=== PATIENT | female | born 1950 | race Caucasian/White ===

== ENCOUNTER 2023-05-05 11:00 | Outpatient (OUT) | payer MEDICARE, SELFPAY ==
--- NOTE | 2023-05-05 15:10 | CONS_ITS ---
CONSULTATION DATE: ??05/05/2023 TO:? Gideon Wright D.O. HISTORY:? Patient presents today complaining of 5-7/10 pain in her lower back, occurring mainly on the right side, described as sharp pain, increased with activities such as standing, walking and performing transitioning maneuvers.? She reports this pain started approximately two years ago, shortly after starting cardiac rehab.? She feels most comfortable in the semi-recumbent position.? She denied any change in bowel and bladder habits or new sensorimotor change in the lower extremities. EXAM:? Notable for patient having no clinical radiculopathy or myelopathy involving the lower extremities.? Patient did have severe pain with lumbar facet loading maneuvers on the right side from L4 through S1 with associated myofascial spasm of the lumbar paravertebral muscles. IMPRESSION:? Our impression is patient appears to have chronic pain secondary to lumbosacral spondylosis with facet joint loading pain clinically.? RECOMMENDATIONS:? I have recommended diagnostic right sided L4-5, L5-S1 facet joint injection under fluoroscopic guidance.? I have placed her on baclofen 10 mg pills, half to one pill b.i.d. as tolerated.? I have also initiated aquatic therapy.? I have gone over the details of the procedure with the patient.? All her questions answered.? She agrees to proceed with the outline plan. As part of providing excellent, safe, comprehensive care, the following was completed at our patient's visit: 1. A medication reconciliation and review to ensure accurate knowledge of current/active medications, including asking our patients to inform us about any yhra-[id number] medications or herbal remedies/nutritional supplements/alternative remedies. 2. A review to specifically ensure our patients have had annual screening for: elevated body mass index (BMI, see intake chart for exact total), tobacco use, screening for depression, and screening for unhealthy alcohol use.? When screening is concerning, patients are provided with education and the specific recommendation to discuss the concerning health issue and treatment options with their primary care provider. LIDIA
== END 2023-05-05 11:01 | disposition home or self-care (01) ==
LOC: PM 11:01
PROVIDERS: PCP Internal Medicine; Visit Provider Anesthesiology Pain Medicine
DX: M47.817 Spondylosis without myelopathy or radiculopathy, lumbosacral region (principal); G89.29 Other chronic pain
CPT/HCPCS: G0463

== ENCOUNTER 2023-05-31 09:07 | Day surgery (SDC) | payer MEDICARE, SELFPAY ==
[2023-05-31 09:17] VITALS: BP 140/82; PULSE 78; RESP 16; TEMP 36.3; O2SAT 97
[2023-05-31 10:24] VITALS: BP 142/91; RESP 20
[2023-05-31] MEDS: BUPIVACAINE HCL 0.25% PF 25 MG/10 ML VIAL 4 ML INJ (10:24)
[2023-05-31 10:25] VITALS: PULSE 70; PULSE 74; O2SAT 95
[2023-05-31 10:26] VITALS: BP 173/96
--- NOTE | 2023-05-31 10:37 | P.ON_ITS ---
Date of procedure: 05/31/23 Pre-op diagnosis: Lumbar Spondylosis Post-op diagnosis: same Procedure: Right Lumbar L5, S1 facet injection Under fluoroscopic guidance Solution injected: 2millilitersMarcaine 0.25% Anesthesia :none Immediate complications none Time out process compliant After informed consent obtained from the patient placed in the Prone proposition . area was prepped and draped in a sterile fashion using betadine. 25 gauge spinal needle inserted over each of the above mentioned target areas . [place] were directed towards the target under fluoroscopic guidance . after encountering each of the targets , no indication of intravascular intraneuronal or intrathecal needle tip placement. Then 0 .5 to 1 Milliliter was injected at each level. [place] removed postoperatively. patient transferred to recovery in stable condition to be discharged home after meeting criteria Surgeon: Mookie Olmos
== END 2023-05-31 10:31 | disposition home or self-care (01) ==
PROVIDERS: PCP Internal Medicine; Visit Provider Anesthesiology Pain Medicine
DX: M47.816 Spondylosis without myelopathy or radiculopathy, lumbar region (principal)
CPT/HCPCS: 64493; 64494

== ENCOUNTER 2023-06-10 10:49 | Outpatient (OUT) | payer MEDICARE, SELFPAY ==
--- NOTE | 2023-06-10 11:32 | PM.CN ---
Consult Note: HPI Data of Consult Patient: known to practice within the last 3 years Consult date: 06/10/23 Requesting Physician: Usha Ware NP Primary Care Provider: Gideon Wright DO Consult Narrative Narrative: Yasmin is here for f/u of initial dx MBB lumbar right L4/5, L5/S1 done 05/31/23. She recieved 90% relief of pain and increased fx after procedure. She would like to proceed with second dx MBB of same region and ultimately thermal RFA. No adverse medication SE. Medication regimen assists patient to better perform ADLs. No new sensorimotor sx or bowel or bladder issues. cc:: CC: Usha Ware NP Review of Systems ROS Status of ROS 10 or more systems reviewed and unremarkable except as noted in history and below Musculoskeletal Reports: back pain PFSH PFSH Medical History (Updated 06/10/23 @ 11:37 by SERENITY HDZ NP) Surgical History Meds Home Medications and Allergies Home Medications Medication Instructions Recorded Confirmed Type ascorbate calcium (vitamin C) 500 500 mg PO DAILY 05/13/23 05/31/23 History mg tablet aspirin 81 mg tablet,delayed 81 mg PO DAILY 05/13/23 05/31/23 History release atorvastatin 40 mg tablet 40 mg PO DAILY 05/13/23 05/31/23 History calcium carbonate 600 mg-vitamin tab PO 05/13/23 History D3 10 mcg (400 unit) chewable tablet (Calcium 600 with Vitamin D3) cholecalciferol (vitamin D3) 50 50 mcg PO DAILY 05/13/23 05/31/23 History mcg (2,000 unit) capsule loratadine 10 mg tablet (Claritin) 10 mg PO DAILY 05/13/23 05/31/23 History metoprolol succinate 50 mg 50 mg PO DAILY 05/13/23 05/31/23 History tablet,extended release 24 hr prevegen PO DAILY 05/13/23 History vitamin B complex 1 tab PO DAILY 05/13/23 05/31/23 History vitamin E (dl, acetate) 180 mg 180 mg PO DAILY 05/13/23 05/31/23 History (400 unit) capsule baclofen 10 mg tablet mg 05/31/23 History Allergies Allergy/AdvReac Type Severity Reaction Status Date / Time codeine Allergy Unknown Verified 05/31/23 09:23 meperidine [From Demerol] Allergy Unknown Verified 05/31/23 09:23 scallops Allergy Unknown Verified 05/31/23 09:23 Exam Constitutional Documenting provider has reviewed patient's vital signs: yes Common normals: no apparent distress, average body habitus, oriented x3, no limitations, healthy appearing, alert and well nourished General appearance: cooperative, comfortable and well developed Orientation/consciousness: Yes awake, Yes oriented to person, Yes oriented to place and Yes oriented to time HENMT Common normals: normocephalic and moist oral mucous membranes Respiratory Common normals: normal respiratory effort, no retractions and no use of accessory muscles Effort & inspection: able to speak in complete sentences and symmetric chest movement Back & Pelvis Lumbar spine/lower back: normal to inspection, ROM limited, pain with ROM, paraspinal muscle tenderness and paraspinal muscle spasm Other: positive facet load pain right lumbar no radiculopathy muscle strength 4/5 bilat with intact sensation LE Assessment and Plan Assessment and Plan (1) Lumbar spondylosis: (2) Muscle spasm: Plan schedule second dx lumbar right MBB L4/5, L5/S1
== END 2023-06-10 10:50 | disposition home or self-care (01) ==
LOC: PM 10:59
PROVIDERS: PCP Internal Medicine; Visit Provider Nurse Practitioner
DX: M47.816 Spondylosis without myelopathy or radiculopathy, lumbar region (principal); M62.838 Other muscle spasm
CPT/HCPCS: G0463

== ENCOUNTER 2023-06-23 07:54 | Day surgery (SDC) | payer MEDICARE, SELFPAY ==
[2023-06-23 08:40] VITALS: BP 189/87; PULSE 56; RESP 16; TEMP 36.3; O2SAT 97
[2023-06-23 09:21] VITALS: RESP 20
[2023-06-23] MEDS: BUPIVACAINE HCL 0.25% PF 25 MG/10 ML VIAL 4 ML INJ (09:22)
[2023-06-23 09:23] VITALS: BP 218/95; PULSE 66; O2SAT 97
[2023-06-23 09:24] VITALS: BP 224/97; PULSE 71; O2SAT 95
--- NOTE | 2023-06-23 11:24 | W.PM.PROCNOT ---
Date of procedure: 06/23/23 Pre-op diagnosis: lumbar spondylosis Post-op diagnosis: same as pre-op Procedure: Right lumbar 4/5, 5/sacral 1 medial branch block Under fluoroscopic guidance Solution injected: 2millilitersMarcaine 0.25% Anesthesia :none Immediate complications none Time out process compliant After informed consent obtained from the patient placed in the Prone proposition . area was prepped and draped in a sterile fashion using Cloraprep .25 gauge spinal needle inserted over each of the above mentioned target areas . [place] were directed towards the target under fluoroscopic guidance . after encountering each of the targets , no indication of intravascular intraneuronal or intrathecal needle tip placement. Then 0 .5 to 1 Milliliter was injected at each level. [place] removed postoperatively. patient transferred to recovery in stable condition to be discharged home after meeting criteria Anesthesia: Local Surgeon: Mookie Olmos Condition: stable
== END 2023-06-23 09:28 | disposition home or self-care (01) ==
PROVIDERS: PCP Internal Medicine; Visit Provider Anesthesiology Pain Medicine
DX: M47.816 Spondylosis without myelopathy or radiculopathy, lumbar region (principal)
CPT/HCPCS: 64493; 64494

== ENCOUNTER 2023-07-06 10:10 | Outpatient (OUT) | payer MEDICARE, SELFPAY ==
--- NOTE | 2023-07-06 10:27 | PM.CN ---
Consult Note: HPI Data of Consult Patient: known to practice within the last 3 years Requesting Physician: Usha Ware NP Primary Care Provider: Gideon Wright DO Consult Narrative Reason for consult: MBB #2 right L4/5 L5/S1 f/u Narrative: Yasmin Ortiz a pleasant 72 year old female presents for follow up of chronic low back pain and to discuss recent procedure. Patient reports 90% pain relief and improvement in functional ability immediately following and hours after right L4/5 L5/S1 MBB. Patient would like to discuss and proceed with thermal RFA. cc:: CC: Usha Ware NP Review of Systems ROS Status of ROS 10 or more systems reviewed and unremarkable except as noted in history and below Musculoskeletal Reports: back pain PFSH PFSH Medical History Surgical History Meds Home Medications and Allergies Home Medications Medication Instructions Recorded Confirmed Type ascorbate calcium (vitamin C) 500 500 mg PO DAILY 05/13/23 06/23/23 History mg tablet aspirin 81 mg tablet,delayed 81 mg PO DAILY 05/13/23 06/23/23 History release atorvastatin 40 mg tablet 40 mg PO DAILY 05/13/23 06/23/23 History calcium carbonate 600 mg-vitamin tab PO 05/13/23 History D3 10 mcg (400 unit) chewable tablet (Calcium 600 with Vitamin D3) cholecalciferol (vitamin D3) 50 50 mcg PO DAILY 05/13/23 06/23/23 History mcg (2,000 unit) capsule loratadine 10 mg tablet (Claritin) 10 mg PO DAILY 05/13/23 06/23/23 History metoprolol succinate 50 mg 50 mg PO DAILY 05/13/23 06/23/23 History tablet,extended release 24 hr prevegen PO DAILY 05/13/23 History vitamin B complex 1 tab PO DAILY 05/13/23 06/23/23 History vitamin E (dl, acetate) 180 mg 180 mg PO DAILY 05/13/23 06/23/23 History (400 unit) capsule baclofen 10 mg tablet mg 05/31/23 History Allergies Allergy/AdvReac Type Severity Reaction Status Date / Time codeine Allergy Unknown Verified 06/23/23 08:39 meperidine [From Demerol] Allergy Unknown Verified 06/23/23 08:39 scallops Allergy Unknown Verified 06/23/23 08:39 Exam Narrative Exam Narrative: continues to have predominately axial low back pain, today 12/24 no radiculopathy Constitutional Documenting provider has reviewed patient's vital signs: yes Common normals: no apparent distress, oriented x3, healthy appearing, alert and well nourished General appearance: cooperative HENMT Common normals: normocephalic, hearing grossly normal bilaterally and moist oral mucous membranes Head and scalp: normocephalic Eye Common normals: PERRL Pupil: PERRL Neck & C-Spine Common normals: full ROM General: normal visual inspection Chest Common normals: inspection of chest normal Respiratory Common normals: normal respiratory effort, no retractions and no use of accessory muscles Back & Pelvis Thoracic spine/upper back: normal to inspection and thoracic ROM normal Lumbar spine/lower back: normal to inspection, ROM limited and pain with ROM Extremity Common normals: normal to inspection and full ROM Neuro Common normals: oriented x3, CN's II-XII intact bilaterally, moves all extremities, no focal motor deficits, no sensory deficits noted and deep tendon reflexes 2+ bilaterally Sensorium/orientation: alert Motor exam: strength 5/5 throughout and no movement abnormalities noted Psych Common normals: mental status grossly normal, thought process normal, cooperative, affect normal, speech normal and activity/motor behavior normal Speech: normal speech Thought process: normal thought process Results Additional Findings Additional findings: I have checked an OARRS report on this patient today and there are no aberrancies noted in the prescribing history.?? A drug screen was completed and reviewed within the last year, and if there has not been a drug screen completed we ordered one today to monitor higher risk, state monitored pain medication use. As part of providing excellent, safe, comprehensive care, the following was completed at our patient's visit: 1. A medication reconciliation and review to ensure accurate knowledge of current/active medications, including asking our patients to inform us about any [id number] medications or herbal remedies/nutritional supplements/alternative remedies. 2. A review to specifically ensure our patients have had annual screening for: elevated body mass index (BMI), tobacco use, screening for depression, and screening for unhealthy alcohol use. When screening is concerning, patients are provided with education and the specific recommendation to discuss the concerning health issue and treatment options with their primary care provider. Assessment and Plan Assessment and Plan (1) Lumbar spondylosis: (2) Muscle spasm: Plan proceed with right L4/5 L5/S1 thermal RFA without sedation continue tylenol 650mg PRN pain continue baclofen 10mg BID muscle spasms f/u 1 month after
== END 2023-07-06 10:11 | disposition home or self-care (01) ==
LOC: PM 10:11
PROVIDERS: PCP Internal Medicine; Visit Provider Nurse Practitioner
DX: M47.816 Spondylosis without myelopathy or radiculopathy, lumbar region (principal); M62.838 Other muscle spasm
CPT/HCPCS: G0463

== ENCOUNTER 2023-08-02 09:26 | Day surgery (SDC) | payer MEDICARE, SELFPAY ==
[2023-08-02 10:16] VITALS: BP 164/78; PULSE 52; RESP 16; TEMP 36.2; O2SAT 95
[2023-08-02 11:02] VITALS: RESP 20
[2023-08-02 11:08] VITALS: BP 217/104; PULSE 71; O2SAT 94
[2023-08-02] MEDS: BUPIVACAINE HCL 0.25% PF 25 MG/10 ML VIAL 4 ML INJ (11:08)
[2023-08-02] MEDS: METHYLPREDNISOLONE ACETATE 40 MG/ML VIAL INJ (11:09)
[2023-08-02] MEDS: LIDOCAINE HCL 2% 400 MG/20 ML MDV 8 ML INJ (11:09)
[2023-08-02 11:16] VITALS: BP 197/83; PULSE 68; O2SAT 97
--- NOTE | 2023-08-02 11:21 | PC.NURSE ---
[employer] rep present for pacer/defib. Pacer interrogated by rep and results placed on chart.
--- NOTE | 2023-08-02 11:31 | W.PM.PROCNOT ---
Date of procedure: 08/02/23 Pre-op diagnosis: Lumbar Spondylosis Post-op diagnosis: same as pre-op Procedure: Right Lumbar 4/5, 5/S1 Radiofrequency ablation Under fluoroscopic guidance Rhizotomy was created using radio frequency ablation at 80?C for 90 seconds 1 to 2 lesions created at each site. Post lesioning injection of 2 mL each of 0.25% Marcaine and 2% lidocaine with Depo-Medrol 40mg. 0.5 to 1 mL injected at each site Anesthesia local 2% lidocaine for Timeout process compliant After informed consent obtained.Patient brought to the procedure room placed in the prone position skin overlying the area was prepped and draped in a sterile fashion using betadine. 25 gauge needle was used to create a skin wheal over each of the targeted areas utilizing 2% lidocaine. A rhizotomy needle with a 10 mm active tip was inserted over each of the anesthetized areas and directed towards each of the medial branches accomplished under fluoroscopic guidance. after encountering the same we had positive sensory stimulation, negative motor stimulation was noted. lesions were then created. Post lesioning, steroid solution was injected needles removed. Patient was transferred to recovery room in stable condition to be discharged home after meeting criteria. Anesthesia: Local Surgeon: Mookie Olmos Condition: stable
== END 2023-08-02 11:22 | disposition home or self-care (01) ==
LOC: SURGOUT 09:27
PROVIDERS: PCP Internal Medicine; Visit Provider Anesthesiology Pain Medicine
DX: M47.816 Spondylosis without myelopathy or radiculopathy, lumbar region (principal)
CPT/HCPCS: 64635; 64636; J1030

== ENCOUNTER 2023-09-01 10:26 | Outpatient (OUT) | payer MEDICARE, SELFPAY ==
--- NOTE | 2023-09-01 11:06 | PM.CN ---
Consult Note: HPI Data of Consult Patient: known to practice within the last 3 years Requesting Physician: Usha Ware NP Primary Care Provider: Gideon Wright DO Consult Narrative Reason for consult: f/u Narrative: Yasmin michael pleasant 72 year old female presents for evaluation and management of chronic low back pain. Today rating pain 1/10. Patient reports 100% ongoing pain relief from L4-5 L5-S1. Patient has not needed baclofen PRN. cc:: CC: Usha Ware NP Review of Systems ROS Status of ROS 10 or more systems reviewed and unremarkable except as noted in history and below Musculoskeletal Reports: back pain PFSH PFSH Medical History Congenital heart disease ?Q24.9 - Congenital malformation of heart, unspecified (ICD-10) Former smoker ?Z87.891 - Personal history of nicotine dependence (ICD-10) Hearing deficit ?H91.90 - Unspecified hearing loss, unspecified ear (ICD-10) High cholesterol ?E78.00 - Pure hypercholesterolemia, unspecified (ICD-10) Loud snoring ?R06.83 - Snoring (ICD-10) Low back pain ?M54.50 - Low back pain, unspecified (ICD-10) Presence of combination internal cardiac defibrillator (ICD) and pacemaker ?Z95.810 - Presence of automatic (implantable) cardiac defibrillator (ICD-10) Surgical History H/O arthroscopic knee surgery ?Z98.890 - Other specified postprocedural states (ICD-10) H/O ventricular septal myectomy ?Z98.890 - Other specified postprocedural states (ICD-10) H/O: hysterectomy ?Z90.710 - Acquired absence of both cervix and uterus (ICD-10) Meds Home Medications and Allergies Home Medications Medication Instructions Recorded Confirmed Type ascorbate calcium (vitamin C) 500 500 mg PO DAILY 05/13/23 08/02/23 History mg tablet aspirin 81 mg tablet,delayed 81 mg PO DAILY 05/13/23 08/02/23 History release atorvastatin 40 mg tablet 40 mg PO DAILY 05/13/23 08/02/23 History calcium carbonate 600 mg-vitamin tab PO 05/13/23 History D3 10 mcg (400 unit) chewable tablet (Calcium 600 with Vitamin D3) cholecalciferol (vitamin D3) 50 50 mcg PO DAILY 05/13/23 08/02/23 History mcg (2,000 unit) capsule loratadine 10 mg tablet (Claritin) 10 mg PO DAILY 05/13/23 08/02/23 History metoprolol succinate 50 mg 50 mg PO DAILY 05/13/23 08/02/23 History tablet,extended release 24 hr prevegen PO DAILY 05/13/23 History vitamin B complex 1 tab PO DAILY 05/13/23 08/02/23 History vitamin E (dl, acetate) 180 mg 180 mg PO DAILY 05/13/23 08/02/23 History (400 unit) capsule baclofen 10 mg tablet mg 05/31/23 History acetaminophen 325 mg tablet 650 mg PO .q8hrs PRN pain 08/02/23 08/02/23 History (Tactinal) Allergies Allergy/AdvReac Type Severity Reaction Status Date / Time codeine Allergy Unknown Verified 08/02/23 10:19 meperidine [From Demerol] Allergy Unknown Verified 08/02/23 10:19 scallops Allergy Unknown Verified 08/02/23 10:19 Exam Constitutional Documenting provider has reviewed patient's vital signs: yes Common normals: no apparent distress, oriented x3, healthy appearing, alert and well nourished General appearance: cooperative HENMT Common normals: normocephalic, hearing grossly normal bilaterally and moist oral mucous membranes Head and scalp: normocephalic Eye Common normals: PERRL Pupil: PERRL Neck & C-Spine Common normals: full ROM General: normal visual inspection Chest Common normals: inspection of chest normal Respiratory Common normals: normal respiratory effort, no retractions and no use of accessory muscles Back & Pelvis Thoracic spine/upper back: normal to inspection and thoracic ROM normal Lumbar spine/lower back: normal to inspection, ROM limited and pain with ROM Extremity Common normals: normal to inspection and full ROM Neuro Common normals: oriented x3, CN's II-XII intact bilaterally, moves all extremities, no focal motor deficits, no sensory deficits noted and deep tendon reflexes 2+ bilaterally Sensorium/orientation: alert Motor exam: strength 5/5 throughout and no movement abnormalities noted Psych Common normals: mental status grossly normal, thought process normal, cooperative, affect normal, speech normal and activity/motor behavior normal Speech: normal speech Thought process: normal thought process Results Additional Findings Additional findings: I have checked an OARRS report on this patient today and there are no aberrancies noted in the prescribing history.?? A drug screen was completed and reviewed within the last year, and if there has not been a drug screen completed we ordered one today to monitor higher risk, state monitored pain medication use. As part of providing excellent, safe, comprehensive care, the following was completed at our patient's visit: 1. A medication reconciliation and review to ensure accurate knowledge of current/active medications, including asking our patients to inform us about any nuoq-cew-dasoeuc medications or herbal remedies/nutritional supplements/alternative remedies. 2. A review to specifically ensure our patients have had annual screening for: elevated body mass index (BMI), tobacco use, screening for depression, and screening for unhealthy alcohol use. When screening is concerning, patients are provided with education and the specific recommendation to discuss the concerning health issue and treatment options with their primary care provider. Assessment and Plan Assessment and Plan (1) Lumbar spondylosis: (2) Muscle spasm: Plan f/u 6 months, sooner if needed
== END 2023-09-01 10:27 | disposition home or self-care (01) ==
LOC: PM 10:27
PROVIDERS: PCP Internal Medicine; Visit Provider Nurse Practitioner
DX: M47.896 Other spondylosis, lumbar region (principal); R25.2 Cramp and spasm
CPT/HCPCS: G0463

== ENCOUNTER 2023-09-13 17:09 | Emergency (ER) | payer MEDICARE, SELFPAY ==
[2023-09-13 17:30] VITALS: BP 156/84; PULSE 73; RESP 16; TEMP 36.9; O2SAT 98; BMI 28.3
--- NOTE | 2023-09-13 17:40 | ED.FEMALEGU1 ---
HPI - Female Genitourinary General Chief complaint: Urogenital-Female Stated complaint: UTI Time Seen by Provider: 09/13/23 17:29 Source: patient Mode of arrival: walk-in Limitations: no limitations History of Present Illness HPI Narrative: 72-year-old female presents for dysuria and urgency. She states that she has had symptoms for 2 weeks. She had symptoms for 2 days, 2 weeks ago and her family doctor started her on Keflex. She followed up with Dr. Dee, urology and gave a another urine sample today and then she was called and told to come to the ER. She asked for more information, but they would not provide her any more information other than to come to the ER. She states that she had a fever yesterday of 101 ?F with chills last night. She did not take any Tylenol Motrin today. Denies abd or back pain, n/v/d Related Data Home Medications Medication Instructions Recorded Confirmed ascorbate calcium (vitamin C) 500 500 mg PO DAILY 05/13/23 08/02/23 mg tablet aspirin 81 mg tablet,delayed 81 mg PO DAILY 05/13/23 08/02/23 release atorvastatin 40 mg tablet 40 mg PO DAILY 05/13/23 08/02/23 calcium carbonate 600 mg-vitamin tab PO 05/13/23 D3 10 mcg (400 unit) chewable tablet (Calcium 600 with Vitamin D3) cholecalciferol (vitamin D3) 50 50 mcg PO DAILY 05/13/23 08/02/23 mcg (2,000 unit) capsule loratadine 10 mg tablet (Claritin) 10 mg PO DAILY 05/13/23 08/02/23 metoprolol succinate 50 mg 50 mg PO DAILY 05/13/23 08/02/23 tablet,extended release 24 hr prevegen PO DAILY 05/13/23 vitamin B complex 1 tab PO DAILY 05/13/23 08/02/23 vitamin E (dl, acetate) 180 mg 180 mg PO DAILY 05/13/23 08/02/23 (400 unit) capsule baclofen 10 mg tablet mg 05/31/23 acetaminophen 325 mg tablet 650 mg PO .q8hrs PRN pain 08/02/23 08/02/23 (Tactinal) Allergies Allergy/AdvReac Type Severity Reaction Status Date / Time codeine Allergy Unknown Verified 09/13/23 17:30 meperidine [From Demerol] Allergy Unknown Verified 09/13/23 17:30 scallops Allergy Unknown Verified 09/13/23 17:30 Review of Systems ROS Status of ROS 10 or more systems reviewed and unremarkable except as noted in history and below [facility] Medical History Congenital heart disease ?Q24.9 - Congenital malformation of heart, unspecified (ICD-10) Former smoker ?Z87.891 - Personal history of nicotine dependence (ICD-10) Hearing deficit ?H91.90 - Unspecified hearing loss, unspecified ear (ICD-10) High cholesterol ?E78.00 - Pure hypercholesterolemia, unspecified (ICD-10) Loud snoring ?R06.83 - Snoring (ICD-10) Low back pain ?M54.50 - Low back pain, unspecified (ICD-10) Presence of combination internal cardiac defibrillator (ICD) and pacemaker ?Z95.810 - Presence of automatic (implantable) cardiac defibrillator (ICD-10) Surgical History H/O arthroscopic knee surgery ?Z98.890 - Other specified postprocedural states (ICD-10) H/O ventricular septal myectomy ?Z98.890 - Other specified postprocedural states (ICD-10) H/O: hysterectomy ?Z90.710 - Acquired absence of both cervix and uterus (ICD-10) Exam Narrative Exam Narrative: General: alert, no distress, talking in full an complete sentences skin: warm, dry, intact head: normocephalic, atraumatic eyes: EOMI nose: nares patent neck: supple, trachea midline respiratory: non-labored extremities: FROM x 4, strength +5/5 abd: soft, NT, no guarding or rigidity, no peritoneal signs, normal BS spine: NT, normal ROM, no step offs neuro: A&Ox3 psych: appropriate mood and affect, cooperative Constitutional Vital Signs, click to edit/add: Last Vital Signs Temp 98.5 F 09/13/23 17:30 Pulse 73 09/13/23 17:30 Resp 16 09/13/23 17:30 BP 156/84 H 09/13/23 17:30 Pulse Ox 98 09/13/23 17:30 O2 Del Method Room Air 09/13/23 17:30 Course Vital Signs Vital signs: Vital Signs Temperature 98.5 F 09/13/23 17:30 Pulse Rate 73 09/13/23 17:30 Respiratory Rate 16 09/13/23 17:30 Blood Pressure 156/84 H 09/13/23 17:30 Pulse Oximetry 98 09/13/23 17:30 Oxygen Delivery Method Room Air 09/13/23 17:30 Temperature 98.5 F 09/13/23 17:30 Pulse Rate 73 09/13/23 17:30 Respiratory Rate 16 09/13/23 17:30 Blood Pressure 156/84 H 09/13/23 17:30 Pulse Oximetry 98 09/13/23 17:30 Oxygen Delivery Method Room Air 09/13/23 17:30 MDM - Female Genitourinary MDM Narrative Medical decision making narrative: UA has a small amount of blood, trace leukocytes, WBCs and few epithelial cells. No convincing UTI. Prelim x-ray shows moderate amount of gas with stool will be given a dose of lactulose. Possibly this is causing her symptoms. COVID-negative. Possibly viral illness causing the chills last night. F/u with PCP. afebrile, not tachypneic, not tachycardic, tolerating p.o., not hypoxic, non toxic appearing and ambulating at baseline and hemodynamically stable to be d/c. answered all questions. pt in agreement with tx. educated when to return to ER. Lab Data Attestation: I reviewed the patient's lab results. Labs: Lab Results 09/13/23 09/13/23 Range/Units 17:43 19:15 Urine Color Yellow (YELLOW) Urine Clarity Slightly cloudy A (CLEAR) Urine pH 6.5 (5.0-9.0) Ur Specific [place] <=1.005 A (1.005-1.025) Urine Protein Negative (NEG/TRACE) mg/dL Urine Glucose (UA) Negative (NEGATIVE) mg/dL Urine Ketones Negative (NEGATIVE) mg/dL Urine Occult Blood Small A (NEGATIVE) Urine Nitrite Negative (NEGATIVE) Urine Bilirubin Negative (NEGATIVE) Urine Urobilinogen 0.2 (0.2-1.0) EU/dL Ur Leukocyte Esterase Trace A (NEGATIVE) Urine RBC 0-2 (0-2) #/HPF Urine WBC 0-2 A (NONE SEEN) #/HPF Ur Squamous Epith Cells Few A (NONE/RARE) #/LPF Urine Crystals None seen (None Seen) #/HPF Urine Bacteria None seen (NONE SEEN) #/HPF Urine Casts None seen (NONE SEEN) #/LPF Urine Mucus None seen (NONE SEEN) Ur Culture Indicated? No SARS-CoV-2 (PCR) Negative (NEGATIVE) Discharge Plan Discharge Chief Complaint: Urogenital-Female Clinical Impression: Dysuria, Viral illness Patient Disposition: Home, Self-Care Time of Disposition Decision: 19:39 Condition: Good Mode of Transportation: Private Vehicle Prescriptions / Home Meds: No Action metoprolol succinate 50 mg tablet extended release 24 hr 50 mg PO DAILY atorvastatin 40 mg tablet 40 mg PO DAILY prevegen tablet PO DAILY loratadine [Claritin] 10 mg tablet 10 mg PO DAILY ascorbate calcium (vitamin C) 500 mg tablet 500 mg PO DAILY Calcium 600 with Vitamin D3 600 mg-10 mcg (400 unit) tablet,chewable PO vitamin E (dl, acetate) 180 mg (400 unit) capsule 180 mg PO DAILY cholecalciferol (vitamin D3) 50 mcg (2,000 unit) capsule 50 mcg PO DAILY vitamin B complex Tablet 1 tab PO DAILY aspirin 81 mg tablet,delayed release (DR/EC) 81 mg PO DAILY acetaminophen [Tactinal] 325 mg tablet 650 mg PO .q8hrs PRN (Reason: pain) baclofen 10 mg tablet Instructions: Viral Syndrome (ED), Dysuria (ED) Stand Alone Forms: Portal Instructions Referrals: Gideon Wright DO [Primary Care Provider] - 1 week
[2023-09-13 17:53] LABS: Bilirubin Urine NEGATIVE (NEGATIVE); Blood Urine SMALL (NEGATIVE); Color Urine YELLOW (YELLOW); Glucose Urine UA NEGATIVE (NEGATIVE); Ketones Urine NEGATIVE (NEGATIVE); Leukocyte Esterase Urine TRACE (NEGATIVE); Nitrite Urine NEGATIVE (NEGATIVE); Protein Urine NEGATIVE (NEG/TRACE); Specific Gravity Urine <=1.005 (1.005-1.025); Urobilinogen Urine 0.2 EU/dL (0.2-1.0); pH Urine 6.5 (5.0-9.0)
[2023-09-13 17:54] LABS: Clarity Urine SLIGHTLY CLOUDY (CLEAR)
[2023-09-13 17:59] LABS: Bacteria Urine NONE SEEN #/HPF (NONE SEEN); Mucus Urine NONE SEEN (NONE SEEN); RBC Urine 0-2 #/HPF (0-2); WBC Urine 0-2 #/HPF (NONE SEEN)
[2023-09-13 18:00] LABS: Cast Seen? NONE SEEN #/LPF (NONE SEEN); Crystals Seen? None Seen #/HPF (None Seen); Squamous Epithelial Cell Urine FEW #/LPF (NONE/RARE); Urine Culture Indicated NO
--- NOTE | 2023-09-13 18:10 | XR_ITS ---
The [address] [address] Patient Name: MECCA FUENTES MRN: [id number] date: 1950 Sex: F Assigned Patient Location: ER Current Patient Location: ER Accession/Order Number: [id number] Exam Date: 09/13/2023 18:45 Report Date: 09/13/2023 19:17 At the request of: KAVIN DUMONT Procedure: XR abdomen 1V EXAM: XR abdomen 1V HISTORY: r/o constipation COMPARISON: None. TECHNIQUE: Single view FINDINGS: Bowel gas pattern is nonobstructed. Stool burden is normal. No free intraperitoneal air or intra-abdominal calcification. The osseous structures are unremarkable for patient's age XR/XR abdomen 1V IMPRESSION: No visualized abnormality Electronically authenticated by: GENEVIEVE KENT Date: 09/13/2023 19:17
[2023-09-13 19:31] LABS: SARS-CoV-2 Ag NEGATIVE (NEGATIVE)
[2023-09-13] MEDS: LACTULOSE 10 GM/15 ML UD CUP 20 GM PO (19:43)
[2023-09-15 15:23] LABS: SARS-CoV-2 NAA NOT DETECTED (NOT DETECTE)
== END 2023-09-13 19:49 | disposition home or self-care (01) ==
PROVIDERS: Physician Assistant; Emergency Provider Emergency Medicine; PCP Internal Medicine
DX: R30.0 Dysuria (principal); B34.9 Viral infection, unspecified; Z79.82 Long term (current) use of aspirin; Z79.899 Other long term (current) drug therapy; Q24.9 Congenital malformation of heart, unspecified; Z87.891 Personal history of nicotine dependence; H91.90 Unspecified hearing loss, unspecified ear; E78.00 Pure hypercholesterolemia, unspecified; Z95.810 Presence of automatic (implantable) cardiac defibrillator; Z90.710 Acquired absence of both cervix and uterus; Z98.890 Other specified postprocedural states; Z20.822 Contact with and (suspected) exposure to COVID-19
CPT/HCPCS: 74018; 81001; 87635; 87811; 99285

== ENCOUNTER 2023-10-03 17:58 | Outpatient (REF) | payer MEDICARE, SELFPAY ==
[2023-10-03 23:15] LABS: Basophils Absolute Auto 0.1 10^3/uL (0.0-0.1); Basophils Percent Auto 0.8 % (0.2-2.0); Eosinophils Absolute Auto 0.2 10^3/uL (0.0-0.7); Eosinophils Percent Auto 2.1 % (0.9-7.0); Hematocrit 37.7 % (36.0-48.0); Hemoglobin 12.5 g/dL (12.0-16.0); Immature Granulocytes Abs Auto 0.02 10^3/uL (0.00-0.03); Immature Granulocytes Pct Auto 0.3 % (0.0-0.5); Lymphocytes Absolute Auto 2.8 10^3/uL (1.2-3.8); Lymphocytes Percent Auto 37.8 % (20.5-60.0); Mean Corpuscular HGB Conc 33.2 g/dL (29.9-35.2); Mean Corpuscular Hemoglobin 32.3 pg (26.7-34.0); Mean Corpuscular Volume 97.4 fL (81.0-99.0); Mean Platelet Volume 11.8 fL (9.5-13.5); Monocytes Absolute Auto 0.5 10^3/uL (0.3-0.8); Monocytes Percent Auto 6.7 % (1.7-12.0); Neutrophils Absolute Auto 3.9 10^3/uL (1.4-6.5); Neutrophils Percent Auto 52.3 % (43.0-75.0); Platelet Count 340 10^3/uL (150-450); Red Blood Count 3.87 10^6/uL (4.20-5.40); Red Cell Distribution Width 12.7 % (11.0-15.0); White Blood Count 7.5 10^3/uL (4.0-11.0)
[2023-10-03 23:16] LABS: Estimated GFR (African America >60 (>=60); Estimated GFR (Non-African Ame >60 (>=60)
== END 2023-10-03 17:59 | disposition home or self-care (01) ==
LOC: LAB 17:58
PROVIDERS: PCP Internal Medicine
DX: N15.1 Renal and perinephric abscess (principal)
CPT/HCPCS: 36415; 82565; 85025

== ENCOUNTER 2023-10-10 15:34 | Outpatient (REF) | payer MEDICARE, SELFPAY ==
[2023-10-10 15:52] LABS: Basophils Absolute Auto 0.1 10^3/uL (0.0-0.1); Basophils Percent Auto 0.6 % (0.2-2.0); Eosinophils Absolute Auto 0.2 10^3/uL (0.0-0.7); Hematocrit 38.8 % (36.0-48.0); Hemoglobin 12.9 g/dL (12.0-16.0); Immature Granulocytes Abs Auto 0.02 10^3/uL (0.00-0.03); Immature Granulocytes Pct Auto 0.3 % (0.0-0.5); Lymphocytes Absolute Auto 2.7 10^3/uL (1.2-3.8); Lymphocytes Percent Auto 35.1 % (20.5-60.0); Mean Corpuscular HGB Conc 33.2 g/dL (29.9-35.2); Mean Corpuscular Hemoglobin 32.3 pg (26.7-34.0); Mean Platelet Volume 12.1 fL (9.5-13.5); Monocytes Absolute Auto 0.6 10^3/uL (0.3-0.8); Monocytes Percent Auto 7.6 % (1.7-12.0); Neutrophils Absolute Auto 4.1 10^3/uL (1.4-6.5); Neutrophils Percent Auto 53.4 % (43.0-75.0); Platelet Count 219 10^3/uL (150-450); Red Cell Distribution Width 12.8 % (11.0-15.0); White Blood Count 7.8 10^3/uL (4.0-11.0)
[2023-10-10 15:54] LABS: Estimated GFR (African America >60 (>=60); Estimated GFR (Non-African Ame >60 (>=60)
== END 2023-10-10 15:35 | disposition home or self-care (01) ==
LOC: LAB 15:34
DX: N15.1 Renal and perinephric abscess (principal)
CPT/HCPCS: 36415; 82565; 85025

== ENCOUNTER 2023-12-31 10:35 | Outpatient (OUT) | payer MEDICARE, SELFPAY ==
--- OUTSIDE RECORDS SUMMARY | 2023-12-31 10:39 | XMS_ITS | CCD ---
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 [employer] Novelty Maker Name Role Phone Gideon Adams Primary Care Provider ZAID BARROS Attending Unavailabl e CALIN OBRIEN Consulting Unavailable GIDEON ADAMS Primary Care Unavailable Gideon Adams DO Primary Care Provider [phone] Gideon Adams DO Primary Care Provider GIDEON ADAMS Primary Care Physician Gideon Adams DO Primary Care Provider ANGIE, DR LARSON Primary Care Unavailable BALL, DR LARSON Admitting Unavailable BALL, DR LARSON Attending Unavailable BALL, DR LARSON Primary Care Unavailable REQUEST, DR ROSA LISTED Attending Unavaila ble REQUEST, DR ROSA LISTED Admitting Unavaila ble REQUEST, DR ROSA LISTED Consulting Unavaila ble BALL, DR LARSON Primary Care Unavailable BALL, DR LARSON Admitting Unavailable BALL, DR LARSON Attending Unavailable BALL, DR LARSON Consulting Unavailable WEST, DR GENEVIEVE Saba Consulting Unavailable BROWN, GENEVIEVE Consulting Unavailable BALL, DR LARSON Primary Care Unavailable BALL, DR LARSON Admitting Unavailable BALL, DR LARSON Attending Unavailable BALL, DR LARSON Consulting Unavailable BALL, DR LARSON Primary Care Unavailable BALL, DR LARSON Admitting Unavailable BALL, DR LARSON Attending Unavailable BALL, DR LARSON Consulting Unavailable Ball Gideon CARLOS Primary Care Provider Gideon Adams Unavailable Gideon Adams DO Primary Care Provider [phone] GIDEON ADAMS Primary Care Unavailable BALL, GIDEON Referring Unavailable BALL, GIDEON Referring Unavailable BALL, GIDEON Primary Care Unavailable BALL, GIDEON Primary Care Unavailable BALL, GIDEON Referring Unavailable BALL, GIDEON Primary Care Unavailable BALL, GIDEON Referring Unavailable BALL, GIDEON Primary Care Unavailable BALL, GIDEON Referring Unavailable BALL, GIDEON Primary Care Unavailable BALL, GIDEON Referring Unavailable BALL, GIDEON Primary Care Unavailable BALL, GIDEON Referring Unavailable BALL, GIDEON Primary Care Unavailable BALL, GIDEON Referring Unavailable MENDY, CHELITA Auguste Attending Unavailable MENDY, CHELITA Auguste Admitting Unavailable Gary Oro Admitting Unavailable Gary Oro Attending Unavailable Montana HAWKINS Attending Unavailable MENDY, CHELITA Auguste Attending Unavailable MENDY, CHELITA E Attending Unavailable MENDY, CHELITA E Attending Unavailable MENDY, CHELITA E Attending Unavailable MENDY, CHELITA E Admitting Unavailable MENDY, CHELITA E Attending Unavailable BALL, GIDEON E Primary Care Unavailable ANDREA, ALIN S Referring Unavailable TURK, SHAINA Admitting Unavailable BALL, GIDEON E Primary Care Unavailable ALEKSANDR TAFOYA Attending Unavailable BALL, GIDEON E Primary Care Unavailable HEATHER ROJAS Attending Unavailable DRESINBRIDGER Alvarenga Referring Unavailable BALL, GIDEON E Primary Care Unavailable DRESINBRIDGER Alvarenga Referring Unavailable BALL, GIDEON E Primary Care Unavailable DRESINBRIDGER Alvarenga Attending Unavailable HSIA, SHABNAM T Attending Unavailable HSIA, SHABNAM T Referring Unavailable BALL, GIDEON E Primary Care Unavailable DANNIELLE, MATILDE Referring Unavailable BALL, GIDEON E Primary Care Unavailable DANNIELLE, MATILDE Attending Unavailable BALL, GIDEON E Primary Care Unavailable BALL, IGDEON E Primary Care Unavailable Allergies Allergy Classification Reported Allergen(s) Allergy Type Date of Onset Reaction(s) Facility (20 sources) Codeine; Translations: [codeine] Drug Allergy 3 Nausea And Vomiting, Nausea (finding), Vomiting [place], [place] (20 sources) Meperidine; Translations: [meperidine] Drug Allergy 3 Nausea And Vomiting, Nausea (finding), Vomiting [place], [place] (10 sources) Ciprofloxacin; Translations: [ciprofloxacin] Drug Allergy Alteration in heart rate (finding) [facility] (9 sources) Seafood 1 Food allergy Diarrhea (finding), Vomiting (disorder) [facility] Comment on above: SCALLOPS (20 sources) scallop allergenic extract; Translations: [SCALLOPS] Drug Allergy 0 Other: See Comments [facility] (7 sources) Meperidine; Translations: [Demerol] Drug Allergy Unknown [facility] (1 source) Seafood; Translations: [Seafood] Food allergy (disorder) [facility] Medications Current Medications Medication Drug Class(es) Dates Sig (Normalized) Sig (Original) acetaminophen 325 mg oral tablet (12 sources) take 2 tablets by mouth every six hours as needed for pain acetaminophen (TYLENOL) 325 MG tablet Take 650 mg by mouth every 6 hours as needed for Pain 0 Active acetaminophen 500 mg / diphenhydrAMINE hydrochloride 25 mg oral tablet (1 source) Histamine-1 Receptor Antagonist take 1 tablet by mouth every twenty-four hours apixaban 5 mg oral tablet (12 sources) Factor Xa Inhibitor apixaban (ELIQUIS) 5 MG TABS tablet Take by mouth 2 times daily 0 Active ascorbic acid 500 mg chewable tablet (13 sources) Vitamin C Vitamin C 500 MG as directed Orally Active take 4 tablets by mouth once shari ly Ascorbic Acid (VITAMIN C) 250 MG tablet Take 1,000 mg by mouth daily 0 Active Aspir-81 81 MG (6 sources) take 2 tablets by mouth once daily Aspir-81 81 MG 2 tablets Orally Daily for 30 day(s) Active aspirin 81 mg delayed release oral tablet (20 sources) Platelet Aggregation Inhibitor, Nonsteroidal Anti-inflammatory Drug Start: 12-28-2023 take 162 mg by mouth once daily Aspirin Active 162 MG PO Daily December 28, 2023 12:00am Start: 07-19-2023 take 1 mg by mouth e very twenty-four hours aspirin 81 mg oral capsule mg cap(s), Oral, q24hr, Refills(s) 0 Start Date: 07/19/23 Status: Ordered Start: 06-28-2021 take 1 tablet by mouth once da linda aspirin 81 mg chewable tablet Chew and swallow 1 tablet by mouth once daily. 30 tablet 1 06/28/2021 Active Comment on above: Chew and swallow 1 t ablet by mouth once daily. atorvastatin 40 mg oral tablet (20 sources) HMG-CoA Reductase Inhibitor Start: take 40 mg by mouth once daily Atorvastatin Active 40 MG PO Daily December 28, 2023 12:00am Start: 03-16-2021 End: 08-12-2023 take 1 mg by mouth once daily atorvastatin 40 mg Tab m g tab(s), Oral, Daily, Refills(s) 0 Start Date: 03/16/21 Status: Ordered Comment on above: Take 40 mg by mouth once daily. Take 40 mg by mouth daily at bedtime. 24 hr buPROPion hydrochloride 300 mg extended release oral tablet (2 sources) Aminoketone Start: 06-13-20 take 1 tablet by mouth once daily buPROPion (WELLBUTRIN XL) 300 MG extended release tablet Take 300 mg by mouth daily 0 06/13/2019 Active calcium carbonate 1000 mg chewable tablet (2 sources) Start: 09-24-20 take 1 tablet by mouth once daily calcium carbonate 1000 mg oral tablet, chewable 1,000 mg = 1 tab(s), Chewed, Daily, Refills(s) 0 Start Date: 09/24/23 Status: Ordered calcium carbonate 1250 mg / cholecalciferol 200 unt oral tablet (14 sources) Vitamin D take 1 tablet by mouth twice daily at mealtime Calcium Carbonate-Vitamin D (CALCIUM-VITAMIN D) 500-200 MG-UNIT per tablet Take 1 tablet by mouth 2 times daily (with meals) 0 Active cephalexin 500 mg oral capsule (2 sources) Cephalosporin Antibacterial Start: 09-01-20 End: 09-08-20 take 1 capsule by mouth every twelve hours Keflex 500 mg Cap 500 mg = 1 cap(s), Oral, q12hr, X 7 day(s), # 14 cap(s), Refills(s) 0, Pharmacy: [facility] [id number], 165, cm, 07/19/23 11:12:00 EDT, Height/Length Dosing, 81.5, kg, 07/19/23 11:12:00 EDT, Weight Dosing Start Date: 09/01/23 Stop Date: 09/08/23 Status: Ordered cholecalciferol 0.05 mg oral capsule (20 sources) Vitamin D take 1 capsule by mouth every twenty-four hours Vitamin D3 50 MCG (2000 UT) 1 capsule Orally Once a day Active Prevagen 10 MG a s directed Orally Active Cholecalciferol (VITAMIN D) 2000 UNITS CAPS capsule Take by mouth 0 Active escitalopram 10 mg oral tablet (2 sources) Serotonin Reuptake Inhibitor Start: 09-04-2016 escitalopram (LEXAPR O) 10 MG tablet estradiol 0.1 mg/ml vaginal cream (20 sources) Estrogen Start: 09-01-2023 estradiol 0.1 mg/g Vag Crm See Instructions, 42.5 gm, Refill(s) 3, 1gm vaginally and apply a pea-sized amount around the urethra, nightly twice per week x 1 month, then once per week thereafter, [facility] [id number], 165, cm, 07/19/23 11:12:00 EDT, Height/Length Dosing, 81.5, kg, 07/19/23 11:12:00 EDT, Weight Dosing Start Date: 09/01/23 Status: Ordered Start: 06-18-2022 estradiol 0.1 mg/g Vag Crm 1 gram, Vaginal, MonSat, 42.5 gram, Refill(s) 9, Apply one gram 2x a week and rub some around the urethra., [facility] [id number], 165, cm, 05/12/22 14:03:00 EDT, Height/Length Dosing, 77, kg, 05/12/22 14:03:00 EDT, Weight Dosing Start Date: 06/18/22 Status: Ordered Start: 05-19-2021 estradiol 0.1 mg/g Vag Crm 1 gram, Vaginal, MonSat, 42.5 gram, Refill(s) 9, Apply one gram 2x a week and rub some around the urethra., [facility] 594, 165, cm, 03/16/21 9:31:00 EDT, Height/Length Dosing, 77, kg, 03/16/21 9:31:00 EDT, Weight Dosing Start Date: 05/19/21 Status: Ordered take 1 tablet by [facility] every twenty-four hours Estradiol 1 MG 1 tablet Orally Once a day Active End: 08-12-2023 estradiol (ESTRACE) 0.01 % ( 0.1 mg/gram) vaginal cream Use vaginally two times a week. Patient uses .5 mg 0 08/12/2023 Discontinued (Discontinued by Patient) estradiol (ESTRA CE) 0.1 MG/GM vaginal cream Place 2 g vaginally Twice a Week 0 Active Comment on above: Use vaginally two ti mes a week. Patient uses .5 mg estrogens, conjugated (intermediate) 0.625 mg/ml vaginal cream (2 sources) Estrogen conjugated estrogens (PREMARIN) 0.625 MG/GM vaginal cream Place 0.5 g vaginally. Nam/tuesday/ iday. 0 Active Fish Oils (6 sources) irbesartan 75 mg oral tablet (2 sources) Angiotensin 2 Receptor Kylah Start: 04-05-2019 take 1 tablet by mouth once daily irbesartan (AVAPRO) 75 MG tablet Take 75 mg by mouth daily 0 04/05/2019 Active loratadine 10 mg oral tablet (20 sources) take 1 tablet by mouth every twenty-four hours Claritin 10 MG 1 tablet Orally Once a day Active loratadine (CLAR ITIN ORAL) Take by mouth once daily. 0 Suspended loratadine (CLAR ITIN ORAL) Take by mouth once daily. 0 Active Comment on above: Take by mouth once d aily. losartan potassium 25 mg oral tablet (4 sources) Angiotensin 2 Receptor Kylah Start: 11-04-2023 End: 12-29-2023 take 25 mg by mouth once daily Losartan Active 25 MG PO Daily December 30, 2023 12:00am Comment on above: Take 1 tablet by marissa th once daily. 24 hr metoprolol succinate 50 mg extended release oral tablet (20 sources) beta-Adrenergic Kylah Start: 11-21-2023 take 50 mg by mouth once daily Metoprolol Succinate Active 50 MG PO Daily December 28, 2023 12:00am Start: 03-16-2021 End: 08-24-2023 take 1 mg by mouth once daily metoprolol 50 mg ER Tab mg tab(s), Oral, Daily, Refills(s) 0 Start Date: 03/16/21 Status: Ordered Comment on above: Take 1 tablet by marissa th once daily. TAKE ONE TABLET BY M OUT DAILY take 1 tablet by marissa th daily Multivitamins (6 sources) 125 ml sodium chloride 9 mg/ml prefilled syringe (10 sources) Start: 10-15-2021 End: 01-14-2023 sodium chloride 0.9 % (flush) 10 mL (BD POSIFLUSH) Super B Complex (9 sources) Start: 03-16-2021 Super B Complex Oral, Daily, Refill(s) 0 Start Date: 03/16/21 Status: Ordered Tylenol PM Extra Strength 500-25 MG (5 sources) take 1 tablet by mouth once daily at bedtime as needed UNABLE TO FIND (14 sources) UNABLE TO FIND biotears caps daily OTC 0 Active Vitamin B-12 1000 MCG (1 source) take 1 tablet by mouth once daily vitamin b12 1 mg oral tablet (5 sources) Vitamin B12 take 1 tablet by mouth every twenty-four hours Vitamin B-12 1000 MCG 1 tablet Orally Once a day for 30 day(s) Active take 1 tablet by marissa th every twenty-four hours Vitamin B-12 1000 MCG 1 tablet Orally Once a day for 30 day(s) Active Vitamin C 500 MG (5 sources) Vitamin C 500 MG as directed Orally Active Vitamin C 500 mg Tab (2 sources) Start: 09-24-2023 take 1 tablet by mouth once daily Vitamin C 500 mg Tab 500 mg = 1 tab(s), Oral, Daily, # 90 tab(s), Refills(s) 0 Start Date: 09/24/23 Status: Ordered Vitamin D3 (9 sources) Start: 03-16-2021 Vitamin D3 Ref ills(s) 0 Start Date: 03/16/21 Status: Ordered Vitamin E (20 sources) Start: 03-16-2021 vitamin E Oral , Daily, Refills(s) 0 Start Date: 03/16/21 Status: Ordered Vitamin E 400 UN IT as directed Orally Active vitamin E 400 UN IT capsule Take 180 Units by mouth daily 0 Active Vitamin E 400 UNIT (5 sources) Vitamin E 400 UN IT as directed Orally Active zinc sulfate 220 mg oral cap geovanna (12 sources) zinc sulfate (ZI NCATE) 220 (50 Zn) MG capsule Take 50 mg by mouth daily 0 Active Completed/Discontinued Medications Medication Drug Class(es) Dates Sig (Normalized) Sig (Original) baclofen 10 mg oral tablet (19 sources) gamma-Aminobutyri c Acid-ergic Agonist Start: 08-11-2023 End: 11-04-2023 baclofen 10 mg tablet 10 mg two times a day. 0 08/11/2023 11/04/2023 Discontinued Start: 07-19-2023 BACLOFEN 10 MG TABS BACLOFEN 10 MG TABS Start Date: 07/19/23 Status: Ordered Comment on above: 10 mg two times a da y. gabapentin 300 mg oral capsule (9 sources) Anti-epileptic Agent Start: 07-22-2022 End: 08-12-2023 gabapentin (NEURONTIN) 300 mg capsule 1 CAP QHS x 5-7 days then 1 cap bid x 5-7 days if tolerated 2 caps qhs, 1 in am 90 capsule 1 07/22/2022 08/12/2023 Discontinued (Discontinued by Patient) Comment on above: 1 CAP QHS x 5-7 days then 1 cap bid x 5-7 days if tolerated 2 caps qhs, 1 in am melatonin 10 mg oral capsule (20 sources) End: 08-12-2023 melatonin 10 mg cap Take by mouth daily at bedtime. 0 08/12/2023 Discontinued (Discontinued by Patient) Comment on above: Take by mouth daily at bedtime. oxymetazoline hydrochloride 0.5 mg/ml nasal spray (1 source) Start: 10-04-2021 End: 10-04-2021 oxymetazoline (AFRIN) 0.05 % nasal spray 2 spray perflutren lipid microspheres 1.3 mL in NaCl (PF) 0.9% 10 mL injection (DEFINITY) (11 sources) Start: 11-04-2023 End: 11-07-2023 perflutren lipid microspheres 1.3 mL in NaCl (PF) 0.9% 10 mL injection (DEFINITY) Start: 10-15-2021 End: 01-14-2023 perflutren lipid microsphere s 1.3 mL in NaCl (PF) 0.9% 10 mL injection (DEFINITY) Problems Active Problems Problem Classification Problem Date Documented Da te Episodic/Chronic Acute bronchitis (6 sources) Acute bronchitis; Translations: [Acute bronchitis due to other specified organisms] Episodic Anxiety disorders (9 sources) Anxiety 03-10-2020 Chronic Cardiac dysrhythmias (20 sources) Nonsustained ventricular tachycardia ; Translations: [Ventricular tachycardia] Onset: 01-19-2021 01-19-2021 Chronic Conduction disorders (20 sources) Congenital long QT syndrome; Translations: [Automatic implantable cardiac defibrillator in situ] Onset: 06-23-2021 03-16-2021 Chronic Coronary atherosclerosis and other heart disease (20 sources) Coronary atherosclerosis; Translations: [Atherosclerotic heart disease of [place] coronary artery without angina pectoris] Onset: 06-23-2021 06-29-2021 Chronic Diseases of white blood cells (1 source) Leukocytosis; Translations: [Elevated white blood cell count, unspecified] Onset: 09-23-2023 Chronic Disorders of lipid metabolism (20 sources) Hyperlipidemia; Translations: [Other hyperlipidemia] Onset: 06-23-2021 03-10-2020 Chronic Esophageal disorders (3 sources) Gastro-esophageal reflux disease with esophagitis; Translations: [Gastroesophageal reflux disease with esophagitis without hemorrhage] Chronic Essential hypertension (20 sources) Essential hypertension; Translations: [Essential (primary) hypertension] Onset: 08-27-2020 06-29-2021 Chronic Genitourinary symptoms and ill-defined conditions (7 sources) Urge incontinence of urine 07-19-2023 Chronic Heart valve disorders (20 sources) Non-rheumatic mitral regurgitation ; Translations: [Nonrheumatic mitral (valve) insufficiency] Onset: 06-23-2021 06-29-2021 Chronic Menopausal disorders (6 sources) Decreased estrogen level; Translations: [Other primary ovarian failure] Chronic Menopausal disorders (1 source) Decreased estrogen level; Translations: [Estrogen deficiency] Episodic Mood disorders (6 sources) Single episode of major depression in full remission; Translations: [Major depressive disorder, single episode, in full remission] Chronic Osteoarthritis (17 sources) Unilateral primary osteoarthritis, right hip; Translations: [Localized, primary osteoarthritis of the shoulder region] Onset: 03-19-2022 Chronic Other bone disease and musculoskeletal deformities (9 sources) Osteopenia 03-10-2020 Episodic Other connective tissue disease (1 source) Synovial cyst of lumbar spine; Translations: [Other bursal cyst, other site] Episodic Other connective tissue disease (6 sources) Tendinitis of left rotator cuff; Translations: [Other shoulder lesions, left shoulder] Episodic Other connective tissue disease (1 source) Trochanteric bursitis, right hip Episodic Other diseases of kidney and ureters (3 sources) Acquired renal cyst without neoplastic change; Translations: [Cyst of kidney, acquired] Onset: 05-12-2022 Episodic Other diseases of kidney and ureters (9 sources) Cyst of kidney 03-17-2020 Episodic Other ear and sense organ disorders (6 sources) Acute contact otitis externa, right ear; Translations: [Acute contact otitis externa of right ear] Episodic Other eye disorders (9 sources) Dry eyes 03-10-2020 Episodic Other infections; including parasitic (9 sources) Urethral stricture due to infection 03-17-2020 Episodic Other liver diseases (1 source) Enzyme level - finding; Translations: [Abnormal levels of other serum enzymes] Onset: 09-23-2023 Episodic Other screening for suspected conditions (not mental disorders or infectious disease) (3 sources) Patient encounter status; Translations: [Encounter for screening mammogram for malignant neoplasm of breast] Episodic Other upper respiratory disease (9 sources) Seasonal allergy 03-10-2020 Chronic Other upper respiratory disease (1 source) Bleeding from nose; Translations: [Epistaxis] Episodic Riri-; endo-; and myocarditis; cardiomyopathy (except that caused by tuberculosis or sexually transmitted disease) (20 sources) Hypertrophic obstructive cardiomyopathy; Translations: [Hypertrophic cardiomyopathy] Onset: 08-11-2020 03-16-2021 Chronic Septicemia (except in labor) (1 source) Sepsis; Translations: [Sepsis, unspecified organism] Onset: 09-23-2023 Episodic Spondylosis; intervertebral disc disorders; other back problems (20 sources) Spondylosis without myelopathy or radiculopathy, lumbar region; Translations: [Lumbosacral spondylosis with radiculopathy] Onset: 03-24-2022 Chronic Spondylosis; intervertebral disc disorders; other back problems (4 sources) Lumbar radiculopathy; Translations: [Radiculopathy, lumbar region] Episodic Substance-related disorders (10 sources) Tobacco user; Translations: [Nicotine dependence, cigarettes, in remission] Chronic Unclassified (1 source) Patient encounter status; Translations: [Encounter for screening mammogram for breast cancer] Unclassified (3 sources) CONTACT W/AND (SUSP) EXPOS COVID-19; Translations: [CONTACT W/AND (SUSP) EXPOS COVID-19] Onset: 08-01-2022 Urinary tract infections (14 sources) Chronic cystitis; Translations: [Other chronic cystitis without hematuria] Onset: 05-12-2022 Chronic Urinary tract infections (15 sources) Postinfective 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; Translations: [Postinfective urethral stricture, not elsewhere classified, female] Onset: 05-12-2022 Episodic Past or Other Problems Problem Classification Problem Date Documented Date Episodic/Chronic Administrative/social admission (20 sources) Discharge status; Translations: [Encounter for administrative examinations, unspecified] Onset: 06-22-2021 06-29-2021 Episodic Esophageal disorders (3 sources) Esophageal disorders; Translations: [Gastroesophageal reflux disease with esophagitis without hemorrhage] Genitourinary symptoms and ill-defined conditions (20 sources) Nocturia; Translations: [Nocturia] Onset: 05-12-2022 Episodic Other lower respiratory disease (20 sources) Dyspnea; Translations: [Shortness of breath] Onset: 08-11-2020 08-11-2020 Episodic Residual codes; unclassified (14 sources) Postmenopausal state; Translations: [Hormone replacement therapy] Onset: 01-16-2015 01-16-2015 Episodic Residual codes; unclassified (20 sources) Finding related to care delivery; Translations: [Other specified personal risk factors, not elsewhere classified] Onset: 06-26-2021 06-29-2021 Episodic Unclassified (1 source) CONTACT W/AND (SUSP) EXPOS COVID-19; Translations: [CONTACT W/AND (SUSP) EXPOS COVID-19] Onset: 07-28-2022 Unclassified (2 sources) Cardiac pacemaker, device (physical object) 09-23-2023 Results Test Name Value Interpretation Reference Range Facility [facility] 11-04-2023 CNOV Office Visit (CARIMN) YASMIN FUENTES ([id number]) 1950 F Date Time Provider Department 11/04/23 12:00 PM MATILDE SPICER During your visit today, we recorded the following information about you: Pulse Blood pressure Weight Height 71/minute 156/80 76.9 kg 1.651 m Matilde Spicer APRN.AD OPERATIONS COORDINATOR 11/07/2023 8:27 PM [facility] [place] [facility] Department of Cardiovascular Medicine SECTION OF CARDIOVASCULAR IMAGING OUTPATIENT VISIT DATE November 04, 2023 OUTPATIENT VISIT TYPE ESTABLISHED PRIMARY CARE PHYSICIAN: Gideon Adams ([place]) [address] [place] [address] CHIEF COMPLAINT: Follow up HISTORY OF PRESENT ILLNESS: Yasmin Fuentes is a 73 year old female who presents today for follow-up visit. Patient's past medical history is significant for HOCM s/p mitral valve repair AND septal myectomy on 06/23/[address] Giraldo, ICD placement for primary prevention of SCD, HTN, DLD. Her last visit with this provider was 10/15/21. On 11/17/21, her eliquis was discontinued after ZioPatch revealed no episodes of afib. Since her last visit, she reports that she was hospitalized in September due to UTI that did not respond to antibiotics. She was discharged home with a PICC line for IV ABx which she has now completed. She reports her activity level is unchanged from previous. She denies chest pain, [place], palpitations, dizziness, syncope, LE edema, PND and orthopnea. Medication list was reviewed and patient tolerates them well PAST MEDICAL HISTORY Diagnosis Date Closed displaced fracture of seventh cervical vertebra with routine healing HOCM (hypertrophic obstructive cardiomyopathy) (HCC) Hyperlipidemia Hypertension Long Q-T syndrome PAST SURGICAL HISTORY Procedure Laterality Date HEART SURGERY HX N/A 06/23/2021 s/p MVr and Myectomy - 06/[address] Giraldo HYSTERECTOMY 1989 IMPLANTABLE ICD PLACEMENT 01/19/2021 KNEE SURGERY HX PICC LINE INSERT/CONSULT 09/27/2023 SOCIAL HISTORY Social History Tobacco Use Smoking status: Former Types: Cigarettes Quit date: 1994 Years since quittin.9 Smokeless tobacco: Never Vaping Use Vaping Use: Never used Substance Use Topics Alcohol use: Yes Comment: rarely Drug use: Never FAMILY HISTORY Problem Relation Age of Onset Heart disease Mother Aneurysm Father ALLERGIES: ALLERGIES Allergen Reactions Codeine Vomiting Demeral [Meperidine] Vomiting Scallops Other: See Comments Nausea, diarrhea MEDICATIONS: atorvastatin calcium (ATORVASTATIN ORAL)Take 40 mg by mouth daily at bedtime.Disp: Rfl: metoprolol succinate ER (TOPROL XL) 50 mg 24 hr tabletTake 1 tablet by mouth once daily.Disp: 90 tabletRfl: 0 aspirin 81 mg chewable tabletChew and swallow 1 tablet by mouth once daily.Disp: 30 tabletRfl: 1 loratadine (CLARITIN ORAL)Take by mouth once daily.Disp: Rfl: losartan (COZAAR) 25 mg tabletTake 1 tablet by mouth once daily.Disp: 30 tabletRfl: 1 REVIEW OF SYSTEMS: GENERAL: no fevers. no chills. no fatigue. no changes in weight. RESPIRATORY: no cough, no wheeze, no shortness of breath at rest, CARDIOVASCULAR: see HPI GI/: no abdominal pain, no nausea/vomiting, PSYCH: no significant changes in mood HEMATOLOGY/LYMPHOLOG Y: no excessive bleeding, no bruising NEURO: no new onset or chronic headaches, no tremor, no numbness/tingling of extremities. no loss of function/unilateral weakness PHYSICAL EXAMINATION: BP 156/80 (BP Site: Right Arm, BP Position: Sitting, BP Cuff Size: Regular Adult) Pulse 71 Ht 165.1 cm (5' 5 ) Wt 76.9 kg (169 lb 8 oz) SpO2 97% BMI 28.21 kg/m? General appearance:Appropria tely groomed, well nourished adult female in no acute distress. Skin: Intact without rashes or lesions to exposed skin Head/Neck: Normocephalic, face symmetric, neck supple Eyes: Normal conjunctiva, non icteric sclera Lungs: Clear to auscultation bilaterally. No wheezes, no rhonchi and no crackles auscultated on exam. Heart: Regular rate and rhythm. S1 AND S2 normal. 3/6 murmur auscultated best at the right sternal border. Extremities: Well perfused, no clubbing, no cyanosis, no LE edema Peripheral pulses: 2/4 pulses in the distal extremities. Neuro: AANDO x 3. Pleasant, cooperative, appropriate affect. Able to ambulate independently. CARDIOVASCULAR MEDICINE TESTING: EK11/04/23 ECHOCARDIOGRAM: 11/04/23 - Technically difficult exam due to body habitus. - Exam indication: Hx; Myectomy, MVr - The left ventricle is normal in size. There is moderate septal asymmetric left ventricular hypertrophy. Left ventricular systolic function is normal. EF = 64 ? 5% (2D 4-ch.) Definity contrast used for endocardial border detection. - The right ventricle is normal in size. Right ventricular systolic function is nor (more content not included)... [facility] CNOV Office Visit (PERVMN) YASMIN FUENTES ([id number]) 1950 F Date Time Provider Department 11/04/23 11:00 AM [facility] [employer] ECHO J3-5 PERVMN During your visit today, we recorded the following information about you: Abhishek Sweet RN 11/04/2023 12:54 PM Signed .11/04/2023 12:53 PM IV Access: IV IV Site: left Hand IV GAUGE 24 gauge IV Removal Date 11/04/2023 Time 1248 Reactions: WNL Order reviewed by nurse:yes Medications: Definity - dosage 2 cc of diluted definity given via PIV Reaction: No Referring Provider: CALIN OBRIEN [[id number]] Allergies As of Date: 11/04/2023 Noted Allergy Reaction CODEINE 08/11/2020 11 - Vomiting DEMERAL (MEPERIDINE) 08/11/2020 11 - Vomiting SCALLOPS 08/11/2020 14 - Other: See Comments Comments: Nausea, diarrhea Date Reviewed: 11/04/2023 Reviewed by: Matilde Spicer APRN.AD OPERATIONS COORDINATOR - Fully Assessed Visit Diagnosis:HOCM (hypertrophic obstructive cardiomyopathy) (HCC) [I42.1] Order(s):ECHO [[id number]] Order #: [id number]. #:[id number]- CCFQty: 1 LVEF TRANSTHORACIC ECHO [[id number]] Order #: [id number]. #:[id number] HO-CCFQty: 1 Prescriptions as of 11/10/2023 - losartan (COZAAR) 25 mg tablet Take 1 tablet by mouth once daily. - atorvastatin calcium (ATORVASTATIN ORAL) Take 40 mg by mouth daily at bedtime. - metoprolol succinate ER (TOPROL XL) 50 mg 24 hr tablet Take 1 tablet by mouth once daily. - aspirin 81 mg chewable tablet Chew and swallow 1 tablet by mouth once daily. - loratadine (CLARITIN ORAL) Take by mouth once daily. Problem List As Of Date 11/04/2023 Noted Resolved SOB (shortness of breath) [R06.02] 08/11/2020 Other hypertrophic cardiomyopathy (HCC) [I42.2] 08/11/2020 Essential hypertension [I10] 08/27/2020 NSVT (nonsustained ventricular tachycardia) (HC*01/19/2021 Pre-op testing [Z01.818] 06/22/2021 Discharge planning issues [Z02.9] 06/22/2021 Coronary artery disease involving [place]*06/23/2021 ICD (implantable cardioverter-defibri llator) in*06/23/2021 HOCM (hypertrophic obstructive cardiomyopathy) *06/23/2021 Nonrheumatic mitral valve regurgitation [I34.0] 06/23/2021 Other hyperlipidemia [E78.49] 06/23/2021 On mechanically assisted ventilation (HCC) [Z99*06/23/2021 06/24/2021 Hypovolemia [E86.1] 06/23/2021 06/24/2021 Stress hyperglycemia [R73.9] 06/23/2021 06/26/2021 Post-op pain [G89.18] 06/23/2021 06/26/2021 Hypervolemia [E87.70] 06/24/2021 06/26/2021 Atelectasis [J98.11] 06/25/2021 06/26/2021 Summary [Z91.89] 06/26/2021 A-fib (HCC) [I48.91] 06/28/2021 Renal abscess, right [N15.1] 09/25/2023 History of recurrent UTI (urinary tract infecti*09/26/2023 Prescriptions ordered this encounter Disp Refills Start End PERFLUTREN LIPID MICROSPHERES 1.1 MG* 11/04/2023 11/07/2023 Route: INTRAVENOUS Cosign required by CALIN OBRIEN[[id number]] Encounter Status:Closed by ABHISHEK SWEET on 11/04/23 [facility] ECG COMPLETEon 11-04-2023 ECG COMPLETE Ventricular Rate : 77 BPM Atrial Rate : 77 BPM P-R Interval : 178 ms QRS Duration : 138 ms Q-T Interval : 476 ms QTC Calculation(Bazett) : 538 ms Calculated P [place] : 69 degrees Calculated R [place] : -40 degrees Calculated T [place] : 138 degrees NORMAL SINUS RHYTHM LEFT AXIS DEVIATION COMPLETE LEFT BUNDLE BRANCH BLOCK ABNORMAL ECG Confirmed by VALORIE DÍAZ MD ([id number]) on 11/21/2023 9:42:43 AM NAME : YASMIN FUENTES PID : [id number] : 1950 Gender : Female Race : ORD : [id number] Procedure Date : Nov 04 2023 09:59:05 Edit Date : Nov 21 2023 09:42:46 Diagnosis: NORMAL SINUS RHYTHM LEFT AXIS DEVIATION COMPLETE LEFT BUNDLE BRANCH BLOCK ABNORMAL ECG Confirmed by VALORIE DÍAZ MD ([id number]) on 11/21/2023 9:42:43 AM Test Reason : Location : 314 : J14 J1-4 Overread By : VALORIE DÍAZ MD Edited By : VALORIE DÍAZ MD Referred By : , Acquired by : TODD BOND [facility] ECHOon 11-04-2023 Echocardiography Echocardiography Report: Transthoracic Echo [facility] J35 Date of service: 11/04/2023 11:26:36 AM INSTALLER Ordering physician: CALIN OBRIEN Indication: Hx; Myectomy, MVr Technologist: Honey Osman Interpreting physician: Brigido Trammell MD PATIENT: Name: YASMIN FUENTES : 1950 Age: 73 years Gender: F History of hypertension and cardiomyopathy. Previous cardiovascular interventions: Myectomy (06/23/21) MVr papillary reiorientation (06/23/21) Primary rhythm: sinus. Secondary rhythm: LBBB. Height: 165.10 cm BSA: 1.93 m Weight: 81.19 kg BMI: 29.8 kg/m Heart rate 70 bpm Blood pressure 148/68 mmHg Technically difficult exam due to body habitus. Color Doppler was utilized to interrogate the cardiac valves assessed and spectral Doppler was utilized to determine the flow velocities and pressure gradients reported in this exam. MEASUREMENTS: Value Indexed Normal Max aortic dimension 3.1 cm Ao < 3.8 Left atrial volume 49 ml (biplane A-L) 25 ml/m [place] <= 34 LV ID (diastole) 3.4 cm (2D) 1.74 cm/m LV ID (systole) 2.4 cm (2D) 1.25 cm/m IVS, leaflet tips 1.6 cm (2D) Posterior wall thickness 1.2 cm (2D) Left ventricular mass 165 g (2D) 86 g/m LV stroke volume 50 ml (2D 4-ch.) LV end diastolic volume 78 ml (2D 4-ch.) 40.4 ml/m 29<=EDVi<62 LV end systolic volume 28 ml (2D 4-ch.) 14.5 ml/m Ejection Fraction 64 % (2D 4-ch.) EF > 54 FINDINGS: LEFT VENTRICLE The left ventricle is normal in size. There is moderate septal asymmetric left ventricular hypertrophy. Left ventricular systolic function is normal. Left ventricular diastolic function was not evaluated due to mitral valve surgery. Definity contrast used for endocardial border detection. Wall Motion: All scored segments are normal. RIGHT VENTRICLE The right ventricle is normal in size. Pacer wires are noted in the right ventricle. Right ventricular systolic function is normal. RV systolic tissue Doppler velocity is 11.0 cm/s. Tricuspid annular displacement is 1.8 cm. Estimated right ventricular systolic pressure is 29 mmHg consistent with normal pulmonary artery pressures. Estimated right atrial pressure is 3 mmHg based on IVC assessment. LEFT ATRIUM The left atrial cavity is normal in size. RIGHT ATRIUM The right atrial cavity is normal in size. Inferior Vena Cava: The inferior vena cava appears normal measuring 1.6 cm. The vessel decreases greater than 50 percent with inspiration. MITRAL VALVE Post mitral valve repair. There is mild mitral annular calcification observed posterior. There is trace (trace - 1+) mitral valve regurgitation. There is mild thickening of the anterior mitral leaflet. There is mild calcification. The peak mitral valve gradient is 6 mmHg. The mean mitral valve gradient is 2 mmHg. TRICUSPID VALVE The tricuspid valve leaflets are structurally normal. There is trace tricuspid valve regurgitation. AORTIC VALVE There is mild (1+) aortic valve regurgitation. Tricuspid aortic valve. There is mild thickening. There is mild calcification of the right, non coronary and left aortic cusps at the base. The peak gradient is 12 mmHg (peak velocity = 175.1 cm/s). PULMONIC VALVE The pulmonic valve was not seen or not interrogated. There is trace pulmonic valve regurgitation. AORTA The visualized aorta is normal in size. Measurements - Sinus: 3.1 cm. Mid ascending aorta 2.9 cm. PULMONARY ARTERIES The pulmonary arteries are normal. INTERATRIAL SEPTUM There is no evidence of intracardiac shunting as detected by Doppler. INTERVENTRICULAR SEPTUM There is abnormal motion of the interventricular septum secondary to prior cardiac surgery. There is no flow through the interventricular septum as detected by Doppler. PERICARDIUM There is no pericardial effusion. CONCLUSIONS: - Technically difficult exam due to body habitus. - Exam indication: Hx; Myectomy, MVr - The left ventricle is normal in size. There is moderate septal asymmetric left ventricular hypertrophy. Left ventricular systolic function is normal. EF = 64 5% (2D 4-ch.) Definity contrast used for endocardial border detection. - The right ventricle is normal in size. Right ventricular systolic function is normal. - Post mitral valve repair. There is trace (trace - 1+) mitral valve regurgitation. The peak gradient is 6 mmHg and the mean gradient is 2 mmHg. Prior MVr gradient 7/3 mmHg. - Mild AR. - At rest (63 bpm) there is trivial chordal KENNEDI, tr - 1+ MR, peak LVOT gradient ~13 mmHg. -With Valsalva (68 bpm) there are no changes of KENNEDI and MR, peak LVOT gradient ~15 mmHg. - Exam was compared with the prior echocardiographic exam performed on 08/03/2021. There is no significant change. * * * Final * * * [employer] Image : [id number]. (more content not included)... [facility] ICD REMOTE CHECKon 3 AV Delay Adaptive Paced Minimum (ms) 350 ms [facility] AV Delay Adaptive Sensed Minimum (ms) 350 ms [facility] AV Delay Paced (ms) 160 ms [facility] AV Delay Sensed (ms) 160 ms [facility] Mao RA Pacing Amplitude (volts) 2.0 V [facility] Mao RA Pacing Polarity BI [facility] Mao RA Pacing Pulse Width (ms) 0.4 ms [facility] Mao RA Sensing Amplitude (mvolts) 0.25 mV [facility] Mao RA Sensing Polarity BI [facility] Mao RV Pacing Amplitude (volts) 2.0 V [facility] Mao RV Pacing Polarity BI [facility] Mao RV Pacing Pulse Width (ms) 0.4 ms [facility] Mao RV Sensing Amplitude (mvolts) 0.3 mV [facility] Mao RV Sensing Polarity BI [facility] Detection Configuration (Vent) 1 - Zone [facility] FastVT_Detection Interval 353 ms [facility] ICD FastVT DetectionStatus Monitor [facility] ICD-AMS EPISODES 170 {beats}/min [facility] ICD-ATP Episodes (Vent) 0 [facility] ICD-ATRIALFIBRILLATIO N 0 [facility] ICD-Device Mfg BSX [facility] ICD-LEADIMPEDANCEATRI AL 601 ohm [facility] ICD-Percent Pacing (Atrial) 0 % [facility] ICD-Percent Pacing (Vent) 0 % [facility] ICD-Shocks Aborted (Vent) 0 [facility] DWE-ELHDSL-ZEWRTBRPZ 0 [facility] ICD-SHOCKSABORTED 0 [facility] ICD-SHOCKSDELIVEREDVE NTRICULAR 0 [facility] ICD-Ventricular Fibrillation 0 [facility] Lead Impedance (RV) 436 ohm [facility] Lead Impedance High Voltage 70 ohm [facility] Lead1 Mfg BSX [facility] Lead2 Mfg BSX [facility] Location RV [facility] Location RA [facility] Lower Rate (bpm) 40 {beats}/min [facility] MDT_PROG_TACHY_ZONE_D ETECTIONS_STATUS ENABLED [facility] Model D142 INOGEN [facility] Model [address] [place] 4-Front S [facility] Model 7841 Ingevity + MRI [facility] Pacing Mode DDD [facility] Serial Number [id number] [facility] Serial Number [id number] [facility] Serial Number [id number] [facility] Test Charge Time 10.1 s [facility] Therapy Status (Vent) Enabled [facility] Thresh RA Capture Amplitude (volts) 0.9 V [facility] Thresh RA Capture Duration (ms) 0.4 ms [facility] Thresh RV Capture Amplitude (VOLTS) 0.7 V [facility] Thresh RV Capture Duration (MS) 0.4 ms [facility] Tracking Rate (bpm) 130 {beats}/min [facility] VF Zone Detection Interval 300 ms [facility] VF Zone Therapy Configuration 1 ATP(s) + 8 Shock(s) [facility] No Panel Informationon 10-21 BLANK _ [facility] ICD-ATRIALTACHYCARDIA 0 [facility] ICD-Fast Ventricular Tachycardia 0 [facility] Implant Date 01/19/2021 [facility] Basic metabolic 2000 panelon 09-28-2023 Anion gap [Moles/Vol] 11 mmol/L Normal 9-18 [place] Comment on above: Order Comment: Speci men Type: BLOOD SPECIMENOrdering Facility: [facility] Address: [address] [place] [address] Performed By: #### 2 4321-2 ####[facility] LABCLIA [id number] [address] [address] [place] Calcium [Mass/Vol] 9.3 mg/dL Normal 8.5-10.2 [facility] Comment on above: Order Comment: Speci men Type: BLOOD SPECIMENOrdering Facility: [facility] Address: [address] [place] [address] Performed By: #### 2 4321-2 ####[facility] LABCLIA [id number] [place] [address] [place] Chloride [Moles/Vol] 108 mmol/L High 97-105 [facility] Comment on above: Order Comment: Speci men Type: BLOOD SPECIMENOrdering Facility: [facility] Address: [address] [place] [address] Performed By: #### 2 4321-2 ####[facility] LABCLIA [id number] [place] [address] [place] CO2 [Moles/Vol] 22 mmol/L Normal 22-30 [facility] Comment on above: Order Comment: Speci men Type: BLOOD SPECIMENOrdering Facility: [facility] Address: [address] [place] [address] Performed By: #### 2 4321-2 ####[facility] LABCLIA [id number] [place] [address] [place] Creatinine [Mass/Vol] 0.71 mg/dL Normal 0.58-0.96 [place] Comment on above: Order Comment: Speci men Type: BLOOD SPECIMENOrdering Facility: [facility] Address: [address] [place] [address] Performed By: #### 2 4321-2 ####[facility] LABCLIA [id number] [place] [address] [place] Creatinine and Glomerular filtration rate.predicted panel (S/P/Bld) 90 mL/min/1.73m??? Normal >=60 [facility] Comment on above: Order Comment: Lidia dong Type: BLOOD SPECIMENOrdering Facility: [facility] Address: [address] [place] [address] Result Comment: Kimberly mated Glomerular Filtration Rate (eGFR) is calculated using the 2020 CKD-EPI creatinine equation. This equation utilizes serum creatinine, sex, and age as parameters. The creatinine assay has traceable calibration to isotope dilution-mass spectrometry. Refer to KDIGO guidelines for clinical interpretation. In patients with unstable renal function, e.g. those with acute kidney injury, the eGFR may not accurately reflect actual GFR. Performed By: #### 2 4321-2 ####[facility] LABCLIA [id number] [place] [address] [place] Glucose [Mass/Vol] 107 mg/dL High 74-99 [facility] Comment on above: Order Comment: Lidia dong Type: BLOOD SPECIMENOrdering Facility: [facility] Address: [address] [place] [address] Result Comment: The [place] Diabetes Association (ADA) provides guidance for cutoff values for fasting glucose and random glucose. The ADA defines fasting as no caloric intake for at least 8 hours. Fasting plasma glucose results between 100 to 125 mg/dL indicate increased risk for diabetes (prediabetes). Fasting plasma glucose results greater than or equal to 126 mg/dL meet the criteria for diagnosis of diabetes. In the absence of unequivocal hyperglycemia, results should be confirmed by repeat testing. In a patient with classic symptoms of hyperglycemia or hyperglycemic crisis, random plasma glucose results greater than or equal to 200 mg/dL meet the criteria for diagnosis of diabetes. Reference: Standards of Medical Care in Diabetes 2016, [place] [employer] Association. Diabetes Care. 2016.39(Suppl 1). Performed By: #### 2 4321-2 ####[facility] LABCLIA [id number] [place] [address] [place] Potassium [Moles/Vol] 4.3 mmol/L Normal 3.7-5.1 [place] Comment on above: Order Comment: Speci men Type: BLOOD SPECIMENOrdering Facility: [facility] Address: [address] [place] [address] Performed By: #### 2 4321-2 ####[facility] LABCLIA [id number] [place] [address] [place] Sodium [Moles/Vol] 141 mmol/L Normal 136-144 [facility] Comment on above: Order Comment: Speci men Type: BLOOD SPECIMENOrdering Facility: [facility] Address: [address] [place] [address] Performed By: #### 2 4321-2 ####[facility] LABCLIA [id number] [place] [address] [place] Urea nitrogen [Mass/Vol] 12 mg/dL Normal 7-21 [facility] Comment on above: Order Comment: Speci men Type: BLOOD SPECIMENOrdering Facility: [facility] Address: [address] [place] [address] Performed By: #### 2 4321-2 ####[facility] LABCLIA [id number] [address] [place] CASE MANAGEMon 09-28-2023 CASE MANAGEM HNO ID: [id number] Author: Keena Figueroa RN Service: Nursing Author Type: Registered Nurse Type: Care Mgt Progress Note Filed: 09/28/2023 11:45 AM Note Text: CARE MANAGEMENT DISCHARGE NOTE SERVICE DATE: September 28, 2023 SERVICE TIME: 11:44 AM Admission Date: 09/25/2023 LOS: 3 days Discharge Arrangement Discharge Arrangement: Home with Home Health Services Arranged Medical Services: Skilled Home Health Care Type: Home Health Agency, Custodial Caregiver Assessment Caregiver is ready, willing and able to meet the patient's needs as recommended by the inter-professional team: Yes Name of Caregiver: Children and grandchildren, [facility] staff Transportation Arrangements Transportation Arrangements: Car Destination: Home Handoff Communication: Handoff to: Primary Care Physician Primary Care Physician Name/Phone: Gideon AdamsDO [phone] Additional Information: Discharge Information Row Name Admission (Current) from 09/25/2023 in HOSP MAIN H080 Home Health Care Agency [facility] Start of Care 09/29/23 [facility] [place], [place] Phone/ Start of Care 09/28/23 SIGNATURE: Keena Figueroa RN PATIENT NAME: Yasmin Fuentes DATE: September 28, 2023 TIME: 11:44 AM CONTACT #: [id number] [facility] CBC panel Auto (Bld)on 09-28 Erythrocyte distribution width (RBC) [Ratio] 12.0 % Normal 11.5-15.0 [facility] Comment on above: Order Comment: Speci men Type: BLOOD SPECIMENOrdering Facility: [facility] Address: [address] [place] [address] Performed By: #### 5 8410-2 ####[facility] LABIA [id number] [place] [address] [place] Hematocrit (Bld) [Volume fraction] 40.0 % Normal 36.0-46.0 [facility] Comment on above: Order Comment: Speci men Type: BLOOD SPECIMENOrdering Facility: [facility] Address: [address] [place] [address] Performed By: #### 5 8410-2 ####[facility] LABCLIA [id number] [place] [address] [place] Hemoglobin (Bld) [Mass/Vol] 13.5 g/dL Normal 11.5-15.5 [facility] Comment on above: Order Comment: Speci men Type: BLOOD SPECIMENOrdering Facility: [facility] Address: [address] [place] [address] Performed By: #### 5 8410-2 ####[facility] LABCLIA [id number] [place] [address] [place] MCH (RBC) [Entitic mass] 32.1 pg Normal 26.0-34.0 [facility] Comment on above: Order Comment: Speci men Type: BLOOD SPECIMENOrdering Facility: [facility] Address: [address] [place] [address] Performed By: #### 5 8410-2 ####[facility] LABIA [id number] [place] [address] [place] MCHC (RBC) [Mass/Vol] 33.8 g/dL Normal 30.5-36.0 [place] Comment on above: Order Comment: Speci men Type: BLOOD SPECIMENOrdering Facility: [facility] Address: [address] [place] [address] Performed By: #### 5 8410-2 ####[facility] LABIA [id number] [place] [address] [place] MCV (RBC) [Entitic vol] 95.0 fL Normal 80.0-100.0 [facility] Comment on above: Order Comment: Speci men Type: BLOOD SPECIMENOrdering Facility: [facility] Address: [address] [place] [address] Performed By: #### 5 8410-2 ####[facility] [id number] [place] [address] [place] Nucleated RBC (Bld) [#/Vol] 10*3/uL Normal <0.01 [facility] Comment on above: Order Comment: Speci men Type: BLOOD SPECIMENOrdering Facility: [facility] Address: [address] [place] [address] Performed By: #### 5 8410-2 ####[facility] LABIA [id number] [place] [address] [place] Platelet mean volume (Bld) [Entitic vol] 11.3 fL Normal 9.0-12.7 [facility] Comment on above: Order Comment: Speci men Type: BLOOD SPECIMENOrdering Facility: [facility] Address: [address] [place] [address] Performed By: #### 5 8410-2 ####[facility] LABCLIA [id number] [place] [address] [place] Platelets (Bld) [#/Vol] 309 10*3/uL Normal 150-400 [facility] Comment on above: Order Comment: Speci men Type: BLOOD SPECIMENOrdering Facility: [facility] Address: [address] [place] [address] Performed By: #### 5 8410-2 ####[facility] LABIA [id number] [place] [address] [place] RBC (Bld) [#/Vol] 4.21 10*6/uL Normal 3.90-5.20 [facility] Comment on above: Order Comment: Speci men Type: BLOOD SPECIMENOrdering Facility: [facility] Address: [address] [place] [address] Performed By: #### 5 8410-2 ####[facility] LABIA [id number] [place] [address] [place] WBC (Bld) [#/Vol] 7.30 10*3/uL Normal 3.70-11.00 [facility] Comment on above: Order Comment: Speci men Type: BLOOD SPECIMENOrdering Facility: [facility] Address: [address] [place] [address] Performed By: #### 5 8410-2 ####[facility] [id number] [place] [address] [place] CNDSon 09-28-2023 CNDS HNO ID: [id number] Author: Shaina Turk MD Service: General Internal Medicine Author Type: Physician Type: Discharge Summary Filed: 09/28/2023 1:48 PM Note Text: DISCHARGE SUMMARY PATIENT NAME: Yasmin Fuentes ADMISSION DATE: 09/25/2023 DISCHARGE DATE: 09/28/2023 ATTENDING PHYSICIAN: Shaina Turk MD Code Status: Full Code Highest Readmission Risk Score: 8 The 30 day readmissions risk score is derived from an internally validated risk model which evaluates patient level characteristics, utilization history, medication orders and lab results up until the day of discharge. Patients with a score of 40 or above are considered highest risk for readmission. Specific patient level drivers will be listed at the bottom of the summary. CONSULTING TEAMS DURING HOSPITALIZATION: Infectious Disease Urology Treatment Team: Attending Provider: Shaina Turk MD Primary Service: Shorty Downs REASON FOR HOSPITALIZATION: Renal Abscess DIAGNOSIS: Principal Problem: Renal abscess, right (POA: Yes) Active Problems: History of recurrent UTI (urinary tract infection) (POA: Unknown) Resolved Problems: * No resolved hospital problems. * Transitions of Care Critical Issues: Butt Medication Changes START taking the following: Ceftriaxone 1g every day x 2 weeks (end date - 10/10/23.) CONTINUE your other previously prescribed medications Butt Outpatient Follow-up Future Appointments Date Time Provider Department Center 11/04/2023 10:30 AM [id number] MAIN [id number] Tx J Bl 11/04/2023 11:00 AM LV MECHANICS ECHO J3-5 PERVMN Tx J Bldg 11/04/2023 12:00 PM Matilde Spicer APRN.AD OPERATIONS COORDINATOR CARIMN Tx J [facility] - Please call and schedule follow-up with local urologist (Dr. Montana Hawkins) in 3-4 weeks, and potential re-imaging to rule out neoplasm although low concerns as of now LABS AND PROCEDURES PENDING AT DISCHARGE: None. OPERATIONS DURING HOSPITALIZATION: None PROCEDURES DURING HOSPITALIZATION: None HOSPITAL COURSE: 72 year old female with a PMH significant for HOCM s/p myectomy and mitral valve repair, long QT syndrome, paroxysmal ventricular tachycardia s/p ICD, HTN, and HLD here as a transfer for IR drainage for a right renal abscess. She was already started on Zosyn at the OSH, and blood culture and urine culture was obtained there. Here, she was continued on Zosyn from 09/25 - 09/26. Urology was consulted: Outside CT A/P with contrast images were reviewed. These revealed 3 to 4 cm septate right renal subcapsular lesion communicating with renal medullary lucent lesion and perinephric stranding. June lumbar spine MRI did not reveal right renal lesion.Patient appears to have right renal multiloculated abscess. Suggest conservative management with antibiotic therapy for now. Infectious disease was consulted. I called [facility] . Labs 09/23- UA negative. Blood cx ngtd And it was decided to narrow her to Ceftriaxone and discharge home on COPAT. She received her first dose of Ceftriaxone on 09/26/23. Duration of therapy 2 weeks. End date 10/10/2023. In summary, it is likely that one of her previously existing right renal cyst got infected and she is to be emperically treated with Ceftriaxone for 2 weeks. Sent home on COPAT and PICC line. Pt to call and schedule follow-up with local urologist (Dr. Montana Hawkins) in 3-4 weeks, and potential re-imaging to rule out neoplasm although low concerns as of now. Her aspirin was held during the hospitalization in view of potential biopsy. It was restarted on 09/27/23. Other home meds were continued as is. PATIENT CONDITION AT DISCHARGE: Stable DISCHARGE DISPOSITION: Home with Home Health Discharge Physical Exam: VITAL SIGNS: BP 132/66 Pulse (!) 58 Temp 36.8 ?C (98.2 ?F) (Oral) Resp 16 Ht 165.1 cm (5' 5 ) Wt 72.9 kg (160 lb 11.5 oz) SpO2 96% BMI 26.74 kg/m? GENERAL: Alert, no distress, cooperative SKIN: Skin color, texture, turgor normal. No rashes or lesions. LUNGS: Lungs clear to auscultation, Good diaphragmatic excursion CARDIAC: Normal S1 and S2; no rubs, murmurs, or gallops ABDOMEN: Abdomen soft, non-tender, BS normal, No masses or organomegaly EXTREMITIES: Extremities normal, no deformities, edema, clubbing or skin discoloration. Good capillary refill., No ulcers NEURO: Gait normal. Reflexes normal and symmetric. Sensation grossly intact, Cranial nerves II-XII intact INFORMATION PROVIDED TO PATIENT: As per DC instructions WOUND/SURGICAL SITE CARE: None DIET: Resume pre-hospital diet ACTIVITY: Resume pre-hospital activity ALLERGIES Allergen Reactions Codeine Vomiting Demeral [Meperidine] Vomiting Scallops Other: See Comments Nausea, diarrhea DISCHARGE MEDICATION: Medication List CONTINUE taking these medications aspirin 81 mg chewable tablet Chew and swallow 1 tablet by mouth once daily. ATORVASTATIN ORAL baclofen 10 mg tablet CLARITIN ORAL metopro (more content not included)... [facility] CONSULT PROGon 09-28-2023 CONSULT PROG HNO ID: [id number] Author: Heather Rojas MD Service: Infectious Disease Author Type: Physician Type: Consult Progress Note Filed: 09/28/2023 12:26 PM Note Text: PROGRESS NOTE INFECTIOUS DISEASE SERVICE DATE: 09/28/2023 SERVICE TIME: 12:25 PM Subjective no new issues. Looking forward to going home Medications: Current Facility-Administere d Medications Medication Dose Route Frequency NaCl 0.9% iv flush bag 20 mL INTRAVENOUS PRN acetaminophen 650 mg tab(s) (TYLENOL) 650 mg ORAL q 6 H PRN polyethylene glycol 3350 17 g packet 17 g ORAL DAILY PRN atorvastatin 40 mg tab(s) (LIPITOR) 40 mg ORAL AT BEDTIME metoprolol succinate ER 50 mg tab(s) (TOPROL XL) 50 mg ORAL q 24 H cefTRIAXone 1 g in D5W 100 mL Vial-Bag (ROCEPHIN) 1 g INTRAVENOUS q 24 H aspirin 81 mg chewable tab(s) 81 mg ORAL DAILY Objective Physical Exam: Temp (24hrs), Av.7 ?C (98.1 ?F), Min:36.5 ?C (97.7 ?F), Max:36.9 ?C (98.4 ?F) Temp (120hrs), Av.9 ?C (98.4 ?F), Min:36.4 ?C (97.5 ?F), Max:37.2 ?C (99 ?F) General: Awake, alert, interactive Head: Atraumatic, normocephalic Nose: no devices present Mouth: Moist mucous membranes Neck: Supple, Chest: symmetric chest rise, breathing comfortably Heart: RRR Abdomen: soft without distension Extremities: RUE picc Neuro: Alert, oriented, and interactive Lab data: No results found for: CRP , DREW , LDH , DDMER , PROCLT CBC with diff: WBC 7.30 09/28/2023 RBC 4.21 09/28/2023 Hemoglobin 13.5 09/28/2023 Hematocrit 40.0 09/28/2023 MCV 95.0 09/28/2023 MCH 32.1 09/28/2023 MCHC 33.8 09/28/2023 RDW-CV 12.0 09/28/2023 Platelet Count 309 09/28/2023 MPV 11.3 09/28/2023 Neut% 51.6 05/28/2021 Lymph% 35.6 05/28/2021 Woodward% 10.0 05/28/2021 Eosin% 2.0 05/28/2021 Baso% 0.8 05/28/2021 Abs Neut (ANC) 3.39 05/28/2021 Abs Woodward 0.66 05/28/2021 Abs Eosin 0.13 05/28/2021 Abs Baso 0.05 05/28/2021 Microbiology data: reviewed DATA: Diagnostic Tests Reviewed for Today's Visit: Most recent labs and imaging results. Impression/Recommend ations Assessment is copied forward from my last consult note with updates to reflect today's information September 28, 2023. 72 year old w/ PMH including VT s/p ICD, HOCM s/p myomectomy , afib . Patient follows urology at [facility] for recurrent UTIs. She states this improved with estrogen cream.Estrogen cream recaently d/c 09/04/23- Urine culture care everywhere. Chong susceptible E coli. Tx Keflex x ~ 7 days. ~09/23- presented to OSH ED w/ fever. CT complex subcapsular fluid collection of the right kidney nonspecific and most concerning for subcapsular hematoma secondary to underlying renal neoplasm given abnormality within the 7 adjacent renal parenchyma. 09/25- TX to [facility] . AF, w/o significant leukocytosis. Read urology consult note: Outside CT A/P with contrast images were reviewed. These revealed 3 to 4 cm septate right renal subcapsular lesion communicating with renal medullary lucent lesion and perinephric stranding. June lumbar spine MRI did not reveal right renal lesion. (note on review of [facility] MRI June 2022) Blood cx here ng. UA here neg . I called [facility] . Labs 09/23/23- UA negative, thus did not reflex to culture. Blood cx ngtd ? underlying renal neoplasm vs abscess/ ? partially tx recent UTI. I spoke w/ Dr. Shaina Turk -Anticipate copat ceftiaxone for possible abscess . Note prolonged qtc syndrome . SIGNATURE: Heather Rojas MD PATIENT NAME: Yasmin Fuentes DATE: September 28, 2023 TIME: 12:25 PM PAGER/CONTACT #: CoPAT form signed. Arrangements for post-discharge care to be done by the correctional case manager. The CoPAT form serves as the parenteral antibiotic treatment plan for when the patient leaves the hospital. This form should be sent by the correctional case manager to the agency that will be responsible for administering the parenteral antibiotic after the patient leaves the hospital ( home health agency / intermediate facility / dialysis center / infusion center). Please note that home-bound patients will need prescriptions for any oral antibiotics. These will not be provided by the home health agency. [facility] 09-27-2023 [facility] HNO ID: [id number] Author: Alonso Thorne Chaplain Service: Spiritual Care Author Type: Type: Allied Health Filed: 09/27/2023 2:55 PM Note Text: SPIRITUAL CARE ASSESSMENT SERVICE DATE: 09/27/2023 SERVICE TIME: 11:15 Visit with: Patient Length of visit (minutes): 10 Church / Spirituality: [employer] Reason: Initial visit ASSESSMENT Emotional Disposition: Grateful, Hopeful, Joyful, and Peaceful Relational Concerns: Struggling with Autonomy and Struggling with Self-care Spiritual Concerns: Struggling with gratitude, Struggling with life purpose, and Struggling with meaning of illness or diagnosis INTERVENTIONS Empowerment: Encouraged adherence to treatment plan, Encouraged focus on present, and Informed patient of spiritual care resources available Exploration: Explored emotional needs and resources, Explored relational needs and resources, and Explored spiritual needs and resources Relationship Building: Provided hospitality and Provided silent and supportive presence Ritual: Provided prayer OUTCOMES Patient experienced catharsis, Patient expressed gratitude, Patient expressed peace , and Patient progressed toward focus on present PLAN Will follow as circumstances allow COMMENTS: SIGNATURE: Chaplain Pamela PATIENT NAME: Yasmin Fuentes DATE: September 27, 2023 TIME: 2:53 PM PAGER/CONTACT #: [phone] [facility] HNO ID: [id number] Author: EaLeatha Junior RN Service: Radiology Author Type: Registered Nurse Type: Allied Health Filed: 09/27/2023 8:58 AM Note Text: PICC consult received, EMR reviewed. Patient is currently being followed by Infectious Disease team. Once final recommendations from ID are made, Vascular Access team will proceed with PICC placement to ensure appropriate line is placed (Single lumen vs. Double lumen). Our teamwill follow up, please page [phone] with any questions. Also waiting for blood cultures to clear for 48 hours before line placement. Vanessa Roberson RN/PICC Team [id number] September 27, 2023 8:58 AM Normal [facility] Basic metabolic 2000 panelon 09-27-2023 Anion gap [Moles/Vol] 11 mmol/L Normal 9-18 [place] Comment on above: Order Comment: Speci men Type: BLOOD SPECIMENOrdering Facility: [facility] Address: [address] [place] [address] Performed By: #### 2 4321-2 ####[facility] [id number] [place] [address] [place] Calcium [Mass/Vol] 9.1 mg/dL Normal 8.5-10.2 [facility] Comment on above: Order Comment: Speci men Type: BLOOD SPECIMENOrdering Facility: [facility] Address: [address] [place] [address] Performed By: #### 2 4321-2 ####[facility] [id number] [place] [address] [place] Chloride [Moles/Vol] 106 mmol/L High 97-105 [facility] Comment on above: Order Comment: Speci men Type: BLOOD SPECIMENOrdering Facility: [facility] Address: [address] [place] [address] Performed By: #### 2 4321-2 ####[facility] [id number] [place] [address] [place] CO2 [Moles/Vol] 23 mmol/L Normal 22-30 [facility] Comment on above: Order Comment: Speci men Type: BLOOD SPECIMENOrdering Facility: [facility] Address: [address] [place] [address] Performed By: #### 2 4321-2 ####[facility] [id number] [place] [address] [place] Creatinine [Mass/Vol] 0.72 mg/dL Normal 0.58-0.96 [place] Comment on above: Order Comment: Speci men Type: BLOOD SPECIMENOrdering Facility: [facility] Address: [address] [place] [address] Performed By: #### 2 4321-2 ####[facility] [id number] [place] [address] [place] Creatinine and Glomerular filtration rate.predicted panel (S/P/Bld) 88 mL/min/1.73m??? Normal >=60 [facility] Comment on above: Order Comment: Speci men Type: BLOOD SPECIMENOrdering Facility: [facility] Address: [address] [place] [address] Result Comment: Kimberly mated Glomerular Filtration Rate (eGFR) is calculated using the 2020 CKD-EPI creatinine equation. This equation utilizes serum creatinine, sex, and age as parameters. The creatinine assay has traceable calibration to isotope dilution-mass spectrometry. Refer to KDIGO guidelines for clinical interpretation. In patients with unstable renal function, e.g. those with acute kidney injury, the eGFR may not accurately reflect actual GFR. Performed By: #### 2 4321-2 ####[facility] [id number] [place] [address] [place] Glucose [Mass/Vol] 111 mg/dL High 74-99 [facility] Comment on above: Order Comment: Speci men Type: BLOOD SPECIMENOrdering Facility: [facility] Address: [address] [place] [address] Result Comment: The [place] Diabetes Association (ADA) provides guidance for cutoff values for fasting glucose and random glucose. The ADA defines fasting as no caloric intake for at least 8 hours. Fasting plasma glucose results between 100 to 125 mg/dL indicate increased risk for diabetes (prediabetes). Fasting plasma glucose results greater than or equal to 126 mg/dL meet the criteria for diagnosis of diabetes. In the absence of unequivocal hyperglycemia, results should be confirmed by repeat testing. In a patient with classic symptoms of hyperglycemia or hyperglycemic crisis, random plasma glucose results greater than or equal to 200 mg/dL meet the criteria for diagnosis of diabetes. Reference: Standards of Medical Care in Diabetes 2016, [place] [employer] Association. Diabetes Care. 2016.39(Suppl 1). Performed By: #### 2 4321-2 ####[facility] [id number] [place] [address] [place] Potassium [Moles/Vol] 4.4 mmol/L Normal 3.7-5.1 [place] Comment on above: Order Comment: Speci men Type: BLOOD SPECIMENOrdering Facility: [facility] Address: [address] [place] [address] Performed By: #### 2 4321-2 ####[facility] [id number] [place] [address] [place] Sodium [Moles/Vol] 140 mmol/L Normal 136-144 [facility] Comment on above: Order Comment: Speci men Type: BLOOD SPECIMENOrdering Facility: [facility] Address: [address] [place] [address] Performed By: #### 2 4321-2 ####[facility] [id number] [place] [address] [place] Urea nitrogen [Mass/Vol] 11 mg/dL Normal 7-21 [facility] Comment on above: Order Comment: Speci men Type: BLOOD SPECIMENOrdering Facility: [facility] Address: [address] [place] [address] Performed By: #### 2 4321-2 ####[facility] [id number] [place] [address] [place] CASE MANAGEMon 11-14-2023 CASE MANAGEM HNO ID: [id number] Author: Keena Figueroa RN Service: Nursing Author Type: Registered Nurse Type: Care Mgt Progress Note Filed: 09/27/2023 12:13 PM Note Text: CARE MANAGEMENT PROGRESS NOTE SERVICE DATE: 09/27/2023 SERVICE TIME: 12:04 PM LOS: 2 days Needs Prior to Discharge: Other: See Comment;IV Antibiotics (medical clearance) [place] of Choice Given: Yes Level of Care Discussed: Home Care Per team, plan for discharge home tomorrow with COPAT. Agency of choice [facility] can accept. [facility]IP is [facility] [place]. COPAT sent. NEEDS PICC placement, PICC notes sent to [facility]. Pt's family member will transport her home at discharge. Pt is to receive her IV abx dose prior to discharge day of discharge. HHC starts care the day after discharge. SIGNATURE: Keena Figueroa RN PATIENT NAME: Yasmin Fuentes DATE: September 27, 2023 TIME: 12:04 PM PAGER/CONTACT #: [phone] [facility] CBC panel Auto (Bld)on 09-27 Erythrocyte distribution width (RBC) [Ratio] 12.1 % Normal 11.5-15.0 [facility] Comment on above: Order Comment: Speci men Type: BLOOD SPECIMEN Ordering Facility: [facility] Address: [address] [place] [address] Performed By: #### 5 8410-2 #### [facility] CLIA [id number] [address] [place] [address] [place] Hematocrit (Bld) [Volume fraction] 39.6 % Normal 36.0-46.0 [facility] Comment on above: Order Comment: Speci men Type: BLOOD SPECIMEN Ordering Facility: [facility] Address: [address] [place] [address] Performed By: #### 5 8410-2 #### [facility] CLIA [id number] [address] [place] [address] [place] Hemoglobin (Bld) [Mass/Vol] 13.3 g/dL Normal 11.5-15.5 [facility] Comment on above: Order Comment: Speci men Type: BLOOD SPECIMEN Ordering Facility: [facility] Address: [address] [place] [address] Performed By: #### 5 8410-2 #### [facility] CLIA [id number] [address] [place] [address] [place] MCH (RBC) [Entitic mass] 32.4 pg Normal 26.0-34.0 [facility] Comment on above: Order Comment: Speci men Type: BLOOD SPECIMEN Ordering Facility: [facility] Address: [address] [place] [address] Performed By: #### 5 8410-2 #### [facility] CLIA [id number] [address] [place] [address] [place] MCHC (RBC) [Mass/Vol] 33.6 g/dL Normal 30.5-36.0 [place] Comment on above: Order Comment: Speci men Type: BLOOD SPECIMEN Ordering Facility: [facility] Address: [address] [place] [address] Performed By: #### 5 8410-2 #### [facility] CLIA [id number] [address] [place] [address] [place] MCV (RBC) [Entitic vol] 96.4 fL Normal 80.0-100.0 [facility] Comment on above: Order Comment: Speci men Type: BLOOD SPECIMEN Ordering Facility: [facility] Address: [address] [place] [address] Performed By: #### 5 8410-2 #### [facility] CLIA [id number] [address] [place] [address] [place] Nucleated RBC (Bld) [#/Vol] 10*3/uL Normal <0.01 [facility] Comment on above: Order Comment: Speci men Type: BLOOD SPECIMEN Ordering Facility: [facility] Address: [address] [place] [address] Performed By: #### 5 8410-2 #### [facility] CLIA [id number] [address] [place] [address] [place] Platelet mean volume (Bld) [Entitic vol] 11.1 fL Normal 9.0-12.7 [facility] Comment on above: Order Comment: Speci men Type: BLOOD SPECIMEN Ordering Facility: [facility] Address: [address] [place] [address] Performed By: #### 5 8410-2 #### [facility] CLIA [id number] [address] [place] [address] [place] Platelets (Bld) [#/Vol] 317 10*3/uL Normal 150-400 [facility] Comment on above: Order Comment: Speci men Type: BLOOD SPECIMEN Ordering Facility: [facility] Address: [address] [place] [address] Performed By: #### 5 8410-2 #### [facility] CLIA [id number] [address] [place] [address] [place] RBC (Bld) [#/Vol] 4.11 10*6/uL Normal 3.90-5.20 [facility] Comment on above: Order Comment: Speci men Type: BLOOD SPECIMEN Ordering Facility: [facility] Address: [address] [place] [address] Performed By: #### 5 8410-2 #### [facility] CLIA [id number] [address] [place] [address] [place] WBC (Bld) [#/Vol] 10.62 10*3/uL Normal 3.70-11.00 [facility] Comment on above: Order Comment: Speci men Type: BLOOD SPECIMEN Ordering Facility: [facility] Address: [address] [place] [address] Performed By: #### 5 8410-2 #### [facility] CLIA [id number] [address] [place] [id number] [place] CONSULT PROGon 09-27-2023 CONSULT PROG HNO ID: [id number] Author: Heather Rojas MD Service: Infectious Disease Author Type: Physician Type: Consult Progress Note Filed: 09/27/2023 11:19 AM Note Text: PROGRESS NOTE INFECTIOUS DISEASE SERVICE DATE: 09/27/2023 SERVICE TIME: 11:14 AM Subjective Medications: Current Facility-Administere d Medications Medication Dose Route Frequency NaCl 0.9% iv flush bag 20 mL INTRAVENOUS PRN acetaminophen 650 mg tab(s) (TYLENOL) 650 mg ORAL q 6 H PRN polyethylene glycol 3350 17 g packet 17 g ORAL DAILY PRN atorvastatin 40 mg tab(s) (LIPITOR) 40 mg ORAL AT BEDTIME metoprolol succinate ER 50 mg tab(s) (TOPROL XL) 50 mg ORAL q 24 H cefTRIAXone 1 g in D5W 100 mL Vial-Bag (ROCEPHIN) 1 g INTRAVENOUS q 24 H lidocaine (PF) 10 mg/mL (1 %) 10-100 mg injection (XYLOCAINE) 1-10 mL INTRADERMAL DIRECTED PRN Objective Physical Exam: Temp (24hrs), Av.9 ?C (98.5 ?F), Min:36.6 ?C (97.9 ?F), Max:37.1 ?C (98.8 ?F) Temp (120hrs), Av.9 ?C (98.5 ?F), Min:36.6 ?C (97.9 ?F), Max:37.2 ?C (99 ?F) General: Awake, alert, interactive. Sitting up comfortably., crocheting Head: Atraumatic, normocephalic Nose: Nasal cannula present no devices present Mouth: Moist mucous membranes Neck: Supple, Chest: symmetric chest rise, breathing comfortably Heart: RRR Abdomen: soft without distension Extremities: No edema visualized, moving extremities spontaneously Neuro: Alert, oriented, and interactive Lab data: No results found for: CRP , DREW , LDH , DDMER , PROCLT CBC with diff: WBC 10.62 09/27/2023 RBC 4.11 09/27/2023 Hemoglobin 13.3 09/27/2023 Hematocrit 39.6 09/27/2023 MCV 96.4 09/27/2023 MCH 32.4 09/27/2023 MCHC 33.6 09/27/2023 RDW-CV 12.1 09/27/2023 Platelet Count 317 09/27/2023 MPV 11.1 09/27/2023 Neut% 51.6 05/28/2021 Lymph% 35.6 05/28/2021 Woodward% 10.0 05/28/2021 Eosin% 2.0 05/28/2021 Baso% 0.8 05/28/2021 Abs Neut (ANC) 3.39 05/28/2021 Abs Woodward 0.66 05/28/2021 Abs Eosin 0.13 05/28/2021 Abs Baso 0.05 05/28/2021 Microbiology data: reviewed DATA: Diagnostic Tests Reviewed for Today's Visit: Most recent labs and imaging results. Impression/Recommend ations Assessment is copied forward from my last consult note with updates to reflect today's information September 27, 2023. 72 year old w/ PMH including VT s/p ICD, HOCM s/p myomectomy , afib . Patient follows urology at [facility] for recurrent UTIs. She states this improved with estrogen cream.Estrogen cream recaently d/c 09/04/23- Urine culture care everywhere. Chong susceptible E coli. Tx Keflex x ~ 7 days. ~09/23- presented to OSH ED w/ fever. CT complex subcapsular fluid collection of the right kidney nonspecific and most concerning for subcapsular hematoma secondary to underlying renal neoplasm given abnormality within the 7 adjacent renal parenchyma. 09/25- TX to [facility] . AF, w/o significant leukocytosis. Read urology consult note: Outside CT A/P with contrast images were reviewed. These revealed 3 to 4 cm septate right renal subcapsular lesion communicating with renal medullary lucent lesion and perinephric stranding. June lumbar spine MRI did not reveal right renal lesion. (note on review of [facility] MRI June 2022) Blood cx here ng. UA here neg . I called [facility] . Labs 09/23/23- UA negative, thus did not reflex to culture. Blood cx ngtd ? underlying renal neoplasm vs abscess/ ? partially tx recent UTI. I spoke w/ Dr. Shaina Turk -Anticipate copat ceftiaxone for possible abscess . Note prolonged qtc syndrome . OK to place single lumen picc SIGNATURE: Heather Rojas MD PATIENT NAME: Yasmin Fuentes DATE: September 27, 2023 TIME: 11:14 AM PAGER/CONTACT #: [facility] PT EDon 09-27-2023 PT ED HNO ID: [id number] Author: Leatha Gilliam RN Service: Radiology Author Type: Registered Nurse Type: Patient Education Filed: 09/27/2023 3:09 PM Note Text: PATIENT EDUCATION TOPIC: PROCEDURE / SURGERY: Procedure/Surgery: PICC line PATIENT NAME: Yasmin Fuentes PATIENT LOCATION: [place] [address] READINESS TO LEARN COGNITIVE ABILITY: Alert and oriented MOTIVATION TO LEARN: Eager Interested FAMILY SUPPORT: Unable to assess - Family not present INSTRUCTION PROVIDED TO: Patient PATIENT LEARNS BEST BY: Written Instruction - Hand-outs FACTORS AFFECTING LEARNING: None PHYSICAL LIMITATIONS AFFECTING LEARNING: None LEARNING RESPONSE DIAGNOSIS: ADULT: ARIS for COPAT PATIENT/FAMILY RESPONSE: Information received as demonstrated by interest and questions METHOD OF INSTRUCTION: Written instruction - handouts FOLLOW-UP PLAN: Reinforce - Repeat previous content Contact information given. INSTRUCTIONAL AIDS USED: Picc Line Book SUPPLEMENTAL MATERIAL PROVIDED TO PATIENT: None REFERRAL (RECOMMENDATION): Home Health Agency Infection Control Nurse Electronically Signed By: Vanessa Roberson [facility] Basic metabolic 2000 panelon 09-26-2023 Anion gap [Moles/Vol] 12 mmol/L Normal 9-18 [place] Comment on above: Order Comment: Speci men Type: BLOOD SPECIMENOrdering Facility: [facility] Address: [address] [place] [address] Performed By: #### 2 4321-2 ####[facility] [id number] [facility] [id number] [address] [place] Calcium [Mass/Vol] 9.2 mg/dL Normal 8.5-10.2 [facility] Comment on above: Order Comment: Speci men Type: BLOOD SPECIMENOrdering Facility: [facility] Address: [address] [place] [address] Performed By: #### 2 4321-2 ####[facility] [id number] [place] [address] [place] Chloride [Moles/Vol] 104 mmol/L Normal 97-105 [facility] Comment on above: Order Comment: Speci men Type: BLOOD SPECIMENOrdering Facility: [facility] Address: [address] [place] [address] Performed By: #### 2 4321-2 ####[facility] [id number] [place] [address] [place] CO2 [Moles/Vol] 21 mmol/L Low 22-30 [facility] Comment on above: Order Comment: Speci men Type: BLOOD SPECIMENOrdering Facility: [facility] Address: [address] [place] [address] Performed By: #### 2 4321-2 ####[facility] LABIA [id number] [place] [address] [place] Creatinine [Mass/Vol] 0.74 mg/dL Normal 0.58-0.96 [place] Comment on above: Order Comment: Speci men Type: BLOOD SPECIMENOrdering Facility: [facility] Address: [address] [place] [address] Performed By: #### 2 4321-2 ####[facility] [id number] [place] [address] [place] Creatinine and Glomerular filtration rate.predicted panel (S/P/Bld) 86 mL/min/1.73m??? Normal >=60 [facility] Comment on above: Order Comment: Speci men Type: BLOOD SPECIMENOrdering Facility: [facility] Address: [address] [place] [address] Result Comment: Kimberly mated Glomerular Filtration Rate (eGFR) is calculated using the 2020 CKD-EPI creatinine equation. This equation utilizes serum creatinine, sex, and age as parameters. The creatinine assay has traceable calibration to isotope dilution-mass spectrometry. Refer to KDIGO guidelines for clinical interpretation. In patients with unstable renal function, e.g. those with acute kidney injury, the eGFR may not accurately reflect actual GFR. Performed By: #### 2 4321-2 ####[facility] [id number] [place] [address] [place] Glucose [Mass/Vol] 121 mg/dL High 74-99 [facility] Comment on above: Order Comment: Speci men Type: BLOOD SPECIMENOrdering Facility: [facility] Address: [address] [place] [address] Result Comment: The [place] Diabetes Association (ADA) provides guidance for cutoff values for fasting glucose and random glucose. The ADA defines fasting as no caloric intake for at least 8 hours. Fasting plasma glucose results between 100 to 125 mg/dL indicate increased risk for diabetes (prediabetes). Fasting plasma glucose results greater than or equal to 126 mg/dL meet the criteria for diagnosis of diabetes. In the absence of unequivocal hyperglycemia, results should be confirmed by repeat testing. In a patient with classic symptoms of hyperglycemia or hyperglycemic crisis, random plasma glucose results greater than or equal to 200 mg/dL meet the criteria for diagnosis of diabetes. Reference: Standards of Medical Care in Diabetes 2016, [place] [employer]. Diabetes Care. 2016.39(Suppl 1). Performed By: #### 2 4321-2 ####[facility] LABIA [id number] [place] [id number] [place] Potassium [Moles/Vol] Normal [place] Comment on above: Order Comment: Speci men Type: BLOOD SPECIMENOrdering Facility: [facility] Address: [address] [place] [address] Result Comment: Unab le to assay due to interference from hemolysis. Suggest reorder as clinically indicated. Performed By: #### 2 4321-2 ####[facility]CLIA [id number] [place] [address] [place] Sodium [Moles/Vol] 137 mmol/L Normal 136-144 [facility] Comment on above: Order Comment: Speci men Type: BLOOD SPECIMENOrdering Facility: [facility] Address: [address] [place] [address] Performed By: #### 2 4321-2 ####[facility]CLIA [id number] [address] STATES OF [facility] Urea nitrogen [Mass/Vol] 11 mg/dL Normal 7-21 [facility] Comment on above: Order Comment: Speci men Type: BLOOD SPECIMENOrdering Facility: [facility] Address: [address] [place] [address] Performed By: #### 2 4321-2 ####[facility] LABCLIA [id number] [address] OF [facility] CASE MGT INIT KYLEon 2022 CASE MGT INIT ASSES HNO ID: [id number] Author: Keena Figueroa RN Service: Nursing Author Type: Registered Nurse Type: Care Mgt Initial Assessment Filed: 09/26/2023 3:55 PM Note Text: CARE MANAGEMENT: ASSESSMENT AND DISCHARGE PLAN SERVICE DATE: September 26, 2023 SERVICE TIME: 1:16 PM PCP: Gideon Adams DO Primary Contact: Extended Emergency Contact Information Primary Emergency Contact: Sharri Edwards Mobile Relation: Daughter Secondary Emergency Contact: Ace Fuentes Mobile Relation: Spouse Admission Status: Inpatient Insurance Provider: MEDICARE A AND B Post-Acute Discharge Plan: This patient has been screened for Care Management Transitional Planning Services. At this time, it does not appear this patient will require transition planning services. Should this change, and the patient require transition planning services during this admission, please contact Case Management. UPDATE 3:54 PM Pt to discharge on COPAT. Referral created and sent. Medical team planning discharge tomorrow. CM will follow. SIGNATURE: Keena Figueroa RN PATIENT NAME: Yasmin Fuentes DATE: September 26, 2023 TIME: 1:16 PM CONTACT #: [phone] [facility] CBC panel Auto (Bld)on 09-26 Erythrocyte distribution width (RBC) [Ratio] 12.2 % Normal 11.5-15.0 [facility] Comment on above: Order Comment: Speci men Type: BLOOD SPECIMENOrdering Facility: [facility] Address: [address] [place] [address] Performed By: #### 5 8410-2 ####[facility] LABIA [id number] [place] [address] [place] Hematocrit (Bld) [Volume fraction] 37.8 % Normal 36.0-46.0 [facility] Comment on above: Order Comment: Speci men Type: BLOOD SPECIMENOrdering Facility: [facility] Address: [address] [place] [address] Performed By: #### 5 8410-2 ####[facility]CL[facility] [id number] [place] [address] [place] Hemoglobin (Bld) [Mass/Vol] 13.2 g/dL Normal 11.5-15.5 [facility] Comment on above: Order Comment: Speci men Type: BLOOD SPECIMENOrdering Facility: [facility] Address: [address] [place] [address] Performed By: #### 5 8410-2 ####[facility] LABIA [id number] [place] [address] [place] MCH (RBC) [Entitic mass] 32.5 pg Normal 26.0-34.0 [facility] Comment on above: Order Comment: Speci men Type: BLOOD SPECIMENOrdering Facility: [facility] Address: [address] [place] [address] Performed By: #### 5 8410-2 ####[facility]CL[facility] [id number] [place] [address] [place] MCHC (RBC) [Mass/Vol] 34.9 g/dL Normal 30.5-36.0 [place] Comment on above: Order Comment: Speci men Type: BLOOD SPECIMENOrdering Facility: [facility] Address: [address] [place] [address] Performed By: #### 5 8410-2 ####[facility] LABIA [id number] [place] [address] [place] MCV (RBC) [Entitic vol] 93.1 fL Normal 80.0-100.0 [facility] Comment on above: Order Comment: Speci men Type: BLOOD SPECIMENOrdering Facility: [facility] Address: [address] [place] [address] Performed By: #### 5 8410-2 ####[facility] [id number] [place] [address] [place] Nucleated RBC (Bld) [#/Vol] 10*3/uL Normal <0.01 [facility] Comment on above: Order Comment: Speci men Type: BLOOD SPECIMENOrdering Facility: [facility] Address: [address] [place] [address] Performed By: #### 5 8410-2 ####[facility] [id number] [place] [address] [place] Platelet mean volume (Bld) [Entitic vol] 11.0 fL Normal 9.0-12.7 [facility] Comment on above: Order Comment: Speci men Type: BLOOD SPECIMENOrdering Facility: [facility] Address: [address] [place] [address] Performed By: #### 5 8410-2 ####[facility] [id number] [place] [address] [place] Platelets (Bld) [#/Vol] 324 10*3/uL Normal 150-400 [facility] Comment on above: Order Comment: Speci men Type: BLOOD SPECIMENOrdering Facility: [facility] Address: [address] [place] [address] Performed By: #### 5 8410-2 ####[facility] LABCLIA [id number] [place] [address] [place] RBC (Bld) [#/Vol] 4.06 10*6/uL Normal 3.90-5.20 [facility] Comment on above: Order Comment: Speci men Type: BLOOD SPECIMENOrdering Facility: [facility] Address: [address] [place] [address] Performed By: #### 5 8410-2 ####[facility] LABIA [id number] [place] [address] [place] WBC (Bld) [#/Vol] 12.01 10*3/uL High 3.70-11.00 [facility] Comment on above: Order Comment: Speci men Type: BLOOD SPECIMENOrdering Facility: [facility] Address: [address] [place] [address] Performed By: #### 5 8410-2 ####[facility] LABIA [id number] [place] [address] [place] CONSULTon 09-26-2023 CONSULT HNO ID: [id number] Author: Heather Rojas MD Service: Infectious Disease Author Type: Physician Type: Consults Filed: 09/26/2023 3:38 PM Note Text: INITIAL CONSULT INFECTIOUS DISEASE SERVICE DATE: 09/26/2023 We were asked to evaluate Ms. Yasmin Fuentes, a 72 year old yo female by Dr. Turk for UTI . Our findings and recommendations will be communicated through the shared medical record. Subjective HPI: 72 year old w/ PMH including VT s/p ICD, HOCM s/p myomectomy , afib . Patient follows urology at [facility] for recurrent UTIs. She states this improved with estrogen cream.Estrogen cream recaently d/c 09/04/23- Urine culture care everywhere. Chong susceptible E coli. Tx Keflex x ~ 7 days. ~09/23- presented to OSH ED w/ fever. CT complex subcapsular fluid collection of the right kidney nonspecific and most concerning for subcapsular hematoma secondary to underlying renal neoplasm given abnormality within the 7 adjacent renal parenchyma. 09/25- [place] to [facility] . AF, w/o significant leukocytosis. Read urology consult note: Outside CT A/P with contrast images were reviewed. These revealed 3 to 4 cm septate right renal subcapsular lesion communicating with renal medullary lucent lesion and perinephric stranding. June lumbar spine MRI did not reveal right renal lesion. (note on review of epic MRI June 2022) Blood cx here ng. UA here neg . I called [facility] . Labs 09/23- UA negative. Blood cx ngtd Exposure History Travel: no recent Current other medications reviewed. Current Facility-Administere d Medications Medication Dose Route Frequency NaCl 0.9% iv flush bag 20 mL INTRAVENOUS PRN acetaminophen 650 mg tab(s) (TYLENOL) 650 mg ORAL q 6 H PRN polyethylene glycol 3350 17 g packet 17 g ORAL DAILY PRN atorvastatin 40 mg tab(s) (LIPITOR) 40 mg ORAL AT BEDTIME metoprolol succinate ER 50 mg tab(s) (TOPROL XL) 50 mg ORAL q 24 H piperacillin-tazobac arias iv piggyback 3.375 g in dextrose (iso-osmotic) 50 mL (ZOSYN) 3.375 g INTRAVENOUS q 6 H Immunization History Administered Date(s) Administered COVID-19 original vaccine, age 12+ yr, monovalent ([employer] - VEE TOP) 06/22/2022 COVID-19 original vaccine, age 12+ yr, monovalent ([employer] [place] - PURPLE TOP) 12/19/2020 01/10/2021 10/21/2021 influenza (HD-IIV3) vaccine, age 65+ yr, high dose, PF (FLUZONE HIGH-DOSE) 08/04/2016 influenza (IIV3) vaccine, trivalent (AFLURIA, FLULAVAL, FLUVIRIN, FLUZONE) 07/22/2019 influenza (aIIV3) vaccine, age 65+ yr, trivalent, PF (FLUAD) 07/25/2018 07/27/2019 pneumococcal (PCV13) vaccine, 13 valent (PREVNAR 13) 09/23/2015 pneumococcal (PPV23) vaccine, 23 valent (PNEUMOVAX 23) 01/04/2019 zoster (ZVL) vaccine, live (ZOSTAVAX) 09/09/2014 06/17/2015 PAST MEDICAL HISTORY Diagnosis Date Closed displaced fracture of seventh cervical vertebra with routine healing HOCM (hypertrophic obstructive cardiomyopathy) (HCC) Hyperlipidemia Hypertension Long Q-T syndrome PAST SURGICAL HISTORY Procedure Laterality Date HEART SURGERY HX N/A 06/23/2021 s/p MVr and Myectomy - 06/[address] Giraldo HYSTERECTOMY 1990 IMPLANTABLE ICD PLACEMENT 01/19/2021 KNEE SURGERY HX Social History Tobacco Use Smoking status: Former Types: Cigarettes Quit date: 1994 Years since quittin.8 Smokeless tobacco: Never Vaping Use Vaping Use: Never used Substance Use Topics Alcohol use: Yes Comment: rarely Drug use: Never FAMILY HISTORY Problem Relation Age of Onset Heart disease Mother Aneurysm Father ALLERGIES Allergen Reactions Codeine Vomiting Demeral [Meperidine] Vomiting Scallops Other: See Comments Nausea, diarrhea REVIEW OF SYSTEMS: A complete review of systems was preformed and all others were negative. Objective PHYSICAL EXAM: BP 145/73 Pulse 74 Temp 36.6 ?C (97.9 ?F) (Oral) Resp 18 Ht 165.1 cm (5' 5 ) Wt 78 kg (171 lb 15.3 oz) SpO2 97% BMI 28.62 kg/m? Temp (24hrs), Av.9 ?C (98.5 ?F), Min:36.6 ?C (97.9 ?F), Max:37.2 ?C (99 ?F) GENERAL APPEARANCE: Patient in no acute distress. SKIN: Skin color, texture, turgor normal. No rashes or lesions. No peripheral signs of infectious endocarditis HEAD/SINUSES: No significant findings. EYES: PERRLA, EOMI, conjunctivae clear. EARS: External ears normal. NOSE: Nares normal. Septum midline. OROPHARYNX: Lips, mucosa, and tongue normal. Teeth and gums normal. Oropharynx normal. NECK: Supple, full range of motion, no lymphadenopathy, normal thyroid, no carotid bruits, no JVD. BACK: no CVA tenderness, no spinal point tenderness, no paraspinal tenderness LUNGS: Normal breath sounds, clear to auscultation, percussion normal, no wheezes, or crackles. HEART: Normal PMI, Regular rate/rhythm, normal heart sounds, and no murmurs. ABDOMEN: Soft, non tender, no palpable masses, normal bowel sounds, no abdominal bruits, No hepatosplenomegaly. E (more content not included)... [facility] Bacteria Bld Culton 09-25-20 Bacteria identified Cx Nom (Bld) CULTURE, BLOOD: No growth 5 days [facility] Comment on above: Performed By: #### 6 00-7 ####[facility] LABCL[facility] [id number] [place] [address] [place] Bacteria identified Cx Nom (Bld) CULTURE, BLOOD: No growth 5 days [facility] Comment on above: Performed By: #### 6 00-7 ####[facility] LABCL[facility] [id number] [place] [address] [place] Basic metabolic 2000 panelon 09-25-2023 Anion gap [Moles/Vol] 14 mmol/L Normal 9-18 [place] Comment on above: Order Comment: Speci men Type: BLOOD SPECIMENOrdering Facility: [facility] Address: [address] [place] [address] Performed By: #### 2 4320-2, 2323-12 ####[facility] LABCLIA [id number] [place] [address] [place] Calcium [Mass/Vol] 9.5 mg/dL Normal 8.5-10.2 [facility] Comment on above: Order Comment: Speci men Type: BLOOD SPECIMENOrdering Facility: [facility] Address: [address] [place] [address] Performed By: #### 2 4320-2, 2 ####[facility] LABCL[facility] [id number] [place] [address] [place] Chloride [Moles/Vol] 103 mmol/L Normal 97-105 [facility] Comment on above: Order Comment: Speci men Type: BLOOD SPECIMENOrdering Facility: [facility] Address: [address] [place] [address] Performed By: #### 2 4320-2, 2323-12 ####[facility] LABCL[facility] [id number] [place] [address] [place] CO2 [Moles/Vol] 20 mmol/L Low 22-30 [facility] Comment on above: Order Comment: Speci men Type: BLOOD SPECIMENOrdering Facility: [facility] Address: [address] [place] [address] Performed By: #### 2 4320-2, 2323-12 ####[facility] LABIA [id number] [place] [address] [place] Creatinine [Mass/Vol] 0.78 mg/dL Normal 0.58-0.96 [place] Comment on above: Order Comment: Speci men Type: BLOOD SPECIMENOrdering Facility: [facility] Address: [address] [place] [address] Performed By: #### 2 4320-2, 2323-12 ####[facility] LABIA [id number] [place] [address] [place] Creatinine and Glomerular filtration rate.predicted panel (S/P/Bld) 80 mL/min/1.73m??? Normal >=60 [facility] Comment on above: Order Comment: Speci men Type: BLOOD SPECIMENOrdering Facility: [facility] Address: [address] [place] [address] Result Comment: Kimberly mated Glomerular Filtration Rate (eGFR) is calculated using the 2020 CKD-EPI creatinine equation. This equation utilizes serum creatinine, sex, and age as parameters. The creatinine assay has traceable calibration to isotope dilution-mass spectrometry. Refer to KDIGO guidelines for clinical interpretation. In patients with unstable renal function, e.g. those with acute kidney injury, the eGFR may not accurately reflect actual GFR. Performed By: #### 2 432-2, 2 ####[facility] LABIA [id number] [place] [address] [place] Glucose [Mass/Vol] 130 mg/dL High 74-99 [facility] Comment on above: Order Comment: Speci men Type: BLOOD SPECIMENOrdering Facility: [facility] Address: [address] [place] [address] Result Comment: The [place] Diabetes Association (ADA) provides guidance for cutoff values for fasting glucose and random glucose. The ADA defines fasting as no caloric intake for at least 8 hours. Fasting plasma glucose results between 100 to 125 mg/dL indicate increased risk for diabetes (prediabetes). Fasting plasma glucose results greater than or equal to 126 mg/dL meet the criteria for diagnosis of diabetes. In the absence of unequivocal hyperglycemia, results should be confirmed by repeat testing. In a patient with classic symptoms of hyperglycemia or hyperglycemic crisis, random plasma glucose results greater than or equal to 200 mg/dL meet the criteria for diagnosis of diabetes. Reference: Standards of Medical Care in Diabetes 2016, [place] [employer] Association. Diabetes Care. 2016.39(Suppl 1). Performed By: #### 2 4321-2, 2323-2 ####[facility] LABCL[facility] [id number] [place] [address] [place] Potassium [Moles/Vol] 4.2 mmol/L Normal 3.7-5.1 [place] Comment on above: Order Comment: Lidia dong Type: BLOOD SPECIMENOrdering Facility: [facility] Address: [address] [place] [address] Performed By: #### 2 4321-2, 2 ####[facility] LABCL[facility] [id number] [place] [address] [place] Sodium [Moles/Vol] 137 mmol/L Normal 136-144 [facility] Comment on above: Order Comment: Speci men Type: BLOOD SPECIMENOrdering Facility: [facility] Address: [address] [place] [address] Performed By: #### 2 432-2, 2 ####[facility] LABCLIA [id number] [place] [address] [place] Urea nitrogen [Mass/Vol] 13 mg/dL Normal 7-21 [facility] Comment on above: Order Comment: Speci men Type: BLOOD SPECIMENOrdering Facility: [facility] Address: [address] [place] [address] Performed By: #### 2 4321-2, 2324-2 ####[facility] LABCL[facility] [id number] [place] [address] [place] CBC panel Auto (Bld)on 09-25 Erythrocyte distribution width (RBC) [Ratio] 12.2 % Normal 11.5-15.0 [facility] Comment on above: Order Comment: Speci men Type: BLOOD SPECIMEN [facility] Address: [address] [place] [address] Performed By: #### 5 8410-2 #### [facility] CLIA [id number] [address] [place] [address] [place] Hematocrit (Bld) [Volume fraction] 39.1 % Normal 36.0-46.0 [facility] Comment on above: Order Comment: Speci men Type: BLOOD SPECIMEN [facility]ing [facility]: [facility] Address: [address] [place] [address] Performed By: #### 5 8410-2 #### [facility] CLIA [id number] [address] [place] [address] [place] Hemoglobin (Bld) [Mass/Vol] 13.0 g/dL Normal 11.5-15.5 [facility] Comment on above: Order Comment: Speci men Type: BLOOD SPECIMEN [facility]ing [facility]: [facility] Address: [address] [place] [address] Performed By: #### 5 8410-2 #### [facility] CLIA [id number] [address] [place] [address] [place] MCH (RBC) [Entitic mass] 31.8 pg Normal 26.0-34.0 [facility] Comment on above: Order Comment: Speci men Type: BLOOD SPECIMEN Ordering Facility: [facility] Address: [address] [place], [place] [address] Performed By: #### 5 8410-2 #### [facility] CLIA [id number] [address] [place] [address] [place] MCHC (RBC) [Mass/Vol] 33.2 g/dL Normal 30.5-36.0 [place] Comment on above: Order Comment: Speci men Type: BLOOD SPECIMEN Ordering Facility: [facility] Address: [address] [place] [address] Performed By: #### 5 8410-2 #### [facility] CLIA [id number] [address] [place] [address] [place] MCV (RBC) [Entitic vol] 95.6 fL Normal 80.0-100.0 [facility] Comment on above: Order Comment: Speci men Type: BLOOD SPECIMEN [facility]ing Facility: [facility] Address: [address] [place] [address] Performed By: #### 5 8410-2 #### [facility] CLIA [id number] [address] [place] [address] [place] Nucleated RBC (Bld) [#/Vol] 10*3/uL Normal <0.01 [facility] Comment on above: Order Comment: Speci men Type: BLOOD SPECIMEN Ordering Facility: [facility] Address: [address] [place] [address] Performed By: #### 5 8410-2 #### [facility] CLIA [id number] [address] [place] [address] [place] Platelet mean volume (Bld) [Entitic vol] 11.3 fL Normal 9.0-12.7 [facility] Comment on above: Order Comment: Speci men Type: BLOOD SPECIMEN Ordering Facility: [facility] Address: [address] [place] [address] Performed By: #### 5 8410-2 #### [facility] CLIA [id number] [address] [place] [address] [place] Platelets (Bld) [#/Vol] 262 10*3/uL Normal 150-400 [facility] Comment on above: Order Comment: Speci men Type: BLOOD SPECIMEN Ordering Facility: [facility] Address: [address] [place] [address] Performed By: #### 5 8410-2 #### [facility] CLIA [id number] [address] [place] [address] [place] RBC (Bld) [#/Vol] 4.09 10*6/uL Normal 3.90-5.20 [facility] Comment on above: Order Comment: Speci men Type: BLOOD SPECIMEN Ordering Facility: [facility] Address: [address] [place] [address] Performed By: #### 5 8410-2 #### [facility] CLIA [id number] [address] [place] [address] [place] WBC (Bld) [#/Vol] 12.14 10*3/uL High 3.70-11.00 [facility] Comment on above: Order Comment: Speci men Type: BLOOD SPECIMEN Ordering Facility: [facility] Address: [address] [place] [address] Performed By: #### 5 8410-2 #### [facility] CLIA [id number] [address] [place] [address] [place] CONSULTon 09-25-2023 CONSULT HNO ID: [id number] Author: John Turk MD Service: Urology Author Type: Physician Type: Consults Filed: 09/26/2023 2:30 PM Note Text: [facility] UROLOGY CONSULT NOTE NAME: Yasmin Fuentes BED: H080 [id number]/[id number] SERVICE DATE: 09/25/2023 SERVICE TIME: 11:30 AM REASON FOR CONSULT: Possible right renal abscess vs hematoma ASSESSMENT AND PLAN Ms. Fuentes is a 72 year old female with PMHx of pVtach s/p defibrillator, long QT, HOCM s/p myectomy and MVR, afib on amiodarone, bilateral renal cysts, recurrent UTIs, urethral stricture who presents with fevers and chills. AFVSS. Hgb stable. Mild leukocytosis to 12. Blood cultures pending. UA clean. On Zosyn. Complex fluid collection around 3 cm on right kidney with perinephric stranding. No prior imaging available. Recommendations: - Given history of recurrent UTIs, fluid collection may be small abscess however given small size we would not recommend drain placement. Abscess this size will likely respond to IV abx treatmetnt. - Could repeat imaging in a few days to assess response to antibiotic therapy Plan to be discussed with staff Dr. Turk in [place] George MD PGY-2 Resident Physician Urology Pager: [phone] For weekend or after hours issues [place] [phone] HISTORY OF PRESENT ILLNESS Ms. Fuentes is a 72 year old female with PMHx of pVtach s/p defibrillator, long QT, HOCM s/p myectomy and MVR, afib on amiodarone, bilateral renal cysts, urethral stricture who presents with fevers and chills with CT A/P from OSH demosntrating possible right renal abscess. Patient reports fevers and chills on Tuesday and presented to OSH ED. Labs notable for leukocytosis to 15. A CT A/P was done that demonstrated complex subcapsular fluid collection of the right kidney nonspecific and most concerning for subcapsular hematoma secondary to underlying renal neoplasm given abnormality within the 7 adjacent renal parenchyma. She transferred to [facility] for further management. Patient states her fever and chills have improved. She denies dysuria, hematuria, sensation of incomplete emptying. Patient follows urology at [facility] for recurrent UTIs. She states this has improved with estrogen cream. Lately she has been decreasing dose to once a day, however she had a UTI 08/29 and was prescribed Keflex. On exam patient is AFVSS. WBC 12, Hgb 13 stable, Cr 0.78. UA negative for nitrites or LE. Blood cultures pending. CT A/P from OSH demonstrating complex subcapsular fluid collection of the right kidney nonspecific and most concerning for subcapsular hematoma secondary to underlying renal neoplasm given abnormality within the 7 adjacent renal parenchyma. Started on Zosyn. PAST MEDICAL HISTORY Diagnosis Date Closed displaced fracture of seventh cervical vertebra with routine healing HOCM (hypertrophic obstructive cardiomyopathy) (HCC) Hyperlipidemia Hypertension Long Q-T syndrome PAST SURGICAL HISTORY Procedure Laterality Date HEART SURGERY HX N/A 06/23/2021 s/p MVr and Myectomy - 06/[address] Giraldo HYSTERECTOMY 1989 IMPLANTABLE ICD PLACEMENT 01/19/2021 KNEE SURGERY HX FAMILY HISTORY Problem Relation Age of Onset Heart disease Mother Aneurysm Father Social History Tobacco Use Smoking status: Former Types: Cigarettes Quit date: 1994 Years since quittin.8 Smokeless tobacco: Never Vaping Use Vaping Use: Never used Substance Use Topics Alcohol use: Yes Comment: rarely Drug use: Never MEDICATIONS: Prior to Admission Medications: atorvastatin calcium (ATORVASTATIN ORAL)Take 40 mg by mouth daily at bedtime.Disp: Rfl: metoprolol succinate ER (TOPROL XL) 50 mg 24 hr tabletTake 1 tablet by mouth once daily.Disp: 90 tabletRfl: 0 aspirin 81 mg chewable tabletChew and swallow 1 tablet by mouth once daily.Disp: 30 tabletRfl: 1 loratadine (CLARITIN ORAL)Take by mouth once daily.Disp: Rfl: baclofen 10 mg tabletDisp: Rfl: Current Facility-Administere d Medications Medication Dose Route Frequency NaCl 0.9% iv flush bag 20 mL INTRAVENOUS PRN acetaminophen 650 mg tab(s) (TYLENOL) 650 mg ORAL q 6 H PRN polyethylene glycol 3350 17 g packet 17 g ORAL DAILY PRN atorvastatin 40 mg tab(s) (LIPITOR) 40 mg ORAL AT BEDTIME metoprolol succinate ER 50 mg tab(s) (TOPROL XL) 50 mg ORAL q 24 H piperacillin-tazobac arias iv piggyback 3.375 g in dextrose (iso-osmotic) 50 mL (ZOSYN) 3.375 g INTRAVENOUS q 6 H ALLERGIES: Codeine, Demeral [Meperidine], and Scallops COMPLETE REVIEW OF SYSTEMS: GEN: no fevers or weight loss HEENT: no cough CV: no chest pain PULM: No difficulty breathing GI: no diarrhea or constipation : See HPI MSK: ambulating without issue SKIN: no new rashes ID: no recent illness PHYSICAL EXAM: BP 147/56 Pulse 66 Temp 37.1 ?C (98.8 ?F) (Oral) Resp 16 Ht 165.1 cm (5' 5 ) (more content not included)... Normal [facility] GGT SerPl-cCncon 09-25-2023 Gamma glutamyl transferase [Catalytic activity/Vol] 107 U/L High 6-46 [facility] Comment on above: Order Comment: Speci men Type: BLOOD SPECIMENOrdering Facility: [facility] Address: [address] [place] [address] Performed By: #### 2 4321-2, 2324-2 ####[facility] [id number] [address] [place] [address] [place] HISTORY PHYSICALon 3 HISTORY PHYSICAL HNO ID: [id number] Author: Jayy Bee MD Service: Hospital Medicine Author Type: Resident Type: HANDP Filed: 09/25/2023 4:56 AM Note Text: Attestation signed by Shaina Tukr MD at 09/25/2023 2:11 PM [facility] Staff Note: Pt seen and examined and agree with documentation as noted below. Ms. Fuentes is a very pleasant 72 y/o woman with h/o long QT syndrome s/p ICD placement due to genetic issues, HOCM s/p myectomy in 2020 with post op afib, recurrent UTIs after ANG/BSO at the age of 40 but lately have been well controlled. She was diagnosed with a UTI by her Urologist in Aug 2023 and treated with Keflex. UA that that time showed trace leukestarase, urine culture showed E.coli pansensitive. Fevers and chills transiently improved but returned after that. She was septic when she was seen in [facility] ER and was treated with IV fluids and IV Zosyn. Her fever ad white count improved. CT scan there showed a right perinephric fluid collection ?hematoma vs abscess and hence sent here for IR drainage. A/P 1) Perinephric abscess: 3 cm size subcapsular hematoma noted in the right kidney at OSH. Pt is on Abx and improved a lot. D/w URology whether drainage needed or not. Follow cultures blood and urine from OSH. Last cultures from the urine as noted above. 2) Long QT/HOCM; Stable and continue home meds. Will follow blood cultures if +ve may need echo. Shaina Turk MD [phone] September 25, 2023 GENERAL INTERNAL MEDICINE SERVICE HISTORY AND PHYSICAL EXAM If any questions arise please contact me at [phone] PATIENT NAME: Yasmin Fuentes ; AGE: 11 1950; 72 year old HOSPITAL ROOM: [place] [address] DATE OF ADMISSION: 09/25/2023 2:33 AM ATTENDING PHYSICIAN: Shaina Turk MD DATE OF SERVICE: September 25, 2023 TIME OF SERVICE: AM Rounds Admit Date: 09/25/2023 Length of Stay: 0 Reason for Admission: Right renal abscess History of Present Illness Yasmin Fuentes is a 72 year old female with a PMH significant for: -Paroxysmal ventricular tachycardia, status post defibrillator -Genetic testing consistent with long QT syndrome -Hypertrophic cardiomyopathy with chronic/diastolic congestive heart failure, status post myectomy and mitral valve repair -Postoperative atrial fibrillation - treated with amiodarone -HTN -HLD Of note, on August 29 patient had UTI like symptoms and she went to her PCP and was started on Keflex. On Tuesday, patient states she started to have fevers and chills so she went to urgent care but urgent care sent her to the emergency room. Patient reports that her fevers were as high as 101 at home but with no flank pain and no urinary complaints. In the ED, patient's white blood count was elevated at 19, sed rate 71, CMP remarkable for elevated alk phos at 127, ALT 128, AST 140. Patient's lactic acid level was 2.6 with a repeat of 1.1 and a C-reactive protein 10.8. Patient's urinalysis showed trace protein, trace ketones, +1 blood and trace bacteria. Respiratory viral panel negative. CT of the abdomen and pelvis with contrast showed complex subcapsular fluid collection of the right kidney nonspecific and most concerning for subcapsular hematoma secondary to underlying renal neoplasm given abnormality within the 7 adjacent renal parenchyma. Renal abscess with subcapsular extension is also a consideration. Patient had 2 blood cultures drawn and was started on IV Zosyn and IV fluids. They reached out to urology who felt that with the CT findings that she may need interventional radiology for possible abscess. She was then transferred here to [facility]. Upon evaluation patient is resting comfortably in bed. Patient states she feels better after given antibiotics at the ED. Patient denies any fevers, chills or urinary symptoms. Other review of systems remains negative. Past Medical History PAST MEDICAL HISTORY Diagnosis Date Closed displaced fracture of seventh cervical vertebra with routine healing HOCM (hypertrophic obstructive cardiomyopathy) (HCC) Hyperlipidemia Hypertension Long Q-T syndrome Past Surgical History PAST SURGICAL HISTORY Procedure Laterality Date HEART SURGERY HX N/A 06/23/2021 s/p MVr and Myectomy - 06/[address] Giraldo HYSTERECTOMY 1989 IMPLANTABLE ICD PLACEMENT 01/19/2021 KNEE SURGERY HX Home Medications aspirin 81 mg chewable tabletChew and swallow 1 tablet by mouth once daily.Disp: 30 tabletRfl: 1 atorvastatin calcium (ATORVASTATIN ORAL)Take 40 mg by mouth daily at bedtime.Disp: Rfl: metoprolol succinate ER (TOPROL XL) 50 mg 24 hr tabletTake 1 tablet by mouth once daily.Disp: 90 tabletRfl: 0 baclofen 10 mg tabletDisp: Rfl: loratadine (CLARITIN ORAL)Take by mouth once daily.Disp: Rfl: (more content not included)... Normal [facility] Hepatic function 2000 panelo n 09-25-2023 Albumin [Mass/Vol] 3.6 g/dL Low 3.9-4.9 [facility] Comment on above: Order Comment: Speci men Type: BLOOD SPECIMEN Ordering Facility: [facility] Address: [address] [place] [address] Performed By: #### 2 4325-3 #### [facility] CLIA [id number] [address] [place] [address] [place] ALP [Catalytic activity/Vol] 122 U/L Normal 34-123 [facility] Comment on above: Order Comment: Speci men Type: BLOOD SPECIMEN Ordering Facility: [facility] Address: [address] [place] [address] Performed By: #### 2 4325-3 #### [facility] CLIA [id number] [address] [place] [address] [place] ALT [Catalytic activity/Vol] 100 U/L High 7-38 [facility] Comment on above: Order Comment: Speci men Type: BLOOD SPECIMEN Ordering Facility: [facility] Address: [address] [place] [address] Performed By: #### 2 4325-3 #### [facility] CLIA [id number] [address] [place] [address] [place] AST [Catalytic activity/Vol] 64 U/L High 13-35 [facility] Comment on above: Order Comment: Speci men Type: BLOOD SPECIMEN Ordering Facility: [facility] Address: [address] [place] [address] Performed By: #### 2 4325-3 #### [facility] CLIA [id number] [address] [place] [address] [place] Bilirubin [Mass/Vol] 0.7 mg/dL Normal 0.2-1.3 [facility] Comment on above: Order Comment: Speci men Type: BLOOD SPECIMEN Ordering Facility: [facility] Address: [address] [place] [address] Performed By: #### 2 4325-3 #### [facility] CLIA [id number] [address] [place] [address] [place] Bilirubin.conjugated [Mass/Vol] 0.2 mg/dL High <0.2 [facility] Comment on above: Order Comment: Lidia dong Type: BLOOD SPECIMEN Ordering Facility: [facility] Address: [place] [address] Performed By: #### 2 4325-3 #### [facility] CLIA [id number] [address] [place] [address] [place] Protein [Mass/Vol] 7.0 g/dL Normal 6.3-8.0 [facility] Comment on above: Order Comment: Lidia dong Type: BLOOD SPECIMEN Ordering Facility: [facility] Address: [address] [place] [address] Performed By: #### 2 4325-3 #### [facility] CLIA [id number] [address] [place] [address] [place] Interdisciplinary Note - Jocelynn vega 09-25-2023 Interdisciplinary Note - Nursing Patient picked up by [facility] via stretcher to [facility] for possible radiology/surgical intervention. Vitally stable. IV cannula on her right arm, saline lock. Belongings sent to the patient. Normal [facility] PT panel Coag (PPP)on 2022 INR Coag (PPP) [Relative time] 1.0 {INR} Normal 0.9-1.3 [facility] Comment on above: Order Comment: Lidia dong Type: BLOOD SPECIMENOrdering Facility: [facility] Address: [place] [address] Result Comment: Liv min K Antagonist (VKA) Therapeutic Range: INR 2 to 3 (Target INR of 2.5) Note: For patients treated with VKA drugs, such as warfarin, the [place] [employer] 2012 Guideline recommends a therapeutic INR range of 2 to 3 (target INR of 2.5). This recommendation includes high-risk patients with antiphospholipid syndrome with previous arterial or venous thromboembolism, current-generation mechanical or bioprosthetic aortic heart valve replacement. Note: Patients with mechanical aortic valve replacement and additional risk factors for thromboembolic events (atrial fibrillation, previous thromboembolism, LV dysfunction, hypercoagulable conditions) or an older generation mechanical AVR (i.e., ball in-Cage) or any mechanical MVR should have a INR therapeutic range of 2.5 to 3.5 (target INR of 3). Aysha GH, et al. Chest 2012, 141:7S-47S Coy RA, et al. [facility] 2017, 70: 252-289 Performed By: #### 3 4528-0, 26828-3 ####[facility] [id number] [address] [place] PT Coag (PPP) [Time] 11.0 s Normal 9.7-13.0 [facility] Comment on above: Order Comment: Speci men Type: BLOOD SPECIMENOrdering Facility: [facility] Address: [address] [place] [address] Performed By: #### 3 4528-0, 13543-2 ####[facility] [id number] [address] [facility] THERAPY NTon 09-25-2023 THERAPY NT HNO ID: [id number] Author: Francois Gamez OT/Jaleel Service: Occupational Therapy Author Type: Occupational Therapist Type: Therapy (PT/OT/Speech/Resp) Filed: 09/25/2023 8:40 AM Note Text: OCCUPATIONAL THERAPY COMMUNICATION SERVICE DATE: 09/25/2023 ROOM: [place] [address] Occupational therapy consult received. Chart reviewed. No acute skilled occupational therapy needs identified. Pt with a documented Nursing 6 Clicks score of 23 or 24 indicating that the patient is supervised or independent with all mobility. No acute cognitive, vision, or UE deficits identified in chart. Will discontinue Occupational Therapy Consult at this time. Please re-consult if the patient has a change of condition and develops mobility, ADL or cognitive deficits that require skilled therapy, and add a comment in the new order as to why the patient needs seen. Thank you. SIGNATURE: Francois Gamez OT/Jaleel PATIENT NAME: Yasmin Fuentes DATE: September 25, 2023 TIME: 8:39 AM Normal [facility] THERAPY NT HNO ID: [id number] Author: Francois Gamez OT/L Service: Physical Therapy Author Type: Occupational Therapist Type: Therapy (PT/OT/Speech/Resp) Filed: 09/25/2023 8:39 AM Note Text: PHYSICAL THERAPY COMMUNICATION SERVICE DATE: 09/25/2023 ROOM: [place] [address] Physical therapy consult received. Chart reviewed. No acute skilled physical therapy needs identified. Pt with a documented Nursing 6 Clicks score of 23-24 indicating that the patient is supervised or independent with all mobility. Will discontinue Physical Therapy Consult at this time. Please re-consult if the patient has a change of condition and develops mobility deficits that require skilled therapy, and add a comment in the new order as to why the patient needs seen. Thank you. SIGNATURE: Francois Gamez OT/Jaleel PATIENT NAME: Yasmin Fuentes DATE: September 25, 2023 TIME: 8:39 AM Normal [facility] Transfer Documentson 023 Transfer Documents [id number] #[id number] Normal [facility] Urinalysis complete panel (U )on 09-25-2023 Bacteria LM.HPF (Urine sed) [#/Area] Negative Normal Negative [facility] Comment on above: Order Comment: Speci men Type: URINE SPECIMENOrdering Facility: [facility] Address: [address] [place] [address] Performed By: #### 2 4356-8 ####[facility] [id number] [place] [address] [place] Bilirubin Ql (U) Negative Normal Negative [facility] Comment on above: Order Comment: Speci men Type: URINE SPECIMENOrdering Facility: [facility] Address: [address] [place] [address] Performed By: #### 2 4356-8 ####[facility] [id number] [place] [address] [place] Clarity (Unsp spec) Clear Normal Clear [facility] Comment on above: Order Comment: Speci men Type: URINE SPECIMENOrdering Facility: [facility] Address: [address] [place] [address] Performed By: #### 2 4356-8 ####[facility] [id number] [place] [address] [place] Color (U) Yellow Normal Yellow [facility] Comment on above: Order Comment: Speci men Type: URINE SPECIMENOrdering Facility: [facility] Address: [address] [place] [address] Performed By: #### 2 4356-8 ####[facility] [id number] [place] [address] [place] Epithelial cells LM.HPF (Urine sed) [#/Area] Few Normal [facility] Comment on above: Order Comment: Speci men Type: URINE SPECIMENOrdering Facility: [facility] Address: [address] [place] [address] Performed By: #### 2 4356-8 ####[facility] [id number] [place] [address] [place] Glucose Test strip (U) [Mass/Vol] Negative Normal Negative [facility] Comment on above: Order Comment: Speci men Type: URINE SPECIMENOrdering Facility: [facility] Address: [address] [place] [address] Performed By: #### 2 4356-8 ####[facility] [id number] [place] [address] [place] Hemoglobin Ql (U) 1+ Abnormal Negative [facility] Comment on above: Order Comment: Speci men Type: URINE SPECIMENOrdering Facility: [facility] Address: [address] [place] [address] Performed By: #### 2 4356-8 ####[facility] [id number] [place] [address] [place] Hyaline casts (Urine sed) [#/Area] 0 /[LPF] Normal 0 /LPF [facility] Comment on above: Order Comment: Speci men Type: URINE SPECIMENOrdering Facility: [facility] Address: [address] [place] [address] Performed By: #### 2 4356-8 ####[facility] [id number] [place] [address] [place] Ketones Ql (U) Negative Normal Negative [facility] Comment on above: Order Comment: Speci men Type: URINE SPECIMENOrdering Facility: [facility] Address: [address] [place] [address] Performed By: #### 2 4356-8 ####[facility] [id number] [place] [address] [place] Leukocyte esterase Test strip Ql (U) Negative Normal Negative [facility] Comment on above: Order Comment: Speci men Type: URINE SPECIMENOrdering Facility: [facility] Address: [address] [place] [address] Performed By: #### 2 4356-8 ####[facility] [id number] [place] [address] [place] Nitrite Ql (U) Negative Normal Negative [facility] Comment on above: Order Comment: Speci men Type: URINE SPECIMENOrdering Facility: [facility] Address: [address] [place] [address] Performed By: #### 2 4356-8 ####[facility] [id number] [place] [address] [place] pH (U) 6.5 [pH] Normal <8.5 [facility] Comment on above: Order Comment: Speci men Type: URINE SPECIMENOrdering Facility: [facility] Address: [address] [place] [address] Performed By: #### 2 4356-8 ####[facility] [id number] [place] [address] [place] Protein (U) [Mass/Vol] Negative Normal Negative [facility] Comment on above: Order Comment: Speci men Type: URINE SPECIMENOrdering Facility: [facility] Address: [address] [place] [address] Performed By: #### 2 4356-8 ####[facility] [id number] [place] [address] [place] RBC LM.HPF (Urine sed) [#/Area] 3-5 /HPF Abnormal 0-2 /HPF [facility] Comment on above: Order Comment: Speci men Type: URINE SPECIMENOrdering Facility: [facility] Address: [address] [place] [address] Performed By: #### 2 4356-8 ####[facility] [id number] [place] [address] [place] Specific gravity (U) [Rel density] 1.013 Normal 1.005-1.030 [facility] Comment on above: Order Comment: Speci men Type: URINE SPECIMENOrdering Facility: [facility] Address: [address] [place] [address] Performed By: #### 2 4356-8 ####[facility] [id number] [place] [address] [place] Urobilinogen Ql (U) 0.2 EU/dL Normal 0.2-1.0 EU/dL [facility] Comment on above: Order Comment: Speci men Type: URINE SPECIMENOrdering Facility: [facility] Address: [address] [place] [address] Performed By: #### 2 4356-8 ####[facility] [id number] [place] [address] [place] WBC LM.HPF (Urine sed) [#/Area] 0-5 /HPF Normal 0-5 /HPF [facility] Comment on above: Order Comment: Speci men Type: URINE SPECIMENOrdering Facility: [facility] Address: [address] [place] [address] Performed By: #### 2 4356-8 ####[facility] LABCLIA [id number] [place] [id number] [facility] aPTT PPPon 09-25-2023 aPTT Coag (PPP) [Time] 25.4 s Normal 23.0-32.4 [facility] Comment on above: Order Comment: Speci men Type: BLOOD SPECIMENOrdering Facility: [facility] Address: [address] [place] [address] Performed By: #### 3 4528-0, 58616-4 ####[facility] LABCLIA [id number] [address] [facility] ED Clinical Summaryon 2022 ED Clinical Summary [address] [address] ED Clinical Summary Person Information Name: YASMIN FUENTES [facility] Age: 72 Years : 1950 Sex: Female Language: Danish PCP: GIDEON ADAMS DO Marital Status: Visit Id: Visit Reason: Cough; Fever; Constipation; CHILLS, CONSTIPATED Speciality: Acuity: 3 Enc Type: Observation Med Service: Emergency Arrival: 09/23/2023 16:18:24 Discharge: LOS: 000 18:27 Checkin: 09/23/2023 16:18:24 Checkout: 09/24/2023 10:45:12 Dispo Type: Admitted as IP to this [facility] EVENTS: Event Name Event Status Request Date/Time Start Date/Time Complete Date/Time Arrive Complete 09/23/2023 16:18:24 09/23/2023 16:18:24 09/23/2023 16:18:24 Document Home Meds Request 09/23/2023 16:18:24 Triage Complete 09/23/2023 16:18:24 09/23/2023 16:31:50 09/23/2023 16:31:50 X-Ray Complete 09/23/2023 16:37:03 09/23/2023 17:18:50 09/23/2023 17:41:53 Pending Labs Complete 09/23/2023 16:37:03 09/23/2023 18:39:37 Lab Complete 09/23/2023 16:37:03 09/23/2023 18:39:37 Urine Collect Complete 09/23/2023 16:37:03 09/23/2023 18:39:37 Pending Labs Complete 09/23/2023 16:49:35 09/23/2023 16:49:35 09/23/2023 17:20:57 Lab Complete 09/23/2023 16:49:35 09/23/2023 16:49:35 09/23/2023 17:20:57 Pending Labs Complete 09/23/2023 17:04:19 09/23/2023 17:04:19 09/23/2023 17:04:25 Lab Complete 09/23/2023 17:04:19 09/23/2023 17:04:19 09/23/2023 17:04:25 Bed Assign Complete 09/23/2023 17:19:16 09/23/2023 17:19:16 09/23/2023 17:19:16 Dr Exam Complete 09/23/2023 17:19:16 09/23/2023 17:21:55 09/23/2023 17:21:55 RN Exam Complete 09/23/2023 17:19:16 09/23/2023 18:30:11 09/23/2023 18:30:11 Registration Complete 09/23/2023 17:21:55 09/23/2023 17:56:28 09/23/2023 17:56:28 Pending Labs Complete 09/23/2023 17:28:28 09/23/2023 17:28:28 09/23/2023 17:28:29 Pending Labs Complete 09/23/2023 17:29:09 09/23/2023 17:29:09 09/23/2023 17:29:10 Wet Read Request 09/23/2023 17:41:53 Pending Labs Complete 09/23/2023 17:51:07 09/23/2023 18:43:50 Lab Complete 09/23/2023 17:51:07 09/23/2023 18:43:50 CT Complete 09/23/2023 17:51:07 09/23/2023 17:52:57 09/23/2023 18:32:12 Pending Labs Inlab 09/23/2023 17:51:22 Lab Inlab 09/23/2023 17:51:22 Pending Labs Complete 09/23/2023 17:52:27 09/23/2023 22:03:45 Swab Complete 09/23/2023 17:52:27 09/23/2023 19:29:28 Meds Admin Request 09/23/2023 17:52:27 Reg Complete Request 09/23/2023 17:56:28 Reg Bed Request Complete 09/23/2023 17:56:28 09/23/2023 17:56:28 09/23/2023 17:56:28 Pending Labs Complete 09/23/2023 18:01:46 09/23/2023 19:23:15 Pending Labs Complete 09/23/2023 18:02:02 09/23/2023 19:20:43 Lab Complete 09/23/2023 18:02:02 09/23/2023 19:20:43 Pending Labs Complete 09/23/2023 18:43:50 09/23/2023 22:13:27 Lab Complete 09/23/2023 18:43:50 09/23/2023 22:13:27 Meds Admin Complete 09/23/2023 19:04:25 09/23/2023 19:26:00 Dr Exam Complete 09/23/2023 19:04:30 09/23/2023 19:04:30 09/23/2023 19:04:30 Registration Complete 09/23/2023 19:04:30 09/24/2023 08:57:33 09/24/2023 08:57:33 Patient Care Request 09/23/2023 20:33:46 Transfer Request 09/23/2023 20:33:46 Meds Admin Complete 09/24/2023 03:02:33 09/24/2023 03:26:04 Bed Request Request 09/24/2023 08:51:17 Reg Bed Request Complete 09/24/2023 08:51:17 09/24/2023 08:57:33 09/24/2023 08:57:33 Admit Request 09/24/2023 08:51:17 Patient Care Request 09/24/2023 08:57:33 Patient Care Request 09/24/2023 08:57:33 Patient Care Request 09/24/2023 08:57:33 Patient Care Request 09/24/2023 08:57:34 Patient Care Request 09/24/2023 09:34:51 Meds Admin Request 09/24/2023 09:34:51 Pending Labs Request 09/24/2023 09:34:51 Lab Request 09/24/2023 09:34:51 Meds Admin Request 09/24/2023 09:35:32 ADDR[address]: [address] [facility] [address] [place] [phone] PHYS DOC NOTES: Addendum by Zaid Leavtit DO on September 24, 2023 10:06:52 EST MEDICAL INFORMATION: Prescriptions Given: Medications to Continue with No Changes Other Medications aspirin (aspirin 81 mg oral capsule) By Mouth every 24 hours. atorvastatin (atorvastatin 40 mg Tab) By Mouth every day. cholecalciferol (Vitamin D3) estradiol topical (estradiol 0.1 mg/g Vag Crm) 1gm vaginally and apply a pea-sized amount around the urethra, nightly twice per week x 1 month, then once per week thereafter. Refills: 3. metoprolol (metoprolol 50 mg ER Tab) By Mouth every day. Misc Prescription (BACLOFEN 10 MG TABS) 0. multivitamin (Super B Complex) By Mouth every day. vitamin E By Mouth every day. PATIENT EDUCATION INFORMATION: Instructions: Follow up: DIAGNOSIS: 1:Sepsis; 2:Renal abscess; 3:Leukocytosis; 4:Elevated liver enzymes Normal [facility] ED Note-Physicianon 09-24-20 ED Note-Physician Patient was signed out to me by the outgoing physician. Her CT of the abdomen pelvis reveals a fluid collection around the right kidney suspicious for hematoma versus abscess. Her inflammatory markers and white count are elevated and she is febrile so my concern is that it is infectious in nature. She is on IV Zosyn. I called and spoke to Dr. Gonsalves who is on-call for urology. We reviewed the radiology interpretation of the imaging and lab work and he advised that due to the size of the potential abscess that the patient would benefit to transfer to a facility that has interventional radiology should they choose to try to drain the fluid collection. I discussed this with the patient and family at bedside. They state that she has received care at the [facility] before and that would be their first preference but they are also okay with [facility] if the clinic is unavailable. I spoke with Dr. Tafoya at the [facility] who accepted the patient in transfer. At the end of my shift the patient is awaiting a bed at the [facility] for transfer. Patient signed out to the oncoming physician pending bed availability. Accepted here at [facility] while awaiting bed at . Normal [facility] Comment on above: Result Comment: Elec tronically Signed By: Zaid Leavitt DO\.br\Date and Time Signed: 09/24/23 10:07 EST ED Patient Education Noteon 09-24-2023 ED Patient Education Note Normal [facility] ED Patient Summaryon 023 ED Patient Summary [place] [address] Patient Discharge Instructions Person Information Name: YASMIN FUENTES Age: 72 Years Arrival Date: 09/23/2023 16:18:24 Discharge Diagnosis: 1:Sepsis; 2:Renal abscess; 3:Leukocytosis; 4:Elevated liver enzymes Primary Care Physician: GIDEON ADAMS DO Provider Information Primary Provider: Zbigniew Balderas M.D. Advanced Burn Table Operator:None The exam and treatment you received in the Emergency Department were for an urgent problem and are not intended as complete care. It is important that you follow up with a doctor, nurse practitioner, or physician?s ortho assistant for ongoing care. If your symptoms become worse or you do not improve as expected and you are unable to reach your usual health care provider, you should return to the Emergency Department. We are available 24 hours a day. YASMIN FUENTES has been given the following list of patient education materials, prescriptions and follow-up instructions: Follow-up Instructions: In the event that this physician does not participate in your insurance network, please consult with your insurance company to find a nearby participating provider. Patient Education Materials: A MESSAGE TO ALL PATIENTS REGARDING OPIOIDS PRESCRIPTION OPIOIDS: WHAT YOU NEED TO KNOW Prescription opioids can be used to help relieve qpnvctww-xx-clceay pain and are often prescribed following a surgery or injury, or for certain health conditions. These medications can be an important part of the treatment but also come with serious risks. It is important to work with your healthcare provider to make sure you are getting the safest, most effective care. WHAT ARE THE RISKS AND SIDE EFFECTS OF OPIOID USE? Prescription opioids carry serious risks of addiction and overdose, especially with prolonged use. An opioid overdose, often marked by slowed breathing, can cause sudden . The use of prescription opioids can have a number of side effects as well, even when taken as directed: ? Tolerance?meaning you might need to take more of the medication for the same pain relief ? Physical dependence?meaning you have symptoms of withdrawal when a medication is stopped ? Increased sensitivity to pain ? Constipation ? Nausea, vomiting, and dry mouth ? Sleepiness and dizziness ? Confusion ? Depression ? Low levels of testosterone that can result in lower sex drive, energy, and strength ? Itching and sweating RISKS ARE GREATER WITH: ? History of drug misuse, substance use disorder, or overdose ? Mental health conditions (such as depression or anxiety) ? Sleep apnea ? Older age (65 years and older) ? Avoid alcohol while taking prescription opioids. Also, unless specifically advised by your health care provider, medications to avoid include: ? Benzodiazepines (such as Xanax or Valium) ? Muscle relaxants (such as Soma or Flexeril) ? Hypnotics (such as Ambien or Lunesta) ? Other prescription opioids KNOW YOUR OPTIONS Talk to your health care provider about ways to manage your pain that don?t involve prescription opioids. Some of these options may actually work better and have fewer risks and side effects. Options may include: ? Pain relievers such as acetaminophen, ibuprofen, and naproxen ? Some medication that are also used for depression or seizures ? Physical therapy and exercise ? Cognitive behavioral therapy, a psychological, goal-directed approach, in which patients learn how to modify physical, behavioral, and emotional triggers of pain and stress. IF YOU ARE PRESCRIBED OPIOIDS FOR PAIN: ? Never take opioids in greater amounts or more often than prescribed. ? Follow up with your primary health care provider. o Work together to create a plan on how to manage your pain. o Talk about ways to help manage your pain that don?t involve prescription opioids. o Talk about any and all concerns and side effects. ? Help prevent misuse and abuse o Never sell or share prescription opioids. o Never use another person?s prescription opioids. ? Store prescription opioids in a secure place and out of reach of others (this may include visitors, children, friends, and family). ? Safely dispose of unused prescription opioids: Find your community drug take-back program or your pharmacy mail-back program, or flush them down the toilet, following guidance from the Food and Drug Administration (www.fda.gov/Drugs/R esourcesForYou). ? Visit www.cdc.gov/drugover dose to learn about the risks of opioids abuse and overdose. ? If you believe you may be struggling with addiction, tell your health healthcare administrative assistant and ask for guidance or call [facility]?S National Helpline at 5-331-210-LEOF. x Source: US Department of Health and Human Services/Center for Disease Control & Prevention [facility] [employer] (more content not included)... Normal [facility] Lactic Acidon 09-24-2023 Lactate [Mass/Vol] 1.1 mmol/L Normal 0.5-2.2 [facility] Comment on above: Order Comment: Order added by EKS Rule. (FT_LACTIC_ACID_REFLEX) Adds reflex Lactic Acid 4 hours after initial if result is greater than or equal to 2.0. Performed By: #### 2 [id number] ####[facility] [address] [place] [address] Respiratory Panel by PCRon 11-24-2022 Adenovirus DNA LO+non-probe Ql (Nph) Not detected Normal [facility] Comment on above: Result Comment: Test ing was performed using nucleic acid amplification including Influenza A, Influenza A H1, Influenza A H3, Influenza B, RSV A, RSV B, Adenovirus, Human Metapneumovirus, Parainfluenza 1,2,3, and 4, Rhinovirus, Bordetella parapertussis/bronchiseptica, Bordetella holmesii, and Bordetella pertussis. Performed By: #### 1 [id number], [id number] ####[facility] [address] [place] [address] B. parapertussis DNA OL+probe Ql (Upper resp) Not detected Normal Not Detected [facility] Comment on above: Performed By: #### 1 [id number], [id number] ####[facility] [address] [place] [address] B. pertussis DNA LO+probe Ql (Upper resp) Not detected Normal Not Detected [facility] Comment on above: Performed By: #### 1 [id number], [id number] ####[place] [address] [place] [address] FLUAV H1 RNA LO+non-probe Ql (Nph) Not detected Normal [facility] Comment on above: Performed By: #### 1 [id number], [id number] ####[address] [place] [address] FLUAV H3 RNA LO+non-probe Ql (Nph) Not detected Normal [facility] Comment on above: Performed By: #### 1 [id number], [id number] ####[address] [place] [address] FLUAV RNA LO+non-probe Ql (Nph) Not detected Normal [facility] Comment on above: Performed By: #### 1 [id number], [id number] ####[address] [address] FLUBV RNA LO+non-probe Ql (Nph) Not detected Normal [facility] Comment on above: Performed By: #### 1 [id number], [id number] ####[facility] [address] [place] [address] Human Metapneumovirus Not detected Normal [facility] Comment on above: Result Comment: This test result should be correlated with clinical presentations and medical history by a healthcare provider to determine its clinical significance. Performed By: #### 1 [id number], [id number] ####[address] [address] Parainfluenza virus 1 RNA LO+non-probe Ql (Nph) Not detected Normal [facility] Comment on above: Performed By: #### 1 [id number], [id number] ####[place] [address] [place] [address] Parainfluenza virus 2 RNA LO+non-probe Ql (Nph) Not detected Normal [facility] Comment on above: Performed By: #### 1 [id number], [id number] ####[place] [address] [place] [address] Parainfluenza virus 3 RNA LO+non-probe Ql (Nph) Not detected Normal [facility] Comment on above: Performed By: #### 1 [id number], [id number] ####[place] [address] [place] [address] Parainfluenza virus 4 RNA LO+non-probe Ql (Nph) Not detected Normal [facility] Comment on above: Performed By: #### 1 [id number], [id number] ####[place] [address] [place] [address] Resp Panel Intrl QC Pass Normal [facility] Comment on above: Performed By: #### 1 [id number], [id number] ####[place] [address] [place] [address] Rhinovirus+Enteroviru s RNA LO+non-probe Ql (Nph) Not detected Normal [facility] Comment on above: Performed By: #### 1 [id number], [id number] ####[place] [address] [place] [address] RSV RNA LO+non-probe Ql (Nph) Not detected Normal [facility] Comment on above: Performed By: #### 1 [id number], [id number] ####[place] [address] [place] [address] Auto Diffon 09-23-2023 Basophils/100 WBC (Bld) 0.4 % Normal 0.0-2.0 [facility] Comment on above: Order Comment: Order Added by Discern Expert. Performed By: #### 2 893950, 2874864, 5706246, 7122323, 44700410, 5876564 ####[place] [address] [place] [address] Basophils/Leukocytes Auto (Bld) [Pure # fraction] 0.1 E9/L Normal 0.0-0.2 [facility] Comment on above: Order Comment: Order Added by Discern Expert. Performed By: #### 2 528220, 7543597, 5443734, 0750448, 53579473, 0837058 ####[address] [address] Eosinophils/100 WBC (Bld) 0.2 % Normal 0.0-8.0 [facility] Comment on above: Order Comment: Order Added by Katy Expert. Performed By: #### 2 504850, 7122250, 4081860, 7836733, 81099945, 5408128 ####[address] [address] Eosinophils/Leukocyte s Auto (Bld) [Pure # fraction] 0.0 E9/L Normal 0.0-0.5 [facility] Comment on above: Order Comment: Order Added by Katy Expert. Performed By: #### 2 620084, 7537004, 5051499, 4670785, 20994587, 7209074 ####[address] [address] Lymphocytes/100 WBC (Bld) 6.2 % Low 14.0-50.0 [facility] Comment on above: Order Comment: Order Added by Katy Expert. Performed By: #### 2 137472, 5553909, 8941401, 0550119, 34636618, 1094468 ####[address] [address] Lymphocytes/Leukocyte s Auto (Bld) [Pure # fraction] 1.2 E9/L Normal 1.0-4.0 [facility] Comment on above: Order Comment: Order Added by Katy Expert. Performed By: #### 2 551918, 9811820, 4564051, 5788231, 62843290, 0238254 ####[facility] [address] [place] [address] Monocytes/100 WBC (Bld) 4.3 % Normal 4.0-14.0 [facility] Comment on above: Order Comment: Order Added by Discern Expert. Performed By: #### 2 122957, 6587947, 7916217, 9827442, 50192512, 6932293 ####[facility] [address] [place] [address] Monocytes/Leukocytes Auto (Bld) [Pure # fraction] 0.8 E9/L Normal 0.2-1.0 [facility] Comment on above: Order Comment: Order Added by Discern Expert. Performed By: #### 2 988523, 7833982, 4989739, 4168072, 54299265, 5167850 ####[address] [address] Neutrophils/100 WBC (Bld) 88.9 % High 36.0-75.0 [facility] Comment on above: Order Comment: Order Added by Discern Expert. Performed By: #### 2 783998, 8160793, 2495757, 1562411, 63959843, 5668301 ####[place] [address] [place] [address] Neutrophils/Leukocyte s Auto (Bld) [Pure # fraction] 17.4 E9/L High 2.0-7.5 [facility] Comment on above: Order Comment: Order Added by Discern Expert. Performed By: #### 2 200787, 6519516, 9091929, 8449628, 40825376, 0698021 ####[place] [address] [place] [address] BMPon 09-23-2023 Creatinine [Mass/Vol] 0.9 mg/dL Normal 0.5-1.3 [facility] Comment on above: Performed By: #### 2 494892, 9857751, 6250358, 4277394, 29525665, 1726818 ####[facility] [address] [place] [address] Urea nitrogen [Mass/Vol] 15 mg/dL Normal 5-21 [facility] Comment on above: Performed By: #### 2 137484, 5045181, 2243400, 5497491, 46281649, 1549965 ####[facility] [address] [place] [address] Urea nitrogen/Creatinine [Mass ratio] 17 No Units Normal 10-20 [facility] Comment on above: Performed By: #### 2 456789, 0731142, 3025082, 8561349, 34270120, 5079233 ####[facility] [address] [place] [address] Anion gap [Moles/Vol] 13 mmol/L Normal 6-16 [facility] Comment on above: Performed By: #### 2 124143, 9277858, 8816064, 0772949, 60050935, 8186110 ####[facility] [address] [place] [address] Calcium [Mass/Vol] 9.2 mg/dL Normal 8.9-11.1 [facility] Comment on above: Performed By: #### 2 082926, 7066375, 8584570, 0790413, 67821530, 6827325 ####[facility] [address] [place] [address] Chloride [Moles/Vol] 102 mmol/L Normal 101-111 [facility] Comment on above: Performed By: #### 2 759456, 4932485, 8383165, 5696822, 61889198, 1908810 ####[facility] [address] [place] [address] CO2 [Moles/Vol] 23 mmol/L Normal 21-31 [facility] Comment on above: Performed By: #### 2 581910, 8878640, 8858579, 4246538, 66493475, 1444241 ####[facility] [address] [place] [address] Glucose [Mass/Vol] 135 mg/dL Normal 55-199 [facility] Comment on above: Result Comment: If t his glucose result represents a fasting glucose, interpretation should refer to the following reference range: 55-99 mg/dL Performed By: #### 2 169801, 8334151, 1924261, 6156841, 55685457, 7627406 ####[facility] [address] [place] [address] Potassium [Moles/Vol] 4.0 mmol/L Normal 3.5-5.3 [facility] Comment on above: Performed By: #### 2 5767[address], 3550525, 2971307, 9452375, 70623429, 9182908 ####[facility] [address] [place] [address] Sodium [Moles/Vol] 134 mmol/L Low 135-145 [facility] Comment on above: Performed By: #### 2 648731, 2159973, 2437603, 3836393, 47413974, 6870522 ####[facility] [address] [place] [address] CBC w/ Auto Diffon Erythrocyte distribution width (RBC) [Ratio] 12.5 % Normal 10.9-14.2 [facility] Comment on above: Performed By: #### 2 629958, 9275752, 4846688, 0383583, 06931024, 9497314 ####[facility] [address] [place] [address] Hematocrit (Bld) [Volume fraction] 38.6 % Normal 34.0-46.0 [facility] Comment on above: Performed By: #### 2 899331, 5841457, 7615462, 9429886, 18177891, 4688611 ####[facility] [address] [place] [address] Hemoglobin (Bld) [Mass/Vol] 13.4 g/dL Normal 12.0-16.0 [facility] Comment on above: Performed By: #### 2 748700, 5555254, 9074261, 2017867, 33706240, 7199510 ####[address] [address] MCH (RBC) [Entitic mass] 32.3 pg Normal 27.0-34.0 [facility] Comment on above: Performed By: #### 2 433561, 8579719, 5392463, 0677858, 20256706, 3661457 ####[address] [address] MCHC (RBC) [Mass/Vol] 34.6 g/dL Normal 31.4-36.0 [facility] Comment on above: Performed By: #### 2 828539, 8873243, 4681702, 0463483, 77346906, 8705388 ####[address] [address] MCV (RBC) [Entitic vol] 93.4 fL Normal 80.0-100.0 [facility] Comment on above: Performed By: #### 2 755207, 5137604, 3742004, 8801611, 98580669, 3947587 ####[address] [address] Platelet mean volume (Bld) [Entitic vol] 9.0 fL Normal 6.4-10.8 [facility] Comment on above: Performed By: #### 2 557148, 8776124, 3444159, 2767105, 74637369, 0904804 ####[address] [address] Platelets (Bld) [#/Vol] 295.0 E9/L Normal 150.0-500.0 [facility] Comment on above: Performed By: #### 2 325162, 0557249, 7410245, 2413698, 75528116, 9070741 ####[address] [address] RBC (Bld) [#/Vol] 4.1 E12/L Low 4.3-5.9 [facility] Comment on above: Performed By: #### 2 512480, 7278322, 9883455, 2731858, 06089619, 4994368 ####[facility] [address] [place] [address] WBC corrected for nucl RBC Auto (Bld) [#/Vol] 19.5 E9/L High 4.0-11.0 [facility] Comment on above: Performed By: #### 2 [id number], [id number], [id number], [id number], [id number], [id number] ####[facility] [address] [place] [address] CHEMISTRYOrdered By: SYSTEM SYSTEM on 09-23-2023 Lactate [Mass/Vol] 1.1 mmol/L Normal 0.5 - 2.2 mmol/L [facility] Remisol CRP [Mass/Vol] 10.8 mg/dL High <=1.9mg/dL [facility] Remis ol Troponin I.cardiac [Mass/Vol] 33.20 pg/mL High 10.10 - 27.10 pg/mL [facility] Comment on above: Interpretive Data: T he 95% CI (Confidence Interval) PPV (Positive Predictive Value) for myocardial infarction in females is 38 pg/mL, in males 51 pg/mL. The results should be used in conjunction with clinical conditions of myocardial infarction. (Access High Sensitivity Troponin I Instructions For Use, Dylon Lucas, June 2018) Lactate [Mass/Vol] 2.6 mmol/L High 0.5 - 2.2 mmol/L [facility] Albumin [Mass/Vol] 3.3 g/dL Normal 3.3 - 5.0 gm/dL [facility] Albumin/Globulin [Mass ratio] 0.8 {ratio} Low 1.1 - 2.2 [facility] ALP [Catalytic activity/Vol] 127 [iU]/d High 21 - 98 Int._Unit/L [facility] ALT No additional P-5'-P [Catalytic activity/Vol] 128 [iU]/d High 6 - 46 Int._Unit/L [facility] Anion gap [Moles/Vol] 13 mmol/L Normal 6 - 16 mEq/L [facility] Remisol AST [Catalytic activity/Vol] 140 [iU]/d High 5 - 43 Int._Unit/L [facility] Bilirubin [Mass/Vol] 0.9 mg/dL Normal 0.0 - 1 .1 mg/dL [facility] Bilirubin.direct [Mass/Vol] 0.3 mg/dL Normal 0.1 - 0.4 mg/dL [facility] Bilirubin.indirect [Mass or moles/Vol] 0.6 mg/dL Normal 0.1 - 0.9 mg/dL [facility] Calcium [Mass/Vol] 9.2 mg/dL Normal 8.9 - 11. 1 mg/dL [facility] Chloride [Moles/Vol] 102 mmol/L Normal 101 - 1 11 mmol/L [facility] CO2 [Moles/Vol] 23 mmol/L Normal 21 - 31 mmol/L [facility] Creatinine [Mass/Vol] 0.9 mg/dL Normal 0.5 - 1.3 mg/dL [facility] GFR/1.73 sq M.predicted among non-blacks MDRD (S/P/Bld) [Vol rate/Area] 68 mL/min/1.73 m2 Normal >=59mL/min/1 .73 m2 [facility] Chem S Comment on above: Interpretive Data: C hronic kidney disease could be indicated at eGFR's of less than 60 mL/min/1.73m2. Kidney failure is indicated at less than 15 mL/min/1.73m2. Globulin (S) [Mass/Vol] 4.3 g/dL High 1.4 - 4.0 gm/dL [facility] Glucose [Mass/Vol] 135 mg/dL Normal 55 - 199 mg/dL [facility] Comment on above: Interpretive Data: I f this glucose result represents a fasting glucose, interpretation should refer to the following reference range: 55-99 mg/dL Lipase [Catalytic activity/Vol] 28 U/L Normal 13 - 58 unit/L [facility] Rem[facility] Potassium [Moles/Vol] 4.0 mmol/L Normal 3.5 - 5.3 mmol/L [facility] Protein [Mass/Vol] 7.6 g/dL Normal 6.0 - 7.8 gm/dL [facility] Sodium [Moles/Vol] 134 mmol/L Low 135 - 145 mmol/L [facility] Urea nitrogen [Mass/Vol] 15 mg/dL Normal 5 - 21 mg/dL [facility] Urea nitrogen/Creatinine [Mass ratio] 17 mg/mg Normal 10 - 20 [facility] CRPon 09-23-2023 CRP [Mass/Vol] 10.8 mg/dL High <=1.9 [facility] Comment on above: Performed By: #### 2 [id number], [id number] ####[facility] [address] [place] [address] CT Abdomen/Pelvis w/ Contras ton 09-23-2023 CT Abdomen/Pelvis w/ Contrast Exam Date/Time: 09/23/2023 18:32 EST Reason for Exam: Abdominal pain, acute, nonlocalized;Other (please specify) Report IMPRESSION: COMPLEX SUBCAPSULAR FLUID COLLECTION OF THE RIGHT KIDNEY IS NONSPECIFIC AND MOST CONCERNING FOR SUBCAPSULAR HEMATOMA SECONDARY TO UNDERLYING RENAL NEOPLASM GIVEN ABNORMALITY WITHIN THE SUBJACENT RENAL PARENCHYMA. RENAL ABSCESS WITH SUBCAPSULAR EXTENSION IS ALSO A CONSIDERATION BUT IS FELT LESS LIKELY UNLESS THE PATIENT HAS SIGNS/SYMPTOMS OF URINARY TRACT INFECTION. COLONIC DIVERTICULOSIS WITHOUT DIVERTICULITIS. EXAM: CT Abdomen/Pelvis w/ Contrast History: Abdominal pain Technique: Multiple contiguous axial images were obtained of the abdomen and pelvis from the level of the lung bases through the ischial tuberosities with contrast. Multiplanar reformats were obtained. Delayed images were obtained. Comparison: None available Findings: Lung bases are clear. 1.8 cm right lobe hepatic cyst. The liver is otherwise unremarkable. The gallbladder, spleen, stomach, pancreas, and adrenal glands are within normal limits. There is a septated near simple fluid density collection arising from the posterior lateral aspect of the superior pole of the right kidney that measures approximately 4 cm in AP dimension by 3 cm in transverse dimension by 3.5 cm in craniocaudal dimension. There is well-defined thin rim enhancement of this fluid collection as well as thin internal septations and there is mild adjacent inflammation. There is ill-defined heterogenous postcontrast enhancement within an approximately 2 cm area of subjacent renal parenchyma. Normal contrast enhancement of the kidneys otherwise. There is no air within this subcapsular fluid collection or within the kidney, calyces, or renal pelvis. The renal arteries and renal veins appear patent. No urinary tract calculi or hydronephrosis. Urinary bladder is well distended. The uterus is absent. Abdominal aorta is nonaneurysmal. Atherosclerotic calcification of the abdominal aorta. No retroperitoneal or abdominal/pelvic lymphadenopathy. No small bowel obstruction. Colonic diverticuli are identified. No overt colonic mass or pericolonic inflammation. No findings of acute appendicitis. No pneumatosis intestinalis, portal venous gas, or pneumoperitoneum.. Report No acute osseous abnormality. Degenerative changes of the spine. All CT scans at this facility use dose modulation, iterative reconstruction, and/or weight based dosing when appropriate to reduce radiation dose to as low as reasonably achievable. Ordering Provider: Zbigniew Balderas FINAL REPORT Dictated: 09/23/2023 6:53 pm Jose Heredia DO Signed (Electronic Signature): 09/23/2023 6:53 pm Signed by: Jose Heredia DO Transcribed by: SUNNY Technologist: JOEY Technical Comments GFR (mL/min/1/73m2) 68 Contrast: Isovue 300 Contrast amount in ml's: 100 Rectal Contrast Given? No Oral contrast amount in ml's: 0 Normal [facility] Consent for Treatmenton 09-14 Consent for Treatment [id number] 31 [id number] #[id number] Normal [facility] ED Note-Physicianon 09-23-20 23 ED Note-Physician Basic Information Time Seen: Zbigniew Balderas M.D. 09/23/2023 17:21 Chief Complaint Pt reports constipation intermittently for 2-3 weeks. Last BM 3 days ago. otc miralax, suppos, enema done. chills. febrile in triage. denies current s/s for UTI but recently finished keflex for one. Intermittent cough. History of Present Illness The patient is a 72-year-old female who presented to the emergency room for constipation, chills and burning with urination. The patient states she started having burning with urination on August 29. She took a sample of urine to Dr. Hawkins and diagnosed her with urinary tract infection and put her on cephalexin. The patient states she kept having burning with urination so she sent another sample to Dr. Hawkins and they told her that she needed to go to the emergency room. The patient states on September 13 she went to [facility] they did x-ray of her belly and diagnosed her with constipation. [facility] tested her for COVID which was negative and her urine was clear. The patient states she has been taking laxatives and she has been having small loose bowel movements every day. The last bowel movement was today. She denies any black or bloody stool. The patient states she has been having chills throughout the day on and off for the past 2 weeks. She states the chills are so bad sometimes that she feels like she cannot catch her breath. She denies any chest pain, denies any shortness of breath. The patient reports some dry cough. She denies any chest pain. Denies any headache. The patient denies any burning with urination now. She denies any abdominal pain. The patient denies any mosquito bite or insect bite. She denies any recent traveling. The patient denies any other associated symptoms. Review of Systems Additional ROS info: Except as noted in the above Review of Systems and in the History of Present Illness all other systems have been reviewed and are negative or noncontributory. Physical Exam Vitals & Measurements T: 37.9 ?C(Oral) HR: 89(Peripheral) RR: 16 BP: 146/71 SpO2: 95% HT: 165.1 cm WT: 78.6 kg BMI: 28.84 General: alert, no acute distress Skin: warm, dry Head: no trauma, normocephalic Neck: Trachea midline, no tenderness, supple Eye: normal conjunctiva, sclera clear, PERRL, EOMI, vision unchanged ENMT: Oral mucosa moist, no pharyngeal erythema or exudate Cardiovascular: regular rate and rhythm, systolic murmur Respiratory: Lungs CTA, respirations non labored, breath sounds equal Gastrointestinal: soft, non distended, mild tenderness left lower quadrant, no guarding, Extremities: no deformity, no trauma Neurological: Alert and oriented, speech normal, no focal neuro deficits Psychiatric: cooperative, affect appropriate for age, Medical Decision Making MEDICAL DECISION MAKING Number and Complexity of Problems Differential Diagnosis: [] [facility] Data External documents reviewed: [] My EKG interpretation: [] My CT interpretation: [] My X-ray interpretation: [] My Ultrasound interpretation: [] Decision rules/scores evaluated: [] Discussed with: [] Treatment and Disposition ED Course: The patient presented with chills. The blood work reviewed. Patient has leukocytosis. Lactic acid is elevated. Blood cultures obtained. The urine shows no infection. The x-ray of the chest shows no pneumonia. The x-ray of the abdomen shows nonspecific gas pattern. CT of the abdomen and pelvis was done and showed right subcapsular collection fluid possible abscess/hematoma. Considering patient has leukocytosis of this possibly is abscess. The patient was started on Zosyn. She was given IV fluid. The care of the patient was transitioned to Dr. Stephens upon shift change to the patient is to followup final disposition. Shared decision making: [] Code status: [] Assessment/Plan 1. Sepsis (A41.9: Sepsis, unspecified organism) 2. Renal abscess (N15.1: Renal and perinephric abscess) 3. Leukocytosis (D72.829: Elevated white blood cell count, unspecified) 4. Elevated liver enzymes (R74.8: Abnormal levels of other serum enzymes) Orders: Sodium Chloride 0.9% intravenous solution 1,000 mL, 1,000 mL, IV, 500 mL/hr, STAT, Start date 09/23/23 17:51:00 EST, 2 hour(s), Total volume (mL): 1,000, 78.6 kg, 1.9, m2 Automated Diff Basic Metabolic Panel Blood Culture Charcoal Blood Culture Charcoal C-Reactive Protein CBC w/ Auto Diff CT Abdomen/Pelvis w/ Contrast eGFR Extra Blue Tube Extra SST Tube Hepatic Function Panel Influenza A&B Ag Lactic Acid Lactic Acid Lipase Level Respiratory Panel by PCR Sedimentation Rate Automated Troponin 0 Hr. UA With Cult Reflex XR Abdomen 1 View XR Chest 2 Views Medications Administered Given NS 1000 mL Soln-IV 1,000 mL, 1000 mL, IV Disposition Plan Discharge Prescription List Prescriptions No active prescription medications Follow-up No qualifying data available Problem List/ (more content not included)... Normal [facility] Comment on above: Result Comment: Elec tronically Signed By: Sherrie Edward, Zbigniew Troy\.br\Date and Time Signed: 09/23/23 19:14 EST HEMATOLOGYOrdered By: Deni Garza on 09-23-2023 ESR (Bld) [Velocity] 71 mm/h High 0 - 34 mm/hr [facility] HemeAutoSS HEMATOLOGYOrdered By: SYSTEM SYSTEM on 09-23-2023 Basophils/100 WBC (Bld) 0.4 % Normal 0.0 - 2.0 % [facility] HemeAutoSS Basophils/Leukocytes Auto (Bld) [Pure # fraction] 0.1 E9/L Normal 0.0 - 0.2 E9/L [facility] HemeAutoSS Eosinophils/100 WBC (Bld) 0.2 % Normal 0.0 - 8.0 % [facility] HemeAutoSS Eosinophils/Leukocyte s Auto (Bld) [Pure # fraction] 0.0 E9/L Normal 0.0 - 0.5 E9/L [facility] HemeAutoSS Lymphocytes/100 WBC (Bld) 6.2 % Low 14.0 - 50.0 % [facility] HemeAutoSS Lymphocytes/Leukocyte s Auto (Bld) [Pure # fraction] 1.2 E9/L Normal 1.0 - 4.0 E9/L [facility] HemeAutoSS Monocytes/100 WBC (Bld) 4.3 % Normal 4.0 - 14.0 % [facility] HemeAutoSS Monocytes/Leukocytes Auto (Bld) [Pure # fraction] 0.8 E9/L Normal 0.2 - 1.0 E9/L [facility] HemeAutoSS Neutrophils/100 WBC (Bld) 88.9 % High 36.0 - 75.0 % [facility] HemeAutoSS Neutrophils/Leukocyte s Auto (Bld) [Pure # fraction] 17.4 E9/L High 2.0 - 7.5 E9/L [facility] HemeAutoSS HEMATOLOGYOrdered By: Ramona Meléndez on 09-23-2023 Erythrocyte distribution width (RBC) [Ratio] 12.5 % Normal 10.9 - 14.2 % [facility] HemeAutoSS Hematocrit (Bld) [Volume fraction] 38.6 % Normal 34.0 - 46.0 % [facility] HemeAutoSS Hemoglobin (Bld) [Mass/Vol] 13.4 g/dL Normal 12.0 - 16.0 gm/dL [facility] HemeAutoSS MCH (RBC) [Entitic mass] 32.3 pg Normal 27.0 - 34.0 pg [facility] HemeAutoSS MCHC (RBC) [Mass/Vol] 34.6 g/dL Normal 31.4 - 36.0 gm/dL [facility] HemeAutoSS MCV (RBC) [Entitic vol] 93.4 fL Normal 80.0 - 100.0 fL [facility] HemeAutoSS Platelet mean volume (Bld) [Entitic vol] 9.0 fL Normal 6.4 - 10.8 fL [facility] HemeAutoSS Platelets (Bld) [#/Vol] 295.0 E9/L Normal 150.0 - 500.0 E9/L [facility] HemeAutoSS RBC (Bld) [#/Vol] 4.1 E12/L Low 4.3 - 5.9 E12/L [facility] HemeAutoSS WBC corrected for nucl RBC Auto (Bld) [#/Vol] 19.5 E9/L High 4.0 - 11.0 E9/L [facility] HemeAutoSS Hep Func Panelon 09-23-2023 Albumin [Mass/Vol] 3.3 g/dL Normal 3.3-5.0 [facility] Comment on above: Performed By: #### 2 [id number], [id number], 3398602, 5463488, [id number], 6995889 ####[facility] [address] [place] [address] Albumin/Globulin (S) [Mass conc ratio] 0.8 Low 1.1-2.2 [facility] Comment on above: Performed By: #### 2 297311, 4796048, 0980441, 9724093, [id number], 7035540 ####[facility] [address] [place] [address] ALP [Catalytic activity/Vol] 127 Int._Unit/L High 21-98 [facility] Comment on above: Performed By: #### 2 015107, 1080602, 0850643, 1905024, 48137787, 9116150 ####[facility] [address] [place] [address] ALT No additional P-5'-P [Catalytic activity/Vol] 128 Int._Unit/L High 6-46 [facility] Comment on above: Performed By: #### 2 614114, 2646624, 1263037, 2809155, 12898281, 5528743 ####[address] [place] [address] AST [Catalytic activity/Vol] 140 Int._Unit/L High 5-43 [facility] Comment on above: Performed By: #### 2 112941, 2773206, 0042761, 7451414, 99652589, 5575525 ####[address] [address] Bilirubin [Mass/Vol] 0.9 mg/dL Normal 0.0-1.1 [facility] Comment on above: Performed By: #### 2 407834, 4432434, 4376569, 0263114, 37651331, 5888972 ####[address] [address] Bilirubin.direct [Mass/Vol] 0.3 mg/dL Normal 0.1-0.4 [facility] Comment on above: Performed By: #### 2 271345, 9821690, 3540755, 6676079, 81184821, 1682082 ####[address] [address] Bilirubin.indirect [Mass or moles/Vol] 0.6 mg/dL Normal 0.1-0.9 [facility] Comment on above: Performed By: #### 2 722986, 3808532, 3820798, 5491651, 97716326, 5363469 ####[address] [place] [address] Globulin (S) [Mass/Vol] 4.3 g/dL High 1.4-4.0 [facility] Comment on above: Performed By: #### 2 281909, 7482209, 6662829, 1424276, 85990836, 0802499 ####[address] [place] [address] Protein [Mass/Vol] 7.6 g/dL Normal 6.0-7.8 [facility] Comment on above: Performed By: #### 2 304830, 4763593, 1816280, 9900954, 24635620, 0449768 ####[facility] [address] [place] [address] Influenza A&B Agon Influenzae A Ag Negative Normal Negative [facility] Comment on above: Performed By: #### 1 [id number], [id number] ####[facility] [address] [place] [address] Influenzae B Ag Negative Normal Negative [facility] Comment on above: Result Comment: Test sensitivity and specificity vary for age group, specimen type, antigen types, and prevalence of disease. Test results must be evaluated in conjunction with other clinical data available to the physician. Individuals who received nasally administered Influenza A vaccine may have positive test results up to 3 days after vaccination. Performed By: #### 1 [id number], [id number] ####[address] [place] [address] Lactic Acidon 09-23-2023 Lactate [Mass/Vol] 2.6 mmol/L High 0.5-2.2 [facility] Comment on above: Performed By: #### 2 501092 ####[address] [place] [address] Lipase Levelon 09-23-2023 Lipase [Catalytic activity/Vol] 28 U/L Normal 13-58 [facility] Comment on above: Performed By: #### 2 802716, 0331155, 8620448, 1819621, 87896813, 1205401 ####[facility] [address] [place] [address] MICRO OTHER TESTSOrdered By: Nicole Vazquez on 09-23-2023 Influenzae A Ag Negative (09/23/23 7:07 PM) Normal Negative [facility] Man Sero Influenzae B Ag Negative 1 (09/23/23 7:07 PM) Normal Negative [facility] Man Sero Comment on above: Interpretive Data: T est sensitivity and specificity vary for age group, specimen type, antigen types, and prevalence of disease. Test results must be evaluated in conjunction with other clinical data available to the physician. Individuals who received nasally administered Influenza A vaccine may have positive test results up to 3 days after vaccination. No Panel InformationOrdered By: [facility] MICROBIOLOGY on 09-23-2023 Blood Culture Charcoal No growth at 1 day. Final to follow at 7 days. [facility] Blood Culture Charcoal No growth at 1 day. Final to follow at 7 days. [facility] Sed Rate Automatedon 023 ESR (Bld) [Velocity] 71 mm/h High 0-34 [facility] Comment on above: Performed By: #### 2 795184, [id number] ####[facility] [address] [place] [address] Troponin 0 Hr.on 09-23-2023 Troponin I.cardiac [Mass/Vol] 33.20 pg/mL High 10.10-27.10 [facility] Comment on above: Result Comment: The 95% CI (Confidence Interval) PPV (Positive Predictive Value) for myocardial infarction in females is 38 pg/mL, in males 51 pg/mL. The results should be used in conjunction with clinical conditions of myocardial infarction. (Access High Sensitivity Troponin I Instructions For Use, Dylon KienVe, June 2018) Performed By: #### 1 [id number] ####[facility] [address] [place] [address] UA With Cult Reflexon 2022 Bacteria LM Ql (Urine sed) TRACE Normal Trace [facility] Comment on above: Performed By: #### 1 [id number] ####[facility] [address] [place] [address] Bilirubin Ql (U) 1+ Abnormal Negative [facility] Comment on above: Performed By: #### 1 0384897 ####[facility] [address] [place] [address] Calcium oxalate crystals LM Ql (Urine sed) Present Normal [facility] Comment on above: Performed By: #### 1 [id number] ####[address] [place] [address] Clarity (U) SL CLOUDY Abnormal Clear [facility] Comment on above: Performed By: #### 1 4025325 ####[facility] [address] [place] [address] Color (U) YELLOW Normal Yellow [facility] Comment on above: Performed By: #### 1 [id number] ####[address] [address] Epithelial cells.squamous LM.HPF (Urine sed) [#/Area] /[HPF] Normal 0-2 [facility] Comment on above: Performed By: #### 1 6016110 ####[address] [address] Glucose Test strip (U) [Mass/Vol] Negative Normal Negative [facility] Comment on above: Performed By: #### 1 7657714 ####[address] [address] Hemoglobin Ql (U) 1+ Abnormal Negative [facility] Comment on above: Performed By: #### 1 4713431 ####[address] [address] Ketones (U) [Mass/Vol] TRACE Abnormal Negative [facility] Comment on above: Performed By: #### 1 0567015 ####[address] [address] Tower.plasma/Lithiu m.RBC (Bld) [Mass ratio] 0-3 Normal 0-3 [facility] Comment on above: Performed By: #### 1 3668613 ####[address] [address] Mucus Ql (Urine sed) TRACE Normal [facility] Comment on above: Performed By: #### 1 6879430 ####[address] [address] Nitrite Ql (U) Negative Normal Negative [facility] Comment on above: Performed By: #### 1 [id number] ####[address] [address] pH (U) 5.5 [pH] Invalid Interpretation Code 5.0-9.0 [facility] Comment on above: Performed By: #### 1 8169103 ####[facility] [address] [place] [address] Protein (U) [Mass/Vol] TRACE Abnormal Negative [facility] Comment on above: Performed By: #### 1 [id number] ####[address] [address] Specific gravity (U) [Rel density] 1.010 Invalid Interpretation Code 1.005-1.030 [facility] Comment on above: Performed By: #### 1 8073146 ####[facility] [address] [place] [address] Type of Urine collection method Clean Catch Normal [facility] Comment on above: Performed By: #### 1 9103592 ####[address] [address] Urobilinogen Qn (U) 2.0 {Jadyn'U}/dL Abnormal 0.0-1.0 [facility] Comment on above: Performed By: #### 1 7098459 ####[facility] [address] [place] [address] WBC Auto Ql (U) Negative Normal Negative [facility] Comment on above: Performed By: #### 1 [id number] ####[facility] [address] [place] [address] WBC LM.HPF (Urine sed) [#/Area] 0-5 Normal 0-5 [facility] Comment on above: Performed By: #### 1 2497675 ####[facility] [address] [place] [address] URINALYSISOrdered By: Emiliano Courtney on 09-23-2023 Bacteria LM Ql (Urine sed) Trace /HPF Normal Trace/HPF [facility] UA Auto SS Bilirubin Ql (U) 1+ *ABN* (09/23/23 6:11 PM) Invalid Interpretation Code Negative [facility] UA Auto SS Calcium oxalate crystals LM Ql (Urine sed) Present (09/23/23 6:11 PM) Normal [facility] UA Auto SS Clarity (U) Slightly Cloudy *ABN* (09/23/23 6:11 PM) Invalid Interpretation Code Clear [facility] UA Auto SS Color (U) Yellow (09/23/23 6:11 PM) Normal Yellow [facility] UA Auto SS Epithelial cells.squamous LM.HPF (Urine sed) [#/Area] /[HPF] Normal 0-2/HPF [facility] UA Aut o SS Glucose Test strip (U) [Mass/Vol] Negative (09/23/23 6:11 PM) Normal Negative [facility] UA Auto SS Hemoglobin Ql (U) 1+ *ABN* (09/23/23 6:11 PM) Invalid Interpretation Code Negative [facility] UA Auto SS Ketones (U) [Mass/Vol] Trace *ABN* (09/23/23 6:11 PM) Invalid Interpretation Code Negative [facility] UA Auto SS Tower.plasma/Lithiu m.RBC (Bld) [Mass ratio] 0-3 /HPF Normal 0-3/HPF [facility] UA Auto SS Mucus Ql (Urine sed) Trace (09/23/23 6:11 PM) Normal [facility] UA Auto SS Nitrite Ql (U) Negative (09/23/23 6:11 PM) Normal Negative [facility] UA Auto SS pH (U) 5.5 *NA* (09/23/23 6:11 PM) Invalid Interpretation Code 5.0 - 9.0 [facility] UA Auto SS Protein (U) [Mass/Vol] Trace *ABN* (09/23/23 6:11 PM) Invalid Interpretation Code Negative [facility] UA Auto SS Specific gravity (U) [Rel density] 1.010 *NA* (09/23/23 6:11 PM) Invalid Interpretation Code 1.005 - 1.030 [facility] UA Auto SS UA Spec Desc Clean Catch (09/23/23 6:11 PM) Normal [facility] UA Auto SS Urobilinogen Qn (U) [id number] {Jadyn'U}/dL Invalid Interpretation Code 0.0 - 1.0 EU/dL [facility] UA Auto SS WBC Auto Ql (U) Negative (09/23/23 6:11 PM) Normal Negative [facility] UA Auto SS WBC LM.HPF (Urine sed) [#/Area] 0-5 /HPF Normal 0-5/HPF [facility] UA Auto SS XR Abdomen 1 Viewon 11-10-20 23 XR Abdomen 1 View Exam Date/Time: 09/23/2023 17:41 EST Reason for Exam: Abdominal pain Report IMPRESSION: NONOBSTRUCTIVE BOWEL GAS PATTERN. EXAMINATION: XR Abdomen 1 View HISTORY: Abdominal pain TECHNIQUE: Frontal view of the abdomen and pelvis COMPARISON: None available FINDINGS: No calcifications identified over the bilateral renal shadows or expected course of the ureters. Nonobstructive bowel gas pattern. No evidence of free air. Degenerative changes of the lumbar spine. No acute osseous abnormality. Ordering Provider: Zbigniew Balderas FINAL REPORT Dictated: 09/23/2023 5:57 pm Jose Heredia DO Signed (Electronic Signature): 09/23/2023 5:57 pm Signed by: Jose Heredia DO Transcribed by: SUNNY Technologist: AKOSUA Technical Comments Radiation Dose: Ka,r in mGy = na DAP = na Normal [facility] XR Chest 2 Viewson 3 XR Chest 2 Views Exam Date/Time: 09/23/2023 17:41 EST Reason for Exam: Abdominal pain;Other (please specify) Report IMPRESSION: NO RADIOGRAPHIC EVIDENCE OF ACUTE INTRATHORACIC PROCESS. EXAMINATION: XR Chest 2 Views HISTORY: Abdominal pain TECHNIQUE: Frontal and lateral views of the chest. COMPARISON: None available FINDINGS: Left-sided cardiac defibrillator is present. Evidence of prior thoracic surgery. Cardiomediastinal silhouette is within normal limits. No pneumothorax, pleural effusion, or consolidation. No acute osseous abnormality. Ordering Provider: Zbigniew Balderas FINAL REPORT Dictated: 09/23/2023 5:56 pm Jose Heredia DO Signed (Electronic Signature): 09/23/2023 5:56 pm Signed by: Jose Heredia DO Transcribed by: SUNNY Technologist: AKOSUA Technical Comments Radiation Dose: Ka,r in mGy = na DAP = na Normal [facility] eGFRon 09-23-2023 GFR/1.73 sq M.predicted among non-blacks MDRD (S/P/Bld) [Vol rate/Area] 68 mL/min/1.73 m2 Normal >=59 [facility] Comment on above: Order Comment: Order added by Discern Expert. 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 Kidney failure is indicated at less than 15 mL/min/1.73m2. Performed By: #### 2 [id number], [id number] ####[facility] [id number] [place] [address] C Urineon 09-15-2023 Bacteria identified Cx Nom (U) Microbiology PROCEDURE: Urine Culture [R1] SOURCE: U CleanCatch BODY SITE: COLLECTED DATE/TIME: 09/13/2023 10:44 EDT RECEIVED DATE/TIME: 09/13/2023 17:46 EDT START DATE/TIME: 09/13/2023 17:46 EDT FREE TEXT SOURCE: CHELITA GALLARDO PA-C, PA-C, JENNIFER E FINAL REPORTS Final Report [] Verified Date/Time: 09/15/2023 09:14 EDT 5,000 cfu/ml Mixed skin contaminants Mixed iris (multiple species present) Performing Locations R1: This test was performed at: [facility], [address] [place] [address], [facility] , , [facility] Comment on above: Performed By: #### [id number] ####[facility] [id number] [place] [address] Ambulatory Visit Summaryon 1 Ambulatory Visit Summary YASMIN FUENTES :1950 Visit Date:09/13/2023 Ambulatory Visit Instructions Your Diagnosis Chronic cystitis Tests Performed Urnls Dip Stick Auto w/o Microscopy POC 36330 Your Care Team Attending Physician - CHELITA GALLARDO PA-C Primary Care Physician - GIDEON ADAMS DO This Is Your Medications List Misc Prescription (BACLOFEN 10 MG TABS) aspirin (aspirin 81 mg oral capsule) atorvastatin (atorvastatin 40 mg Tab) cholecalciferol (Vitamin D3) estradiol topical (estradiol 0.1 mg/g Vag Crm) metoprolol (metoprolol 50 mg ER Tab) multivitamin (Super B Complex) vitamin E Procedures Performed Cardiac pacemaker (01/19/2021), Urodynamics (05/08/2014), Cystourethroscopy with dilation of urethral stricture (10/31/2013), Closed fracture of cervical spine, Hysterectomy, Knee replacement, Myectomy, Tonsillectomy. Medications What How Much When Instructions Unchanged aspirin (aspirin 81 mg oral capsule) By Mouth Every 24 hours Unchanged atorvastatin (atorvastatin 40 mg Tab) By Mouth Every day Unchanged cholecalciferol (Vitamin D3) Unchanged estradiol topical (estradiol 0.1 mg/ g Vag Crm) See instructions 1gm vaginally and apply a pea-sized amount around the urethra, nightly twice per week x 1 month, then once per week thereafter Unchanged metoprolol (metoprolol 50 mg ER Tab) By Mouth Every day Unchanged Misc Prescription (BACLOFEN 10 MG TABS) 0 Unchanged multivitamin (Super B Complex) By Mouth Every day Unchanged vitamin E By Mouth Every day Test Results Urnls Dip Stick Auto w/o Microscopy POC 53258 (09/13/2023) Bilirubin Urine Dipstick - Negative Blood Urine Dipstick - 1+ Small Glucose Urine Dipstick - Negative Ketones Urine Dipstick - Trace - 5 mg/dl Leukocytes Urine Dipstick - Trace Nitrite Urine Dipstick - Negative Protein Urine Dipstick - 1+ (30 mg/dl) Specific [place] Urine Dipstick - 1.015 Urine Appearance Urine Dipstick - Clear Urine Color Urine Dipstick - Yellow Urobilinogen Urine Dipstick - Normal 0.2-1 EU/dl pH Urine Dipstick - 7 Allergies Seafood (Diarrhea, Vomiting) codeine (Nausea) Demerol (Nausea) ciprofloxacin (Heart rate altered) Problems Ongoing - Any problem that you are currently receiving treatment for. Acquired bilateral renal cysts Anxiety Chronic cystitis Congenital long QT syndrome Dry eyes HOCM (hypertrophic obstructive cardiomyopathy) Hyperlipidemia Microscopic hematuria Nocturia Osteopenia Seasonal allergies Urethral stricture Urge incontinence Urinary urgency Patient Survey You may receive a survey via text or e-mail asking about your office visit. Please share your experience with us by completing your survey. We appreciate your feedback and thank you for choosing us for your care. [facility] Physician Orderon 09-05-2023 Physician Order [id number] #[id number] Normal [facility] C Urineon 09-04-2023 Bacteria identified Cx Nom (U) Microbiology PROCEDURE: Urine Culture [R1] SOURCE: U CleanCatch BODY SITE: COLLECTED DATE/TIME: 09/01/2023 14:42 EDT RECEIVED DATE/TIME: 09/02/2023 11:10 EDT START DATE/TIME: 09/02/2023 11:10 EDT FREE TEXT SOURCE: CHELITA GALLARDO PA-C, PA-C, CHELITA Auguste FINAL REPORTS Final Report [] Verified Date/Time: 09/04/2023 11:23 EDT >100,000 cfu/ml Escherichia coli SUSCEPTIBILITY RESULTS LEGEND: S=Susceptible, N/R=Not Reported, Blank=Data not available, or drug not advisable or tested, I=Intermediate, ESBL=Extended spectrum beta-lactamase, R=Resistant, TFG=Thymidine-depend ent strain, KANDICE=Beta-lactamase positive, TREVOR=mcg/m;(mg/L), S*=Predicted susceptible interp, R*=Predicted resistant interp EC Antibiotic TREVOR Dilutn TREVOR Interp Amikacin <=16 S Ampicillin <=8 S Ampicillin/ <=8/4 S Sulbactam Aztreonam <=4 S Cefazolin <=2 S Cefepime <=2 S Cefoxitin <=8 S Ceftazidime <=1 S Ceftazidime/ <=8 S Avibactam Ceftriaxone <=1 S Ciprofloxacin <=1 S Ertapenem <=0.5 S Gentamicin <=4 S Levofloxacin <=2 S Meropenem <=1 S Nitrofurantoin <=32 S Piperacillin/ <=16 S Tazobactam Tetracycline <=4 S Tigecycline <=2 S Tobramycin <=4 S Trimethoprim/ <=2/38 S Sulfa Performing Locations R1: This test was performed at: [facility], [address] [place] [address], [id number] , [place], Normal [facility] Comment on above: Performed By: #### [id number] ####[facility] [id number] [place] [id number] [facility] 08-24-2023 CNPN Telephone (CARIMN) YASMIN FUENTES ([id number]) 1950 F Date Time Provider Department 08/24/23 CALIN OBRIEN During your visit today, we recorded the following information about you: Savannah Jorge 08/24/2023 9:58 AM Signed Patient is aware she is overdue to see Dr Obrien for follow up, however she also realized she is out of refills for her Metropolol. She has enough to get her through until about next week, but was requesting if we could order enough to get her over until she can see Dr Obrien. Matilde Spicer APRN.AD OPERATIONS COORDINATOR 08/24/2023 3:33 PM Signed 90 day supply ordered. Matilde Spicer, MSN, RN, ICE CREAM DISPENSER-C Allergies As of Date: 08/24/2023 Noted Allergy Reaction CODEINE 08/11/2020 11 - Vomiting DEMERAL (MEPERIDINE) 08/11/2020 11 - Vomiting SCALLOPS 08/11/2020 14 - Other: See Comments Comments: Nausea, diarrhea Date Reviewed: 08/12/2023 Reviewed by: Bridger Suresh MD - Fully Assessed Reason for Visit: Medication Problem [65] Order(s):metoprolol succinate ER (TOPROL XL) 50 mg 24 hr tabletTake 1 tablet by mouth once daily.Disp: 90 tabletRfl: 0 Prescriptions as of 08/24/2023 - aspirin 81 mg chewable tablet Chew and swallow 1 tablet by mouth once daily. - baclofen 10 mg tablet - loratadine (CLARITIN ORAL) Take by mouth once daily. - metoprolol succinate ER (TOPROL XL) 50 mg 24 hr tablet Take 1 tablet by mouth once daily. Problem List As Of Date 08/24/2023 Noted Resolved SOB (shortness of breath) [R06.02] 08/11/2020 Other hypertrophic cardiomyopathy (HCC) [I42.2] 08/11/2020 Essential hypertension [I10] 08/27/2020 NSVT (nonsustained ventricular tachycardia) (HC*01/19/2021 Pre-op testing [Z01.818] 06/22/2021 Discharge planning issues [Z02.9] 06/22/2021 Coronary artery disease involving [place]*06/23/2021 ICD (implantable cardioverter-defibri llator) in*06/23/2021 HOCM (hypertrophic obstructive cardiomyopathy) *06/23/2021 Nonrheumatic mitral valve regurgitation [I34.0] 06/23/2021 Other hyperlipidemia [E78.49] 06/23/2021 On mechanically assisted ventilation (HCC) [Z99*06/23/2021 06/24/2021 Hypovolemia [E86.1] 06/23/2021 06/24/2021 Stress hyperglycemia [R73.9] 06/23/2021 06/26/2021 Post-op pain [G89.18] 06/23/2021 06/26/2021 Hypervolemia [E87.70] 06/24/2021 06/26/2021 Atelectasis [J98.11] 06/25/2021 06/26/2021 Summary [Z91.89] 06/26/2021 A-fib (HCC) [I48.91] 06/28/2021 Prescriptions ordered this encounter Disp Refills Start End METOPROLOL SUCCINATE ER 50 MG TABLET* 90 t* 0 08/24/2023 Route: ORAL Sig: Take 1 tablet by mouth once daily. Medications Discontinued During This Encounter Prescriptions - metoprolol succinate ER (TOPROL XL) 50 mg 24 hr tablet (Discontinued) TAKE ONE TABLET BY MOUTH DAILY Encounter Status:Closed by MATILDE SPICER on 08/24/23 [facility] CNOVon 08-12-2023 CNOV Office Visit (CAEPAV) YASMIN FUENTES ([id number]) 1950 F Date Time Provider Department 08/12/23 12:00 PM BRIDGER SURESH CAEPAV During your visit today, we recorded the following information about you: Pulse Blood pressure Weight Height 53/minute 140/84 81.2 kg 1.651 m Bridger Suresh MD 08/12/2023 1:43 PM Addendum Asked to see by Dr Obrien for question of ICD managaement. My recommendations will be communicated back to the primary team by way of shared electronic medical record for physicians within the [facility] or via mail if from outside the system. HISTORY OF PRESENT ILLNESS The above relevant present and past medical Hx was verified and the exam findings were confirmed with additional exam findings added/clarified and/or corrected in my exam below. Additional Hx/summary is as follows: 72 YO female patient previously seen by Dr Xavier. She has HCM and is followed by Dr Obrien. She has HCM, and had genetic testing for HCM and LQTS, and was positive for both. Her mother suddenly at age 53. She has never had a cardiac arrest. She was referred to Dr Xavier and an ICD was implanted in 01/[address] Su. In 06/2021, she underwent myectomy and MV repair. She has felt better since the surgery. There has been no syncope, near-syncope, palpitations, dizziness or light-headedness. She has never had ICD therapies. She had AF post-operatively after the myectomy. She actually was treated with amiodarone post-operatively. She recently had an RFA procedure for pain and she had to have the ICD deactivated pre-/post-. She checks her meds on Conformiq due to the LQTS. ACTIVE PROBLEM LIST Sob (Shortness of Breath) Other Hypertrophic Cardiomyopathy ([facility]) Essential Hypertension Nsvt (Nonsustained Ventricular Tachycardia) ([facility]) Pre-Op Testing Discharge Planning Issues Coronary Artery Disease Involving [place] Coronary Artery of [place] Heart Without Angina Pectoris Icd (Implantable Cardioverter-Defibri llator) in Place Hocm (Hypertrophic Obstructive Cardiomyopathy) ([facility]) Nonrheumatic Mitral Valve Regurgitation Other Hyperlipidemia Summary A-Fib ([facility]) FAMILY HISTORY Problem Relation Age of Onset Heart disease Mother Aneurysm Father Social History Tobacco Use Smoking status: Former Types: Cigarettes Quit date: 1994 Years since quittin.7 Smokeless tobacco: Never Vaping Use Vaping Use: Never used Substance Use Topics Alcohol use: Yes Comment: rarely Drug use: Never ROS. Relevant issues listed in the HPI. Otherwise: Constitutional: - Negative Neuro: - Negative Psych: - Negative HEENT: - Negative Endo: - Negative CV: See HPI Pulm: - Negative GI: - Negative : - Negative MSK: - Negative Derm: - Negative Heme: - Negative Cardiac meds reviewed. Meds and allergies were [facility]. General - Well-developed, obese, no acute distress. HEENT - Normocephalic, atraumatic. Neck -Supple, no JVD, no bruits, no thyromegaly. Heart - RRR, 2-3/6 LSB murmur. Lungs - CTA bilaterally. Device site - Well healed, L upper chest. Abdomen - Positive bowel sounds, no bruit, no organomegaly, no masses. Back - Non-tender. Extremities - No edema. Normal pulses. Neuro - Alert and oriented to person, place, time. ECG today in the office reviewed. LBBB Device interrogation reviewed. No events. AP<1%, FOUNTAIN CLERK<1% IMPRESSION: 1. Paroxysmal ventricular tachycardia, status post defibrillator 2. Genetic testing consistent with long QT syndrome 3. Hypertrophic cardiomyopathy with chronic/diastolic congestive heart failure, status post myectomy and mitral valve repair 4. Postoperative atrial fibrillation 5. BMI 29 PLAN: Mrs. Fuentes presents today to establish care. She has hypertrophic cardiomyopathy. When she was getting genetic tested for this, she was also found to have evidence of long QT syndrome. Her mother unexpectedly at age 53. She had a defibrillator implanted based on these diagnoses. She has never received defibrillator therapy. In fact, she was treated with amiodarone briefly after open heart surgery without any adverse events. I advised her that she should not use this medication in the future given the diagnosis. She does know about the [employer] website and uses this to check any prescription she is given. She was initially seen by Dr. Xavier. She returns to the [place] office for convenience due to distance. I told her that in the future if she is seeing Dr. Obrien at the main [place], we can coordinate an appointment with her in electrophysiology on the same day so she only has to make one trip. I recommended no changes to her regimen. She should continue annual follow-up in the office and quarterly follow-up on a remote basis. Bridger Suresh MD CC - DO Calin Peterson MD This clini (more content not included)... [facility] [id number] 08-12-2023 ECG01 Ventricular Rate : 53 BPM Atrial Rate : 53 BPM P-R Interval : 188 ms QRS Duration : 144 ms Q-T Interval : 520 ms QTC Calculation(Bazett) : 487 ms Calculated P [place] : 77 degrees Calculated R [place] : -10 degrees Calculated T [place] : 157 degrees SINUS BRADYCARDIA COMPLETE LEFT BUNDLE BRANCH BLOCK ABNORMAL ECG Confirmed by YOLIE DEAN M.D. ([id number]) on 08/18/2023 12:25:58 PM NAME : YASMIN FUENTES PID : [id number] : 1950 Gender : Female Race : ORD : Procedure Date : Aug 12 2023 11:46:38 Edit Date : Aug 18 2023 12:26:01 Diagnosis: SINUS BRADYCARDIA COMPLETE LEFT BUNDLE BRANCH BLOCK ABNORMAL ECG Confirmed by YOLIE DEAN M.D. ([id number]) on 08/18/2023 12:25:58 PM Test Reason : Location : 192 : [facility] Overread By : YOLIE DEAN M.D. Edited By : YOLIE DEAN M.D. Referred By : Beth Suresh Acquired by : , [facility] ICD REMOTE CHECKon 3 AV Delay Adaptive Paced Minimum (ms) 350 ms [facility] AV Delay Adaptive Sensed Minimum (ms) 350 ms [facility] AV Delay Paced (ms) 160 ms [facility] AV Delay Sensed (ms) 160 ms [facility] Mao RA Pacing Amplitude (volts) 2.0 V [facility] Mao RA Pacing Polarity BI [facility] Mao RA Pacing Pulse Width (ms) 0.4 ms [facility] Mao RA Sensing Amplitude (mvolts) 0.25 mV [facility] Mao RA Sensing Polarity BI [facility] Mao RV Pacing Amplitude (volts) 2.0 V [facility] Mao RV Pacing Polarity BI [facility] Mao RV Pacing Pulse Width (ms) 0.4 ms [facility] Mao RV Sensing Amplitude (mvolts) 0.3 mV [facility] Mao RV Sensing Polarity BI [facility] Detection Configuration (Vent) 1 - Zone [facility] FastVT_Detection Interval 353 ms [facility] ICD FastVT DetectionStatus Monitor [facility] ICD-AMS EPISODES 170 {beats}/min [facility] ICD-ATP Episodes (Vent) 0 [facility] ICD-ATRIALFIBRILLATIO N 0 [facility] ICD-ATRIALTACHYCARDIA 1 [facility] ICD-Device Mfg BSX [facility] ICD-LEADIMPEDANCEATRI AL 685 ohm [facility] ICD-Percent Pacing (Atrial) 0 % [facility] ICD-Percent Pacing (Vent) 1 % [facility] ICD-Shocks Aborted (Vent) 0 [facility] [id number] 0 [facility] ICD-SHOCKSABORTED 0 [facility] ICD-SHOCKSDELIVEREDVE NTRICULAR 0 [facility] ICD-Ventricular Fibrillation 0 [facility] Lead Impedance (RV) 439 ohm [facility] Lead Impedance High Voltage 76 ohm [facility] Lead1 Mfg BSX [facility] Lead2 Mfg BSX [facility] Location RV [facility] Location RA [facility] Lower Rate (bpm) 40 {beats}/min [facility] MDT_PROG_TACHY_ZONE_D ETECTIONS_STATUS ENABLED [facility] Model D142 INOGEN [facility] Model [address] [place] 4-Front S [facility] Model 7841 Ingevity + MRI [facility] Pacing Mode DDD [facility] Serial Number [id number] [facility] Serial Number [id number] [facility] Serial Number [id number] [facility] Test Charge Time 10.1 s [facility] Therapy Status (Vent) Enabled [facility] Thresh RA Capture Amplitude (volts) 0.7 V [facility] Thresh RA Capture Duration (ms) 0.4 ms [facility] Thresh RV Capture Amplitude (VOLTS) 0.8 V [facility] Thresh RV Capture Duration (MS) 0.4 ms [facility] Tracking Rate (bpm) 130 {beats}/min [facility] VF Zone Detection Interval 300 ms [facility] VF Zone Therapy Configuration 1 ATP(s) + 8 Shock(s) [facility] No Panel Informationon 07-28 BLANK _ [facility] ICD-ATRIALTACHYCARDIA 0 [facility] ICD-Fast Ventricular Tachycardia 0 [facility] Implant Date 01/19/2021 [facility] Screenson 07-20-2023 Screens [id number] Normal [facility] Ambulatory Visit Summaryon 0 07-19-2023 Ambulatory Visit Summary YASMIN FUENTES :1950 Visit Date:07/19/2023 Ambulatory Visit Instructions Your Diagnosis Chronic cystitis Urinary urgency Urethral stricture Nocturia Acquired bilateral renal cysts Tests Performed Urnls Dip Stick Auto w/o Microscopy POC 43537 Your Care Team Attending Physician - CHELITA GALLARDO PA-C Primary Care Physician - GIDEON ADAMS DO This Is Your Medications List Contact prescribing physician if questions or concerns Misc Prescription (BACLOFEN 10 MG TABS) aspirin (aspirin 81 mg oral capsule) atorvastatin (atorvastatin 40 mg Tab) cholecalciferol (Vitamin D3) metoprolol (metoprolol 50 mg ER Tab) multivitamin (Super B Complex) vitamin E [Image Removed: STOP]Stop taking these medications estradiol topical (estradiol 0.1 mg/g Vag Crm) Procedures Performed Cardiac pacemaker (01/19/2021), Urodynamics (05/08/2014), Cystourethroscopy with dilation of urethral stricture (10/31/2013), Closed fracture of cervical spine, Hysterectomy, Knee replacement, Myectomy, Tonsillectomy. Discharge Vitals Heart Rate (Peripheral) 68 Respiratory Rate 16 Blood Pressure 130/74 Height 165 cm Height 65 in Weight 81.5 kg Weight 179.3 lb BMI 29.94 What to do next You Need to Schedule the Following Appointments Follow Up with MENDY BENÍTEZ, SERGEY ZAFAR When: Comments: PRN Where: [address] [place] [address] Medications What How Much When Instructions Unchanged aspirin (aspirin 81 mg oral capsule) By Mouth Every 24 hours Contact prescribing physician if questions or concerns Unchanged atorvastatin (atorvastatin 40 mg Tab) By Mouth Every day Contact prescribing physician if questions or concerns Unchanged cholecalciferol (Vitamin D3) Contact prescribing physician if questions or concerns Unchanged metoprolol (metoprolol 50 mg ER Tab) By Mouth Every day Contact prescribing physician if questions or concerns Unchanged Misc Prescription (BACLOFEN 10 MG TABS) 0 Contact prescribing physician if questions or concerns Unchanged multivitamin (Super B Complex) By Mouth Every day Contact prescribing physician if questions or concerns Unchanged vitamin E By Mouth Every day Contact prescribing physician if questions or concerns What How Much When Comments Stop Taking estradiol topical (estradiol 0.1 mg/ g Vag Crm) 1 Gram Vaginal Tuesday & Tuesday Apply one gram 2x a week and rub some around the urethra. Test Results Urnls Dip Stick Auto w/o Microscopy POC 69767 (07/19/2023) Bilirubin Urine Dipstick - Negative Blood Urine Dipstick - Negative Glucose Urine Dipstick - Negative Ketones Urine Dipstick - Negative Leukocytes Urine Dipstick - Negative Nitrite Urine Dipstick - Negative Protein Urine Dipstick - Negative Specific [place] Urine Dipstick - 1.015 Urine Appearance Urine Dipstick - Clear Urine Color Urine Dipstick - Yellow Urobilinogen Urine Dipstick - Normal 0.2-1 EU/dl pH Urine Dipstick - 6 Allergies Seafood (Diarrhea, Vomiting) codeine (Nausea) Demerol (Nausea) ciprofloxacin (Heart rate altered) Problems Ongoing - Any problem that you are currently receiving treatment for. Acquired bilateral renal cysts Anxiety Chronic cystitis Congenital long QT syndrome Dry eyes HOCM (hypertrophic obstructive cardiomyopathy) Hyperlipidemia Microscopic hematuria Nocturia Osteopenia Seasonal allergies Urethral stricture Urge incontinence Urinary urgency Education Materials Urinary Tract Infection, Adult A urinary tract infection (UTI) is an infection of any part of the urinary tract. The urinary tract includes: ? The kidneys. ? The ureters. ? The bladder. ? The urethra. These organs make, store, and get rid of pee (urine) in the body. What are the causes? This infection is caused by germs (bacteria) in your genital area. These germs grow and cause swelling (inflammation) of your urinary tract. What increases the risk? The following factors may make you more likely to develop this condition: ? Using a small, thin tube (catheter) to drain pee. ? Not being able to control when you pee or poop (incontinence). ? Being female. If you are female, these things can increase the risk: ? Using these methods to prevent : ? A medicine that kills sperm (spermicide). ? A device that blocks sperm (diaphragm). ? Having low levels of a female hormone (estrogen). ? Being . You are more likely to develop this condition if: ? You have genes that add to your risk. ? You are sexually active. ? You take antibiotic medicines. ? You have trouble peeing because of: ? A prostate that is bigger than normal, if you are male. ? A blockage in the part of your body that drains pee from the bladder. ? A kidney stone. ? A nerve condition that affects your bladder. ? Not getting enough to drink. (more content not included)... Normal [facility] Lab Reportson 07-19-2023 Lab Reports [id number] Normal [facility] Patient Educationon 07-19-20 23 Patient Education Obstetrics and Gynecology Urinary Tract Infection, Adult A urinary tract infection (UTI) is an infection of any part of the urinary tract. The urinary tract includes: ? The kidneys. ? The ureters. ? The bladder. ? The urethra. These organs make, store, and get rid of pee (urine) in the body. What are the causes? This infection is caused by germs (bacteria) in your genital area. These germs grow and cause swelling (inflammation) of your urinary tract. What increases the risk? The following factors may make you more likely to develop this condition: ? Using a small, thin tube (catheter) to drain pee. ? Not being able to control when you pee or poop (incontinence). ? Being female. If you are female, these things can increase the risk: ? Using these methods to prevent : ? A medicine that kills sperm (spermicide). ? A device that blocks sperm (diaphragm). ? Having low levels of a female hormone (estrogen). ? Being . You are more likely to develop this condition if: ? You have genes that add to your risk. ? You are sexually active. ? You take antibiotic medicines. ? You have trouble peeing because of: ? A prostate that is bigger than normal, if you are male. ? A blockage in the part of your body that drains pee from the bladder. ? A kidney stone. ? A nerve condition that affects your bladder. ? Not getting enough to drink. ? Not peeing often enough. ? You have other conditions, such as: ? Diabetes. ? A weak disease-fighting system (immune system). ? Sickle cell disease. ? Gout. ? Injury of the spine. What are the signs or symptoms? Symptoms of this condition include: ? Needing to pee right away. ? Peeing small amounts often. ? Pain or burning when peeing. ? Blood in the pee. ? Pee that smells bad or not like normal. ? Trouble peeing. ? Pee that is cloudy. ? Fluid coming from the vagina, if you are female. ? Pain in the belly or lower back. Other symptoms include: ? Vomiting. ? Not feeling hungry. ? Feeling mixed up (confused). This may be the first symptom in older adults. ? Being tired and grouchy (irritable). ? A fever. ? Watery poop (diarrhea). How is this treated? ? Taking antibiotic medicine. ? Taking other medicines. ? Drinking enough water. In some cases, you may need to see a specialist. Follow these instructions at home: Medicines ? Take yhni-efk-dpuhttb and prescription medicines only as told by your doctor. ? If you were prescribed an antibiotic medicine, take it as told by your doctor. Do not stop taking it even if you start to feel better. General instructions ? Make sure you: ? Pee until your bladder is empty. ? Do not hold pee for a long time. ? Empty your bladder after sex. ? Wipe from front to back after peeing or pooping if you are a female. Use each tissue one time when you wipe. ? Drink enough fluid to keep your pee pale yellow. ? Keep all follow-up visits. Contact a doctor if: ? You do not get better after 1?2 days. ? Your symptoms go away and then come back. Get help right away if: ? You have very bad back pain. ? You have very bad pain in your lower belly. ? You have a fever. ? You have chills. ? You feeling like you will vomit or you vomit. Summary ? A urinary tract infection (UTI) is an infection of any part of the urinary tract. ? This condition is caused by germs in your genital area. ? There are many risk factors for a UTI. ? Treatment includes antibiotic medicines. ? Drink enough fluid to keep your pee pale yellow. This information is not intended to replace advice given to you by your health care provider. Make sure you discuss any questions you have with your health care provider. Document Revised: 06/12/2021 Document Reviewed: 06/12/2021 [employer] Patient Education ? 2022 FND. [facility] Urology Office/Clinic Noteon 07-19-2023 Urology Office/Clinic Note Chief Complaint 1yr HPI Staff PRW pt 1yr (pt RS'd) DX: Chronic Cystitis, Urethral Stricture, Nocturia & BL Renal Cysts *Estradiol 0.5gm 2x/wk (discussed lowering to 1x/wk at time of last encounter) *Pt needs refill sent to preferred pharmacy. *No relevant studies since last encounter per [facility]. (Did have spinal MRI. No mention of bladder nor kidneys.) 08/03/21- BUN 17 & Crea 0.90 Denies UTI since last encounter. Increased urgency for past 6m. Occasional leaking. Wears a light pad. 1 pad lasts all day. Denies pain/burning and visible blood in urine. Good stream 1x/night. For yrs. Denies any urological concerns at this time. History of Present Illness staff HPI reviewed and agree. Review of Systems PHQ Score Initial Depression Screen Score: 0 no fever, chills, malaise, myalgia. no rash/lesions. no chest pain, palpitations, or SOB. no abdominal pain, nausea, vomiting. no unilateral calf swelling, redness, pain Physical Exam Vitals & Measurements HR: 68(Peripheral) RR: 16 BP: 130/74 HT: 65 in HT: 165 cm WT: 81.5 kg WT: 179.3 lb BMI: 29.94 General: nontoxic, NAD Mouth: moist mucosa Lungs: normal respiratory effort Cardio: regular rate, good distal perfusion Abdomen: nondistended, no suprapubic distention or tenderness, no CVA tenderness Neurologic: Grossly normal Skin: No rashes or suspicious lesions Assessment/Plan PRW pt. 1. Chronic cystitis (N30.20: Other chronic cystitis without hematuria) Chronic. Pt. denies any infections for at least 2-3 yrs and continues using Estradiol 0.5gm 1x/wk. UA today is negative for blood and infection. Overall pt states that she is doing well and has no complaints at this time. Discussed d/c the Estrace cream. Pt states that she would like to try. Advised pt that if she gets any breakthrough infections withing 3-6 mos, she is to call our office and we can start the Estrace cream again. 2. Urinary urgency (R39.15: Urgency of urination) Increased urgency for past 6m. Occasional leaking, wears a light pad, 1 pad lasts all day. Pt states that she has sciatica issues and she thinks that it may be from how long she waits to go to the bathroom. Discussed starting timed voids. Advised pt that the timed voids will help with the leakage. Pt states that she drinks 1 cup of coffee in the morning, water and unsweetened decaffeinated tea. Discussed reducing bladder irritants. 3. Urethral stricture (N35.12: Postinfective urethral stricture, not elsewhere classified, female) Last UD done in 2013. Good flow. No issues. 4. Nocturia (R35.1: Nocturia) Chronic. 1-2x/night. Pt states that she gets up at night depending on how much fluid she consumes, not bothersome, falls right back asleep. 5. Acquired bilateral renal cysts (N28.1: Cyst of kidney, acquired) CT 2014 showed 10mm Simple right renal cyst. TUAN the year prior showed bilat, again simple and small. No need for repeat imaging at this time. Follow up as needed. All questions/concerns were discussed. Pt to call the office if she encounters any issues prior. Pt acknowledges understanding. Follow-up With When Contact Information MENDY BENÍTEZ, CHELITA Auguste, URL [address] [address] Additional Instructions: PRN Patient Education Urinary Tract Infection, Adult, [id number] I, Edelmira Lucero, personally scribed for Chelita Gallardo PA-C on 07/19/2023 11:32:22. . Documentation recorded by the scribkalyani Lucero accurately reflects the services(s) I performed and decisions made by me. Authenticated by Chelita Gallardo PA-C on 07/19/2023 12:24:16. Problem List/Past Medical History Ongoing Acquired bilateral renal cysts Anxiety Chronic cystitis Congenital long QT syndrome Dry eyes HOCM (hypertrophic obstructive cardiomyopathy) Hyperlipidemia Microscopic hematuria Nocturia Osteopenia Seasonal allergies Urethral stricture Urge incontinence Urinary urgency Historical No qualifying data Procedure/Surgical History Cardiac pacemaker (01/19/2021), Urodynamics (05/08/2014), Cystourethroscopy with dilation of urethral stricture (10/31/2013), Closed fracture of cervical spine, Hysterectomy, Knee replacement, Myectomy, Tonsillectomy. Medications aspirin 81 mg oral capsule, Oral, q24hr atorvastatin 40 mg Tab, Oral, Daily BACLOFEN 10 MG TABS, 0 estradiol 0.1 mg/g Vag Crm, 1 gm, Vaginal, MonSat, 9 refills metoprolol 50 mg ER Tab, Oral, Daily Super B Complex, Oral, Daily Vitamin D3 vitamin E, Oral, Daily Allergies Seafood (Diarrhea, Vomiting) codeine (Nausea) Demerol (Nausea) ciprofloxacin (Heart rate altered) Social History Alcohol - Low Risk, 03/17/2020 Tobacco - Denies Tobacco Use, 03/17/2020 Former smoker, quit more than 30 days ago Tobacco Use:. Never Smokeless Tobacco Use:. Cigarettes, Household tobacco concerns: No. Yes, 07/19/2023 Family History Aneurysm: Father. Cardi (more content not included)... Normal [facility] Comment on above: Result Comment: Elec tronically Signed By: CHELITA GALLARDO PA-C\.br\Date and Time Signed: 07/19/23 12:24 EDT\.br\Electronically Co-Signed By: Edelmira Lucero\.br\Date and Time Co-Signed: 07/19/23 11:32 EDT Marco 07-08-2023 CNPN Telephone (CARDMN) YASMIN FUENTES ([id number]) 1950 F Date Time Provider Department 07/08/23 DICK XAVIER During your visit today, we recorded the following information about you: Hailey Stout 07/08/2023 10:42 AM Signed Outside medical records received- uploaded in the [employer] drive. Last appointment on 02/02/2021 Jaclyn Romo RN 07/13/2023 5:11 PM Addendum Completed, faxed at RN desk. Jaclyn Childers RN Faxed again on 07/22/23Nov Carvalho Allergies As of Date: 07/08/2023 Noted Allergy Reaction CODEINE 08/11/2020 11 - Vomiting DEMERAL (MEPERIDINE) 08/11/2020 11 - Vomiting SCALLOPS 08/11/2020 14 - Other: See Comments Comments: Nausea, diarrhea Date Reviewed: 12/09/2022 Reviewed by: Monique Tate LPN - Fully Assessed Reason for Visit: Received Outside Medical Records [[id number]] Prescriptions as of 07/22/2023 - metoprolol succinate ER (TOPROL XL) 50 mg 24 hr tablet TAKE ONE TABLET BY MOUTH DAILY - gabapentin (NEURONTIN) 300 mg capsule 1 CAP QHS x 5-7 days then 1 cap bid x 5-7 days if tolerated 2 caps qhs, 1 in am - aspirin 81 mg chewable tablet Chew and swallow 1 tablet by mouth once daily. - loratadine (CLARITIN ORAL) Take by mouth once daily. - atorvastatin (LIPITOR) 40 mg tablet Take 40 mg by mouth once daily. - melatonin 10 mg cap Take by mouth daily at bedtime. - estradiol (ESTRACE) 0.01 % (0.1 mg/gram) vaginal cream Use vaginally two times a week. Patient uses .5 mg Problem List As Of Date 07/08/2023 Noted Resolved SOB (shortness of breath) [R06.02] 08/11/2020 Other hypertrophic cardiomyopathy (HCC) [I42.2] 08/11/2020 Essential hypertension [I10] 08/27/2020 NSVT (nonsustained ventricular tachycardia) (HC*01/19/2021 Pre-op testing [Z01.818] 06/22/2021 Discharge planning issues [Z02.9] 06/22/2021 Coronary artery disease involving [place]*06/23/2021 ICD (implantable cardioverter-defibri llator) in*06/23/2021 HOCM (hypertrophic obstructive cardiomyopathy) *06/23/2021 Nonrheumatic mitral valve regurgitation [I34.0] 06/23/2021 Other hyperlipidemia [E78.49] 06/23/2021 On mechanically assisted ventilation (HCC) [Z99*06/23/2021 06/24/2021 Hypovolemia [E86.1] 06/23/2021 06/24/2021 Stress hyperglycemia [R73.9] 06/23/2021 06/26/2021 Post-op pain [G89.18] 06/23/2021 06/26/2021 Hypervolemia [E87.70] 06/24/2021 06/26/2021 Atelectasis [J98.11] 06/25/2021 06/26/2021 Summary [Z91.89] 06/26/2021 A-fib (HCC) [I48.91] 06/28/2021 Encounter Status:Closed by JACLYN CHILDERS on 07/13/23 Normal [facility] ICD REMOTE CHECKon 3 AV Delay Adaptive Paced Minimum (ms) 350 ms [facility] AV Delay Adaptive Sensed Minimum (ms) 350 ms [facility] AV Delay Paced (ms) 160 ms [facility] AV Delay Sensed (ms) 160 ms [facility] Mao RA Pacing Amplitude (volts) 2 V [facility] Mao RA Pacing Polarity BI [facility] Mao RA Pacing Pulse Width (ms) 0.4 ms [facility] Mao RA Sensing Amplitude (mvolts) 0.25 mV [facility] Mao RA Sensing Polarity BI [facility] Mao RV Pacing Amplitude (volts) 2 V [facility] Mao RV Pacing Polarity BI [facility] Mao RV Pacing Pulse Width (ms) 0.4 ms [facility] Mao RV Sensing Amplitude (mvolts) 0.3 mV [facility] Mao RV Sensing Polarity BI [facility] Detection Configuration (Vent) 1 - Zone [facility] FastVT_Detection Interval 353 ms [facility] ICD FastVT DetectionStatus Monitor [facility] ICD-AMS EPISODES 170 {beats}/min [facility] ICD-ATP Episodes (Vent) 0 [facility] ICD-ATRIALFIBRILLATIO N 0 [facility] ICD-ATRIALTACHYCARDIA 1 [facility] ICD-Device Mfg BSX [facility] ICD-LEADIMPEDANCEATRI AL 593 ohm [facility] ICD-Percent Pacing (Atrial) 0 % [facility] ICD-Percent Pacing (Vent) 1 % [facility] ICD-Shocks Aborted (Vent) 0 [facility] [id number] 0 [facility] ICD-SHOCKSABORTED 0 [facility] ICD-SHOCKSDELIVEREDVE NTRICULAR 0 [facility] ICD-Ventricular Fibrillation 0 [facility] Lead Impedance (RV) 460 ohm [facility] Lead Impedance High Voltage 79 ohm [facility] Lead1 Mfg BSX [facility] Lead2 Mfg BSX [facility] Location RV [facility] Location RA [facility] Lower Rate (bpm) 40 {beats}/min [facility] MDT_PROG_TACHY_ZONE_D ETECTIONS_STATUS ENABLED [facility] Model D142 INOGEN [facility] Model [address] [place] 4-Front S [facility] Model 7841 Ingevity + MRI [facility] Pacing Mode DDD [facility] Serial Number [id number] [facility] Serial Number [id number] [facility] Serial Number [id number] [facility] Test Charge Time 10.1 s [facility] Therapy Status (Vent) Enabled [facility] Thresh RA Capture Amplitude (volts) 0.7 V [facility] Thresh RA Capture Duration (ms) 0.4 ms [facility] Thresh RV Capture Amplitude (VOLTS) 0.8 V [facility] Thresh RV Capture Duration (MS) 0.4 ms [facility] Tracking Rate (bpm) 130 {beats}/min [facility] VF Zone Detection Interval 300 ms [facility] VF Zone Therapy Configuration 1 ATP(s) + 8 Shock(s) [facility] No Panel Informationon 01-21 BLANK _ [facility] ICD-ATRIALTACHYCARDIA 0 [facility] ICD-Fast Ventricular Tachycardia 0 [facility] Implant Date 01/19/2021 [facility] ICD REMOTE CHECKon 2 AV Delay Adaptive Paced Minimum (ms) 350 ms [facility] AV Delay Adaptive Sensed Minimum (ms) 350 ms [facility] AV Delay Paced (ms) 160 ms [facility] AV Delay Sensed (ms) 160 ms [facility] Mao RA Pacing Amplitude (volts) 2 V [facility] Amo RA Pacing Polarity BI [facility] Mao RA Pacing Pulse Width (ms) 0.4 ms [facility] Mao RA Sensing Amplitude (mvolts) 0.25 mV [facility] Mao RA Sensing Polarity BI [facility] Mao RV Pacing Amplitude (volts) 2 V [facility] Mao RV Pacing Polarity BI [facility] Mao RV Pacing Pulse Width (ms) 0.4 ms [facility] Mao RV Sensing Amplitude (mvolts) 0.3 mV [facility] Mao RV Sensing Polarity BI [facility] Detection Configuration (Vent) 1 - Zone [facility] FastVT_Detection Interval 353 ms [facility] ICD FastVT DetectionStatus Monitor [facility] ICD-AMS EPISODES 170 {beats}/min [facility] ICD-ATP Episodes (Vent) 0 [facility] ICD-ATRIALFIBRILLATIO N 0 [facility] ICD-ATRIALTACHYCARDIA 1 [facility] ICD-Device Mfg BSX [facility] ICD-LEADIMPEDANCEATRI AL 578 ohm [facility] ICD-Percent Pacing (Atrial) 0 % [facility] ICD-Percent Pacing (Vent) 1 % [facility] ICD-Shocks Aborted (Vent) 0 [facility] [id number] 0 [facility] ICD-SHOCKSABORTED 0 [facility] ICD-SHOCKSDELIVEREDVE NTRICULAR 0 [facility] ICD-Ventricular Fibrillation 0 [facility] Lead Impedance (RV) 445 ohm [facility] Lead Impedance High Voltage 77 ohm [facility] Lead1 Mfg BSX [facility] Lead2 Mfg BSX [facility] Location RV [facility] Location RA [facility] Lower Rate (bpm) 40 {beats}/min [facility] MDT_PROG_TACHY_ZONE_D ETECTIONS_STATUS ENABLED [facility] Model D142 INOGEN [facility] Model [address] [place] 4-Front S [facility] Model 7841 Ingevity + MRI [facility] Pacing Mode DDD [facility] Serial Number [id number] [facility] Serial Number [id number] [facility] Serial Number [id number] [facility] Test Charge Time 10 s [facility] Therapy Status (Vent) Enabled [facility] Thresh RA Capture Amplitude (volts) 0.7 V [facility] Thresh RA Capture Duration (ms) 0.4 ms [facility] Thresh RV Capture Amplitude (VOLTS) 0.8 V [facility] Thresh RV Capture Duration (MS) 0.4 ms [facility] Tracking Rate (bpm) 130 {beats}/min [facility] VF Zone Detection Interval 300 ms [facility] VF Zone Therapy Configuration 1 ATP(s) + 8 Shock(s) [facility] No Panel Informationon 10-24 BLANK _ [facility] ICD-ATRIALTACHYCARDIA 0 [facility] ICD-Fast Ventricular Tachycardia 0 [facility] Implant Date 01/19/2021 [facility] SARS-CoV-2 (COVID-19) RNA LO+probe Ql (Unsp spec) Not detected Normal NOT DETECTED [facility] Comment on above: Result Comment: This test is not yet approved or cleared by the [place] FDA. When there are no FDA-approved or cleared tests available, and other criteria are met, FDA can make tests available under an emergency access mechanism called an Emergency Use Authorization (EUA). The EUA for this test is supported by the [place] of Health and Human Service's (HHS's) declaration that circumstances exist to justify the emergency use of in vitro diagnostics for the detection and/or diagnosis of the virus that causes COVID-19. This EUA will remain in effect (meaning this test can be used) for the duration of the COVID-19 declaration justifying emergency of IVDs, unless it is terminated or revoked by FDA (after which the test may no longer be used). When diagnostic testing is negative, the possibility of a false negative should be considered in the context of a patient's recent exposures and the presence of clinical signs and symptoms consistent with SARS-CoV-2. Performed By: #### C VDTB #### [facility] [address] [address] [address] Robert Guerrero ICD CLINIC CHECKon 2 ICD-Device Mfg BSX [facility] Lead1 Mfg BSX [facility] Lead2 Mfg BSX [facility] Location RV [facility] Location RA [facility] Model D142 INOGEN [facility] Model [address] [place] 4-Front S [facility] Model 7841 Ingevity + MRI [facility] Serial Number [id number] [facility] Serial Number [id number] [facility] Serial Number [id number] [facility] MRI LUMBAR SPINE WO IVCONon 07-12-2022 [facility] No Panel Informationon 07-12 BLANK _ [facility] Implant Date 01/19/2021 [facility] XR HIP RT 2 3V W PELVISon XR HIP RT 2 3V W PELVIS EXAM: XR HIP RT 2 3V W PELVIS HISTORY: . Idiopathic osteoarthritis . COMPARISON: None. TECHNIQUE: 3 views FINDINGS: Bony pelvis is intact. No fracture or bony destructive process is noted. Minimal spurring is noted involving the femoral head. Surrounding soft tissues are unremarkable. IMPRESSION: 1. Negative AP of the pelvis. 2. Minimal arthritic changes of the right hip. Electronically authenticated by: GENEVIEVE LORENZO Date: 2022-03-19 15:10 Normal [facility] XR LSPINE 2_3 VIEWSon 2021 XR LSPINE 2_3 VIEWS EXAMINATION: XR LSPINE 2_3 VIEWS HISTORY: Spondylosis without myelopathy COMPARISON: No relevant comparison available. FINDINGS: BONES: Normal alignment with no acute fracture or spondylolisthesis. Mild degenerative spondylosis and facet osteoarthropathy most significant at L5-S1 DISC SPACES: Disc collapse and endplate sclerosis with vacuum disc L5-S1 PARASPINOUS: Negative. No paraspinous abnormality is seen. OTHER: Extensive atherosclerosis IMPRESSION: Degenerative changes most significant at L5-S1 Electronically authenticated by: GENEVIEVE REIS Date: 2022-03-19 17:08 Normal [facility] CBC AUTO DIFFon 03-04-2022 BASO # 0.0 103/ul Normal 0.0-0.1 [facility] Comment on above: Performed By: #### D ATCBC #### [facility] [address] [place] [address] Dr. Robert Geurrero Basophils/100 WBC (Bld) 0.6 % Normal 0.2-2.0 [facility] Comment on above: Performed By: #### D ATCBC #### [facility] [address] [place] [address] Dr. Robert Guerrero EO # 0.2 103/ul Normal 0.0-0.7 [facility] Comment on above: Performed By: #### D ATCBC #### [facility] [address] [place] [address] Dr. Robert Guerrero Eosinophils/100 WBC (Bld) 2.4 % Normal 0.9-7.0 [facility] Comment on above: Performed By: #### D ATCBC #### [facility] [address] [place] [address] Dr. Robert Guerrero Erythrocyte distribution width (RBC) [Ratio] 13.0 % Normal 11.0-15.0 [facility] Comment on above: Performed By: #### D ATCBC #### [facility] [address] [place] [address] Dr. Robert Guerrero Hematocrit (Bld) [Volume fraction] 46.8 % Normal 36.0-48.0 [facility] Comment on above: Performed By: #### D ATCBC #### [facility] [address] [place] [address] Dr. Robert Guerrero Hemoglobin (Bld) [Mass/Vol] 16.0 g/dL Normal 12.0-16.0 [facility] Comment on above: Performed By: #### D ATCBC #### [facility] [address] [place] [address] Dr. Robert Guerrero IG # 0.02 10e3/ul Normal 0.00-0.03 [facility] Comment on above: Performed By: #### D ATCBC #### [facility] [address] [address] [address] Robert Guerrero IG % 0.3 % Normal 0.0-0.5 [facility] Comment on above: Performed By: #### D ATCBC #### [facility] [address] [place] [address] Dr. Robert Guerrero LYMPH # 2.8 103/ul Normal 1.2-3.8 [facility] Comment on above: Performed By: #### D ATCBC #### [facility] [address] [place] [address] Dr. Robert Guerrero Lymphocytes/100 WBC (Bld) 41.7 % Normal 20.5-60.0 [facility] Comment on above: Performed By: #### D ATCBC #### [facility] [address] [place] [address] Dr. Robert Guerrero MCH (RBC) [Entitic mass] 31.5 pg Normal 26.7-34.0 [facility] Comment on above: Performed By: #### D ATCBC #### [facility] [address] [place] [address] Dr. Robert Guerrero MCHC (RBC) [Mass/Vol] 34.2 g/dL Normal 29.9-35.2 [facility] Comment on above: Performed By: #### D ATCBC #### [facility] [address] [place] [address] Dr. Robert Guerrero MCV (RBC) [Entitic vol] 92.1 fL Normal 81.0-99.0 [facility] Comment on above: Performed By: #### D ATCBC #### [facility] [address] [place] [address] Dr. Robert Guerrero MONO # 0.6 103/ul Normal 0.3-0.8 [facility] Comment on above: Performed By: #### D ATCBC #### [facility] [address] [place] [address] Dr. Robert Guerrero Monocytes/100 WBC (Bld) 9.2 % Normal 1.7-12.0 [facility] Comment on above: Performed By: #### D ATCBC #### [facility] [address] [address] [address] Robert Guerrero NEUT # 3.0 103/ul Normal 1.4-6.5 [facility] Comment on above: Performed By: #### D ATCBC #### [facility] [address] [address] [address] Robert Guerrero Neutrophils/100 WBC (Bld) 45.8 % Normal 43.0-75.0 [facility] Comment on above: Performed By: #### D ATCBC #### [facility] [address] [address] [address] Robert Guerrero Platelet mean volume (Bld) [Entitic vol] 11.3 fL Normal 9.5-13.5 [facility] Comment on above: Performed By: #### D ATCBC #### [facility] [address] [place] [address] Dr. Robert Guerrero PLT 222 103/ul Normal 150-450 [facility] Comment on above: Performed By: #### D ATCBC #### [facility] [address] [place] [address] Dr. Robert Guerrero RBC 5.08 106/ul Normal 4.20-5.40 [facility] Comment on above: Performed By: #### D ATCBC #### [facility] [address] [address] [address] Robert Guerrero WBC 6.6 103/ul Normal 4.0-11.0 [facility] Comment on above: Performed By: #### D ATCBC #### [facility] [address] [place] [address] Dr. Robert Guerrero JANNA- BMP WITH LIPIDon 2021 Anion gap [Moles/Vol] 13.0 mmol/L Normal [facility] Comment on above: Performed By: #### D ATBMP #### [facility] [address] [place] [address] Dr. Robert Guerrero Calcium [Mass/Vol] 9.2 mg/dL Normal 8.5-10.1 [facility] Comment on above: Performed By: #### D ATBMP #### [facility] [address] [address] [address] Robert Guerrero Chloride [Moles/Vol] 106 mmol/L Normal 98-107 [facility] Comment on above: Performed By: #### D ATBMP #### [facility] [address] [address] [address] Robert Guerrero Cholesterol [Mass/Vol] 144 mg/dL Normal <=200 [facility] Comment on above: Performed By: #### D ATBMP #### [facility] [address] [address] [address] Robert Guerrero Cholesterol in HDL [Mass/Vol] 48 mg/dL Normal 40-60 [facility] Comment on above: Performed By: #### D ATBMP #### [facility] [address] [address] [address] Robert Guerrero Cholesterol in LDL [Mass/Vol] 73.6 mg/dL Normal [facility] Comment on above: Performed By: #### D ATBMP #### [facility] [address] [address] [address] Robert Guerrero CO2 [Moles/Vol] 26.2 mmol/L Normal 22.0-30.0 [facility] Comment on above: Performed By: #### D ATBMP #### [facility] [address] [address] [address] Robert Guerrero Creatinine [Mass/Vol] 0.86 mg/dL Normal 0.52-1.04 [facility] Comment on above: Performed By: #### D ATBMP #### [facility] [address] [address] [address] Robert Guerrero EGFR-AF UZBEK >60 Normal >=60 [facility] Comment on above: Performed By: #### D ATBMP #### [facility] [address] [address] [address] Robert Guerrero EGFR-NON AF UZBEK >60 Normal >=60 [facility] Comment on above: Performed By: #### D ATBMP #### [facility] [address] [address] [address] Robert Guerrero Glucose [Mass/Vol] 118 mg/dL Critically high 74-106 T [facility] Comment on above: Performed By: #### D ATBMP #### [facility] [address] [address] [address] Robert Guerrero HDL NORMAL > or = 60 mg/dl - LOW CARDIOVASCULAR RISK <40 mg/dl - HIGH CARDIOVASCULAR RISK Normal [facility] Comment on above: Performed By: #### D ATBMP #### [facility] [address] [address] [address] Robert Guerrero LDL CALC NORMAL SEE BELOW Normal [facility] Comment on above: Result Comment: <100 mg/dl OPTIMAL 100 - 129 mg/dl NEAR OR ABOVE OPTIMAL 130 - 159 mg/dl BORDERLINE HIGH 160 - 189 mg/dl HIGH >190 mg/dl VERY HIGH Performed By: #### D ATBMP #### [facility] [address] [address] [address] Robert Guerrero Potassium [Moles/Vol] 4.2 mmol/L Normal 3.4-5.0 [facility] Comment on above: Performed By: #### D ATBMP #### [facility] [address] [address] [address] Robert Guerrero Sodium [Moles/Vol] 141 mmol/L Normal 137-145 [facility] Comment on above: Performed By: #### D ATBMP #### [facility] [address] [address] [address] Robert Guerrero Triglyceride [Mass/Vol] 112 mg/dL Normal <=150 [facility] Comment on above: Performed By: #### D ATBMP #### [facility] [address] [address] [address] Robert Guerrero Urea nitrogen [Mass/Vol] 13.0 mg/dL Normal 7.0-18.0 [facility] Comment on above: Performed By: #### D ATBMP #### [facility] [address] [address] [address] Robert Guerrero Urea nitrogen/Creatinine [Mass ratio] 15.1 mg/mg Normal [facility] Comment on above: Performed By: #### D ATBMP #### [facility] [address] [place], [place] [address] Dr. Robert Guerrero VLDL CALC 22.4 mg/dL Normal [facility] Comment on above: Performed By: #### D ATBMP #### [facility] [address] [place], [place] [address] Dr. Robert Guerrero [facility] DIGITAL SCREEN BILA TERALon 02-16-2022 No mammographic evidence of malignancy BIRADS: BIRADS - CATEGORY 1 Negative. Normal interval follow-up is recommended in 12 months. OVERALL ASSESSMENT - NEGATIVE A letter of notification will be sent to the patient regarding the results. [employer] recommends annual mammograms for women 40 years and older. [facility] EXAMINATION: SCREENING DIGITAL BILATERAL MAMMOGRAM WITH TOMOSYNTHESIS, 02/16/2022 TECHNIQUE: Screening mammography was performed with tomosynthesis including MLO and CC views of the bilateral breasts. Computer aided detection was used for the interpretation of this exam. COMPARISON: January 23, 2019 and March 06, 2018 HISTORY: Screening. FINDINGS: The breasts are heterogeneously dense which can obscure small masses. There is no dominant mass architectural distortion or concerning grouping of microcalcification in either breast. Pacer generator left chest stable [facility] Radiology Study observation (narrative) [facility] Phone: [facility] DIGITAL SCREEN BILA TERALOrdered By: Elder Lees on 02-16-2022 [facility] Phone: Covid-19 PCR (CVDTBH)on SARS-CoV-2 (COVID-19) RNA LO+probe Ql (Unsp spec) Not detected Normal NOT DETECTED [facility] Comment on above: Result Comment: This test is not yet approved or cleared by the [place] FDA. When there are no FDA-approved or cleared tests available, and other criteria are met, FDA can make tests available under an emergency access mechanism called an Emergency Use Authorization (EUA). The EUA for this test is supported by the [place] of Health and Human Service's (HHS's) declaration that circumstances exist to justify the emergency use of in vitro diagnostics for the detection and/or diagnosis of the virus that causes COVID-19. This EUA will remain in effect (meaning this test can be used) for the duration of the COVID-19 declaration justifying emergency of IVDs, unless it is terminated or revoked by FDA (after which the test may no longer be used). When diagnostic testing is negative, the possibility of a false negative should be considered in the context of a patient's recent exposures and the presence of clinical signs and symptoms consistent with SARS-CoV-2. Performed By: #### C [facility] #### [facility] [address] [place] [address] Dr. Robert Guerrero DEXA BONE DENSITY AXIAL [facility] ETONo 01-22-2020 Normal by WHO criteria. [facility] DENSITOMETRY 01/22/2020 11:21 am TECHNIQUE: A bone density dual x-ray absorptiometry (DEXA) scan was performed of the lumbar spine and left hip on a LoiLo system. COMPARISON: None. HISTORY: ORDERING SYSTEM PROVIDED HISTORY: Estrogen deficiency FINDINGS: LUMBAR SPINE: The bone mineral density in the lumbar spine including the L1-L4 levels is measured at 1.136 g/cm2, which corresponds to a T-score of 6-0.4 and a Z-score of 40.9. This is within the normal range by WHO criteria. LEFT HIP: The bone mineral density in the total hip is measured at 0.922 g/cm2 corresponding to a T-score of -0.7 and a Z-score of 0.5. This is within the normal range by WHO criteria. The bone mineral density of the femoral neck is measured at 0.893 g/cm2 corresponding to a T-score of -1.0 and a Z-score of 0.4. This is within the normal range by WHO criteria. [facility] [place] Rogelio, Courtneypn Incoming Radiant Results From [employer] - 01/22/2020 1:20 PM EDT EXAMINATION: BONE DENSITOMETRY 01/22/2020 11:21 am TECHNIQUE: A bone density dual x-ray absorptiometry (DEXA) scan was performed of the lumbar spine and left hip on a [employer] system. COMPARISON: None. HISTORY: ORDERING SYSTEM PROVIDED HISTORY: Estrogen deficiency FINDINGS: LUMBAR SPINE: The bone mineral density in the lumbar spine including the L1-L4 levels is measured at 1.136 g/cm2, which corresponds to a T-score of 6-0.4 and a Z-score of 40.9. This is within the normal range by WHO criteria. LEFT HIP: The bone mineral density in the total hip is measured at 0.922 g/cm2 corresponding to a T-score of -0.7 and a Z-score of 0.5. This is within the normal range by WHO criteria. The bone mineral density of the femoral neck is measured at 0.893 g/cm2 corresponding to a T-score of -1.0 and a Z-score of 0.4. This is within the normal range by WHO criteria. IMPRESSION: Normal by WHO criteria. [facility] [place] AIDEE DIGITAL SCREEN W CAD ALLY ATERALon 07-27-2019 No mammographic evidence of malignancy. BIRADS: BI-RADS 1 BIRADS - CATEGORY 1 Negative, no evidence of malignancy. Normal interval follow-up is recommended in 12 months. OVERALL ASSESSMENT - NEGATIVE A letter of notification will be sent to the patient regarding the results. [employer] recommends annual mammograms for women 40 years and older. [facility] [place] EXAMINATION: BILATERAL DIGITAL SCREENING MAMMOGRAM, 07/26/2019 TECHNIQUE: CC and MLO views of the left and right breasts were obtained. Computer aided detection was utilized in the interpretation of this exam. 3D tomosynthesis images were obtained. COMPARISON: March 06, 2018, January 23, 2015, and October 01, 2013 HISTORY: ORDERING SYSTEM PROVIDED HISTORY: Encounter for screening mammogram for breast cancer screening Family history: None Personal history: None Previous Breast intervention: None FINDINGS: The breasts are heterogeneously dense, which may obscure small masses. There are no suspicious calcifications, masses, or areas of architectural distortion. No significant interval change since comparison study. [facility] [place] Rogelio, pn Incoming Radiant Results From [employer] - 07/27/2019 9:16 AM EDT EXAMINATION: BILATERAL DIGITAL SCREENING MAMMOGRAM, 07/26/2019 TECHNIQUE: CC and MLO views of the left and right breasts were obtained. Computer aided detection was utilized in the interpretation of this exam. 3D tomosynthesis images were obtained. COMPARISON: March 06, 2018, January 23, 2015, and October 01, 2013 HISTORY: ORDERING SYSTEM PROVIDED HISTORY: Encounter for screening mammogram for breast cancer screening Family history: None Personal history: None Previous Breast intervention: None FINDINGS: The breasts are heterogeneously dense, which may obscure small masses. There are no suspicious calcifications, masses, or areas of architectural distortion. No significant interval change since comparison study. IMPRESSION: No mammographic evidence of malignancy. BIRADS: BI-RADS 1 BIRADS - CATEGORY 1 Negative, no evidence of malignancy. Normal interval follow-up is recommended in 12 months. OVERALL ASSESSMENT - NEGATIVE A letter of notification will be sent to the patient regarding the results. [employer] recommends annual mammograms for women 40 years and older. [facility] [place], [place] Vital Signs Date Time Vital Sign Value Performing Clinician Chiquita siegel 12-30-2023 10:37-0500 Body height 163.83 cm [facility] 12-30-2023 10:37-0500 Body mass index (BMI) [Ratio] 29.9 kg/m2 [facility] 12-30-2023 10:37-0500 Body weight 80.34 kg [facility] 12-30-2023 10:37-0500 Diastolic blood pressure 71 mm[Hg] [facility] 12-30-2023 10:37-0500 Heart rate 61 /min [facility] 12-30-2023 10:37-0500 Respiratory rate 12 /min [facility] 12-30-2023 10:37-0500 Systolic blood pressure 112 mm[Hg] [facility] 11-04-2023 13:45-0500 Body height 165.1 cm Matilde Dannielle PRICE CHECKER.AD OPERATIONS COORDINATOR Work Phone: [facility] 11-04-2023 13:45-0500 Body weight 76.89 kg Matilde Dannielle PRICE CHECKER.AD OPERATIONS COORDINATOR Work Phone: [facility] 11-04-2023 13:45-0500 Diastolic blood pressure 80 mm[Hg] Matilde Dannielle PRICE CHECKER.AD OPERATIONS COORDINATOR Work Phone: [facility] 11-04-2023 13:45-0500 Heart rate 71 /min Matilde Dannielle PRICE CHECKER.AD OPERATIONS COORDINATOR Work Phone: [facility] 11-04-2023 13:45-0500 SaO2% (BldA) [Mass fraction] 97 % Matilde Spicer APRN.AD OPERATIONS COORDINATOR Work Phone: [facility] 11-04-2023 13:45-0500 Systolic blood pressure 156 mm[Hg] Matilde Spicer APRN.AD OPERATIONS COORDINATOR Work Phone: [facility] 09-25-2023 01:05-0500 Hourly Rounding Gary Jeffersoner [facility] 09-25-2023 01:05-0500 Promise to Return Gary Shorty [facility] 09-25-2023 00:06-0500 Hourly Rounding Gary Jeffersoner [facility] 09-25-2023 00:06-0500 Promise to Return Gary Shorty [facility] 09-24-2023 23:00-0500 Hourly Rounding Gary Jeffersoner [facility] 09-24-2023 23:00-0500 Promise to Return Gary Celayacker [facility] 09-24-2023 19:09-0500 Body temperature 98.42 [degF] Gary Shorty [facility] 09-24-2023 19:09-0500 Diastolic blood pressure 68 mm[Hg] Gary Shorty [facility] 09-24-2023 19:09-0500 Respiratory rate 16 /min Gary Shorty [facility] 09-24-2023 19:09-0500 SaO2% (BldA) [Mass fraction] 94 % Gary Shorty [facility] 09-24-2023 19:09-0500 Systolic blood pressure 107 mm[Hg] Gary Oro [facility] 09-24-2023 19:00-0500 Body temperature 99.14 [degF] Gary Oro [facility] 09-24-2023 19:00-0500 Diastolic blood pressure 74 mm[Hg] Gary Oro [facility] 09-24-2023 19:00-0500 Heart rate 79 /min Gary Oro [facility] 09-24-2023 19:00-0500 SaO2% (BldA) [Mass fraction] 95 % Gary Oro [facility] 09-24-2023 19:00-0500 Systolic blood pressure 127 mm[Hg] Gary Oro [facility] 09-24-2023 15:12-0500 Heart rate 75 /min Gary Oro [facility] 09-24-2023 15:12-0500 SaO2% (BldA) [Mass fraction] 96 % Gary Oro [facility] 09-24-2023 15:06-0500 Body temperature 97.7 [degF] Gary Oro [facility] 09-24-2023 15:06-0500 Diastolic blood pressure 72 mm[Hg] Gary Jeffersoner [facility] 09-24-2023 15:06-0500 Mean blood pressure 97 mm[Hg] Gary Jeffersoner [facility] 09-24-2023 15:06-0500 Systolic blood pressure 147 mm[Hg] Gary Oro [facility] 09-24-2023 11:21-0500 Heart rate 64 /min Gary Celayacker [facility] 09-24-2023 11:19-0500 Body temperature 97.7 [degF] Gary Celayacker [facility] 09-24-2023 11:19-0500 Mean blood pressure 96 mm[Hg] Gary Celayacker [facility] 09-24-2023 10:50-0500 Blood Pressure Location Gary Celayacker [facility] 09-24-2023 10:50-0500 Body temperature 97.7 [degF] Gary Celayacker [facility] 09-24-2023 10:50-0500 Heart rate 65 /min Gary Celayacker [facility] 09-24-2023 10:46-0500 Body temperature 97.7 [degF] Gary Celayacker [facility] 09-24-2023 10:46-0500 Mean blood pressure 101 mm[Hg] Gary Celayacker [facility] 09-24-2023 08:28-0500 Respiratory rate 20 /min Gary Celayacker [facility] 09-24-2023 06:30-0500 Mean blood pressure 95 mm[Hg] Gary Celayacker [facility] 09-24-2023 06:30-0500 Respiratory rate 18 /min Gary Celayacker [facility] 09-24-2023 06:00-0500 Mean blood pressure 93 mm[Hg] Gary Celayacker [facility] 09-24-2023 05:00-0500 Mean blood pressure 89 mm[Hg] Gary Celayacker [facility] 09-23-2023 16:24-0500 Heart rate 89 /min Gary Oro [facility] 08-12-2023 11:30-0400 Body height 165.1 cm Bridger Suresh MD Work Phone: [facility] 08-12-2023 11:30-0400 Body weight 81.19 kg Bridger Suresh MD Work Phone: [facility] 08-12-2023 11:30-0400 Diastolic blood pressure 84 mm[Hg] Bridger Suresh MD Work Phone: [facility] 08-12-2023 11:30-0400 Heart rate 53 /min Bridger Suresh MD Work Phone: [facility] 08-12-2023 11:30-0400 Systolic blood pressure 140 mm[Hg] Bridger Suresh MD Work Phone: [facility] 07-19-2023 11:11-0400 Blood Pressure Location CHELITA MENDY [facility] 07-19-2023 11:11-0400 Diastolic blood pressure 74 mm[Hg] CHELITA MENDY [facility] 07-19-2023 11:11-0400 Heart rate 68 /min CHELITA MENDY [facility] 07-19-2023 11:11-0400 Respiratory rate 16 /min CHELITA MENDY [facility] 07-19-2023 11:11-0400 Systolic blood pressure 130 mm[Hg] CHELITA MENDY [facility] 06-29-2023 11:30-0400 Body height 163.83 cm Gideon Ball Other [employer] Other 06-29-2023 11:30-0400 Body mass index (BMI) [Ratio] 31.02 kg/m2 Gideon Ball Other [employer] Other 06-29-2023 11:30-0400 Body weight 83.28 kg Gideon Ball Other [employer] Other 06-29-2023 11:30-0400 Diastolic blood pressure 79 mm[Hg] Gideon [facility] [employer] Other 06-29-2023 11:30-0400 Respiratory rate 12 /min Gideon Ball Other [employer] Other 06-29-2023 11:30-0400 Systolic blood pressure 133 mm[Hg] Gideon Ball Other [employer] Other 04-14-2023 10:00-0400 Body height 163.83 cm Gideon Ball Other [employer] Other 04-14-2023 10:00-0400 Body mass index (BMI) [Ratio] 31.06 kg/m2 Gideon Ball Other [employer] Other 04-14-2023 10:00-0400 Body weight 83.37 kg Gideon Ball Other [employer] Other 04-14-2023 10:00-0400 Diastolic blood pressure 78 mm[Hg] Gideon Ball Other [employer] Other 04-14-2023 10:00-0400 Respiratory rate 12 /min Gideon Ball Other [employer] Other 04-14-2023 10:00-0400 Systolic blood pressure 139 mm[Hg] Gideon Ball Other [employer] Other 12-31-2022 11:00-0500 Body height 163.83 cm Gideon Ball Other [employer] Other 12-31-2022 11:00-0500 Body mass index (BMI) [Ratio] 30.72 kg/m2 Gideon Ball Other [employer] Other 12-31-2022 11:00-0500 Body weight 82.46 kg Gideon Ball Other [employer] Other 12-31-2022 11:00-0500 Diastolic blood pressure 82 mm[Hg] Gideon Ball Other [employer] Other 12-31-2022 11:00-0500 Respiratory rate 12 /min Gideon Ball Other [employer] Other 12-31-2022 11:00-0500 Systolic blood pressure 122 mm[Hg] Gideon Ball Other [employer] Other 10-22-2022 12:45-0500 Body temperature 98.2 [degF] [facility] Main Work Phone: [facility] 10-22-2022 12:45-0500 Diastolic blood pressure 69 mm[Hg] [facility] Main Work Phone: [facility] 10-22-2022 12:45-0500 Heart rate 67 /min [facility] Work Phone: [facility] 10-22-2022 12:45-0500 Respiratory rate 18 /min [facility] Work Phone: [facility] 10-22-2022 12:45-0500 Systolic blood pressure 149 mm[Hg] [facility] Main Work Phone: [facility] 10-13-2022 11:40-0500 Body height 165.1 cm Shabnam Doss MD Work Phone: [facility] 10-13-2022 11:40-0500 Body weight 80.29 kg Shabnam Doss MD Work Phone: [facility] 10-13-2022 11:40-0500 Diastolic blood pressure 80 mm[Hg] Shabnam Doss MD Work Phone: [facility] 10-13-2022 11:40-0500 Heart rate 59 /min Shabnam Doss MD Work Phone: [facility] 10-13-2022 11:40-0500 Respiratory rate 14 /min Shabnam Doss MD Work Phone: [facility] 10-13-2022 11:40-0500 SaO2% (BldA) [Mass fraction] 97 % Shabnam Doss MD Work Phone: [facility] 10-13-2022 11:40-0500 Systolic blood pressure 142 mm[Hg] Shabnam Doss MD Work Phone: [facility] 07-22-2022 15:58-0400 Body height 165.1 cm Shabnam Doss MD Work Phone: [facility] 07-22-2022 15:58-0400 Body weight 77.11 kg Shabnam Doss MD Work Phone: [facility] 07-12-2022 15:55-0400 Diastolic blood pressure 59 mm[Hg] Mri (I-Stat/1.5t/3t) Work Phone: [facility] 07-12-2022 15:55-0400 Heart rate 77 /min Mri (I-Stat/1.5t/3t) Work Phone: [facility] 07-12-2022 15:55-0400 SaO2% (BldA) [Mass fraction] 93 % Mri (I-Stat/1.5t/3t) Work Phone: [facility] 07-12-2022 15:55-0400 Systolic blood pressure 145 mm[Hg] Mri (I-Stat/1.5t/3t) Work Phone: [facility] 05-12-2022 14:01-0400 Blood Pressure Location CHELITA GALLARDO [facility] 05-12-2022 14:01-0400 Diastolic blood pressure 71 mm[Hg] CHELITA GALLARDO [facility] 05-12-2022 14:01-0400 Heart rate 78 /min CHELITA GALLARDO [facility] 05-12-2022 14:01-0400 Respiratory rate 16 /min CHELITA GALLARDO [facility] 05-12-2022 14:01-0400 Systolic blood pressure 161 mm[Hg] CHELITA GALLARDO [facility] 10-04-2021 10:18-0500 Body height 165.1 cm Zaid Barros MD Work Phone: [employer] 10-04-2021 10:18-0500 Body mass index (BMI) [Ratio] 28.79 kg/m2 Zaid Barros MD Work Phone: [employer] 10-04-2021 10:18-0500 Body temperature 97.39 [degF] Zaid Barros MD Work Phone: [employer] 10-04-2021 10:18-0500 Body weight 78.47 kg Zaid Barros MD Work Phone: [employer] 10-04-2021 10:18-0500 Diastolic blood pressure 103 mm[Hg] Zaid Barros MD Work Phone: [employer] 10-04-2021 10:18-0500 Heart rate 90 /min Zaid Barros MD Work Phone: [employer] 10-04-2021 10:18-0500 Respiratory rate 16 /min Zaid Barros MD Work Phone: [employer] 10-04-2021 10:18-0500 SaO2% (BldA) [Mass fraction] 99 % Zaid Barros MD Work Phone: [employer] 10-04-2021 10:18-0500 Systolic blood pressure 167 mm[Hg] Zaid Barros MD Work Phone: [employer] 09-21-2021 11:15-0500 Body height 165.1 cm [facility] [employer] 09-21-2021 11:15-0500 Body mass index (BMI) [Ratio] 29.25 kg/m2 [facility] [employer] 09-21-2021 11:15-0500 Body weight 79.74 kg [facility] [employer] Encounters Encounter Date Encounter Type Care Provider Facility Start: 12-30-2023 Telephone encounter Gideon Adams [facility] Start: 12-30-2023 End: 12-30-2023 ambulatory [facility] Work Phone: Start: 12-30-2023 End: 12-30-2023 Patient encounter procedure [facility] Work Phone: Start: 12-28-2023 ambulatory Matilde Cruz PRN.CNP Work Phone: Cardiology Comment on above: Blood Pressure Readi ng for Yasmin Angel Start: 11-23-2023 ambulatory Montana Garyi ty:ESTEBAN Hyatt Start: 11-23-2023 End: 11-23-2023 Patient encounter procedure Montana HAWKINS [facility] Start: 11-04-2023 End: 11-04-2023 ambulatory MATILDE SPICER Facility:[facility] Start: 11-04-2023 End: 11-04-2023 Patient encounter procedure Matilde Spicer PRICE CHECKER.AD OPERATIONS COORDINATOR Work Phone: Cardiology Comment on above: HOCM (hypertrophic o bstructive cardiomyopathy) (HCC) (Primary Dx); Primary hypertension Start: 10-21-2023 Follow-up encounter Bridger reese MD Work Phone: [facility] Start: 10-21-2023 ICD Remote F/U Bridger shaver MD Work Phone: [facility] Department Start: 10-05-2023 End: 10-05-2023 ambulatory Heather Rojas MD Work Phone: Infectious Disease Comment on above: Urinary tract infect ion without hematuria, site unspecified (Primary Dx) Start: 10-05-2023 End: 10-05-2023 Telemedicine consultation with patient Heather Rojas MD Work Phone: [facility] Start: 09-28-2023 End: 09-28-2023 Evaluation and management of inpatient GIDEON ADAMS Facility:[facility] Start: 09-28-2023 ambulatory Heather raygoza MD Work Phone: Infectious Disease Comment on above: [employer] [facility] Start: 09-27-2023 End: 09-27-2023 ambulatory Heather Rojas MD Work Phone: [facility] Comment on above: [employer] Start Start: 09-27-2023 Telephone encounter Gideon Adams [facility] Start: 09-25-2023 Evaluation and management of inpatient ALIN STEPHENS Facility:[facility] Start: 09-23-2023 End: 09-25-2023 ambulatory Gary Oro Facility:[facility] Start: 09-23-2023 End: 09-25-2023 Observation Gary Oro [facility] Start: 09-13-2023 End: 09-14-2023 ambulatory CHELITA GALLARDO Facility:[facility] Start: 09-13-2023 End: 09-13-2023 Lab Drop off CHELITA GALLARDO [facility] Start: 09-13-2023 End: 09-13-2023 Patient encounter procedure CHELITA GALLARDO [facility] Start: 09-05-2023 End: 09-05-2023 ambulatory Gideon Adams Other [facility] Other Start: 09-05-2023 Telephone encounter Gideon Adams [facility] Start: 09-01-2023 End: 09-01-2023 Lab Drop off CHELITA GALLARDO [facility] Start: 09-01-2023 End: 09-02-2023 ambulatory CHELITA GALLARDO Facility:[facility] Start: 09-01-2023 End: 09-01-2023 Patient encounter procedure CHELITA GALLADRO [facility] Start: 08-24-2023 ambulatory Bridger shaver MD Work Phone: Cardiology Comment on above: EKG Result Start: 08-24-2023 Telephone encounter Calin restrepo MD Work Phone: Cardiology Comment on above: Medication Problem Start: 08-12-2023 End: 08-12-2023 ambulatory BRIDGER SURESH Facility:[facility] Start: 08-12-2023 End: 08-12-2023 Patient encounter procedure Bridger Suresh MD Work Phone: Cardiology Comment on above: Paroxysmal ventricul ar tachycardia (HCC) (Primary Dx); HOCM (hypertrophic obstructive cardiomyopathy) (HCC); Paroxysmal atrial fibrillation (HCC); Long Q-T syndrome; Non-ischemic cardiomyopathy (HCC); Automatic implantable cardioverter-defibrillator in situ Start: 07-22-2023 Follow-up encounter Dick Xavier MD Work Phone: [facility] Start: 07-22-2023 ICD Remote F/U Dick Xavier MD Work Phone: [facility] Department Start: 07-19-2023 End: 07-20-2023 ambulatory CHELITA GALLARDO Facility:[facility] Start: 07-19-2023 End: 07-19-2023 Patient encounter procedure CHELITADREW GALLARDO [facility] Start: 07-08-2023 Telephone encounter Dick Xavier MD Work Phone: Cardiology Comment on above: Received Outside Med [facility] Records Start: 07-04-2023 End: 07-05-2023 ambulatory [facility] Start: 07-04-2023 End: 07-04-2023 Subsequent hospital visit by physician Adrienne FERRARI Physical Therapy Comment on above: Arrived Start: 06-30-2023 End: 07-01-2023 ambulatory GIDEON [facility] Start: 06-29-2023 End: 06-29-2023 ambulatory Gideon Adams Other [facility] Other Start: 06-29-2023 Office outpatient vi sit 25 minutes Gideon Adams [facility] Start: 06-27-2023 End: 06-28-2023 ambulatory GIDEON [facility] Start: 06-23-2023 End: 06-24-2023 ambulatory GIDEON [facility] Start: 06-23-2023 End: 06-23-2023 Subsequent hospital visit by physician Adrienne FERRARI Physical Therapy Comment on above: Arrived Start: 06-20-2023 End: 06-21-2023 ambulatory GIDEON [facility] Start: 06-20-2023 End: 06-20-2023 Subsequent hospital visit by physician Adrienne Ross COMMERCIAL TITLE EXAMINER [facility] Comment on above: Arrived Start: 06-16-2023 End: 06-17-2023 ambulatory [facility] Start: 06-13-2023 End: 06-14-2023 ambulatory [facility] Start: 06-06-2023 End: 06-07-2023 ambulatory [facility] Start: 05-18-2023 End: 05-19-2023 ambulatory CHELITA GALLARDO Facility:[facility] Start: 05-18-2023 End: 05-18-2023 Patient encounter procedure CHELITA GALLARDO [facility] Start: 04-14-2023 End: 04-14-2023 ambulatory Gideon Adams Other [facility] Other Start: 04-14-2023 Office outpatient vi sit 15 minutes Gideon Adams [facility] Start: 01-21-2023 Follow-up encounter Genevieve escobar MD Work Phone: [facility] Start: 01-21-2023 ICD Remote F/U Genevieve Lee Work Phone: [facility] Department Start: 12-31-2022 End: 12-31-2022 ambulatory Gideon Adams Other [employer] Other Start: 12-31-2022 Patient encounter procedure Gideon Adams [facility] Start: 12-09-2022 End: 12-09-2022 ambulatory Shabnam Doss MD Work Phone: [facility] [place] Comment on above: Lumbar radiculopathy (Primary Dx) Start: 12-09-2022 End: 12-09-2022 Telemedicine consultation with patient Shabnam oDss MD Work Phone: [place] [phone] Start: 10-22-2022 Follow-up encounter Genevieve escobar MD Work Phone: [facility] Start: 10-22-2022 ICD Remote F/U Genevieve Lee Work Phone: [facility] Department Start: 10-22-2022 End: 10-22-2022 Patient encounter procedure Sp[facility] Med Procedure Main Work Phone: [facility] [place] Comment on above: Lumbar radiculopathy (Primary Dx); Synovial cyst of lumbar facet joint Start: 10-14-2022 Telephone encounter iPno garcia MD Work Phone: [facility] [place] Comment on above: Preparations For Pro cedures (Pre-injection call) Start: 10-13-2022 End: 10-13-2022 Patient encounter procedure Shabnam Doss MD Work Phone: [facility] [place] Comment on above: Radiculopathy, lumba r region (Primary Dx) Start: 08-13-2022 Refill Calin Obrien MD Work Phone: Cardiology Comment on above: Refill Request Start: 07-28-2022 End: 07-29-[address] GIDEON ADAMS Facility:[facility] Start: 07-22-2022 End: 07-22-2022 ambulatory Shabnam Doss MD Work Phone: [facility] [place] Comment on above: Lumbar radiculopathy (Primary Dx) Start: 07-22-2022 End: 07-22-2022 Telemedicine consultation with patient Shabnam Doss MD Work Phone: [place] [phone] Start: 07-12-2022 End: 07-12-2022 Subsequent hospital visit by physician Mri 2 Radio Main Q (I-Stat/1.5t/3t) Work Phone: [facility] Comment on above: Lumbosacral spondylo sis w/radiculopathy (M47.27) Start: 07-12-2022 ambulatory Sarahi Panchal RN [facility] Comment on above: Patient Education Start: 07-12-2022 Follow-up encounter Genevieve escobar MD Work Phone: [facility] Start: 07-12-2022 Patient encounter procedure Genevieve Tinoco MD Work Phone: [facility] Department Start: 05-12-2022 End: 05-12-2022 Patient encounter procedure CHELITA Kalyani GALLARDO [facility] Start: 03-19-2022 End: 03-20-[address] GIDEON DAAMS Facility:[facility] Start: 03-04-2022 End: 03-05-[address] GIDEON ADAMS Facility:[facility] Start: 02-16-2022 End: 02-18-2022 Subsequent hospital visit by physician [facility] Mammography Room [facility] Comment on above: Screening mammogram, encounter for Start: 12-02-2021 End: 12-02-2021 Subsequent hospital visit by physician [facility] Cardiopulm Rehab Rm 3 [facility] Comment on above: Arrived Start: 11-12-2021 End: 11-12-2021 Subsequent hospital visit by physician [facility] Comment on above: Arrived Start: 10-04-2021 End: 10-04-2021 Emergency department patient visit ZAID BARROS [facility] Start: 10-04-2021 End: 10-04-2021 Emergency department patient visit Zaid Barros MD Work Phone: [facility] Comment on above: Epistaxis (Primary D x) Start: 10-01-2021 End: 10-01-2021 Subsequent hospital visit by physician [facility] Cardiopulm Rehab Rm 3 [facility] Comment on above: Arrived Start: 09-30-2021 End: 09-30-2021 Subsequent hospital visit by physician [facility] Cardiopulm Rehab Rm 3 [facility] Comment on above: Arrived Start: 09-28-2021 End: 09-28-2021 Subsequent hospital visit by physician [facility] Cardiopulm Rehab Rm 3 [facility] Comment on above: Arrived Start: 09-24-2021 End: 09-24-2021 Subsequent hospital visit by physician [facility] Cardiopulm Rehab Rm 3 [facility] Comment on above: Arrived Start: 09-21-2021 End: 09-21-2021 Subsequent hospital visit by physician [facility] Cardiopulm Rehab 6 [facility] Comment on above: Arrived Start: 08-19-[address] GIDEON ADAMS Facili ty:[facility] Start: 08-14-2021 End: 08-14-[address] GIDEON ADAMS Facility:[facility] Start: 06-22-2021 Patient encounter status Sarahi bueno RN [facility] Work Phone: Start: 01-22-2020 End: 01-24-2020 Subsequent hospital visit by physician [facility] Dexa [facility] Mammography Comment on above: Estrogen deficiency Start: 07-26-2019 End: 07-28-2019 Subsequent hospital visit by physician [facility] Mammography Room At [facility] Mammography Comment on above: Encounter for screen ing mammogram for breast cancer Procedures Date Procedure Procedure Detail Performing Clinician Start: 10-21-2023 ICD REMOTE CHECK Bridger Suresh MD Work Phone: Start: 07-22-2023 ICD REMOTE CHECK Ck Xavier MD Work Phone: Start: 01-21-2023 ICD REMOTE CHECK Genevieve Tinoco MD Work Phone: Start: 12-09-2022 Follow-up visit Follow Up SHABNAM DOSS Start: 10-22-2022 ICD REMOTE CHECK Genevieve Tinoco MD Work Phone: Start: 07-21-2022 Adult depression scr eening assessment Shabnam Doss MD Work Phone: Start: 07-12-2022 ICD CLINIC CHECK Genevieve Tinoco MD Work Phone: Start: 07-12-2022 Mri spinal canal lum bar w/o contrast material [facility] Provider Start: 02-16-2022 End: 02-16-2022 Screening mammography bi 2-view breast inc cad Gideon Adams DO Work Phone: Start: 01-19-2021 Cardiac pacemaker, d evice (physical object) CHELITA GALLARDO Start: 01-22-2020 Dxa bone density nicole dy 1/> sites axial skel Gideon Adams Work Phone: Start: 07-26-2019 Screening digital br east tomosynthesis bi Rebeca F Norris Malik Work Phone: Start: 05-08-2014 Urodynamic studies VITO GALLARDO Start: 10-31-2013 Cystourethroscopy wi th dilation of urethral stricture CHELITA GALLARDO Arthroplasty of knee SAVANAH GALLARDO Closed fracture of c ervical spine (disorder) CHELITA GALLARDO Destructive procedure Mir Novak Comment on above: ablation in L-spine on 07/30/23 Hysterectomy CHELITA GALLARDO Myectomy CHELITA GALLARDO Tonsillectomy CHELITA GALLARDO Plan of Treatment Date Care Activity Detail Author Start: 09-28-2026 [facility] Start: 09-27-2026 Diabetes Screening [facility] Start: 08-03-2024 DIABETES SCREEN DIABETES SCREEN [facility] Start: 08-03-2024 [facility] Start: 02-17-2024 Screening for malign ant neoplasm of breast Breast cancer screen [facility] Start: 11-14-2023 Advance Directive Discussion Advance Directive Discussion [facility] Start: 11-14-2023 Depression Assessment Depression Ass essment [facility] Start: 11-04-2023 End: 02-03-2024 Basic metabolic 2000 panel - Serum or Plasma BASIC METABOLIC PNL Lab Routine Primary hypertension Expected: 11/04/2023, Expires: 02/03/2024 [facility] Work Phone: Comment on above: Expected: 11/04/2023 , Expires: 02/03/2024 Start: 07-21-2023 Adult depression scr eening assessment DEPRESSION SCREENING [facility] Start: 07-15-2023 Covid-19 Vaccine () Covid-19 Vaccine () [facility] Start: 07-15-2023 Influenza vaccination [facility] Start: 07-05-2023 End: 07-05-2023 Patient encounter procedure 07/05/2023 Appointment Physical Therapy Adrienne Ross PTA [facility] Start: 07-04-2023 End: 07-04-2023 Patient encounter procedure 07/04/2023 Appointment Physical Therapy Adrienne Ross PTA [facility] Start: 06-30-2023 End: 06-30-2023 Patient encounter procedure 06/30/2023 Appointment Physical Therapy Adrienne Ross PTA [facility] Start: 06-27-2023 End: 06-27-2023 Patient encounter procedure 06/27/2023 Appointment Physical Therapy Adrienne Ross PTA [facility] Start: 06-23-2023 End: 06-23-2023 Patient encounter procedure 06/23/2023 Appointment Physical Therapy Adrienne Ross PTA [facility] Start: 06-14-2023 Influenza vaccination Flu vaccine (# 1) [facility] Start: 02-16-2023 Mammography [facility] Start: 02-16-2023 Screening for malign ant neoplasm of breast Mammogram Screening [facility] Start: 11-14-2022 ADVANCE DIRECTIVE DISCUSSION ADVANCE DIRECTIVE DISCUSSION [facility] Start: 11-14-2022 DEPRESSION ASSESSMENT DEPRESSION ASS ESSMENT [facility] Start: 08-17-2022 COVID-19 VACCINE (5 - Booster for Pfizer series) COVID-19 VACCINE (5 - Booster for Pfizer series) [facility] Start: 08-17-2022 COVID-19 VACCINE (5 - Pfizer series) COVID-19 VACCINE (5 - Pfizer series) [facility] Start: 07-15-2022 Influenza vaccination [facility] Start: 12-10-2021 End: 12-10-2021 Patient encounter procedure 12/10/2021 Appointment Cardiac Rehabilitation [facility] Card[facility] Start: 12-09-2021 End: 12-09-2021 Patient encounter procedure 12/09/2021 Appointment Cardiac Rehabilitation [facility] Cardiac Rehab Start: 12-07-2021 End: 12-07-2021 Patient encounter procedure 12/07/2021 Appointment Cardiac Rehabilitation [facility] Cardiac Rehab Start: 12-03-2021 End: 12-03-2021 Patient encounter procedure 12/03/2021 Appointment Cardiac Rehabilitation [facility] Cardiac Rehab Start: 12-02-2021 End: 12-02-2021 Patient encounter procedure 12/02/2021 Appointment Cardiac Rehabilitation [facility] Cardiac Rehab Start: 11-30-2021 End: 11-30-2021 Patient encounter procedure 11/30/2021 Appointment Cardiac Rehabilitation [facility] Cardiac Rehab Start: 11-26-2021 End: 11-26-2021 Patient encounter procedure 11/26/2021 Appointment Cardiac Rehabilitation [facility] Cardiac Rehab Start: 11-25-2021 End: 11-25-2021 Patient encounter procedure 11/25/2021 Appointment Cardiac Rehabilitation [facility] Cardiac Rehab Start: 11-23-2021 End: 11-23-2021 Patient encounter procedure 11/23/2021 Appointment Cardiac Rehabilitation [facility] Cardiac Rehab Start: 11-19-2021 End: 11-19-2021 Patient encounter procedure 11/19/2021 Appointment Cardiac Rehabilitation [facility] Cardiac Rehab Start: 11-18-2021 End: 11-18-2021 Patient encounter procedure 11/18/2021 Appointment Cardiac Rehabilitation [facility] Cardiac Rehab Start: 11-16-2021 End: 11-16-2021 Patient encounter procedure 11/16/2021 Appointment Cardiac Rehabilitation [facility] Cardiac Rehab Start: 11-14-2021 ADVANCE DIRECTIVE DISCUSSION ADVANCE DIRECTIVE DISCUSSION [facility] Start: 11-14-2021 DEPRESSION ASSESSMENT DEPRESSION ASS ESSMENT [facility] Start: 11-12-2021 End: 11-12-2021 Patient encounter procedure 11/12/2021 Appointment Cardiac Rehabilitation [facility] Cardiac Rehab Start: 11-11-2021 End: 11-11-2021 Patient encounter procedure 11/11/2021 Appointment Cardiac Rehabilitation [facility] Cardiac Rehab Start: 11-09-2021 End: 11-09-2021 Patient encounter procedure 11/09/2021 Appointment Cardiac Rehabilitation [facility] Cardiac Rehab Start: 11-05-2021 End: 11-05-2021 Patient encounter procedure 11/05/2021 Appointment Cardiac Rehabilitation [facility] Cardiac Rehab Start: 11-04-2021 End: 11-04-2021 Patient encounter procedure 11/04/2021 Appointment Cardiac Rehabilitation [facility] Cardiac Rehab Start: 11-02-2021 End: 11-02-2021 Patient encounter procedure 11/02/2021 Appointment Cardiac Rehabilitation [facility] Card[facility] Rehab Start: 10-29-2021 End: 10-29-2021 Patient encounter procedure 10/29/2021 Appointment Cardiac Rehabilitation [facility] Card[facility] Re[facility] Start: 10-28-2021 End: 10-28-2021 Patient encounter procedure 10/28/2021 Appointment Cardiac Rehabilitation [facility] Card[facility] Rehab Start: 10-26-2021 End: 10-26-2021 Patient encounter procedure 10/26/2021 Appointment Cardiac Rehabilitation [facility] Cardiac Rehab Start: 10-22-2021 End: 10-22-2021 Patient encounter procedure 10/22/2021 Appointment Cardiac Rehabilitation [facility] Cardiac Rehab Start: 10-21-2021 End: 10-21-2021 Patient encounter procedure 10/21/2021 Appointment Cardiac Rehabilitation [facility] Cardiac Rehab Start: 10-19-2021 End: 10-19-2021 Patient encounter procedure 10/19/2021 Appointment Cardiac Rehabilitation [facility] Cardiac Rehab Start: 10-15-2021 End: 10-15-2021 Patient encounter procedure 10/15/2021 Appointment Cardiac Rehabilitation [facility] Cardiac Rehab Start: 10-14-2021 End: 10-14-2021 Patient encounter procedure 10/14/2021 Appointment Cardiac Rehabilitation [facility] Cardiac Rehab Start: 10-12-2021 End: 10-12-2021 Patient encounter procedure 10/12/2021 Appointment Cardiac Rehabilitation [facility] Cardiac Rehab Start: 10-07-2021 End: 10-07-2021 Patient encounter procedure 10/07/2021 Appointment Cardiac Rehabilitation [facility] Cardiac Rehab Start: 10-05-2021 End: 10-05-2021 Patient encounter procedure 10/05/2021 Appointment Cardiac Rehabilitation [facility] Cardiac Rehab Start: 10-01-2021 End: 10-01-2021 Patient encounter procedure 10/01/2021 Appointment Cardiac Rehabilitation [facility] Cardiac Rehab Start: 09-30-2021 End: 09-30-2021 Patient encounter procedure 09/30/2021 Appointment Cardiac Rehabilitation [facility] Cardiac Rehab Start: 09-28-2021 End: 09-28-2021 Patient encounter procedure 09/28/2021 Appointment Cardiac Rehabilitation [facility] Cardiac Rehab Start: 09-24-2021 End: 09-24-2021 Patient encounter procedure 09/24/2021 Appointment Cardiac Rehabilitation [facility] Cardiac Rehab Start: 09-23-2021 End: 09-23-2021 Patient encounter procedure 09/23/2021 Appointment Cardiac Rehabilitation [facility] Cardiac Rehab Start: 07-26-2021 Breast cancer screen Breast cancer s yobany [place], [place] Start: 07-26-2021 Screening for malign ant neoplasm of breast Breast cancer screen [facility] Start: 07-15-2021 Influenza vaccination Flu vaccine (# 1) [facility] Start: 07-10-2021 COVID-19 Vaccine (3 - Booster for Pfizer series) COVID-19 Vaccine (3 - Booster for Pfizer series) [facility] Start: 07-10-2021 COVID-19 Vaccine (3 - Pfizer booster) COVID-19 Vaccine (3 - Pfizer booster) [facility] Start: 07-15-2019 Influenza vaccination Flu vaccine (# 1) [place], [place] Start: 05-06-2019 Annual Wellness Visi t (AWV) Annual Wellness Visit (AWV) [facility] Start: 08-12-2015 Shingles Vaccine (2 of 3) Chawla gles Vaccine (2 of 3) [facility] Start: 08-12-2015 SHINGRIX VACCINE (2 of 3) CHAWLA GRIX VACCINE (2 of 3) [facility] Start: 2014 DEXA (modify frequen cy per FRAX score) DEXA (modify frequency per FRAX score) [place], [place] Start: 08-30-2013 DTaP/Tdap/Td vaccine (1 - Tdap) DTaP/Tdap/Td vaccine (1 - Tdap) [facility] Start: 08-30-2013 Urine microalbumin profile DTa P,Tdap,Td Vaccine (1 - Tdap) [facility] Start: 2009 RSV Vaccine (1 - 1-d ose 60+ series) RSV Vaccine (1 - 1-dose 60+ series) [facility] Start: 1999 Colon cancer screen colonoscopy Colon cancer screen colonoscopy [place], [place] Start: 1994 COLOGUARD (FIT-DNA) COLOGUARD (FIT-D NA) [facility] Start: 1994 Colonoscopy COLONOSCOPY [facility] Start: 1994 COLORECTAL CANCER SCREENING COLORECTAL CANCER SCREENING [facility] Start: [address] COLONOGRAPHY [facility] Start: 1994 FECAL OCCULT BLOOD FECAL OCCULT BLOO D [facility] Start: 1994 Lipid 1996 panel - S tiana or Plasma Lipid Screening [facility] Start: 1994 Lipid panel Lipid Screening [facility] Start: 1994 LIPID SCREEN LIPID SCREEN [facility] Start: 1994 Screening for malign ant neoplasm of colon [facility] Start: 1994 SIGMOIDOSCOPY [facility] Start: 1989 Diabetes screen Diabetes screen [place], [place] Start: 1989 Lipid screen Lipid screen [place], [place] Start: 1968 DTaP/Tdap/Td vaccine (1 - Tdap) DTaP/Tdap/Td vaccine ( - Tdap) [facility] Start: 1968 Urine microalbumin profile [facility] Start: 1967 ANNUAL PCP TEAM IMAGING SERVICES DIRECTOR GHULAM DISEASE VISIT ANNUAL PCP TEAM CHRONIC DISEASE VISIT [facility] Start: 1967 BP CONTROLLED (<130/80) BP CONTROLLE D (<130/80) [facility] Start: 1967 Hepatitis B surface antibody level LDL CHOLESTEROL [facility] Start: 1967 HEPATITIS C SCRE[facility] Start: 1967 Hepatitis C screening B ON [facility] Start: 1961 Adult depression scr eening assessment DEPRESSION SCREENING [facility] Start: 1961 Depression Screen Depression Screen [facility] Start: 1959 Lipid panel [facility] Start: 1949 Creatinine monitoring Creatinine mon alejandraring [place], [place] Start: 1949 Hepatitis C screen Hepatitis C scree n [place], [place] Start: 1949 Hepatitis C screening Hepatitis C sc [facility] Start: 1949 Potassium monitoring Potassium monit [place] CARDIAC PHASE II CARDIAC PHASE I I Card Rehab Ordered: 09/21/2021 [facility] Comment on above: Ordered: 09/21/2021 CARDIAC PHASE II CARDIAC PHASE I I Card Rehab Ordered: 09/28/2021 [facility] Comment on above: Ordered: 09/28/2021 CARDIAC PHASE II CARDIAC PHASE I I Card Rehab Ordered: 10/01/2021 [facility] Comment on above: Ordered: 10/01/2021 Comprehensive metabo lic 2000 panel - Serum or Plasma [facility] End: 08-12-2024 ECG COMPLETE ECG COMPLETE ECG Routine Paroxysmal atrial fibrillation (HCC) 1 Occurrences starting 08/12/2023 until 08/12/2024 [facility] Work Phone: Comment on above: 1 Occurrences starti ng 08/12/2023 until 08/12/2024 End: 11-07-2024 ECG COMPLETE ECG COMPLETE ECG Routine Primary hypertension HOCM (hypertrophic obstructive cardiomyopathy) (HCC) 1 Occurrences starting 11/07/2023 until 11/07/2024 [facility] Work Phone: Comment on above: 1 Occurrences starti ng 11/07/2023 until 11/07/2024 End: 11-07-2024 Echocardiography ECHO Cardiology Routine Primary hypertension HOCM (hypertrophic obstructive cardiomyopathy) (HCC) 1 Occurrences starting 11/07/2023 until 11/07/2024 [facility] Work Phone: Comment on above: 1 Occurrences starti ng 11/07/2023 until 11/07/2024 End: 11-21-2023 Radex spine lumbosacral minimum 4 views XR LUMBAR MOTION 4V AP/LAT/ FLEX/EXT Radiology Routine Lumbar radiculopathy Synovial cyst of lumbar facet joint 1 Occurrences starting 10/22/2022 until 11/21/2023 [facility] Work Phone: Comment on above: 1 Occurrences starti ng 10/22/2022 until 11/21/2023 SPINE INTERVENTION PROCEDURE SPINE INTERVENTION PROCEDURE Procedures Routine Radiculopathy, lumbar region Ordered: 10/13/2022 [facility] Work Phone: Comment on above: Ordered: 10/13/2022 [facility] [place] [facility] [place] [facility] [place] [facility] [place] [facility] Immunizations Immunization Date Immunization Notes Care Provider Fa jorge luis 08-26-2023 influenza virus vaccine, unspecified formulation [place] HAWKINS [facility] 04-18-2023 zoster vaccine recombinant CHELITA GALLARDO [facility] 11-18-2022 zoster vaccine recombinant Gideon Adams Other [facility] 09-07-2022 influenza virus vaccine, split virus (incl. purified surface antigen) Gideon Angie Other [employer] Other 09-07-2022 influenza virus vaccine, unspecified formulation CHELITA GALLARDO [facility] 09-07-2022 influenza, high dose seasonal, preservative-free Gideon Adams Other [employer] Other 06-22-2022 COVID-19 Pfizer Gideon qureshi Other [facility] 06-22-2022 SARS-CoV-2 mRNA (vlxbotnxiem-bzjm-tigpl se) vaccine CHELITA GALLARDO [facility] 10-21-2021 COVID-19 Vaccine Pfi zer - Documentation Purposes Only Gideon Angie Other [facility] 10-21-2021 SARS-CoV-2 mRNA (tozinameran 5y-11y) vaccine CHELITA GALLARDO [facility] 08-10-2021 influenza virus vaccine, split virus (incl. purified surface antigen) Gideon Adams Other [employer] Other 08-10-2021 influenza virus vaccine, unspecified formulation [facility] 01-10-2021 COVID-19 vaccine, ag e 12+ yr ([employer] - PURPLE TOP) Sarahi Panchal RN [facility] Comment on above: Result Comment: 2022: [id number] 12-19-2020 COVID-19 vaccine, ag e 12+ yr ([employer] - PURPLE TOP) Sarahi Panchal RN [facility] Comment on above: Result Comment: 2022: TPV70 12-15-2020 SARS-CoV-2 mRNA (tozinameran 5y-11y) vaccine CHELITA GALLARDO [facility] 07-24-2020 influenza virus vaccine, split virus (incl. purified surface antigen) Gideon Adams Other [employer] Other 07-24-2020 influenza virus vaccine, unspecified formulation [facility] 07-30-2019 influenza virus vaccine, unspecified formulation CHELITA GALLARDO [facility] 07-27-2019 influenza virus vaccine, unspecified formulation CHELITA GALLARDO [facility] 07-27-2019 Seasonal trivalent influenza vaccine, adjuvanted, preservative free Sarahi Panchal RN [facility] 07-22-2019 influenza virus vaccine, unspecified formulation CHELITA GALLARDO [facility] 07-22-2019 influenza, seasonal, injectable Sarahi Panchal RN [facility] 01-04-2019 pneumococcal polysaccharide vaccine, 23 valent Sarahi Panchal RN [facility] 07-25-2018 influenza virus vaccine, split virus (incl. purified surface antigen) Gideon Adams Other [employer] Other 07-25-2018 influenza virus vaccine, unspecified formulation CHELITA GALLARDO [facility] 07-25-2018 Seasonal trivalent influenza vaccine, adjuvanted, preservative free Sarahi Panchal RN [facility] 08-03-2017 influenza virus vaccine, split virus (incl. purified surface antigen) Gideon Adams Other [employer] [facility] [employer] Other 08-03-2017 influenza virus vaccine, unspecified formulation [facility] 08-05-2016 Influenza Vaccine, unspecified formulation [facility] , [place] 08-04-2016 influenza virus vaccine, split virus (incl. purified surface antigen) Gideon Adams Other [employer] Other 08-04-2016 influenza virus vaccine, unspecified formulation CHELITA GALLARDO [facility] 08-04-2016 influenza, high dose seasonal, preservative-free Sarahi Panchal RN [facility] 09-23-2015 pneumococcal conjuga te vaccine, [address] [facility], [place] 08-13-2015 pneumococcal conjuga te vaccine, 13 valent Gideon Adams Other [facility] 06-17-2015 zoster vaccine, live Sarahi Duong [facility] 09-09-2014 zoster vaccine, live [facility], [place] 08-29-2013 tetanus and diphther ia toxoids, adsorbed, preservative free, for adult use (5 Lf of tetanus toxoid and 2 Lf of diphtheria toxoid) Gideon Adams Other [facility] Payers Date Payer Category Payer Private Health Insurance [facility] AARP SUPPLEMENT [id number] 2019-Present [phone] [address] [place] [address] Indemnity [id number] 2014 Medicare MEDICARE MEDICAR E PART A AND B xxxxxxxxxx 2014-Present [phone] [address] [address] [place] [address] [id number] 2014 Private Health Insurance xxx [id number] 2014 Medicare MEDICARE MEDICAR E A AND B [id number] 2014-Present [phone] [address] [address] [place] [address] Medicare [id number] 1959 Medicare [id number] 1959 Private Health Insurance [id number] 1959 Self-pay [id number] 1949 Unknown [id number] 2.16.840.1.152310.3.579.2 .176 1949 Unknown [id number] 2.16.840.1.128550.3.579.2 .593 1949 Unknown [id number] 2.16.840.1.757506.3.579.2 .593 1949 Unknown [id number] 2.16.840.1.457278.3.579.2 .593 1949 Unknown [id number] 2.16.840.1.518186.3.579.2 .593 1949 Unknown [id number] 2.16.840.1.760856.3.579.2 .173 1949 Unknown [id number] 2.16.840.1.196786.3.579.2 .173 1949 Unknown [id number] 2.16.840.1.986323.3.579.2 .173 1949 Unknown [id number] 2.16.840.1.887908.3.579.2 .173 1949 Unknown [id number] 2.16.840.1.409600.3.579.2 .173 1949 Unknown [id number] 2.16.840.1.187455.3.579.2 .173 1949 Unknown [id number] 2.16.840.1.514575.3.579.2 .173 1949 Unknown [id number] 2.16.840.1.526815.3.579.2 .173 1949 Unknown [id number] 2.16.840.1.307005.3.579.2 .727 1949 Unknown [id number] 2.16.840.1.105514.3.579.2 .727 1949 Unknown [id number] 2.16.840.1.056578.3.579.2 .727 1949 Unknown [id number] 2.16.840.1.338728.3.579.2 .727 1949 Unknown [id number] 2.16.840.1.216398.3.579.2 .727 1949 Unknown [id number] 2.16.840.1.958550.3.579.2 .727 1949 Unknown [id number] 2.16.840.1.933550.3.579.2 .727 1949 Unknown [id number] 2.16.840.1.889555.3.579.2 .727 Unknown [id number] 2.16.840.1.485493.3.579.2 .593 Social History Date Type Detail Facility Start: 07-10-2019 End: 12-28-2023 Tobacco smoking status NMIS Former smoker [facility] Start: 07-10-2019 End: 12-02-2022 Alcohol intake Yes [place], [place] Start: 07-10-2019 Alcohol Comment [place], [place] Start: 1950 [facility]igned [facility] Start: 07-10-2019 End: 09-27-2023 Alcohol intake [facility] Start: 07-10-2019 End: 10-13-2022 Tobacco use and exposure Smokeless tobacco non-user [facility] Work Phone: Start: 07-02-2022 End: 10-13-2022 Exposure to SARS-CoV-2 (event) Not sure [facility] End: 11-14-1994 History of tobacco use Current smoker [facility] End: 11-14-1994 History of tobacco use Cigarette Smoker [facility] Start: 08-03-2021 History SDOH Alcohol Comment rarely [facility] Start: 1950 Sex Assigned At Female [facility] Start: 10-22-2022 End: 12-02-2022 History of Social function [facility] Adult Depression Screening Assessment 1 [facility] Start: 10-31-2020 Gender identity Identifies as female gender (finding) [facility] Start: 10-31-2020 Sexual orientation Heterosexual (fin tonio) [facility] Functional Status Date Assessment Result Facility 09-24-2023 Functional Status No [facility] 09-23-2023 Functional Status [facility] 07-19-2023 Functional Status N/A [facility] 05-12-2022 Functional Status N/A [facility] Clinical Notes 06-25-2021 to 12-29-2023 Addendum Note - Matilde Spicer APRN.CNP - 12/29/2023 10:02 PM ESTTelephone Encounter - Matilde Spicer APRN.CNP - 12/29/2023 5:25 PM ESTPatient Instructions Note Date & Type Note Facility 12-29-2023 Miscellaneous Notes Addended by: MATILDE SPICER on: 12/29/2023 10:02 PM Modules accepted: Orders Received the following blood pressure log from the patient after initiation of 25 mg losartan once daily. Will continue at the dose presribed. Date Time BP 11/12 2:00 PM 136/86 11/18 2:00 PM 126/81 11/27 10:44 PM 132/88 11/28 12:15 PM 121/74 11/29 12:42pm 112/74 11/30 11:41 AM 116/73 12/02 11:55AM 126/78 12/06 12:11 PM 118/74 12/10 11:51 AM 121/70 12/11 11:46 AM 113/69 12/14 4:45 PM 124/74 12/16 4:54 PM 124/74 12/17 3:00 PM 124/77 12/19 12:09 PM 120/66 12/20 2:49 PM 116/66 12/21 ll:48 am 122/72 12/22 2:39 PM 136/80 12/26 4:50 PM 120/73 12/27 12:40 PM 120/75 12/28 2:30 PM 126/75 Matilde Spicer, LAKEISHA, RN, ICE CREAM DISPENSER-C documented in this encounter [facility] 11-04-2023 Note HNO ID: [id number] Author: Abhishek Sweet RN Service: ? Author Type: Registered Nurse Type: Progress Notes Filed: 11/04/2023 12:54 PM Note Text: .11/04/2023 12:53 PM IV Access: IV IV Site: left Hand IV GAUGE 24 gauge IV Removal Date 11/04/2023 Time 1248 Reactions: WNL Order reviewed by nurse:yes Medications: Definity - dosage 2 cc of diluted definity given via PIV Reaction: No [facility] 11-04-2023 Instructions Matilde Spicer APRN.CNP - 11/04/2023 2:00 PM EST Start losartan 25 mg once daily. Check your blood pressure 1-2 times per day. You should check it at the same time every day. Prior to checking your blood pressure, you should sit quietly with your feet flat on the floor for 5 minutes. Please record your blood pressure and heart rate in a log and send it via my chart in 3 weeks. Have labs checked 2 weeks after starting the medication. Follow up in 1 year. It is best to make your appointment ~ 5-6 months in advance of this. Please call [phone] to schedule. If you have any questions or concerns or feel that you need to be seen sooner than your next scheduled appointment, please call the office at [phone], option 4. documented in this encounter [facility] 11-04-2023 Note HNO ID: [id number] Author: Maitlde Spicer APRN.ROSALEE Service: ? Author Type: Nurse Practitioner Type: Progress Notes Filed: 11/07/2023 8:27 PM Note Text: [facility] [place] [facility] Department of Cardiovascular Medicine SECTION OF CARDIOVASCULAR IMAGING OUTPATIENT VISIT DATE November 04, 2023 OUTPATIENT VISIT TYPE ESTABLISHED PRIMARY CARE PHYSICIAN: Gideon Adams (Kd) [address] [place] [address] CHIEF COMPLAINT: Follow up HISTORY OF PRESENT ILLNESS: Yasmin Fuentes is a 73 year old female who presents today for follow-up visit. Patient's past medical history is significant for HOCM s/p mitral valve repair AND septal myectomy on 06/23/[address] Giraldo, ICD placement for primary prevention of SCD, HTN, DLD. Her last visit with this provider was 10/15/21. On 11/17/21, her eliquis was discontinued after ZioPatch revealed no episodes of afib. Since her last visit, she reports that she was hospitalized in September due to UTI that did not respond to antibiotics. She was discharged home with a PICC line for IV ABx which she has now completed. She reports her activity level is unchanged from previous. She denies chest pain, [place], palpitations, dizziness, syncope, LE edema, PND and orthopnea. Medication list was reviewed and patient tolerates them well PAST MEDICAL HISTORY Diagnosis Date Closed displaced fracture of seventh cervical vertebra with routine healing HOCM (hypertrophic obstructive cardiomyopathy) (HCC) Hyperlipidemia Hypertension Long Q-T syndrome PAST SURGICAL HISTORY Procedure Laterality Date HEART SURGERY HX N/A 06/23/2021 s/p MVr and Myectomy - 06/[address] Giraldo HYSTERECTOMY 1990 IMPLANTABLE ICD PLACEMENT 01/19/2021 KNEE SURGERY HX PICC LINE INSERT/CONSULT 09/27/2023 SOCIAL HISTORY Social History Tobacco Use Smoking status: Former Types: Cigarettes Quit date: 1994 Years since quittin.9 Smokeless tobacco: Never Vaping Use Vaping Use: Never used Substance Use Topics Alcohol use: Yes Comment: rarely Drug use: Never FAMILY HISTORY Problem Relation Age of Onset Heart disease Mother Aneurysm Father ALLERGIES: ALLERGIES Allergen Reactions Codeine Vomiting Demeral [Meperidine] Vomiting Scallops Other: See Comments Nausea, diarrhea MEDICATIONS: atorvastatin calcium (ATORVASTATIN ORAL)Take 40 mg by mouth daily at bedtime.Disp: Rfl: metoprolol succinate ER (TOPROL XL) 50 mg 24 hr tabletTake 1 tablet by mouth once daily.Disp: 90 tabletRfl: 0 aspirin 81 mg chewable tabletChew and swallow 1 tablet by mouth once daily.Disp: 30 tabletRfl: 1 loratadine (CLARITIN ORAL)Take by mouth once daily.Disp: Rfl: losartan (COZAAR) 25 mg tabletTake 1 tablet by mouth once daily.Disp: 30 tabletRfl: 1 REVIEW OF SYSTEMS: GENERAL: no fevers. no chills. no fatigue. no changes in weight. RESPIRATORY: no cough, no wheeze, no shortness of breath at rest, CARDIOVASCULAR: see HPI GI/: no abdominal pain, no nausea/vomiting, PSYCH: no significant changes in mood HEMATOLOGY/LYMPHOLOGY: no excessive bleeding, no bruising NEURO: no new onset or chronic headaches, no tremor, no numbness/tingling of extremities. no loss of function/unilateral weakness PHYSICAL EXAMINATION: BP 156/80 (BP Site: Right Arm, BP Position: Sitting, BP Cuff Size: Regular Adult) Pulse 71 Ht 165.1 cm (5' 5 ) Wt 76.9 kg (169 lb 8 oz) SpO2 97% BMI 28.21 kg/m? General appearance:Appropriately groomed, well nourished adult female in no acute distress. Skin: Intact without rashes or lesions to exposed skin Head/Neck: Normocephalic, face symmetric, neck supple Eyes: Normal conjunctiva, non icteric sclera Lungs: Clear to auscultation bilaterally. No wheezes, no rhonchi and no crackles auscultated on exam. Heart: Regular rate and rhythm. S1 AND S2 normal. 3/6 murmur auscultated best at the right sternal border. Extremities: Well perfused, no clubbing, no cyanosis, no LE edema Peripheral pulses: 2/4 pulses in the distal extremities. Neuro: AANDO x 3. Pleasant, cooperative, appropriate affect. Able to ambulate independently. CARDIOVASCULAR MEDICINE TESTING: EK11/04/23 ECHOCARDIOGRAM: 11/04/23 - Technically difficult exam due to body habitus. - Exam indication: Hx; Myectomy, MVr - The left ventricle is normal in size. There is moderate septal asymmetric left ventricular hypertrophy. Left ventricular systolic function is normal. EF = 64 ? 5% (2D 4-ch.) Definity contrast used for endocardial border detection. - The right ventricle is normal in size. Right ventricular systolic function is normal. - Post mitral valve repair. There is trace (trace - 1+) mitral valve regurgitation. The peak gradient is 6 mmHg and the mean gradient is 2 mmHg. Prior MVr gradient 7/3 mmHg. - Mild AR. - At rest (63 bpm) there is trivial chordal KENNEDI (more content not included)... [facility] 11-04-2023 History of Presen t illness Narrative Images from the original note were not included. [facility] [place] [facility] Department of Cardiovascular Medicine SECTION OF CARDIOVASCULAR IMAGING OUTPATIENT VISIT DATE November 04, 2023 OUTPATIENT VISIT TYPE ESTABLISHED PRIMARY CARE PHYSICIAN: Gideon Adams (Kd) [address] [place] [address] CHIEF COMPLAINT: Follow up HISTORY OF PRESENT ILLNESS: Yasmin Fuentes is a 73 year old female who presents today for follow-up visit. Patient's past medical history is significant for HOCM s/p mitral valve repair & septal myectomy on 06/23/[address] Giraldo, ICD placement for primary prevention of SCD, HTN, DLD. Her last visit with this provider was 10/15/21. On 11/17/21, her eliquis was discontinued after ZioPatch revealed no episodes of afib. Since her last visit, she reports that she was hospitalized in September due to UTI that did not respond to antibiotics. She was discharged home with a PICC line for IV ABx which she has now completed. She reports her activity level is unchanged from previous. She denies chest pain, QUINTANA, palpitations, dizziness, syncope, LE edema, PND and orthopnea. Medication list was reviewed and patient tolerates them well PAST MEDICAL HISTORY Diagnosis Date Closed displaced fracture of seventh cervical vertebra with routine healing HOCM (hypertrophic obstructive cardiomyopathy) (HCC) Hyperlipidemia Hypertension Long Q-T syndrome PAST SURGICAL HISTORY Procedure Laterality Date HEART SURGERY HX N/A 06/23/2021 s/p MVr and Myectomy - 06/[address] Giraldo HYSTERECTOMY 1989 IMPLANTABLE ICD PLACEMENT 01/19/2021 KNEE SURGERY HX PICC LINE INSERT/CONSULT 09/27/2023 SOCIAL HISTORY Social History Tobacco Use Smoking status: Former Types: Cigarettes Quit date: 1994 Years since quittin.9 Smokeless tobacco: Never Vaping Use Vaping Use: Never used Substance Use Topics Alcohol use: Yes Comment: rarely Drug use: Never FAMILY HISTORY Problem Relation Age of Onset Heart disease Mother Aneurysm Father ALLERGIES: ALLERGIES Allergen Reactions Codeine Vomiting Demeral [Meperidine] Vomiting Scallops Other: See Comments Nausea, diarrhea MEDICATIONS: atorvastatin calcium (ATORVASTATIN ORAL)^Take 40 mg by mouth daily at bedtime.^Disp: ^Rfl: metoprolol succinate ER (TOPROL XL) 50 mg 24 hr tablet^Take 1 tablet by mouth once daily.^Disp: 90 tablet^Rfl: 0 aspirin 81 mg chewable tablet^Chew and swallow 1 tablet by mouth once daily.^Disp: 30 tablet^Rfl: 1 loratadine (CLARITIN ORAL)^Take by mouth once daily.^Disp: ^Rfl: losartan (COZAAR) 25 mg tablet^Take 1 tablet by mouth once daily.^Disp: 30 tablet^Rfl: 1 REVIEW OF SYSTEMS: GENERAL: no fevers. no chills. no fatigue. no changes in weight. RESPIRATORY: no cough, no wheeze, no shortness of breath at rest, CARDIOVASCULAR: see HPI GI/: no abdominal pain, no nausea/vomiting, PSYCH: no significant changes in mood HEMATOLOGY/LYMPHOLOGY: no excessive bleeding, no bruising NEURO: no new onset or chronic headaches, no tremor, no numbness/tingling of extremities. no loss of function/unilateral weakness PHYSICAL EXAMINATION: BP 156/80 (BP Site: Right Arm, BP Position: Sitting, BP Cuff Size: Regular Adult) Pulse 71 Ht 165.1 cm (5' 5 ) Wt 76.9 kg (169 lb 8 oz) SpO2 97% BMI 28.21 kg/m General appearance:Appropriately groomed, well nourished adult female in no acute distress. Skin: Intact without rashes or lesions to exposed skin Head/Neck: Normocephalic, face symmetric, neck supple Eyes: Normal conjunctiva, non icteric sclera Lungs: Clear to auscultation bilaterally. No wheezes, no rhonchi and no crackles auscultated on exam. Heart: Regular rate and rhythm. S1 & S2 normal. 3/6 murmur auscultated best at the right sternal border. Extremities: Well perfused, no clubbing, no cyanosis, no LE edema Peripheral pulses: 2/4 pulses in the distal extremities. Neuro: A&O x 3. Pleasant, cooperative, appropriate affect. Able to ambulate independently. CARDIOVASCULAR MEDICINE TESTING: EK11/04/23 ECHOCARDIOGRAM: 11/04/23 - Technically difficult exam due to body habitus. - Exam indication: Hx; Myectomy, MVr - The left ventricle is normal in size. There is moderate septal asymmetric left ventricular hypertrophy. Left ventricular systolic function is normal. EF = 64 5% (2D 4-ch.) Definity contrast used for endocardial border detection. - The right ventricle is normal in size. Right ventricular systolic function is normal. - Post mitral valve repair. There is trace (trace - 1+) mitral valve regurgitation. The peak gradient is 6 mmHg and the mean gradient is 2 mmHg. Prior MVr gradient 7/3 mmHg. - Mild AR. - At rest (63 bpm) there is trivial chordal KENNEDI, tr - 1+ MR, peak LVOT gradient ~13 mmHg. -With Valsalva (68 bpm) there are no changes of KENNEDI and MR, peak LVOT gradient ~15 mmHg. - Exam was compared with the prior echocardiographic exam performed on 08/03/2021. There is no significant change. I have personally reviewed and discussed the echo & EKG with Dr. Obrien. DUAL CHAMBER ICD REMOTE EVALUATION:10/21/23 PRESENTING EGM: /VS BATTERY STATUS: Estimated time remaining to RAVINDER is 10.5 years. COUNTERS SINCE: 08/12/2023 ATRIAL ARRHYTHMIAS: There have been no atrial detections. VENTRICULAR ARRHYTHMIAS: There have been no ventricular detections. LEAD MEASUREMENTS: Sensing is appropriate. Review of the lead impedance trends are normal. OTHER DIAGNOSTICS: RA pacing 0%, RV pacing 0%. FOLLOW UP: Continue 3 month remote transmissions and yearly in-clinic interrogations. Sky Payne RN. Independently reviewed and verified Bridger Suresh MD October 21, 2023 10:29 PM PREVIOUS CARDIAC TESTING: EK08/12/23 ECHO: 08/03/21 - Technically difficult exam due to body habitus. - Exam indication: S/P septal myectomy, MVr - The left ventricle is normal in size. There is concentric left ventricular hypertrophy. Left ventricular systolic function is normal. EF = 62 5% (2D biplane) Definity contrast used for endocardial border detection. - The right ventricle is normal in size. Right ventricular systolic function is normal. - Post mitral valve repair. There is trace (trace - 1+) mitral valve regurgitation. The peak gradient is 7 mmHg and the mean gradient is 3 mmHg. MV gradients obtained at HR of 76 bpm. - Estimated right ventricular systolic pressure is likely underestimated due to a weak or incomplete tricuspid regurgitation signal and is, at least, 35 mmHg consistent with normal pulmonary artery pressures. Estimated right atrial pressure is 3 mmHg based on IVC assessment. - At rest thers is mild KENNEDI, trivial MR, LVOT gradient of 13 mmHg (77 bpm). No change with valsalva. - With Amyl nitrite LVOT gradient 22 mmHg. No change in KENNEDI or MR. - Exam was compared with the prior echocardiographic exam performed on 06/27/2021. There is no significant change. IMPRESSION: Yasmin Fuentes is a 73 year old female who presents today for follow-up visit. Patient's past medical history is significant for HOCM s/p mitral valve repair & septal myectomy on 06/23/[address] Giraldo, ICD placement for primary prevention of SCD, HTN, DLD. Her last visit with this provider was 10/15/21. On 11/17/21, her eliquis was discontinued after ZioPatch revealed no episodes of afib. Since her last visit, she reports that she was hospitalized in September due to UTI that did not respond to antibiotics. She was discharged home with a PICC line for IV ABx which she has now completed. She reports her activity level is unchanged from previous. She denies chest pain, QUINTANA, palpitations, dizziness, syncope, LE edema, PND and orthopnea. Echo demonstrated a normal LV systolic function with EF 64%, s/p MVr with trace MR and peak and mean gradients of 6/2 mmHg. Peak resting LVOT is 13 mmHg and with valsalva it is 15 mmHg. Testing is stable compared to last visit. On exam, patient is mildly hypertensive. She reports that her BPs have been elevated in the 140s systolic. We will initiate anti-hypertensive therapy in the form of losartan 25 mg once daily. PLAN AND RECOMMENDATIONS: Initiate losartan 25 mg once daily. Check BPs daily and send a log via my chart in 3 weeks. Get labs done locally in 2 weeks. Follow up in one year or sooner if needed with Dr. Obrien, an echo and an EKG. I personally reviewed past documentation, interviewed the patient & performed an independent examination. Details of this case, imaging data and plan of care were reviewed and developed in collaboration with Dr. Calin Obrien. Matilde Spicer, MSN, RN, ICE CREAM DISPENSER-C documented in this encounter [facility] 2023 Note HNO ID: [id number] Author: Ramona Mota Service: ? Author Type: ? Type: Progress Notes Filed: 2023 3:54 PM Note Text: Per orders of honor copat stop date of 10/13. Home care nurse to pull picc. Notified [facility] at [phone], verbal orders given to Kim. Ramona Leach Adm Asst I [facility] 10-05-2023 Note HNO ID: [id number] Author: Heather Rojas MD Service: ? Author Type: Physician Type: Progress Notes Filed: 10/05/2023 12:26 PM Note Text: VIRTUAL VISIT PROGRESS NOTE This is a virtual visit using Trove[employer] Zoom Video Visit. It required patient-provider interaction for the medical decision making as documented below. I have communicated my name and active licensure. The patient's identity and physical location were verified at the time of this visit. Either the patient or their legal parts sales representative has been informed of the risks and benefits of -- and alternatives to -- treatment through a remote evaluation and consents to proceed with the evaluation remotely. Yasmin Fuentes is a 72 year old female seen for . HISTORY REVIEWED (electronic chart updated): PAST MEDICAL HISTORY Diagnosis Date Closed displaced fracture of seventh cervical vertebra with routine healing HOCM (hypertrophic obstructive cardiomyopathy) (HCC) Hyperlipidemia Hypertension Long Q-T syndrome PAST SURGICAL HISTORY Procedure Laterality Date HEART SURGERY HX N/A 06/23/2021 s/p MVr and Myectomy - 06/[address] Giraldo HYSTERECTOMY 1989 IMPLANTABLE ICD PLACEMENT 01/19/2021 KNEE SURGERY HX PICC LINE INSERT/CONSULT 09/27/2023 FAMILY HISTORY Problem Relation Age of Onset Heart disease Mother Aneurysm Father Social History Tobacco Use Smoking status: Former Types: Cigarettes Quit date: 1994 Years since quittin.9 Smokeless tobacco: Never Vaping Use Vaping Use: Never used Substance Use Topics Alcohol use: Yes Comment: rarely Drug use: Never Current Outpatient Medications Medication Sig atorvastatin calcium (ATORVASTATIN ORAL) Take 40 mg by mouth daily at bedtime. metoprolol succinate ER (TOPROL XL) 50 mg 24 hr tablet Take 1 tablet by mouth once daily. baclofen 10 mg tablet 10 mg two times a day. aspirin 81 mg chewable tablet Chew and swallow 1 tablet by mouth once daily. loratadine (CLARITIN ORAL) Take by mouth once daily. No current facility-administered medications for this visit. ALLERGIES Allergen Reactions Codeine Vomiting Demeral [Meperidine] Vomiting Scallops Other: See Comments Nausea, diarrhea REVIEW OF SYSTEMS: All other ROS: negative PHYSICAL EXAMINATION: VIDEO EXAM: (if completed, performed via video enabled technology) GENERAL: alert and appropriate, in no distress, well-hydrated, well nourished, and happy, smiling, interactive SKIN: no rash noted HEAD: normocephalic, no abnormality or lesion noted EYES: no injection and visual acuity is grossly normal CHEST: equal chest rise with normal respiratory effort NEUROLOGIC: no obvious deficit Impression/Recommendations Assessment is copied forward from my last consult note with updates to reflect today's information October 04, 2023. 72 year old w/ PMH including VT s/p ICD, HOCM s/p myomectomy , afib . Patient follows urology at [facility] for recurrent UTIs. She states this improved with estrogen cream.Estrogen cream recaently d/c 09/04/23- Urine culture care everywhere. Chong susceptible E coli. Tx Keflex x ~ 7 days. Better some after keflex, but really still felt unwell. Subequently started having chills 09/13 - Went to ED. ~09/23- presented to OSH ED w/ fever. CT complex subcapsular fluid collection of the right kidney nonspecific and most concerning for subcapsular hematoma secondary to underlying renal neoplasm given abnormality within the 7 adjacent renal parenchyma. 09/25- TX to [facility] . AF, w/o significant leukocytosis. Read urology consult note: Outside CT A/P with contrast images were reviewed. These revealed 3 to 4 cm septate right renal subcapsular lesion communicating with renal medullary lucent lesion and perinephric stranding. June lumbar spine MRI did not reveal right renal lesion. (note on review of [facility] MRI June 2022) Blood cx here ng. UA here neg . I called [facility] . Labs 09/23/23- UA negative, thus did not reflex to culture. Blood cx ngtd ? underlying renal neoplasm vs abscess/ ? partially tx recent UTI. Note prolonged qtc syndrome . Feeling much better overall. Sill wanting to take naps , but . Pretty much back to doing what she normally does -has appt Yojana Az 10/21 -copat ceftiaxone for possible abscess until 10/13 . -Will plan honor stop. Will ask home health to pull picc. There are no Patient Instructions on file for this visit. I spent a total of 30 minutes on the date of the service which included preparing to see the patient, [id number] patient care, completing clinical documentation, and obtaining and/or reviewing separately obtained history Heather Rojas MD [facility] 10-05-2023 History of Presen t illness Narrative VIRTUAL VISIT PROGRESS NOTE This is a virtual visit using Runteqom Video Visit. It required patient-provider interaction for the medical decision making as documented below. I have communicated my name and active licensure. The patient's identity and physical location were verified at the time of this visit. Either the patient or their legal parts sales representative has been informed of the risks and benefits of -- and alternatives to -- treatment through a remote evaluation and consents to proceed with the evaluation remotely. Yasmin Fuentes is a 72 year old female seen for . HISTORY REVIEWED (electronic chart updated): PAST MEDICAL HISTORY Diagnosis Date Closed displaced fracture of seventh cervical vertebra with routine healing HOCM (hypertrophic obstructive cardiomyopathy) (HCC) Hyperlipidemia Hypertension Long Q-T syndrome PAST SURGICAL HISTORY Procedure Laterality Date HEART SURGERY HX N/A 06/23/2021 s/p MVr and Myectomy - 06/[address] Giraldo HYSTERECTOMY 1989 IMPLANTABLE ICD PLACEMENT 01/19/2021 KNEE SURGERY HX PICC LINE INSERT/CONSULT 09/27/2023 FAMILY HISTORY Problem Relation Age of Onset Heart disease Mother Aneurysm Father Social History Tobacco Use Smoking status: Former Types: Cigarettes Quit date: 1994 Years since quittin.9 Smokeless tobacco: Never Vaping Use Vaping Use: Never used Substance Use Topics Alcohol use: Yes Comment: rarely Drug use: Never Current Outpatient Medications Medication Sig atorvastatin calcium (ATORVASTATIN ORAL) Take 40 mg by mouth daily at bedtime. metoprolol succinate ER (TOPROL XL) 50 mg 24 hr tablet Take 1 tablet by mouth once daily. baclofen 10 mg tablet 10 mg two times a day. aspirin 81 mg chewable tablet Chew and swallow 1 tablet by mouth once daily. loratadine (CLARITIN ORAL) Take by mouth once daily. No current facility-administered medications for this visit. ALLERGIES Allergen Reactions Codeine Vomiting Demeral [Meperidine] Vomiting Scallops Other: See Comments Nausea, diarrhea REVIEW OF SYSTEMS: All other ROS: negative PHYSICAL EXAMINATION: VIDEO EXAM: (if completed, performed via video enabled technology) GENERAL: alert and appropriate, in no distress, well-hydrated, well nourished, and happy, smiling, interactive SKIN: no rash noted HEAD: normocephalic, no abnormality or lesion noted EYES: no injection and visual acuity is grossly normal CHEST: equal chest rise with normal respiratory effort NEUROLOGIC: no obvious deficit Impression/Recommendations Assessment is copied forward from my last consult note with updates to reflect today's information October 04, 2023. 72 year old w/ PMH including VT s/p ICD, HOCM s/p myomectomy , afib . Patient follows urology at [facility] for recurrent UTIs. She states this improved with estrogen cream.Estrogen cream recaently d/c 09/04/23- Urine culture care everywhere. Chong susceptible E coli. Tx Keflex x ~ 7 days. Better some after keflex, but really still felt unwell. Subequently started having chills 09/13 - Went to ED. ~09/23- presented to OSH ED w/ fever. CT complex subcapsular fluid collection of the right kidney nonspecific and most concerning for subcapsular hematoma secondary to underlying renal neoplasm given abnormality within the 7 adjacent renal parenchyma. 09/25- TX to [facility] . AF, w/o significant leukocytosis. Read urology consult note: Outside CT A/P with contrast images were reviewed. These revealed 3 to 4 cm septate right renal subcapsular lesion communicating with renal medullary lucent lesion and perinephric stranding. June lumbar spine MRI did not reveal right renal lesion. (note on review of [facility] MRI June 2022) Blood cx here ng. UA here neg . I called [facility] . Labs 09/23/23- UA negative, thus did not reflex to culture. Blood cx ngtd ? underlying renal neoplasm vs abscess/ ? partially tx recent UTI. Note prolonged qtc syndrome . Feeling much better overall. Sill wanting to take naps , but . Pretty much back to doing what she normally does -has appt Yojana Bernardo 10/21 -copat ceftiaxone for possible abscess until 10/13 . -Will plan honor stop. Will ask home health to pull picc. There are no Patient Instructions on file for this visit. I spent a total of 30 minutes on the date of the service which included preparing to see the patient, [id number] patient care, completing clinical documentation, and obtaining and/or reviewing separately obtained history Heather Rojas MD documented in this encounter [facility] 10-01-2023 Note Microbiology PROCEDURE: Blood Culture Charcoal [R1] SOURCE: Blood BODY SITE: Arm L COLLECTED DATE/TIME: 09/23/2023 18:12 EST RECEIVED DATE/TIME: 09/23/2023 19:54 EST START DATE/TIME: 09/23/2023 19:54 EST FREE TEXT SOURCE: IV start Sherrie Edward, Astrit Sydni Balderas M.D., Astrit H FINAL REPORTS Final Report [] Verified Date/Time: 10/01/2023 07:00 EST No growth at 7 days. Performing Locations R1: This test was performed at: [facility], [address] [place] [address], [address] [place] [address], [address] [place] [address] Comment on above: Performed By: #### 1 [id number] ####[address] [address] 10-01-2023 Note Microbiology PROCEDURE: Blood Culture Charcoal [R1] SOURCE: Blood BODY SITE: Arm R COLLECTED DATE/TIME: 09/23/2023 18:14 EST RECEIVED DATE/TIME: 09/23/2023 19:54 EST START DATE/TIME: 09/23/2023 19:54 EST FREE TEXT SOURCE: Sherrie Edward, Zbigniew Balderas M.D., Zbigniew Troy FINAL REPORTS Final Report [] Verified Date/Time: 10/01/2023 07:00 EST No growth at 7 days. Performing Locations R1: This test was performed at: [facility], [address] [place] [address], [address] [place] [address], [address] [place] [address] Comment on above: Performed By: #### 1 [id number] ####[place] [id number] 09-28-2023 Note HNO ID: [id number] Author: Dmitry Minaya RPh Service: Pharmacy Author Type: Pharmacist Type: Plan of Care Filed: 09/28/2023 11:40 AM Note Text: DISCHARGE MEDICATION REVIEW BY PHARMACY Patient Name: Yasmin Fuentes Account #: Data Unavailable Admission Date: 09/25/2023 Date of Contact: September 28, 2023 Time of Contact: 11:39 AM Medication list was reviewed by a Pharmacist for drug interactions or drug related problems:Yes Below is a summary of pharmacist recommendations discussed with LIP: No Recommendations at this time from Discharge Medication List. Dmitry Minaya [facility] September 28, 2023 11:39 AM Pager: [phone] 09/28/2023 11:39 AM Medication List CONTINUE taking these medications aspirin 81 mg chewable tablet Chew and swallow 1 tablet by mouth once daily. ATORVASTATIN ORAL baclofen 10 mg tablet CLARITIN ORAL metoprolol succinate ER 50 mg 24 hr tablet Commonly known as: TOPROL XL Take 1 tablet by mouth once daily. [facility] 09-27-2023 Note HNO ID: [id number] Author: Jose Ulrich CPhT Service: ? Author Type: Supervisor [employer] Type: Plan of Care Filed: 09/27/2023 3:36 PM Note Text: Insurance investigation completed Patient has active prescription insurance: Yes - Patient's insurance is in-network with [facility] Insurance loaded into [place]: Already loaded Test claim was completed to verify insurance is active: Successful Any questions, please contact your medication gsa coordinator. Pager #: [phone] [facility] 09-27-2023 Note HNO ID: [id number] Author: Monique Barajas LPN Service: PICC Team Author Type: LICENSED NURSE Type: Procedures Filed: 09/27/2023 4:04 PM Note Text: PICC NURSE INSERTION NOTE DATE OF PROCEDURE: September 27, 2023 TIME OF PROCEDURE: 15 ORDERING PHYSICIAN: Dr. Leon INFORMED CONSENT: Obtained per hospital policy. INDICATION FOR LINE PLACEMENT: COPAT CONDITION OF LINE PLACEMENT: Sterile PRIMARY PROCEDURALIST: Vanessa Roberson RN ROADS AND PARKING LOTS SWEEPER OPERATOR: Monique Barajas LPN PRE-PROCEDURE REVIEW ALLERGIES Allergen Reactions Codeine Vomiting Demeral [Meperidine] Vomiting Scallops Other: See Comments Nausea, diarrhea Known History of Upper Venous Thrombosis: No Known History of Permanent Pacemaker or Automated Implanted Cardiac Device: Yes, Left Previous Breast Surgery of Lymph Node Dissection: No Estimated Glomerular Filtration Rate Date Value Ref Range Status 09/27/2023 88 >=60 mL/min/1.73m? Final Comment: Estimated Glomerular Filtration Rate (eGFR) is calculated using the 2020 CKD-EPI creatinine equation. This equation utilizes serum creatinine, sex, and age as parameters. The creatinine assay has traceable calibration to isotope dilution-mass spectrometry. Refer to KDIGO guidelines for clinical interpretation. In patients with unstable renal function, e.g. those with acute kidney injury, the eGFR may not accurately reflect actual GFR. eGFR- Date Value Ref Range Status 08/03/2021 >60 Final History of Renal Disease: No Ultrasound Assessment Complete: Yes PROCEDURE NARRATIVE SAFE PRACTICE Hand Hygiene per Hospital Policy: Yes 2% Chlorhexidine Gluconate cloth utilized preprocedure on extremity Skin Preparation Unit Dose Applicator Used: Chloraprep (CHG + alcohol), allowed to dry. Procedure Surface Cleansed with Antimicrobial Wipes: Yes Barriers Used by Proceduralist and all Assisting Personnel: Yes UNIVERSAL PROTOCOL / SAFETY CHECKLIST Procedure to be Performed: Sl PICC Insertion Sign In: A Moment of CARE was completed. Personnel directly involved with the procedure wore the appropriate PPE (Personal Protective Equipment). Patient/Surrogate Stated/Verified: PATIENT VERIFIED(optional for EMERGENT procedures): Patient name, Date of , Relevant allergies, and The intended procedure Time Out Communication: Intended patient and procedure match the source documents. Consent documented and matches the intended procedure. Relevant labs, photos, and/or imaging studies have been reviewed. Correct side/site marked and visible. Medications required for procedure verified. Fire risk assessed and interventions discussed. Sign Out: SIGN OUT (optional for EMERGENT procedures): No specimen collected. All instruments, equipment, possible retained foreign bodies accounted for. Post-procedure follow-up management communicated and Plan of Care Visit completed when applicable. Monique Barajas LPN CATHETER PLACEMENT Brand: bard Lot: [id number] Number of Lumens: 1 Type of PICC: Power Injectable PICC Lumen Size: 4 Ni[place]an PLACEMENT TECHNIQUE Lidocaine: Yes, Lidocaine 1% Volume 3 mL Subcutaneous Modified Seldinger Technique Used to Place Line via the Right Basilic Ultrasound Guidance: Yes Number of Attempts at Insertion: 1 Ensured control of guidewire during all aspects of the procedure: Yes Accounted for entire guidewire upon removal: Yes Internal Length: 41 cm External Length: 0 cm Trim Length: 41 cm Mid-Arm Circumference: 46 centimeters Post Insertion Pain Level Related to Procedure: 0 Action Taken to Address Pain: None needed Verified Placement: Blood return and flushes with ease and Tip location system or device indicates the tip is located in the SVC/CAJ. Line was Flushed with 20 mL normal saline Line Secured with: Securement device Sterile Dressing Applied and Dated: Yes Sterile Caps on all Ports Prior to Leaving Procedure Area: Yes, Disinfection caps applied SPECIMENS: None COMPLICATIONS: None Patient Education Materials: Given to patient The [facility] Central Line Insertion checklist was utilized during this procedure. QUESTIONS or PROBLEMS: Page [id number] SIGNATURE: Monique Barajas LPN PATIENT NAME: Yasmin Fuentes DATE: September 27, 2023 TIME: 3:23 PM PAGER/CONTACT PHONE: [facility] 09-27-2023 Evaluation note Encounter Date Diagnosis Assessment Notes Sep, Renal abscess, right (ICD-10 - N15.1) [employer] Other 11-14-2023 NoteHNO ID: [id number] Author: Shaina Turk MD Service: General Internal Medicine Author Type: Physician Type: Progress Notes Filed: 09/27/2023 2:46 PM Note Text: INPATIENT PROGRESS NOTE GENERAL INTERNAL MEDICINE Please page [phone] with any questions As back-up, page [phone]. This pager will be forwarded to the appropriate garment steamer at all times. Patient: Yasmin Fuentes [id number] Interval HPI NAEON Subjective/Exam: Resting comfortably in bed Vitals: VSS, on RA Labs: AM labs CBC and BMP stable, Bcx - NGTD Consultants: ID - Ceftriaxone for 2 weeks Plan for today - Ceftriaxone for 2 weeks - COPAT, PICC and HHC set-up - Potential DC tomorrow Objective Data BP 155/64 Pulse 64 Temp 37.1 ?C (98.8 ?F) (Oral) Resp 16 Ht 165.1 cm (5' 5 ) Wt 72 kg (158 lb 11.7 oz) SpO2 96% BMI 26.41 kg/m? Intake/Output Summary (Last 24 hours) at 09/27/2023 1123 Last data filed at 09/27/2023 0831 Gross per 24 hour Intake 70 ml Output 1725 ml Net -1655 ml Lines, Drains, and Airways Line Duration Peripheral 09/25/23 0000 Right Wrist 22 Gauge 2 days General: AANDOx3, well appearing, no apparent distress Cardiovascular: Regular rate and rhythm, no murmurs Respiratory: Clear to auscultation bilaterally, unlabored breathing Abdomen: Soft, non-distended, non-tender. Normal bowel sounds Extremities: No peripheral edema, no cyanosis Neuro: Motor and sensory function grossly intact Psych: normal affect, conversant Labs Most recent labs reviewed. CBC: Recent Labs 09/27/2363509/26/2344609/25/23348 WBC 10.62 12.01* 12.14* HB 13.3 13.2 13.0 PLT 317 324 262 MCV 96.4 93.1 95.6 RDWCV 12.1 12.2 12.2 COAG: Recent Labs 09/25/23 09 APTT 25.4 INR 1.0 BMP: Recent Labs 09/27/2363509/26/2344609/25/23348 GLUC 111* 121* 130* NA 140 137 137 K 4.4 -- 4.2 CHLOR 106* 104 103 CO2 23 21* 20* ANION 11 14 BUN 11 13 CREAT 0.72 0.74 0.78 CHEM: Recent Labs 09/27/2363509/26/2344609/25/2390909/25/23348 ALB -- -- 3.6* -- TPROT -- -- 7.0 -- CA 9.1 9.2 -- 9.5 HEPATIC: Recent Labs 09/25/23909 ALKPHOS 122 ALT 100* AST 64* TBILI 0.7 CARDIAC: No results for input(s): CKTEST , CKMB , CKMBP , TROPT , PBNP in the last 168 hours. URINALYSIS: Recent Labs 09/25/23 0519 SPGR 1.013 UGLUC Negative UBILI Negative UKET Negative UHB 1+* UPROT Negative UWBC 0-5 /HPF Estimated Creatinine Clearance: 69.2 mL/min (based on SCr of 0.72 mg/dL). Imaging and Micro I have personally reviewed all radiographic studies. Notable findings are as listed below or in the AANDP Medications Current Facility-Administered Medications Medication Dose Route Frequency NaCl 0.9% iv flush bag 20 mL INTRAVENOUS PRN acetaminophen 650 mg tab(s) (TYLENOL) 650 mg ORAL q 6 H PRN polyethylene glycol 3350 17 g packet 17 g ORAL DAILY PRN atorvastatin 40 mg tab(s) (LIPITOR) 40 mg ORAL AT BEDTIME metoprolol succinate ER 50 mg tab(s) (TOPROL XL) 50 mg ORAL q 24 H cefTRIAXone 1 g in D5W 100 mL Vial-Bag (ROCEPHIN) 1 g INTRAVENOUS q 24 H lidocaine (PF) 10 mg/mL (1 %) 10-100 mg injection (XYLOCAINE) 1-10 mL INTRADERMAL DIRECTED PRN Assessment and Plan 72 year old female with a PMH significant for HOCM s/p myectomy and mitral valve repair, long QT syndrome, paroxysmal ventricular tachycardia s/p ICD, HTN, and HLD here as a transfer for IR drainage for a right renal abscess #fever w chills #leukocytosis #Renal abscess vs Hematoma -Patient has a known history of bilateral renal cysts, urethral strictures, chronic cystitis -CTAP at OSH showed fluid collection complex subcapsular hematoma vs abscess 3 cm in size -Started on Zosyn at OSH -CBC at OSH elevated at 19 - UA - from OSH on 09/05 - E coli - chong sensitive - Bcx here 09/25 - still incubating - UA - clean Plan -Latest UA and Bcx from OSH - negative, confirmed by ID - IV Zosyn q6 -> Ceftriaxone Qdaily 09/26 - Urology - No aspiration for this abscess considering its size, IV Abx and repeat imaging in few days - ID - confirmed with OSH labs, BCx - NGTD, UA was clean so not reflexively cultured. Ceftriaxone for 2 weeks - PICC line and COPAT with [facility] set up - Have to follow-up with her local urologist in 3-4 weeks, and potential re-imaging to rule out neoplasm although low concerns as of now #HOCM #Long QT Syndrome -ICD was implanted in 01/2021 In 06/2021, she underwent myectomy and MV repair. She has felt better since the -There has been no syncope, near-syncope, palpitations, dizziness or light-headedness. Plan -Metoprolol succinate ER 50 -restart ASA 81 #HTN -continue metoprolol succinate ER 50 #HLD -Continue atorvastatin 40 CHECKLIST Code Status: Code Status: Full Code Access: Lines, Drains, and Airways Line Duration Peripheral 09/25/23 0000 Right Wrist 22 Gauge 2 days Nutrition: Diet Orders (more content not included)...[facility]11-13-2023 NoteHNO ID: [id number] Author: Dmitry Minaya [facility] Service: Pharmacy Author Type: Pharmacist Type: Plan of Care Filed: 09/26/2023 12:15 PM Note Text: PHARMACY MEDICATION REVIEW Patient Name: Yasmin Fuentes : 1950 The following medications were updated within the COMMERCIAL TITLE EXAMINER medication list: Medications ADDED to COMMERCIAL TITLE EXAMINER medication list N/A Medications CHANGED on COMMERCIAL TITLE EXAMINER medication list N/A Medications REMOVED from COMMERCIAL TITLE EXAMINER medication list N/A Additional comments: N/A The below information represents the best possible medication history: Yes Medication history completed by: Pharmacist: Dmitry Minaya RPh Source of history: [facility] records dispense history Medication nonadherence identified: No barriers noted Reconciliation completed: Yes Completed by: Dmitry Minaya All COMMERCIAL TITLE EXAMINER medications addressed by LIP Patient interested in Bedside Delivery Services or using OP Pharmacy at discharge? Unable to assess Preferred outpatient pharmacy: [facility] [id number] [place] [address] [address] [facility] [phone] [id number] ([facility] [id number] [facility] [address] [facility] Allergies: Codeine Vomiting Demeral [Meperidine] Vomiting Scallops Other: See Comments Comment:Nausea, diarrhea Prior to Admission Medications Prescriptions Last Dose Informant Patient Reported? Taking? aspirin 81 mg chewable tablet No Yes Sig: Chew and swallow 1 tablet by mouth once daily. atorvastatin calcium (ATORVASTATIN ORAL) Yes Yes Sig: Take 40 mg by mouth daily at bedtime. baclofen 10 mg tablet Yes Yes Si mg two times a day. loratadine (CLARITIN ORAL) Yes Yes Sig: Take by mouth once daily. metoprolol succinate ER (TOPROL XL) 50 mg 24 hr tablet No Yes Sig: Take 1 tablet by mouth once daily. Facility-Administered Medications: None Dmitry Minaya RPh 09/26/2023[facility]11-13-2023 NoteHNO ID: [id number] Author: Shaina Turk MD Service: General Internal Medicine Author Type: Physician Type: Progress Notes Filed: 09/26/2023 1:33 PM Note Text: INPATIENT PROGRESS NOTE GENERAL INTERNAL MEDICINE Please page [phone] with any questions As back-up, page [phone]. This pager will be forwarded to the appropriate garment steamer at all times. Patient: Yasmin Fuentes [id number] Interval HPI NAEON Subjective/Exam: Resting comfortably in bed Vitals: VSS, on RA I/O: Net neg 700, UO 1800ml over 24 hours Labs: AM labs CBC and BMP stable Consultants: Urology - Given history of recurrent UTIs, fluid collection may be small abscess however given small size we would not recommend drain placement. Abscess this size will likely respond to IV abx treatmetnt. - Could repeat imaging in a few days to assess response to antibiotic therapy Plan for today CT over-read Continue Zosyn, pending culture reports Objective Data BP 127/80 Pulse 64 Temp 36.9 ?C (98.4 ?F) (Oral) Resp 18 Ht 165.1 cm (5' 5 ) Wt 78 kg (171 lb 15.3 oz) SpO2 97% BMI 28.62 kg/m? Intake/Output Summary (Last 24 hours) at 09/26/2023 0644 Last data filed at 09/26/2023 0500 Gross per 24 hour Intake 1100 ml Output 1800 ml Net -700 ml Lines, Drains, and Airways Line Duration Peripheral 09/25/23 0000 Right Forearm 22 Gauge 1 day General: AANDOx3, well appearing, no apparent distress Cardiovascular: Regular rate and rhythm, no murmurs Respiratory: Clear to auscultation bilaterally, unlabored breathing Abdomen: Soft, non-distended, non-tender. Normal bowel sounds Extremities: No peripheral edema, no cyanosis Neuro: Motor and sensory function grossly intact Psych: normal affect, conversant Labs Most recent labs reviewed. CBC: Recent Labs 09/26/2344609/25/23348 WBC 12.01* 12.14* HB 13.2 13.0 PLT 324 262 MCV 93.1 95.6 RDWCV 12.2 12.2 COAG: Recent Labs 09/25/23909 APTT 25.4 INR 1.0 BMP: Recent Labs 09/26/2344609/25/23348 GLUC 121* 130* NA 137 137 K -- 4.2 CHLOR 104 103 CO2 21* 20* ANION 12 14 BUN 11 13 CREAT 0.74 0.78 CHEM: Recent Labs 09/26/2344609/25/23 0910 09/25/23348 ALB -- 3.6* -- TPROT -- 7.0 -- CA 9.2 -- 9.5 HEPATIC: Recent Labs 09/25/23 0910 ALKPHOS 122 ALT 100* AST 64* TBILI 0.7 CARDIAC: No results for input(s): CKTEST , CKMB , CKMBP , TROPT , PBNP in the last 168 hours. URINALYSIS: Recent Labs 09/25/23 0519 SPGR 1.013 UGLUC Negative UBILI Negative UKET Negative UHB 1+* UPROT Negative UWBC 0-5 /HPF Estimated Creatinine Clearance: 69.9 mL/min (based on SCr of 0.74 mg/dL). Imaging and Micro I have personally reviewed all radiographic studies. Notable findings are as listed below or in the AANDP Medications Current Facility-Administered Medications Medication Dose Route Frequency NaCl 0.9% iv flush bag 20 mL INTRAVENOUS PRN acetaminophen 650 mg tab(s) (TYLENOL) 650 mg ORAL q 6 H PRN polyethylene glycol 3350 17 g packet 17 g ORAL DAILY PRN atorvastatin 40 mg tab(s) (LIPITOR) 40 mg ORAL AT BEDTIME metoprolol succinate ER 50 mg tab(s) (TOPROL XL) 50 mg ORAL q 24 H piperacillin-tazobactam iv piggyback 3.375 g in dextrose (iso-osmotic) 50 mL (ZOSYN) 3.375 g INTRAVENOUS q 6 H Assessment and Plan 72 year old female with a PMH significant for HOCM s/p myectomy and mitral valve repair, long QT syndrome, paroxysmal ventricular tachycardia s/p ICD, HTN, and HLD here as a transfer for IR drainage for a right renal abscess #fever w chills #leukocytosis #Renal abscess vs Hematoma -Patient has a known history of bilateral renal cysts, urethral strictures, chronic cystitis -CTAP at OSH showed fluid collection complex subcapsular hematoma vs abscess 3 cm in size -Started on Zosyn at OSH -CBC at OSH elevated at 19 - UA - from OSH on 09/05 - E coli - chong sensitive - Bcx here 09/25 - still incubating - UA - clean Plan --Latest UA and Bcx from OSH - should be followed up on -IV Zosyn q6 - Urology - No aspiration for this abscess considering its size, IV Abx and repeat imaging in few days #HOCM #Long QT Syndrome -ICD was implanted in 01/2021 In 06/2021, she underwent myectomy and MV repair. She has felt better since the -There has been no syncope, near-syncope, palpitations, dizziness or light-headedness. Plan -Metoprolol succinate ER 50 -ASA 81 holding in case of any potential intervention #HTN -continue metoprolol succinate ER 50 #HLD -Continue atorvastatin 40 CHECKLIST Code Status: Code Status: Full Code Access: Lines, Drains, and Airways Line Duration Peripheral 09/25/23 0000 Right Forearm 22 Gauge 1 day Nutrition: Diet Orders (From admission, onward) Start Ordered 09/25/23 0900 DIET REGULAR START NOW 09/25/23 0853 DVT ppx: Appointments: Future Appointments Date Time Provider Department Center (more content not included)...[facility]11-11-2023 Note Admission and Discharge Information Admitting Physician - Gary Oro DO Admitting Diagnoses: Discharge Diagnoses 1. Sepsis, 09/23/2023 2. Renal abscess, 09/23/2023 3. Leukocytosis, 09/23/2023 4. Elevated liver enzymes, 09/23/2023 Constipation, 09/23/2023 Cough, 09/23/2023 Fever, 09/23/2023 Procedure History Cardiac pacemaker (01/19/2021), Urodynamics (05/08/2014), Cystourethroscopy with dilation of urethral stricture (10/31/2013), Ablation, Closed fracture of cervical spine, Hysterectomy, Knee replacement, Myectomy, Tonsillectomy. Hospital Course Significant Findings Please refer to history and physical for details of admission. Patient was admitted for sepsis and renal abscess on the right. She was started on IV Zosyn. Case was reviewed with urology from the ER and recommended transfer to a tertiary care center. She was excepted in transfer to [facility] but because of the wait, she was placed on the medical serviceso we did get a bed. I resumed substance starting the ED plus her home meds. We just got worried that the patient has a bed in which she will be transferred this evening. Physical Exam Vitals & Measurements T: 36.5 ?C(Axillary) TMIN: 36.5 ?C(Axillary) TMAX: 37.2 ?C(Oral) HR: 75(Monitored) RR: 20 BP: 147/72 SpO2: 96% HT: 165.10 cm WT: 78.4 kg See history and physical Laboratory Results Automated Diff (09/23/2023) Neutro Auto - 88.9 % Lymph Auto - 6.2 % Woodward Auto - 4.3 % Eos Auto - 0.2 % Basophil Auto - 0.4 % Neutro Absolute - 17.4 E9/L Lymph Absolute - 1.2 E9/L Woodward Absolute - 0.8 E9/L Eos Absolute - 0.0 E9/L Basophil Absolute - 0.1 E9/L BMP (09/23/2023) Glucose Lvl - 135 mg/dL BUN - 15 mg/dL Creatinine - 0.9 mg/dL BUN/Creat Ratio - 17 Sodium Lvl - 134 mmol/L Potassium Lvl - 4.0 mmol/L Chloride - 102 mmol/L CO2 - 23 mmol/L AGAP - 13 mEq/L Calcium Lvl - 9.2 mg/dL CRP (09/23/2023) CRP - 10.8 mg/dL eGFR (09/23/2023) eGFR - 68 mL/min/1.73 m2 Hepatic Function Panel (09/23/2023) Alk Phos - 127 Int._Unit/L ALT - 128 Int._Unit/L AST - 140 Int._Unit/L Total Protein - 7.6 gm/dL Albumin Lvl - 3.3 gm/dL Globulin - 4.3 gm/dL A/G Ratio - 0.8 Bili Total - 0.9 mg/dL Bili Direct - 0.3 mg/dL Bili Indirect - 0.6 mg/dL Influenza A&B Ag (09/23/2023) Influenzae A Ag - NEGATIVE1 Influenzae B Ag - NEGATIVE1 Lactic Acid (09/23/2023) Lactic Acid Lvl - 1.1 mmol/L Lipase Level (09/23/2023) Lipase Lvl - 28 unit/L Respiratory Panel by PCR (09/23/2023) Adenovirus - Not Detected B. holmesii - Not Detected B. parapertussis/bronchiseptica - Not Detected B. pertussis - Not Detected Human Metapneumovirus - Not Detected Influenza A - Not Detected Influenza A (subtype H1) - Not Detected Influenza A (subtype H3) - Not Detected Influenza B - Not Detected Parainfluenza 1 - Not Detected Parainfluenza 2 - Not Detected Parainfluenza 3 - Not Detected Parainfluenza 4 - Not Detected Rhinovirus - Not Detected RSV A - Not Detected RSV B - Not Detected Sedimentation Rate Automated (09/23/2023) Sed Rate Automated - 71 mm/hr Troponin 0 Hr. (09/23/2023) Troponin - 33.20 pg/mL UA With Cult Reflex (09/23/2023) UA Spec Desc - Clean Catch UA Color - Yellow2 UA Clarity - Slightly Cloudy3 UA Spec Grav - 1.010 UA pH - 5.5 UA Protein - Trace2 UA Glucose - NEGATIVE1 UA Ketones - Trace2 UA Bili - 1+ UA Blood - 1+ UA Nitrite - NEGATIVE1 UA Urobilinogen - 2.0 UA Leuk Est - NEGATIVE1 UA RBC - 0-3 UA Squam Epithelial - >10 UA WBC - 0-5 UA Bacteria - Trace2 UA CA Ox Crystal - Present UA Mucous - Trace2 Tests Performed Automated Diff Blood Culture Charcoal -- Results Pending -- BMP -- Results Pending -- BMP CBC w/ Auto Diff -- Results Pending -- CRP eGFR Hepatic Function Panel Influenza A&B Ag Lactic Acid Lipase Level Liver Function Test -- Results Pending -- Respiratory Panel by PCR Sedimentation Rate Automated Troponin 0 Hr. UA With Cult Reflex Chest AP/Lat CT Abdomen/Pelvis w/ Contrast XR Abdomen 1 View Please visit your patient portal for your results or contact your primary care physician. Discharge Plan Patient Discharge Condition Stable Discharge Disposition Discharged to - Home with family care To the [facility] per Dr. Tafoya Discharge Medication List Prescriptions estradiol 0.1 mg/g Vag Crm, See Instructions, 3 refills Home aspirin 81 mg oral capsule, Oral, q24hr atorvastatin 40 mg Tab, Oral, Daily BACLOFEN 10 MG TABS, 0, Not taking calcium carbonate 1000 mg oral tablet, chewable, 1000 mg= 1 tab(s), Chewed, Daily metoprolol 50 mg ER Tab, Oral, Daily Super B Complex, Oral, Daily Vitamin C 500 mg Tab, 500 mg= 1 tab(s), Oral, Daily Vitamin D3 vitamin E, Oral, Daily Follow-up No qualifying data availableUniversity Hospitals Lake West Medical CenterComment on above:Result Comment: Electronically Signed By: Gary Oro DObr\Date and Time Signed: 09/24/23 18:47 [id number] NoteChief Complaint chills History of Present Illness This is a 72-year-old white female whose past medical history is significant for: 1. Hypertrophic obstructive cardiomyopathy diagnosed on echocardiogram 2019 status post myectomy [address] Orbien at [facility] 2. Long QT syndrome found after genetic testing Hypercholesterolemia August 29, 2023, patient had UTI-like symptoms. She was seen by her PCP and placed on Keflex. She got better but then her symptoms returned in September 13 she had another bout of symptoms and went tot emergency room. She was tested for COVID which was negative and her urinalysis was negative. They did abdominal films which were negative and she was sent home with medicines for constipation. She started developing shaking chills and she had a her chills are getting bad so she went to the urgent care. Urgent care recommended she go to the emergency room for evaluation. She reports fevers as high as 101.0 at home but no flank pain and no urinary complaints. She came to the ER as mentioned. When she presented to the ER her blood pressure is 146/71 with a pulse of 89 and a respiratory rateof 16. She satting 95% on room air and she has a Tmax of 38.2. White count is 19.5 with 8.9% neutrophils. H&H normal at 13.4 and 38.6 and her platelets are 295,000. Sed rate is 71. CMP is remarkable for alkaline phosphatase of 127, ALT 128 and AST 140. Total bilirubin is 0.9. Her lactic acid level was 2.6 with a repeat of 1.1. C-reactive protein is 10.8 and her troponin is 33.2. Urinalysis shows trace protein, which trace ketones, 1+ blood and trace bacteria. She is negative for influenza AMB and respiratory viral panel is negative. X-ray is nonacute and normal x-ray shows nonobstructive pattern. Did a CT of the abdomen pelvis with contrast that showed complex subcapsular fluid collection of the right kidney nonspecific and most concerning for subcapsular hematoma secondary to underlying renal neoplasm given an abnormality within the subjacent renal parenchyma. Renal abscess with subcapsular extension is also a consideration. There is also diverticulosis but no diverticulitis. In the emergency room 2 blood cultures were sent and she was started on IV Zosyn and IV fluids. They reached out to urology who felt that with the CT findings that she may need interventional radiology for possible abscess. She was recommended transfer to a tertiary care center. She was excepted byDr. Tafoya [facility]. She is placed on the medical floor while awaiting bed. PAST MEDICAL HISTORY see above PAST SURGICAL HISTORY 1. ANG with BSO in 1990 2. Myectomy for hypertrophic obstructive cardiomyopathy 3. L4-S1 sciatic nerve ablation therapy 4. Bilateral cataract extraction and lens implantation FAMILY HISTORY Mother at age 53 after developing an arrhythmia from heart valve replacement; she may have hadlong QT syndrome Father from complications of an abdominal aortic aneurysm She has 1 sister who from throat and esophageal cancer and she was a heavy drinker and smoker She has 2 brothers alive and well with the oldest having prostate cancer and the youngest having long QT syndrome 2 children alive and well SOCIAL HISTORY Patient is living at home with her She quit smoking 30 years ago Rare alcohol use No drug abuse history Review of Systems Constitutional: no fever, no chills, no sweats, no weakness Skin: no Jaundice, no rash, no lesions, nopetechiae ENMT: no ear pain, no sore throat, no congestion, no hoarseness Respiratory: no shortness of breath, no cough, no orthopnea, no wheezing Cardiovascular: no chest pain, no palpitations, no edema Gastrointestinal: no nausea, no vomiting, no diarrhea, no GI bleeding Genitourinary: no dysuria, no hematuria, no discharge, no pain Musculoskeletal: no back pain, no trauma Neurologic: no headache, no dizziness, no numbness, no weakness Psychiatric: no sleeping problems, no irritability, no mood swings/depression. Heme/Lymph: no bleeding tendency, no bruising tendency, no petechiae, no swollen nodes Allergy/Immunologic: no seasonal allergies, no food allergies, no recurrent infections, no impairedimmunity Additional ROS info: Except as noted in the above Review of Systems and in the History of Present Illness all other systems have been reviewed and are negative or noncontributory. Scoring Levy Fall Risk Score: 35 (09/24/23) Physical Exam Vitals & Measurements T: 36.5 ?C(Axillary) TMIN: 36.5 ?C(Axillary) TMAX: 38.2 ?C(Oral) HR: 64(Monitored) RR: 20 BP: 133/78 SpO2: 97% HT: 165.10 cm WT: 78.4 kg General: alert, no acute distress Skin: warm, dry Head: no trauma, normocephalic Neck: Trachea midline, no adenopathy, no tenderness Eye: normal conjunctiva, sclera clear ENMT: TM's clear, oral mucosa moist, no pharyngeal erythema or exudate Cardiovascular: regular rate and rhythm, normal peripheral perfusion Respiratory: Lungs CTA, respirations no (more content not included)...[facility] Medical CenterComment on above:Result Comment: Electronically Signed By: Gary Oro DO\.br\Date and Time Signed: 09/24/23 15:06 [id number] Evaluation + Plan noteExtracted from: Title:Discharge Note Author:Gary Oro DO Date:09/24/23 Stable Discharged to - Home with family care To the [facility] per Dr. Tafoya Prescriptions estradiol 0.1 mg/g Vag Crm, See Instructions, 3 refills Home aspirin 81 mg oral capsule, Oral, q24hr atorvastatin 40 mg Tab, Oral, Daily BACLOFEN 10 MG TABS, 0, Not taking calcium carbonate 1000 mg oral tablet, chewable, 1000 mg= 1 tab(s), Chewed, Daily metoprolol 50 mg ER Tab, Oral, Daily Super B Complex, Oral, Daily Vitamin C 500 mg Tab, 500 mg= 1 tab(s), Oral, Daily Vitamin D3 vitamin E, Oral, Daily No qualifying data available Extracted from: Title:Admission H & P Author:Kristen Oro DO Date:09/24/23 72-year-old female admitted for right renal abscess and sepsis. She has fever with leukocytosis and a left shift. Initial lactic acid level was elevated but repeat was normal. Patient has a history of long QT syndrome, history of HCOM is post myectomy in 2020 at the [facility] and a history of hypercholesterolemia. 1. Sepsis (A41.9: Sepsis, unspecified organism) Repeat lactic acid level was normal at 1.9 She did get fluids in the emergency room 2. Renal abscess (N15.1: Renal and perinephric abscess) She was maintained on IV Zosyn starting the ED 2 blood culture sent Awaiting transfer to [facility] 3. Leukocytosis (D72.829: Elevated white blood cell count, unspecified) Check labs in a.m. 4. Elevated liver enzymes (R74.8: Abnormal levels of other serum enzymes) We will repeat labs in a.m. Orders: acetaminophen, 650 mg = 2 tab(s), Tab, Oral, q6hr PRN Pain, Routine, Start date 09/24/23 9:34:00 EST, 09/24/23 9:34:00 EST Al hydroxide/Mg hydroxide/simethicone, 30 mL, Susp-Oral, Oral, q6hr PRN Indigestion, Routine, Start date 09/24/23 9:34:00 EST hydrALAZINE, 10 mg = 0.5 mL, Injection, IV Push, q6hr PRN Other (see comment), Routine, Start date 09/24/23 9:34:00 EST, 09/24/23 9:34:00 EST ketorolac, 15 mg = 1 mL, Injection, IV Push, q6hr PRN Pain 4-7 for 5 day(s), Stop date 09/29/23 9:34:00 EST, Routine, Start date 09/24/23 9:35:00 EST, 09/24/23 9:35:00 EST magnesium hydroxide, 30 mL, Susp-Oral, Oral, q6hr PRN Constipation, Routine, Start date 09/24/23 9:34:00 EST ondansetron, 4 mg = 2 mL, Injection, IV Push, q6hr PRN Nausea, Routine, Start date 09/24/23 9:34:00 EST, 09/24/23 9:34:00 EST piperacillin-tazobactam + Sodium Chloride 0.9% intravenous solution 50 mL, 3.375 gm = 1 EA, Injection, IV Piggyback, q6hrFT, Routine, Start date 09/24/23 12:00:00 EST, 100 mL/hr, Infuse over 30 minute(s) Sodium Chloride 0.9% intravenous solution, 250 mL, IV, 20 mL/hr, Routine, Start date 09/24/23 11:30:00 EST, 12.5 hour(s), Total volume (mL): 250 Basic Metabolic Panel Below the Knee Intermittent Pneumatic Compression Device Cardiac Diet CBC w/ Auto Diff Communication Order Hepatic Function Panel Notify Provider Vital Signs Notify Provider Vital Signs Place in Status Saline Lock Convert From IV Up ad Nicole Vital Signs PLAN: 1. Patient is placed on the medical service 2. We will continue with IV Zosyn starting the ED; 2 blood culture sent 3. I resumed her meds from home including her aspirin and metoprolol; I will hold her Lipitor given her elevated LFTs for now 4. Awaiting transfer to [facility] 5. Pain control and antiemetics as needed; antipyretics as needed 6. DVT prophylaxis with SCDs 7. Full CODE STATUS Addendum by Deneen Oro DO on September 24, 2023 15:06:42 EST Anticipate less than 2 midnight stays for observation status Extracted from: Title:ED Note Author:Zbigniew Balderas M.D. te:09/23/23 1. Sepsis (A41.9: Sepsis, un specified organism) 2. Renal abscess (N15.1: Renal and perinephric abscess) 3. Leukocytosis (D72.829: Elevated white blood cell count, unspecified) 4. Elevated liver enzymes (R74.8: Abnormal levels of other serum enzymes) Orders: Sodium Chloride 0.9% intravenous solution 1,000 mL, 1,000 mL, IV, 500 mL/hr, STAT, Start date 09/23/23 17:51:00 EST, 2 hour(s), Total volume (mL): 1,000, 78.6 kg, 1.9, m2 Automated Diff Basic Metabolic Panel Blood Culture Charcoal Blood Culture Charcoal C-Reactive Protein CBC w/ Auto Diff CT Abdomen/Pelvis w/ Contrast eGFR Extra Blue Tube Extra SST Tube Hepatic Function Panel Influenza A&B Ag Lactic Acid Lactic Acid Lipase Level Respiratory Panel by PCR Sedimentation Rate Automated Troponin 0 Hr. UA With Cult Reflex XR Abdomen 1 View XR Chest 2 Views [facility]10-31-2023 Evaluation + Plan note Diagnostic Tests Pending * Urine Culture 09/13/23 [facility]10-19-2023 Evaluation + Plan note Diagnostic Tests Pending * Urine Culture 09/01/23 [facility] 2023 Miscellaneous Notes* Telephone Encounter - Matilde Spicer APRN.CNP - 08/24/2023 3:33 PM EDT 90 day supply ordered. Matilde Spicer, MSN, RN, ICE CREAM DISPENSER-C * Telephone Encounter - Savannah Jorge - 08/24/2023 9:56 AM EDT Patient is aware she is overdue to see Dr Obrien for follow up, however she also realized she is outof refills for her Metropolol. She has enough to get her through until about next week, but was requesting if we could order enough to get her over until she can see Dr Obrien. documented [facility] NoteHNO ID: [id number] Author: Bridger Suresh MD Service: ? Author Type: Physician Type: Progress Notes Filed: 08/12/2023 1:43 PM Note Text: Asked to see by Dr Obrien for question of ICD managaement. My recommendations will be communicated back to the primary team by way of shared electronic medical record for physicians within the [facility] or via mail if from outside the system. HISTORY OF PRESENT ILLNESS The above relevant present and past medical Hx was verified and the exam findings were confirmed with additional exam findings added/clarified and/or corrected in my exam below. Additional Hx/summary is as follows: 72 YO female patient previously seen by Dr Xavier. She has HCM and is followed by Dr Obrien. She has HCM, and had genetic testing for HCM and LQTS, and was positive for both. Her mother suddenly at age 53. She has never had a cardiac arrest. She was referred to Dr Xavier and an ICD was implanted in 01/[address] Su. In 06/2021, she underwent myectomy and MV repair. She has felt better since the surgery. There has been no syncope, near-syncope, palpitations, dizziness or light-headedness. She has never had ICD therapies. She had AF post-operatively after the myectomy. She actually was treated with amiodarone post-operatively. She recently had an RFA procedure for pain and she had to have the ICD deactivated pre-/post-. She checks her meds on [employer] due to the LQTS. ACTIVE PROBLEM LIST Sob (Shortness of Breath) Other Hypertrophic Cardiomyopathy (Formerly [facility]) Essential Hypertension Nsvt (Nonsustained Ventricular Tachycardia) (Formerly [facility]) Pre-Op Testing Discharge Planning Issues Coronary Artery Disease Involving [place] Coronary Artery of [place] Heart Without Angina Pectoris Icd (Implantable Cardioverter-Defibrillator) in Place Hocm (Hypertrophic Obstructive Cardiomyopathy) (Formerly [facility]) Nonrheumatic Mitral Valve Regurgitation Other Hyperlipidemia Summary A-Fib (Formerly [facility]) FAMILY HISTORY Problem Relation Age of Onset Heart disease Mother Aneurysm Father Social History Tobacco Use Smoking status: Former Types: Cigarettes Quit date: 1994 Years since quittin.7 Smokeless tobacco: Never Vaping Use Vaping Use: Never used Substance Use Topics Alcohol use: Yes Comment: rarely Drug use: Never ROS. Relevant issues listed in the HPI. Otherwise: Constitutional: - Negative Neuro: - Negative Psych: - Negative HEENT: - Negative Endo: - Negative CV: See HPI Pulm: - Negative GI: - Negative : - Negative MSK: - Negative Derm: - Negative Heme: - Negative Cardiac meds reviewed. Meds and allergies were reviewed/updated in EPIC. General - Well-developed, obese, no acute distress. HEENT - Normocephalic, atraumatic. Neck -Supple, no JVD, no bruits, no thyromegaly. Heart - RRR, 2-3/6 LSB murmur. Lungs - CTA bilaterally. Device site - Well healed, L upper chest. Abdomen - Positive bowel sounds, no bruit, no organomegaly, no masses. Back - Non-tender. Extremities - No edema. Normal pulses. Neuro - Alert and oriented to person, place, time. ECG today in the office reviewed. LBBB Device interrogation reviewed. No events. AP<1%, FOUNTAIN CLERK<1% IMPRESSION: 1. Paroxysmal ventricular tachycardia, status post defibrillator 2. Genetic testing consistent with long QT syndrome 3. Hypertrophic cardiomyopathy with chronic/diastolic congestive heart failure, status post myectomy and mitral valve repair 4. Postoperative atrial fibrillation 5. BMI 29 PLAN: Mrs. Fuentes presents today to establish care. She has hypertrophic cardiomyopathy. When she was getting genetic tested for this, she was also found to have evidence of long QT syndrome. Her mother unexpectedly at age 53. She had a defibrillator implanted based on these diagnoses. She has never received defibrillator therapy. In fact, she was treated with amiodarone briefly after open heart surgery without any adverse events. I advised her that she should not use this medication in the future given the diagnosis. She does know about the [employer] website and uses this to check any prescription she is given. She was initially seen by Dr. Xavier. She returns to the [place] office for convenience due to distance. I told her that in the future if she is [facility], we can coordinate an appointment with her in electrophysiology on the same day so she only has to make one trip. I recommended no changes to her regimen. She should continue annual follow-up in the office and quarterly follow-up on a remote basis. Bridger Suresh MD CC - DO Calin Peterson MD This clinical note has been produced using speech recognition software and may contain errors related to that system including grammar, punctuation, spelling, gender and words and phrases that may be inappropriate.[facility]09-29-2023 History of Present illness Narrative* Bridger Suresh MD - 08/12/2023 12:03 PM EDT Asked to see by Dr Obrien for question of ICD managaement. My recommendations will be communicated back to the primary team by way of shared electronic medical record for physicians within the [facility] or via mail if from outside the system. HISTORY OF PRESENT ILLNESS The above relevant present and past medical Hx was verified and the exam findings were confirmed with additional exam findings added/clarified and/or corrected in my exam below. Additional Hx/summaryis as follows: 72 YO female patient previously seen by Dr Xavier. She has HCM and is followed by Dr Obrien. She has HCM, and had genetic testing for HCM and LQTS, and was positive for both. Her mother suddenly atage 53. She has never had a cardiac arrest. She was referred to Dr Xavier and an ICD was implanted in01/[address] Su. In 06/2021, she underwent myectomy and MV repair. She has felt better since the surgery. There has been no syncope, near-syncope, palpitations, dizziness or light-headedness. Sg never had ICD therapies. She had AF post- operatively after the myectomy. She actually was treated with amiodarone post- operatively. She recently had an RFA procedure for pain and she had to have the ICD deactivated pre-/post-. She checks her meds on [employer] due to the LQTS. ACTIVE PROBLEM LIST Sob (Shortness of Breath) Other Hypertrophic Cardiomyopathy (Former[facility]) Essential Hypertension Nsvt (Nonsustained Ventricular Tachycardia) ([facility]) Pre-Op Testing Discharge Planning Issues Coronary Artery Disease Involving [place] Coronary Artery of [place] Heart Without Angina Pectoris Icd (Implantable Cardioverter-Defibrillator) in Place Hocm (Hypertrophic Obstructive Cardiomyopathy) ([facility]) Nonrheumatic Mitral Valve Regurgitation Other Hyperlipidemia Summary A-Fib (Former[facility]) FAMILY HISTORY Problem Relation Age of Onset Heart disease Mother Aneurysm Father Social History Tobacco Use Smoking status: Former Types: Cigarettes Quit date: 1994 Years since quittin.7 Smokeless tobacco: Never Vaping Use Vaping Use: Never used Substance Use Topics Alcohol use: Yes Comment: rarely Drug use: Never ROS. Relevant issues listed in the HPI. Otherwise: Constitutional: - Negative Neuro: - Negative Psych: - Negative HEENT: - Negative Endo: - Negative CV: See HPI Pulm: - Negative GI: - Negative : - Negative MSK: - Negative Derm: - Negative Heme: - Negative Cardiac meds reviewed. Meds and allergies were reviewed/updated in EPIC. General - Well-developed, obese, no acute distress. HEENT - Normocephalic, atraumatic. Neck -Supple, no JVD, no bruits, no thyromegaly. Heart - RRR, 2-3/6 LSB murmur. Lungs - CTA bilaterally. Device site - Well healed, L upper chest. Abdomen - Positive bowel sounds, no bruit, no organomegaly, no masses. Back - Non-tender. Extremities - No edema. Normal pulses. Neuro - Alert and oriented to person, place, time. ECG today in the office reviewed. LBBB Device interrogation reviewed. No events. AP<1%, FOUNTAIN CLERK<1% IMPRESSION: 1. Paroxysmal ventricular tachycardia, status post defibrillator 2. Genetic testing consistent with long QT syndrome 3. Hypertrophic cardiomyopathy with chronic/diastolic congestive heart failure, status post myectomy and mitral valve repair 4. Postoperative atrial fibrillation 5. BMI 29 PLAN: Mrs. Fuentes presents today to establish care. She has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 days 2 More than half the days 3 Nearly every day PHQ-9 Levels: 0-4 No - mild depression 5-9 Mild depression 10-14 Moderate depression 15-19 Moderately severe depression 20-27 Severe depression ACTIVE PROBLEM LIST Sob (Shortness of Breath) Other Hypertrophic Cardiomyopathy (Hcc) Essential Hypertension Nsvt (Nonsustained Ventricular Tachycardia) Pre-Op Testing Discharge Planning Issues Coronary Artery Disease Involving [place] Coronary Artery of [place] Heart Without Angina Pectoris Icd (Implantable Cardioverter-Defibrillator) in Place Hocm (Hypertrophic Obstructive Cardiomyopathy) (Hcc) Nonrheumatic Mitral Valve Regurgitation Other Hyperlipidemia Summary A-Fib (Hcc) PAST MEDICAL HISTORY Diagnosis Date Closed displaced fracture of seventh cervical vertebra with routine healing HOCM (hypertrophic obstructive cardiomyopathy) (HCC) Hyperlipidemia Hypertension Long Q-T syndrome PAST SURGICAL HISTORY Procedure Laterality Date HEART SURGERY HX N/A 06/23/2021 s/p MVr and Myectomy - 06/[address] Giraldo HYSTERECTOMY 1990 IMPLANTABLE ICD PLACEMENT 01/19/2021 KNEE SURGERY HX Social History Tobacco Use Smoking status: Former Types: Cigarettes Quit date: 1994 Years since quittin.0 Smokeless tobacco: Never Vaping Use Vaping Use: Never used Substance Use Topics Alcohol use: Yes Comment: rarely Drug use: Never FAMILY HISTORY Problem Relation Age of Onset Heart disease Mother Aneurysm Father ALLERGIES Allergen Reactions Codeine Vomiting Demeral [Meperidine] Vomiting Scallops Other: See Comments Nausea, diarrhea CURRENT MEDICATIONS: metoprolol succinate ER (TOPROL XL) 50 mg 24 hr tablet^TAKE ONE TABLET BY MOUTH DAILY^Disp: 90 tablet^Rfl: 3 aspirin 81 mg chewable tablet^Chew and swallow 1 tablet by mouth once daily.^Disp: 30 tablet^Rfl: 1 loratadine (CLARITIN ORAL)^Take by mouth once daily.^Disp: ^Rfl: estradiol (ESTRACE) 0.01 % (0.1 mg/gram) vaginal cream^Use vaginally two times a week. Patient uses.5 mg^Disp: ^Rfl: gabapentin (NEURONTIN) 300 mg capsule^1 CAP QHS x 5-7 days then 1 cap bid x 5-7 days if tolerated 2caps qhs, 1 in am^Disp: 90 capsule^Rfl: 1 atorvastatin (LIPITOR) 40 mg tablet^Take 40 mg by mouth once daily.^Disp: ^Rfl: melatonin 10 mg cap^Take by mouth daily at bedtime.^Disp: ^Rfl: ASSESSMENT/PLAN Lumbar radiculopathy doing well s/p right l4-5,l5-s1 edd with cyst aspiration - continue back stretching, activity modification - may consider repeat lumbar edd with dr Alva if pain worsens 15 minutes of visit encounter. rtc med spine as needed Imaging Ordered: None SIGNATURE: Shabnam Doss MD PATIENT NAME: Yasmin Fuentes DATE: December 09, 2022 TIME: 3:47 PM [facility] [place] Nurse Note* Monique Tate LPN - 12/09/2022 3:28 PM EST AMB ROOMING INTAKE FLOWSHEET DATA Pain - She feel better after injections. She has been able to decrease her medication and doing herADL's is easier. Pain Level: 1 Pain Location: Back-Lower Description: Dull, Aching Duration Amount of Time: 18 Duration Units: Hours Frequency: Continuous Intervention/Comfort measure: Medication, Reposition, Relaxation Comments: She is not doing any exercises at home. She tries not to sit too long. 10-22-[address] Alva. Monique Tate LPN documented in this encounter[facility] [place] Procedure note* Pino Alva MD - 10/22/2022 1:28 PM EST OPERATIVE/PROCEDURE REPORT Surgery/Procedure Date: October 22, 2022 Surgeon: Pino Alva MD Tobacco Sprayer: none Procedure(s):Operation: 1) right L4-L5 intra-articular facet injection. 2) Right L5-S1 transforaminal epidural steroid injection Pre-Op/Pre-Procedure Diagnosis: Lumbosacral spondylosis without myelopathy Post-Op Diagnosis: same Anesthesia: Local 0mg of IV versed was used with 11 min of intraservice monitoring time. Fluoroscopy time: 47 sec Time In: 13:14 pm Time out: 13:25 pm Estimated Blood Loss: None Specimens: None Drains: None Complications: None INDICATIONS: The patient has been referred by my colleague Dr Doss with concordant subjective, objective, and radiologic findings of Facet arthropathy referred for diagnostic and therapeutic right L4-L5 facet aspiration/rupture and L5-S1 transforaminal epidural steroid injection with failure of prior conservative care with physical therapy and medications alone. At this time, the patient wishes to avoid surgery. This is the patient's 1st injection under my care. PROCEDURE: After obtaining both verbal and written informed consent, the patient was placed in a prone position on the fluoroscopic table in S70 procedure room, the patient's posterior lumbosacral spine was prepped and draped in usual sterile fashion using iodine. The patient was connected to noninvasive blood pressure, EKG, pulse oximetry monitoring, and monitored by a registered interventional nurse throughout the procedure. Before initiating procedure, all relevant information was verified in a time-out. One Skin wheal(s) were raised using 1% preservative-free lidocaine near right L4-L5 facet joint. Through the skin wheal a 22-gauge, 3-1/2-inch curved Quincke- tip spinal needle was inserted and advanced under direct fluoroscopic visualization in the AP, ipsilateral oblique and lateral planes, until the needle tip arrived at the right L4-L5 facet joint (s). Upon entry, I attempted to aspirate and got 0cc of straw colored fluid. Proper needle placement was confirmed with 0.5 cc of Omnipaque-180M nonionic contrast confirming intra- articular contrast without any intravascular uptake of contrast seen under live direct fluoroscopic visualization in the AP, oblique, and lateral planes. At that point, 10 mg Depo-Medrol and 0.5 cc of 1% preservative- free Lidocaine was infused divided evenly. Adequate hemostasis was obtained at the needle puncture site. The patient's back was cleaned and a sterile dressing was applied. The patient was taken conscious and in stable condition to the recovery room. No complications as a result of this procedure. Post procedure precautions and instructions were reviewed with the patient who verbalized understanding. One Skin wheal(s) were raised using 1% preservative-free lidocaine near the right L5-S1 pedicle which was localized by counting from the intersection of the iliac crest. Through the skin wheal a 22-gauge, 3-1/2-inch curved Qu[place]ke-tip spinal needle was inserted and advanced under direct fluoroscopic visualization in the AP, ipsilateral oblique and lateral planes, until the needle tip arrived at the 6 o'clock position of the right L5-S1 pedicle. Proper needle placement was confirmed with 3 cc of Omnipaque-180M nonionic contrast confirming good epidural flow of contrast and flow along the exiting right L5-S1 nerve root without any intravascular uptake of contrast seen under live direct fluoroscopic visualization in the AP, oblique, and lateral planes. At this point 60 mg Depo- Medrol and preservative- free 1% Lidocaine 2 cc were infused in the epidural space. Adequate hemostasis was obtained at the needle puncture site. The patient's back was cleaned and a sterile dressing was applied.The patient was taken conscious and in stable condition to the recovery room. No complications as aresult of this procedure. Post procedure precautions and instructions were reviewed with the patient who verbalized understanding. I/primary surgeon/proceduralist performed the entire procedure. Significant Findings: no clear L4-5 spondylolisthesis. Unable to aspiration facet, able to rupture;also did left L5 TF EDD . Pre-Op Pain: 5. Post-Op Pain: 0. Care Instructions: Discharge per protocol. Medications: See Epic medication section Appointment: Patient to return 5-6 weeks to clinic with pain diary. Consider xray lumbar spine Discharge Condition: Good condition for discharge. Patient discharged home when all discharge criterion met. Pino Alva MD Staff Physician [facility] SIGNATURE: Pino Alva MD PATIENT NAME: Yasmin Fuentes DATE: October 22, 2022 TIME: 1:28 PM PAGER/CONTACT #: documented in this encounterSelect [facility] [place] Nurse Note* Melinda Oro MA - 10/22/2022 12:47 PM EST PATIENT NAME: Yasmin Fuentes 1950 72 year old Current medications and allergies reviewed with patient in visit navigator: Yes Baseline vital signs and pain assessment entered in activity in visit navigator: Yes Manager Payment for post spine injection procedure: Yes First Name: Mckenna Relationship: Daughter Pre-procedure pain level on 0-10 scale 5 Patient gender: Female. Is there any chance the patient could be ? No. Menstrual Date: N/A Undergone Injection in the past: Yes Time since last PO intake: 10/22/22 @ 7:30 AM Any history of adverse reaction or unanticipated events when receiving steroids, iodine, or contrast, as commonly used for CT or MR imaging: No Antibiotic/antifungal administered in the last 2 weeks: No Recent flu symptoms: No Noticed any open skin, sores, or rashes: No Undergone any recent serious medical/dental or surgical procedure: No Diabetic: No Fluoroscopy applicable: currently using an Insulin Pump: No Blood Thinner (anticoagulants/antiplatelet medications): No Klonopin requested: N0 Signed by: Melinda Oro MA October 22, 2022 12:47 PM documented in this encounterSelect [facility] [place] History of Present illness Narrative* Genevieve Schreiber LPN - 10/22/2022 12:36 PM EST NON-SEDATION PROCEDURE FORM October 22, 2022 12:37 PM Room Number: S7-729 Fluoroscopy suite ID verified: Yes Arrived via indpendent ambulation 72 year old Weight: Last 2 Encounter Wt Readings: Date: Wt: 10/13/2022 80.3 kg (177 lb) 07/22/2022 77.1 kg (170 lb) Indication for Procedure (Associated Diagnoses): low back pain Procedure ordered: Transforaminal Lumbar epidural steroid injection: Right; L5- S1 and L4-5 facet cyst aspiration/rupture Verified by patient by: Dr. Alva Manager Payment for post spine injection procedure: Yes Patient mentation: alert, oriented, cooperative Yes Allergies: ALLERGIES Allergen Reactions Codeine Vomiting Demeral [Meperidine] Vomiting Scallops Other: See Comments Nausea, diarrhea Pre-Procedural medication orders:N/A Documented in med note. Pre-procedural orders Discharge / transfer when discharge assessment criteria met: Alert and oriented X3, moves all extremities X4, vital signs stable, injection site flat and dry. Able to ambulate as prior to procedure Sign In Communication: Allergies and medications reviewed. Site of the procedure confirmed:Yes Informed Consent Complete: Yes Relevent diagnostic tests reviewed (i.e., use of anticoagulants, INR, platelet count, imaging, etc.) Yes Critical Information: Proceduralist: Dr. Alva PROCEDURAL TIME OUT: Time out verification includes:Audible time-out documented: Yes. Time: 1310 Correct Patient: Two Patient Identifiers Correct side/ site marking, prep and dry time (If applicable) Accurate Consent Correct Procedure Correct Positioning Safety Precautions Based on Patient History or Medication Team agrees: correct patient, correct procedure, correct site, correct position UNIVERSAL PROTOCOL / SAFETY CHECKLIST Procedure to be Performed: Transforaminal Lumbar epidural steroid injection: Right; L5-S1 and L4-5 facet cyst aspiration/rupture Sign In: A Moment of CARE was completed. Personnel directly involved with the procedure wore the appropriate PPE (Personal Protective Equipment). No special equipment needed. Patient/Surrogate Stated/Verified: PATIENT VERIFIED(optional for EMERGENT procedures): Patient name, Date of , Relevant allergies, and The intended procedure Time Out Communication: Intended patient and procedure match the source documents. Consent documented and matches the intended procedure. Relevant labs, photos, and/or imaging studies have been reviewed. Correct side/site marked and visible. Medications required for procedure verified. Fire risk assessed and interventions discussed. No implant(s) inserted. Sign Out: SIGN OUT (optional for EMERGENT procedures): No specimen collected. All instruments, equipment, possible retained foreign bodies accounted for. Post-procedure follow-up management communicated and Plan of Care Visit completed when applicable. Bhavana Meyer RN Procedure Start time: 1514 Monitors On: NIBP Yes Pulse Oximetry Yes Site Prep: Povidone iodine, allowed to dry for 30 seconds Procedure Events: Vital Signs documented in activity above. Medications given, interventions, and notes: Time: BP Pulse R O2 Sat 1311 158/85 79 18 97 1315 174/79 79 18 98 1319 [id number] 78 18 98 1324 149/92 79 18 98 Omnipaque (iohexol) 180mg/mL SDV volume 50 mL, Lidocaine 1% 10mg/mL SDV volume 30 mL Preservative-Free, Sodium Bicarbonate (NaHCO3) 8.4% 84mg/mL SDV volume 50 mL, and Depo-medrol 80mg/mL Total Fluroscopy time:: 47 seconds. Procedure Finish Time: 1325 SIGN-OUT Dressings Applied to site(s): hypoallergenic transparent Tegaderm with absorbent nonadherent pad Butt concerns for recovery and management of patient reviewed verbally prior to patient leaving procedure room. Post- Procedure Events: Vital Signs documented as below. Medications given, interventions, and notes as needed: Yes Time: BP Pulse R O2 Sat Pain scale 1330 165/82 78 18 98 0 AMBULATORY PATIENT EDUCATION TOPIC: PROCEDURE / SURGERY: Post Procedure Teaching: Symptom Management and Wound Care READINESS TO LEARN COGNITIVE ABILITY: Alert and oriented MOTIVATION TO LEARN: Eager FAMILY SUPPORT: Unable to assess - Family not present INSTRUCTION PROVIDED TO: Patient PATIENT LEARNS BEST BY: Individual Instruction Written Instruction - Hand-outs Verbal Instruction FACTORS AFFECTING LEARNING: None PHYSICAL LIMITATIONS AFFECTING LEARNING: None LEARNING RESPONSE METHOD OF INSTRUCTION: Teach Back post procedure instructions Individual instruction Written instruction - handouts Verbal instruction PATIENT / FAMILY RESPONSE: Verbalizes understanding of: POST-PROCEDURE INSTRUCTIONS-Correct actionsto take to reduce post procedure complications Information received as demonstrated by interest and questions FOLLOW-UP PLAN: Patient instructed to call with any further issues SUPPLEMENTAL MATERIAL: Procedure discharge instructions REFERRAL (RECOMMENDATION): None Electronically Signed By Genevieve Scrheiber LPN In Department: [facility] Discharge assessment: PAIN SCALE: 0 on a scale of 0-10 (0=none, 10=extreme) Discharge: Verbal and written post procedure instructions given to:patient with stated understanding. Discharge prescriptions given to patient (if applicable). medication use explained to patient with stated understanding (if applicable) Patient Discharge to: Home, in the care of responsible adult: patient and patient's family via indpendent ambulation Other: No Follow up as indicated on order: No follow -up Visit, patient instructed to call office 2-4 weeks. Patient reminded to bring pain diary to follow appointment. If follow up appointment indicated on order, patient encouraged to schedule follow up appointment at [address] desk for 2-4 weeks post procedure or by calling [phone] [place] [facility]. Discharge as above criteria met: Yes Condition of surgical/injection site at discharge: dry, intact, other: Yes October 22, 2022 Additional notes: No Discharge time: 1346 documented [facility] [place] History and physical note * Pino Alva MD - 10/22/2022 12:29 PM EST UPDATED PROCEDURAL SEDATION HISTORY AND PHYSICAL EXAMINATION SERVICE DATE: 10/22/2022 SERVICE TIME: 12:30 PM PHYSICAL EXAM MUST BE COMPLETED ON ADMISSION PROCEDURE: Procedure Indications: The History and Physical (completed in the past 30 days) has been reviewed and the patient has beenexamined. The contents accurately reflect the patient's condition with the following additions or revisions since the H&P was completed. ASA Class: Examination indicates no changes. AIRWAY: LUNGS: CARDIAC: , Provisional Diagnosis/Treatment Plan: transforaminal epidural steroid injection This H&P can be found in the Electronic Medical Record dated 10/13/[address] Doss. SIGNATURE: Pino Alva MD PATIENT NAME: Yasmin Fuentes DATE: October 22, 2022 TIME: 12:29 PM documented in this encounter[facility] [place] Miscellaneous Notes* Telephone Encounter - Genevieve Schreiber LPN - 10/14/2022 12:40 PM EST Phoned patient and spoke with Yasmin to confirm appointment for Yasmin Fuentes for spine procedure on 10/22/2022 with the arrival time of 12:30pm for a 1pm schedule time appointment. Patient verbalized understanding of the following: -Provided education on spine procedure and answered questions related to spine injection procedure. -Manager Payment needed and for road driver to wait in lobby on [address] until patient is discharged to drive patient home. -NPO 4 hours prior to appointment, ok to take morning medications with sip of water. -Not to take any pain medications the day of injection to see how well injection works. Allergies reviewed: Yes Allergy to IV contrast dye or steroids: No Taking any antiplatelet/anticoagulant (blood thinners): No Taking aspirin 81mg: Yes Any open wounds/sores?: No Taking Antibiotics?: No Diabetic: No Is this patient's first injection?: Yes, patient notified that IV will be placed for precaution if this is first injection. Patient notified that Klonopin PO can be given prior to injection to help with anxiety. Patient verbalized understanding. Patient given number [phone], spine injections schedulers, if there is any need to reschedule/change appointment during normal business hours. Active MyChart users were informed to read MyChartprocedure instructions prior to appointment. AMBULATORY PATIENT EDUCATION TOPIC: SPINE INJECTION PROCEDURE, PRE-INJECTION AND POST- INJECTION INSTRUCTIONS READINESS TO LEARN COGNITIVE ABILITY: ALERT AND ORIENTED MOTIVATION TO LEARN: Interested FAMILY SUPPORT: Unable to assess - Family not present INSTRUCTION PROVIDED TO: Patient PATIENT LEARNS BEST BY: INDIVIDUAL INSTRUCTION FACTORS AFFECTING LEARNING: None PHYSICAL LIMITATIONS AFFECTING LEARNING: None LEARNING RESPONSE METHOD OF INSTRUCTION: TEACH BACK AND INDIVIDUAL INSTRUCTION PATIENT / FAMILY RESPONSE: VERBALIZED UNDERSTANDING OF PRE AND POST INJECTION INSTRUCTIONS documented in this encounterSelect [facility] [place] History of Present illness Narrative* Shabnam Doss MD - 10/13/2022 11:35 AM EST SPINE CARE PATH RADICULAR LEG PAIN: ACUTE FOLLOW-UP SUBJECTIVE HISTORY OF PRESENT ILLNESS: Reason for Visit: 10 weeks ffup for cardiomyopathy aicd long qt 10 months right leg >back pain but worse right lateral leg to foot pain - takes care of with cognitive issues Yasmin Fuentes is seen for 2 month follow up. last seen on video visit. She is feeling the same.c/o right buttock, lateral leg pain L5 worse with walking, standing, prolong sitting . walk 10 minutes - has to rest more.no weakness. no bowel or urinary difficulties. stopped neurontin few weeks ago ,no relief. The distribution of symptoms is unchanged. Pain is currently 4-8/10 out of 10. Other Issues Addressed at the Visit Today: None. Interim treatment has included PT x 6 weeks 12 sessions tylenol 650 chiropractic Adherence with treatment has been excellent. Adverse Effects: None Interim Studies Obtained and Reviewed: LUmbar mri 07/05 personally reviewed Conus: The conus is within normal limits of signal intensity and morphology. Paraspinal soft tissues: Paraspinal soft tissues are within normal limits. Lower thoracic spine: Visualized lower thoracic canal and foramina are patent. T12-L1: Canal and foramina are patent. L1-L2: Canal and foramina are patent. L2-L3: Minimal disc bulging. No significant spinal canal or foraminal stenosis. L3-L4: Disc height loss and bulging with endplate osteophytes and facet hypertrophy. Mild narrowing of the spinal canal and right subarticular zone. Moderate left and mild right foraminal stenosis. L4-L5: 0.6 x 0.6 x 0.9 cm right subarticular sinoatrial cyst causing severe encroachment of the right subarticular zone and likely impingement of the right L5 nerve root. Overall moderate spinal canal stenosis. Facet hypertrophy, disc bulging and endplate osteophytes also contribute to moderate-severe right and mild left foraminal stenosis. L5-S1: Disc height loss and bulging with endplate osteophytes and facet hypertrophy. Mild crowding of the subarticular zones and the remainder of the spinal canal is patent. Moderate bilateral foraminal stenosis. Sacrum and iliac wings: Few sacral Tarlov cysts. right l4-5 facet cyst nfs mod to severe right, mild left mod l4-5 central stenosis l5s1 mod bilateral nfs YELLOW & BLUE FLAGS YES-Avoiding Activity (for Fear of Pain) No-Depression or Anxiety Disorders No-Social Problems No-Substance Use Disorder Patient Entered Questionnaires Spine Questions 07/21/2022 10/10/2022 Pain Location: Lower back Lower back Pain Duration: 6 months - 1 year - Pain over last 6 months: Every day or nearly every day in the past 6 months - Symptoms from neck/cervical spine: No No Employment Status: Retired Retired Involved in law suit/legal claim: No - Spine Red Flags 07/21/2022 10/10/2022 Any type of cancer: No No Unexplained fever: No No Bowel or bladder disfunction: No No Unintentional weight loss: No No Osteoporosis: No No PROMIS Score Percentiles Physical Health 07/21/2022 10/10/2022 Physical Function Percentile 12 4 Sleep Percentile 42 38 Fatigue Percentile 18* 10 Pain Interference Percentile 4 12 PROMIS SOCIAL ROLE SCORE 07/21/2022 10/10/2022 Social Role Satisfaction Percentile 31 24* PROMIS Global Health Scale 07/21/2022 10/10/2022 Physical Health Percentile 10 - Mental Health Percentile 26* 19* Percentiles provide an indication of how the patient's score ranks in relation to the general population. Higher percentile rankings indicate better function/quality of life. 50th percentile is the average of the general population and indicates half of respondents had a worse score. Depression Screening: PHQ-9 07/21/2022 10/10/2022 Score 4 5 PHQ-9 Self Harm 07/21/2022 10/10/2022 Question 9 Not at all Not at all PHQ-9 Self-Harm (Item 9) response options: 0 Not at all 1 Several days 2 More than half the days 3 Nearly every day PHQ-9 Levels: 0-4 No - mild depression 5-9 Mild depression 10-14 Moderate depression 15-19 Moderately severe depression 20-27 Severe depression PAST MEDICAL HISTORY Diagnosis Date Closed displaced fracture of seventh cervical vertebra with routine healing HOCM (hypertrophic obstructive cardiomyopathy) (HCC) Hyperlipidemia Hypertension Long Q-T syndrome ALLERGIES Allergen Reactions Codeine Vomiting Demeral [Meperidine] Vomiting Scallops Other: See Comments Nausea, diarrhea Current Outpatient Medications Medication Sig Dispense Refill metoprolol succinate ER (TOPROL XL) 50 mg 24 hr tablet TAKE ONE TABLET BY MOUTH DAILY 90 tablet 3 loratadine (CLARITIN ORAL) Take by mouth once daily. estradiol (ESTRACE) 0.01 % (0.1 mg/gram) vaginal cream Use vaginally two times a week. Patient uses.5 mg gabapentin (NEURONTIN) 300 mg capsule 1 CAP QHS x 5-7 days then 1 cap bid x 5-7 days if tolerated 2caps qhs, 1 in am 90 capsule 1 aspirin 81 mg chewable tablet Chew and swallow 1 tablet by mouth once daily. 30 tablet 1 atorvastatin (LIPITOR) 40 mg tablet Take 40 mg by mouth once daily. melatonin 10 mg cap Take by mouth daily at bedtime. Current Facility-Administered Medications Medication Dose Route Frequency Provider Last Rate Last Admin perflutren lipid microspheres 1.3 mL in NaCl (PF) 0.9% 10 mL injection (DEFINITY) INTRAVENOUS DIRECTED PRN Matilde Spicer APRN.AD OPERATIONS COORDINATOR sodium chloride 0.9 % (flush) 10 mL (BD POSIFLUSH) 10 mL INTRAVENOUS DIRECTED PRN Matilde Spicer APRN.[place] REVIEW OF SYSTEMS: GENERAL: Denies fever, chills malaise and weight loss. HEENT: No recent change in vision or hearing. CARDIOVASCULAR: Denies chest pain, history of A-fib, valvular disease, or pacemaker/ICD. RESPIRATORY: Denies SOB, sputum production, and hemoptysis. GI: Denies GI ulcers, inflammatory disease, or liver disease. : Denies change in frequency or urgency, kidney disease, and burning with urination. OBJECTIVE PHYSICAL EXAM: BP 142/80 Pulse (!) 59 Resp 14 Ht 165.1 cm (5' 5 ) Wt 80.3 kg (177 lb) SpO2 97% BMI 29.45 kg/m The patient is a thin female who is cooperative. The patient's gait is normal. Posture and spinal curves are normal. Patient has palpable muscle spasm and/or tenderness midline . Flexion of the lumbar spine is decreased. Extension is decreased. Hip range of motion is full without pain; bilateral. Trochanteric tenderness is not present bilaterally. Patellar reflexes are Trace right, and 1-2+ Hypo-active left. Achilles reflexes are 2+ Normal rightand 2+ Normal left. Lower extremity muscle strength is normal. Tone is within normal limits. Straight leg raise test isnegative; bilaterally. Sensation to light touch is within normal limits bilaterally. fabers ASSESSMENT/PLAN (M54.16) Radiculopathy, lumbar region (primary encounter diagnosis) Comment: right L5 l4-5 severe nfs = facet cyst Plan: SPINE INTERVENTION PROCEDURE for l4-5 right edd, cyst aspiration if possible - light stretching - activity modification - update 4 weeks may consider repeat injections vs surgical consult Imaging Ordered: None SIGNATURE: Shabnam Doss MD PATIENT NAME: Yasmin Fuentes DATE: October 13, 2022 TIME: 11:35 AM documented in this encounterSelect [facility] [place]-30-[facility] Miscellaneous Notes* Telephone Encounter - Usha Zazuetadaniel - 08/13/2022 2:06 PM EDT Call from patient requesting refill. Requested Prescriptions Pending Prescriptions Disp Refills metoprolol succinate ER (TOPROL XL) 50 mg 24 hr tablet [Pharmacy Med Name: METOPROLOL SUCC ER 50 MGTAB] 90 tablet 3 Sig: TAKE ONE TABLET BY MOUTH DAILY Patient last seen 10/15/2021 Usha Rios documented in this encounterSelect [facility] [place]-20[facility] Nurse Note* Monique Tate LPN - 07/22/2022 5:20 PM EDT Left message on identified VM . Let him/her know I am calling for chart update prior to virtual visit. I told them I have more questions than what is on Zoom check in. My name and number with extension left on VM for return call. Monique Tate LPN documented in this encounterSelect [facility] [place]09-08-2022 History of Present illness Narrative* Shabnam Doss MD - 07/22/2022 3:51 PM EDT Images from the original note were not included. SPINE CARE PATH LOW BACK PAIN: INTIAL This is a distance health virtual visit cardiomyopathy aicd long qt 10 months right leg >back pain but worse right lateral leg to foot pain - takes care of with cognitive issues SUBJECTIVE HISTORY OF PRESENT ILLNESS: Yasmin Fuentes is a 71 year old female who presents with right leg pain Other Issues Addressed at the Visit Today: none Precipitating Event: none FUNCTIONAL STATUS: fair PAIN EVALUATION 07/22/2022 1552 Pain Level: -- Ranges from 3 to 9 Pain Location: -- Leg hurts worse than back. Description: Burning;Aching;Sharp Deep Ache. Sometimes sharp and hot. Duration Amount of Time: 10 Duration Units: Months Progressively worse. Frequency: Continuous Intervention/Comfort measure: Medication;Reposition;Relaxation;Exercise Comments: She went to PT for 6 weeks - twice a week. She has not had injections for the pain. Pain Radiation: the leg pain is more right L5 intermittent, daily aching,sharp 3-10 /10 the low back pain is mild,intermittent Aggravating Factors: variable with walking prolong sitting walk- 5-10 minutes at times can walk more + leg heaviness with prolong activity Alleviating Factors: rest sleep Prior Therapy: PT x 6 weeks 12 sessions tylenol 650 chiropractic gabapentin- none - Litigation: No Workers' Compensation: No imaging reviewed LUmbar mri 07/05 personally reviewed Conus: The conus is within normal limits of signal intensity and morphology. Paraspinal soft tissues: Paraspinal soft tissues are within normal limits. Lower thoracic spine: Visualized lower thoracic canal and foramina are patent. T12-L1: Canal and foramina are patent. L1-L2: Canal and foramina are patent. L2-L3: Minimal disc bulging. No significant spinal canal or foraminal stenosis. L3-L4: Disc height loss and bulging with endplate osteophytes and facet hypertrophy. Mild narrowing of the spinal canal and right subarticular zone. Moderate left and mild right foraminal stenosis. L4-L5: 0.6 x 0.6 x 0.9 cm right subarticular sinoatrial cyst causing severe encroachment of the right subarticular zone and likely impingement of the right L5 nerve root. Overall moderate spinal canal stenosis. Facet hypertrophy, disc bulging and endplate osteophytes also contribute to moderate-severe right and mild left foraminal stenosis. L5-S1: Disc height loss and bulging with endplate osteophytes and facet hypertrophy. Mild crowding of the subarticular zones and the remainder of the spinal canal is patent. Moderate bilateral foraminal stenosis. Sacrum and iliac wings: Few sacral Tarlov cysts. right l4-5 facet cyst nfs mod to severe right, mild left YELLOW & BLUE FLAGS No-Depression or Anxiety Disorders No-Social Problems No-Substance Use Disorder No-Job Dissatisfaction No-Financial Disincentives Patient Entered Questionnaires Spine Questions 07/21/2022 Pain Location: Lower back Pain Duration: 6 months - 1 year Pain over last 6 months: Every day or nearly every day in the past 6 months Symptoms from neck/cervical spine: No Employment Status: Retired Involved in law suit/legal claim: No Spine Red Flags 07/21/2022 Any type of cancer: No Unexplained fever: No Bowel or bladder disfunction: No Unintentional weight loss: No Osteoporosis: No PROMIS Score Percentiles Physical Health 07/21/2022 Physical Function Percentile 12 Sleep Percentile 42 Fatigue Percentile 18* Pain Interference Percentile 4 PROMIS SOCIAL ROLE SCORE 07/21/2022 Social Role Satisfaction Percentile 31 PROMIS Global Health Scale 07/21/2022 Physical Health Percentile 10 Mental Health Percentile 26* Percentiles provide an indication of how the patient's score ranks in relation to the general population. Higher percentile rankings indicate better function/quality of life. 50th percentile is the average of the general population and indicates half of respondents had a worse score. Depression Screening: PHQ-9 07/21/2022 Score 4 PHQ-9 Self Harm 07/21/2022 Question 9 Not at all PHQ-9 Self-Harm (Item 9) response options: 0 Not at all 1 Several days 2 More than half the days 3 Nearly every day PHQ-9 Levels: 0-4 No - mild depression 5-9 Mild depression 10-14 Moderate depression 15-19 Moderately severe depression 20-27 Severe depression ACTIVE PROBLEM LIST Sob (Shortness of Breath) Other Hypertrophic Cardiomyopathy ([facility]) Essential Hypertension Nsvt (Nonsustained Ventricular Tachycardia) ([facility]) Pre-Op Testing Discharge Planning Issues Coronary Artery Disease Involving [place] Coronary Artery of [place] Heart Without Angina Pectoris Icd (Implantable Cardioverter-Defibrillator) in Place Hocm (Hypertrophic Obstructive Cardiomyopathy) ([facility]) Nonrheumatic Mitral Valve Regurgitation Other Hyperlipidemia Summary A-Fib ([facility]) PAST MEDICAL HISTORY Diagnosis Date Closed displaced fracture of seventh cervical vertebra with routine healing HOCM (hypertrophic obstructive cardiomyopathy) ([facility]) Hyperlipidemia Hypertension Long Q-T syndrome PAST SURGICAL HISTORY Procedure Laterality Date HEART SURGERY HX N/A 06/23/2021 s/p MVr and Myectomy - 06/[address] Giraldo HYSTERECTOMY 1989 IMPLANTABLE ICD PLACEMENT 01/19/2021 KNEE SURGERY HX Social History Tobacco Use Smoking status: Former Types: Cigarettes Quit date: 1994 Years since quittin.7 Smokeless tobacco: Never Vaping Use Vaping Use: Never used Substance Use Topics Alcohol use: Yes Comment: rarely Drug use: Never FAMILY HISTORY Problem Relation Age of Onset Heart disease Mother Aneurysm Father ALLERGIES Allergen Reactions Codeine Vomiting Demeral [Meperidine] Vomiting Scallops Other: See Comments Nausea, diarrhea CURRENT MEDICATIONS: metoprolol succinate ER (TOPROL XL) 50 mg 24 hr tablet^Take 1 tablet by mouth once daily.^Disp: 90 tablet^Rfl: 3 aspirin 81 mg chewable tablet^Chew and swallow 1 tablet by mouth once daily.^Disp: 30 tablet^Rfl: 1 loratadine (CLARITIN ORAL)^Take by mouth once daily.^Disp: ^Rfl: atorvastatin (LIPITOR) 40 mg tablet^Take 40 mg by mouth once daily.^Disp: ^Rfl: melatonin 10 mg cap^Take by mouth daily at bedtime.^Disp: ^Rfl: estradiol (ESTRACE) 0.01 % (0.1 mg/gram) vaginal cream^Use vaginally two times a week. Patient uses.5 mg^Disp: ^Rfl: ASSESSMENT/PLAN Chronic intermittent right lumbar radiculopathy l4/5 prob relates to l4-5 nfs right, synovial cyst - mri reviewed in detail options for surgery, lumbar edd, neurontin discussed she is familiar with neurontin as takes it - start neurontin 300 qhs to titrate every 5-7 days until 2 at night, 1 in am,advised to watch out for nausea, dizziness, sedation, black box warning for worsening depression also advise to discuss with cardiology with hx of long qt syndrome - activity modification counselling - continue back exercises -rtc 6 weeks video visit consider further titration if tolerated or consider lumbar epidural steroid injections 32 minutes spent with encounter visit SIGNATURE: Shabnam Doss MD PATIENT NAME: Yasmin Fuentes DATE: July 22, 2022 TIME: 3:51 PM * Monique Tate LPN - 07/22/2022 3:49 PM EDT AMB ROOMING INTAKE FLOWSHEET DATA Pain - Right sided low back pain. Pain radiates laterally to her top of her foot. Pain Level: (Ranges from 3 to 9) Pain Location: (Leg hurts worse than back.) Description: Burning, Aching, Sharp (Deep Ache. Sometimes sharp and hot.) Duration Amount of Time: 10 Duration Units: Months (Progressively worse.) Frequency: Continuous Intervention/Comfort measure: Medication, Reposition, Relaxation, Exercise Comments: She went to PT for 6 weeks - twice a week. She has not had injections for the pain. Monique Tate LPN She has a defibrillator / pacemaker that must be turned off for MRI. Monique Tate LPN documented in this encounterSelect [facility] [place]-29-[facility] History of Present illness Narrative* Sarahi Panchal RN - 07/12/2022 3:37 PM EDT Radiology Service Progress Note PATIENT NAME: Yasmin Fuentes DATE OF SERVICE: July 12, 2022 TIME: 3:37 PM PATIENT IDENTITY VERIFICATION COMPLETED USING TWO (2) STANDARD IDENTIFIERS: Name and Date of confirmed by patient verbally. PATIENT GENDER DATA: Female. status: : No status: NO. PATIENT RELEVANT IMPLANT DATA REVIEWED: Yes ALLERGIES: Reviewed and unchanged MEDICATIONS REVIEWED: YES PROCEDURE: MRI - Conditional Pacemaker IV SITE: WITHOUT CONTRAST PERIPHERAL IV ACCESS: Not applicable PATIENT TOLERATED PROCEDURE: Without incident. PATIENT DISCHARGED TO: Home/Self Care SIGNED BY: Sarahi Panchal RN July 12, 2022 3:37 PM documented in this encounterSelect [facility] [place]08-29-2022 History of Present illness Narrative* RT Kp(R) - 07/12/2022 3:10 PM EDT Radiology Service Progress Note PATIENT NAME: Yasmin Fuentes DATE OF SERVICE: July 12, 2022 TIME: 3:37 PM PATIENT IDENTITY VERIFICATION COMPLETED USING TWO (2) IDENTIFIERS: Name and Date of confirmedby patient verbally. FALL SCREENING: Has the patient had 2 falls in the last year or 1 fall with injury or currently using an Ambulatory Assistive Device (Walker, Cane, Wheelchair, Crutches, etc.)? No PATIENT GENDER DATA: Female. status: : No status: NO. PATIENT RELEVANT IMPLANT DATA REVIEWED: Yes Pt has BSX D142 Inogen, all safety precautions followed RADIOLOGY DEPARTMENT: MR; Exam(s) Completed: Spine: Lumbar spine PERIPHERAL IV DATA: Not applicable SIGNED BY: RT Kp(R) July 12, 2022 3:37 PM documented in this encounterSelect [facility] [place] Hospital Discharge instructions Patient Education 05/12/2022 14:09:41 Urethral Stricture Urethral Stricture Urethral stricture is narrowing of the tube (urethra) that carries urine from the bladder out of the body. The urethra can become narrow due to scar tissue from an injury or infection. This can make it difficult to pass urine. In women, the urethra opens above the vaginal opening. In men, the urethra opens at the tip of the penis, and the urethra is much longer than it is in women. Because of the length of the male urethra, urethral stricture is much more common in men. This condition is treated with surgery. What are the causes? In both men and women, common causes of urethral stricture include: Urinary tract infection (UTI). Sexually transmitted infection (STI). Use of a tube placed into the urethra to drain urine from the bladder (urinary catheter). Urinary tract surgery. In men, common causes of urethral stricture include: A severe injury to the pelvis. Prostate surgery. Injury to the penis. In many cases, the cause of urethral stricture is not known. What increases the risk? You are more likely to develop this condition if you: Are male. Men who have had prostate surgery are at risk of developing this condition. Use a urinary catheter. Have had urinary tract surgery. What are the signs or symptoms? The main symptom of this condition is difficulty passing urine. This may cause decreased urine flow, dribbling, or spraying of urine. Other symptom of this condition may include: Frequent UTIs. Blood in the urine. Pain when urinating. Swelling of the penis in men. Inability to pass urine (urinary obstruction). How is this diagnosed? This condition may be diagnosed based on: Your medical history and a physical exam. Urine tests to check for infection or bleeding. X-rays. Ultrasound. Retrograde urethrogram. This is a type of test in which dye is injected into the urethra and then an X-ray is taken. Urethroscopy. This is when a thin tube with a light and camera on the end (urethroscope) is used tolook at the urethra. How is this treated? This condition is treated with surgery. The type of surgery that you have depends on the severity of your condition. You may have: Urethral dilation. In this procedure, the narrow part of the urethra is stretched open (dilated) with dilating instruments or a small balloon. Urethrotomy. In this procedure, a urethroscope is placed into the urethra, and the narrow part of the urethra is cut open with a surgical blade inserted through the urethroscope. Open surgery. In this procedure, an incision is made in the urethra, the narrow part is removed, and the urethra is reconstructed. Follow these instructions at home: Take [id number] and prescription medicines only as told by your health care provider. If you were prescribed an antibiotic medicine, take it as told by your health care provider. Do notstop taking the antibiotic even if you start to feel better. Drink enough fluid to keep your urine pale yellow. Keep all follow-up visits as told by your health care provider. This is important. Contact a health care provider if: You have signs of a urinary tract infection, such as: ?Frequent urination or passing small amounts of urine frequently. ?Needing to urinate urgently. ?Pain or burning with urination. ?Urine that smells bad or unusual. ?Cloudy urine. ?Pain in the lower abdomen or back. ?Trouble urinating. ?Blood in the urine. ?Vomiting or being less hungry than normal. ?Diarrhea or abdominal pain. ?Vaginal discharge, if you are female. Your symptoms are getting worse instead of better. Get help right away if: You cannot pass urine. You have a fever. You have swelling, bruising, or discoloration of your genital area. This includes the penis, scrotum, and inner thighs for men, and the outer genital organs (vulva) and inner thighs for women. You develop swelling in your legs. You have difficulty breathing. Summary Urethral stricture is narrowing of the tube (urethra) that carries urine from the bladder out of the body. The urethra can become narrow due to scar tissue from an injury or infection. This condition can make it difficult to pass urine. This condition is treated with surgery. The type of surgery that you have depends on the severity of your condition. Contact a health care provider if your symptoms get worse or you have signs of a urinary tract infection. This information is not intended to replace advice given to you by your health care provider. Make sure you discuss any questions you have with your health care provider. Document Released: 11/26/2016 Document Revised: 06/13/2019 Document Reviewed: 06/13/2019 [employer] Patient Education 2020 FND. Follow Up Care 03/16/2021 10:10:57 With:CHELITA GALLARDO PA-C, URL Address: [address] [place] [address] [phone] When: Unknown [facility] 11-08-2021 History of Present illness Narrative* Keena Piedra RN - 09/21/2021 11:34 AM EST Phase II Cardiac Rehab Individualized Treatment Plan-Initial Patient Name: Yasmin Fuentes Date of Initial Assessment: 09/21/2021 Diagnosis: MV repair Onset Date: 06/23/21 Referring Physician: Dr. Gideon Gonsales Risk Stratification: mod Session Number: 1 EXERCISE Stages of Change: [] pre-contemplation [x] Action [] Contemplate [] Maintainence [] Prep [] Relapse Exercise Prescription: Mode: [x] TM [x] B [x] STP [x] R [x] UBE [x] EL Frequency: 3 days per week Duration: 31-60 minutes Intensity: 3.0 THRR: 120-127 Progression: Based on risk stratification, may increase duration per F.I.T.T. protocol parameters on average 5-10 minutes every 1-2 weeks for the first 4-6 weeks. After 3-4 weeks completed, continue to gradually increase F.I.T.T. parameters gradually at the established duration on average 0.5-1.0 METs per 30 days over the course of the remaining program, as established by patient centered goals and guidelines, maintaining RPE 12-16. [] Angina with Exertion [] Resistance Training Introduce 8-15 bilateral upper extremity resistance exercise at 1-3 sets per lift, on 2-3 non-consecutive days using TheraBand/Weights to 8-15 reps on at lease 2 occasions, maintaining RPE 12-16. Once repetition maximum has been achieved, additional weight sets may be added. Hypertension: [x] Yes [] No Resting BP: 108/60 Peak Exercise BP: 168/72 BP Meds: metoprolol Intervention: Home Exercise: Type: walking Duration: 20-30 minutes Frequency: At least 2 non-rehab days per week [] Resistance Training Progression: Introduce 8-15 bilateral upper extremity resistance exercise at 1-3 sets per lift, on 2 non-consecutive days using TheraBand/Weights to 8-15 reps on at lease 2 occasions. Once repetition maximum has been achieved, additional weight sets may be added. Education: [x] Equipment [place] [] Proper use weights/therabands [x] S/S to report [] Low Na Diet [x] Warm up/ Cool down [] BP Medication [x] RPE Scale [] Understand BP [x] Ex Safety [] Home Exercise Target Goal: -Individual Exercise Plan -BP<140/90 or <130/80 if DM -Aerobic active 30 + minutes 5-7 days per week Nutrition Stages of Change: [] pre-contemplation [x] Action [] Contemplate [] Maintainence [] Prep [] Relapse Lipids: done at [facility]; results not shared Total Cholesterol: Triglycerides: HDL: LDL: 75 Lipid Meds: lipitor 40 mg Diabetes: [] Yes [x] No FBS: HbA1c: Diabetes Medication: [] Monitor BS at home Frequency?: Weight Management: Weight: 175.8 lb Height:5 ft 5 in BMI: 29.4 Waist Circumference:34 inches Wt Goal: Reduce weight 1-2 lbs/wk Alcohol: Social History Substance and Sexual Activity Alcohol Use Yes Comment: social Diet Assessment Tool: [x] Food Diary Rate My Plate Score: 48 Special Diet: 2 gram NA+, 30% total fat, <10% saturated fat, 25-35 grams fiber, reduced cholesterol, balanced nutrition Intervention: [] Dietitian Consult [x] Nurse/Patient Discussion [] Diabetes [] Referred to Diabetes Education Education: [] S&S hypo/hyperglycemia [] Low fat/low cholesterol diet [] Weight loss [] Relate Diabetes/CAD [] Eating heart healthy handout Target Goal: -LDL-C<100 if triglycerides are > 200 -LDL-C < 70 for high risk patients -HbA1c < 7% -BMI < 25 -Waist Circumference < 35 inches women/40 inches men Education Stages of Change: [] pre-contemplation [x] Action [] Contemplate [] Maintainence [] Prep [] Relapse Learning Barriers: [] Speech [] Cognitive [] Literacy [] Vision [] Hearing [x] Readiness to Learn Knowledge test score: 66% Family support: [x] Yes [] No Tobacco use: Social History Tobacco Use Smoking Status Former Smoker Smokeless Tobacco Never Used Intervention: [] Referred to physician for smoking cessation [] Individual education and counseling [] Tobacco adjunct Education: [] Risk Factors [] Psychological aspects [] Angina [] Medications [] CHF [] Cardiac A&P Target Goal: -Complete cessation of tobacco use (if applicable) -Continued risk factor modifications -Recognizing signs/symptoms to report -Proper use of meds Psychosocial Stages of Change: [] pre-contemplation [x] Action [] Contemplate [] Maintainence [] Prep [] Relapse Psychosocial Test: Tool Used: Anrdei Quality of Life Score: 23 PHQ9 score: 5 Intervention: [] Psych Consult/oncology social worker [] Uses stress management skills [] Physician Referral Medications: Education: [] Stress Management [] Depression Target Goal: -Assess presence or absence of depression using a valid screening tool. -Maximize coping skills. -Positive support system. Preventative Medication: [] Aspirin [x] Beta Blockade [x] Statin or other lipid lowering agent [] Clopidogrel [] OLGA Inhibitor/ARB [x] Other anticoagulation medications Medication compliance: 100% Fall Risk assess: [x] Yes [] No low Risk Assistive Device: [] Cane [] Walker [] Wheel Chair [] Gait belt [x] NA Patient Goals: -Increase heart health -Establish regular exercise routine to maintain on own Program Goals: Increase stamina, strength, and flexibility by exercising 31-50 total minutes by engaging in aerobic, resistance, and flexibility workout modalities with the goal of progressively achieving at least 0.5 to 1.0 metabolic equivalant improvement in the next 30 days as evidenced by daily session reports. Patient started program at 3.0 mets. Achieve and progress prescribed exercise frequency, intensity, time, and type based upon initial evaluation and submaximal graded exercise results as evidenced by the attaining and maintaining the prescribed target heart rate range, a Saul rating of perceived exertion between 11 and 16, duration of>30 50 minutes using multiple exercise modes for at least 3 5 days per week to accumulate a minimum total of 2.5 hours per week of moderate aerobic intensity exercise, as tolerated, evidenced by daily session reports and home workout log. RPE at initial session 11-12. Gradually lose 1 4 lb of body weight over the program, through moderating nutrional intake and performing regular aerobic and strength training exercises as prescribed with improvement evidenced by daily session report comparison. Initial weight of 175.89 lb; BMI of 29.4. Decrease waist circumference by program completion if waist measurement is > or = 40 inches (male) / > or = 35 inches (female). Initial waist circumference 34 inches. Introduce and progress 8-10 different bilateral UE and LE progressive resistance exercises focused on major muscle groups using 1-3 sets each per lift, on 2-3 non-consecutive days implementing free and machine weights and/or TheraBands, as appropriate, with a resistance of 40-60% 1-repetition maximum or 10 -15 repetitions to progressive overload and increasing resistance once repetitions have progressed to 15 reps and feel fairly light on 2 prior occasions. Staff will introduce in future sessions. Achieve and maintain an optimal average resting blood pressure of <130 / 80 mmHg, or as indicated by this patient's referring provider. BP response at initial session appropriate. Strive for blood lipid optimization with an LDL-C of <100 mg/dL or LDL 70 mg/dL, an HDL-C of > or = 40 mg/dL for men and > or = 50 mg/dL for women, and a triglyceride level of <150 mg/dL via lifestyle education, behavioral modification, and self-reported medication compliance. No current results available. Currently on Lipitor 40 mg daily. Develop regular home aerobic exercise program for 20 60 minutes at least 2 non- rehab days per week,excluding 5 10 minutes warm-up and cool-down periods, being tracked on home workout log. Patient not currently exercising at home. Minimize self-reported psycho-social feelings of stress in the next 30 days as evidenced by pre- and post- surveys and by routine rounding with patient to ascertain subjective improvements. Initial PHQ-9 score of 5. Establish individualized, heart healthy diet per cork painter and grader recommendations, as evidenced by pre- and post-program nutriton survey and routine rounding with patient to ascertain progression toward goal per patient's self-report, food diary, and [id number] screening survey. Initial rate your plate score of 48. Demonstrate knowledge about risk factor reduction, lifestyle modification, and heart health strategies with with an increase of >=5% accuracy via pre- and post-program education assessment screening tool. Staff will provide education during rehab sessions. Physician Changes/Comments: * Keena Piedra RN - 09/21/2021 9:30 AM EST Phase II Cardiac Rehabilitation Physician Order Form Yasmin Fuentes 1950 [id number] 09/21/2021 [x] Phase 2 ECG Monitored Cardiac Rehabilitation [] CT [] PTCA with/without stents [] CABG [x] Heart Valve Repair/Replaced [] Stable Angina [] Other: [] CHF Onset Date: 06/23/21 Cardiac Education Goals: (see individualized treatment plan for specific goals, progression & compliance) [x] Hypertension [x] Physical Inactivity [x] A & P [] Smoking [x] Coping/Depression [x] Medications [] Diabetes [x] Obesity [x] Angina [x] Hyperlipidemia [x] Stress [x] Home Exercise Prescribed Exercise Plan: Target Hr: 120-127 Duration: 31 - 60 Minutes Frequency: 3 Days per week Initial Met Level: 3.0 Limitations: none Modalities: [x]Treadmill [x] UBE [x] Seated Stepper [x] Rowing Machine [x] Weights/therabands [x] Elliptical Aerobic exercise to total 31-60 minutes. Progressing by 1-5 minutes per week and/or 1-2 levels per week per patient tolerance using various modalities; according to Saul Scale 12-16 and THR Introduce 8-12 bilateral UE and LE progressive resistance exercises at 1-3 sets per lift, on 2-3 non-consecutive days TheraBands and weights to 8-24 # for 8-15 reps to progressive overload by increasing resistance once reps progressed to at least 15 reps on at least 2 occasions Per patient symptoms use: Appropriate ACLS Algorhythm for Cardiac Events. Nitroglycerine 0.4mg SLq 5mins X 3 for angina pain. 12 lead EKG for c/o chest pain or change in rhythm. Nasal O2 for SaO2 <90% or symptoms warranted. Blood sugar monitoring for Hyper/Hypoglycemia symptoms. [facility] Work Phone: 1(179) 629-116408-12-2021 History of Past illness Narrative* Problem Noted Date Resolved Date Atelectasis 06/25/2021 06/26/2021 Overview: History: Postoperative. Assessment: Bibasilar atelectasis on CXR. Plan: Continue to encourage PEP/BPH, OOB, PT/OT, and optimize pain control. Hypervolemia 06/24/2021 06/26/2021 Overview: S/P Myectomy, MVr Assessment: +1752cc/24hr Plan: Start gentle diuresis today. On mechanically assisted ventilation 06/23/2021 06/24/2021 Overview: History: OR Assessment: Grade 1-glidscope planned Plan: WTE when awake and stable Hypovolemia 06/23/2021 06/24/2021 Overview: .History: OR Assessment: Post op fluid shifts Plan: IVF replacement prn Stress hyperglycemia 06/23/2021 06/26/2021 Overview: History: No DM history No results found for: HBA1C Assessment: Perioperative insulin resistance and exacerbation of hyperglycemia. Plan: RHI infusion per CVICU nomogram to maintain BG <150 mg/dL. Post-op pain 06/23/2021 06/26/2021 Overview: History: Postoperative. Assessment: Pain well controlled on current regimen. Plan: Continue scheduled Tylenol. Continue oxycodone IR as needed for breakthrough pain. documented as of this encounter (statuses as of 07/12/2022) [facility]08-12-2021 History of Past illness Narrative* Problem Noted Date Resolved Date Atelectasis 06/25/2021 06/26/2021 Overview: History: Postoperative. Assessment: Bibasilar atelectasis on CXR. Plan: Continue to encourage PEP/BPH, OOB, PT/OT, and optimize pain control. Hypervolemia 06/24/2021 06/26/2021 Overview: S/P Myectomy, MVr Assessment: +1752cc/24hr Plan: Start gentle diuresis today. On mechanically assisted ventilation 06/23/2021 06/24/2021 Overview: History: OR Assessment: Grade 1-glidscope planned Plan: WTE when awake and stable Hypovolemia 06/23/2021 06/24/2021 Overview: .History: OR Assessment: Post op fluid shifts Plan: IVF replacement prn Stress hyperglycemia 06/23/2021 06/26/2021 Overview: History: No DM history No results found for: HBA1C Assessment: Perioperative insulin resistance and exacerbation of hyperglycemia. Plan: RHI infusion per CVICU nomogram to maintain BG <150 mg/dL. Post-op pain 06/23/2021 06/26/2021 Overview: History: Postoperative. Assessment: Pain well controlled on current regimen. Plan: Continue scheduled Tylenol. Continue oxycodone IR as needed for breakthrough pain. documented as of this encounter (statuses as of 07/12/2022) [facility]08-12-2021 History of Past illness Narrative* Problem Noted Date Resolved Date Atelectasis 06/25/2021 06/26/2021 Overview: History: Postoperative. Assessment: Bibasilar atelectasis on CXR. Plan: Continue to encourage PEP/BPH, OOB, PT/OT, and optimize pain control. Hypervolemia 06/24/2021 06/26/2021 Overview: S/P Myectomy, MVr Assessment: +1752cc/24hr Plan: Start gentle diuresis today. On mechanically assisted ventilation 06/23/2021 06/24/2021 Overview: History: OR Assessment: Grade 1-glidscope planned Plan: WTE when awake and stable Hypovolemia 06/23/2021 06/24/2021 Overview: .History: OR Assessment: Post op fluid shifts Plan: IVF replacement prn Stress hyperglycemia 06/23/2021 06/26/2021 Overview: History: No DM history No results found for: HBA1C Assessment: Perioperative insulin resistance and exacerbation of hyperglycemia. Plan: RHI infusion per CVICU nomogram to maintain BG <150 mg/dL. Post-op pain 06/23/2021 06/26/2021 Overview: History: Postoperative. Assessment: Pain well controlled on current regimen. Plan: Continue scheduled Tylenol. Continue oxycodone IR as needed for breakthrough pain. documented as of this encounter (statuses as of 07/13/2022) [facility]08-12[facility]2021 History of Past illness Narrative* Problem Noted Date Resolved Date Atelectasis 06/25/2021 06/26/2021 Overview: History: Postoperative. Assessment: Bibasilar atelectasis on CXR. Plan: Continue to encourage PEP/BPH, OOB, PT/OT, and optimize pain control. Hypervolemia 06/24/2021 06/26/2021 Overview: S/P Myectomy, MVr Assessment: +1752cc/24hr Plan: Start gentle diuresis today. On mechanically assisted ventilation 06/23/2021 06/24/2021 Overview: History: OR Assessment: Grade 1-glidscope planned Plan: WTE when awake and stable Hypovolemia 06/23/2021 06/24/2021 Overview: .History: OR Assessment: Post op fluid shifts Plan: IVF replacement prn Stress hyperglycemia 06/23/2021 06/26/2021 Overview: History: No DM history No results found for: HBA1C Assessment: Perioperative insulin resistance and exacerbation of hyperglycemia. Plan: RHI infusion per CVICU nomogram to maintain BG <150 mg/dL. Post-op pain 06/23/2021 06/26/2021 Overview: History: Postoperative. Assessment: Pain well controlled on current regimen. Plan: Continue scheduled Tylenol. Continue oxycodone IR as needed for breakthrough pain. documented as of this encounter (statuses as of 07/22/2022) [facility]08-12[facility]2021 History of Past illness Narrative* Problem Noted Date Resolved Date Atelectasis 06/25/2021 06/26/2021 Overview: History: Postoperative. Assessment: Bibasilar atelectasis on CXR. Plan: Continue to encourage PEP/BPH, OOB, PT/OT, and optimize pain control. Hypervolemia 06/24/2021 06/26/2021 Overview: S/P Myectomy, MVr Assessment: +1752cc/24hr Plan: Start gentle diuresis today. On mechanically assisted ventilation 06/23/2021 06/24/2021 Overview: History: OR Assessment: Grade 1-glidscope planned Plan: WTE when awake and stable Hypovolemia 06/23/2021 06/24/2021 Overview: .History: OR Assessment: Post op fluid shifts Plan: IVF replacement prn Stress hyperglycemia 06/23/2021 06/26/2021 Overview: History: No DM history No results found for: HBA1C Assessment: Perioperative insulin resistance and exacerbation of hyperglycemia. Plan: RHI infusion per CVICU nomogram to maintain BG <150 mg/dL. Post-op pain 06/23/2021 06/26/2021 Overview: History: Postoperative. Assessment: Pain well controlled on current regimen. Plan: Continue scheduled Tylenol. Continue oxycodone IR as needed for breakthrough pain. documented as of this encounter (statuses as of 08/13/2022) [facility]08-12-2021 History of Past illness Narrative* Problem Noted Date Resolved Date Atelectasis 06/25/2021 06/26/2021 Overview: History: Postoperative. Assessment: Bibasilar atelectasis on CXR. Plan: Continue to encourage PEP/BPH, OOB, PT/OT, and optimize pain control. Hypervolemia 06/24/2021 06/26/2021 Overview: S/P Myectomy, MVr Assessment: +1752cc/24hr Plan: Start gentle diuresis today. On mechanically assisted ventilation 06/23/2021 06/24/2021 Overview: History: OR Assessment: Grade 1-glidscope planned Plan: WTE when awake and stable Hypovolemia 06/23/2021 06/24/2021 Overview: .History: OR Assessment: Post op fluid shifts Plan: IVF replacement prn Stress hyperglycemia 06/23/2021 06/26/2021 Overview: History: No DM history No results found for: HBA1C Assessment: Perioperative insulin resistance and exacerbation of hyperglycemia. Plan: RHI infusion per CVICU nomogram to maintain BG <150 mg/dL. Post-op pain 06/23/2021 06/26/2021 Overview: History: Postoperative. Assessment: Pain well controlled on current regimen. Plan: Continue scheduled Tylenol. Continue oxycodone IR as needed for breakthrough pain. documented as of this encounter (statuses as of 10/13/2022) [facility]08-12-2021 History of Past illness Narrative* Problem Noted Date Resolved Date Atelectasis 06/25/2021 06/26/2021 Overview: History: Postoperative. Assessment: Bibasilar atelectasis on CXR. Plan: Continue to encourage PEP/BPH, OOB, PT/OT, and optimize pain control. Hypervolemia 06/24/2021 06/26/2021 Overview: S/P Myectomy, MVr Assessment: +1752cc/24hr Plan: Start gentle diuresis today. On mechanically assisted ventilation 06/23/2021 06/24/2021 Overview: History: OR Assessment: Grade 1-glidscope planned Plan: WTE when awake and stable Hypovolemia 06/23/2021 06/24/2021 Overview: .History: OR Assessment: Post op fluid shifts Plan: IVF replacement prn Stress hyperglycemia 06/23/2021 06/26/2021 Overview: History: No DM history No results found for: HBA1C Assessment: Perioperative insulin resistance and exacerbation of hyperglycemia. Plan: RHI infusion per CVICU nomogram to maintain BG <150 mg/dL. Post-op pain 06/23/2021 06/26/2021 Overview: History: Postoperative. Assessment: Pain well controlled on current regimen. Plan: Continue scheduled Tylenol. Continue oxycodone IR as needed for breakthrough pain. documented as of this encounter (statuses as of 10/14/2022) [facility]12[facility]2021 History of Past illness Narrative* Problem Noted Date Resolved Date Atelectasis 06/25/2021 06/26/2021 Overview: History: Postoperative. Assessment: Bibasilar atelectasis on CXR. Plan: Continue to encourage PEP/BPH, OOB, PT/OT, and optimize pain control. Hypervolemia 06/24/2021 06/26/2021 Overview: S/P Myectomy, MVr Assessment: +1752cc/24hr Plan: Start gentle diuresis today. On mechanically assisted ventilation 06/23/2021 06/24/2021 Overview: History: OR Assessment: Grade 1-glidscope planned Plan: WTE when awake and stable Hypovolemia 06/23/2021 06/24/2021 Overview: .History: OR Assessment: Post op fluid shifts Plan: IVF replacement prn Stress hyperglycemia 06/23/2021 06/26/2021 Overview: History: No DM history No results found for: HBA1C Assessment: Perioperative insulin resistance and exacerbation of hyperglycemia. Plan: RHI infusion per CVICU nomogram to maintain BG <150 mg/dL. Post-op pain 06/23/2021 06/26/2021 Overview: History: Postoperative. Assessment: Pain well controlled on current regimen. Plan: Continue scheduled Tylenol. Continue oxycodone IR as needed for breakthrough pain. documented as of this encounter (statuses as of 10/22/2022) [facility]08-12-2021 History of Past illness Narrative* Problem Noted Date Resolved Date Atelectasis 06/25/2021 06/26/2021 Overview: History: Postoperative. Assessment: Bibasilar atelectasis on CXR. Plan: Continue to encourage PEP/BPH, OOB, PT/OT, and optimize pain control. Hypervolemia 06/24/2021 06/26/2021 Overview: S/P Myectomy, MVr Assessment: +1752cc/24hr Plan: Start gentle diuresis today. On mechanically assisted ventilation 06/23/2021 06/24/2021 Overview: History: OR Assessment: Grade 1-glidscope planned Plan: WTE when awake and stable Hypovolemia 06/23/2021 06/24/2021 Overview: .History: OR Assessment: Post op fluid shifts Plan: IVF replacement prn Stress hyperglycemia 06/23/2021 06/26/2021 Overview: History: No DM history No results found for: HBA1C Assessment: Perioperative insulin resistance and exacerbation of hyperglycemia. Plan: RHI infusion per CVICU nomogram to maintain BG <150 mg/dL. Post-op pain 06/23/2021 06/26/2021 Overview: History: Postoperative. Assessment: Pain well controlled on current regimen. Plan: Continue scheduled Tylenol. Continue oxycodone IR as needed for breakthrough pain. documented as of this encounter (statuses as of 10/24/2022) [facility]08-12-2021 History of Past illness Narrative* Problem Noted Date Resolved Date Atelectasis 06/25/2021 06/26/2021 Overview: History: Postoperative. Assessment: Bibasilar atelectasis on CXR. Plan: Continue to encourage PEP/BPH, OOB, PT/OT, and optimize pain control. Hypervolemia 06/24/2021 06/26/2021 Overview: S/P Myectomy, MVr Assessment: +1752cc/24hr Plan: Start gentle diuresis today. On mechanically assisted ventilation 06/23/2021 06/24/2021 Overview: History: OR Assessment: Grade 1-glidscope planned Plan: WTE when awake and stable Hypovolemia 06/23/2021 06/24/2021 Overview: .History: OR Assessment: Post op fluid shifts Plan: IVF replacement prn Stress hyperglycemia 06/23/2021 06/26/2021 Overview: History: No DM history No results found for: HBA1C Assessment: Perioperative insulin resistance and exacerbation of hyperglycemia. Plan: RHI infusion per CVICU nomogram to maintain BG <150 mg/dL. Post-op pain 06/23/2021 06/26/2021 Overview: History: Postoperative. Assessment: Pain well controlled on current regimen. Plan: Continue scheduled Tylenol. Continue oxycodone IR as needed for breakthrough pain. documented as of this encounter (statuses as of 12/10/2022) [facility]08-12-2021 History of Past illness Narrative* Problem Noted Date Resolved Date Atelectasis 06/25/2021 06/26/2021 Overview: History: Postoperative. Assessment: Bibasilar atelectasis on CXR. Plan: Continue to encourage PEP/BPH, OOB, PT/OT, and optimize pain control. Hypervolemia 06/24/2021 06/26/2021 Overview: S/P Myectomy, MVr Assessment: +1752cc/24hr Plan: Start gentle diuresis today. On mechanically assisted ventilation 06/23/2021 06/24/2021 Overview: History: OR Assessment: Grade 1-glidscope planned Plan: WTE when awake and stable Hypovolemia 06/23/2021 06/24/2021 Overview: .History: OR Assessment: Post op fluid shifts Plan: IVF replacement prn Stress hyperglycemia 06/23/2021 06/26/2021 Overview: History: No DM history No results found for: HBA1C Assessment: Perioperative insulin resistance and exacerbation of hyperglycemia. Plan: RHI infusion per CVICU nomogram to maintain BG <150 mg/dL. Post-op pain 06/23/2021 06/26/2021 Overview: History: Postoperative. Assessment: Pain well controlled on current regimen. Plan: Continue scheduled Tylenol. Continue oxycodone IR as needed for breakthrough pain. documented as of this encounter (statuses as of 01/21/2023) [facility]08-12-2021 History of Past illness Narrative* Problem Noted Date Diagnosed Date Resolved Date Atelectasis 06/25/2021 06/26/2021 Overview: History: Postoperative. Assessment: Bibasilar atelectasis on CXR. Plan: Continue to encourage PEP/BPH, OOB, PT/OT, and optimize pain control. Hypervolemia 06/24/2021 06/26/2021 Overview: S/P Myectomy, MVr Assessment: +1752cc/24hr Plan: Start gentle diuresis today. On mechanically assisted ventilation 06/23/2021 06/24/2021 Overview: History: OR Assessment: Grade 1-glidscope planned Plan: WTE when awake and stable Hypovolemia 06/23/2021 06/24/2021 Overview: .History: OR Assessment: Post op fluid shifts Plan: IVF replacement prn Stress hyperglycemia 06/23/2021 021 Overview: History: No DM history No results found for: HBA1C Assessment: Perioperative insulin resistance and exacerbation of hyperglycemia. Plan: RHI infusion per CVICU nomogram to maintain BG <150 mg/dL. Post-op pain 06/23/2021 06/26/2021 Overview: History: Postoperative. Assessment: Pain well controlled on current regimen. Plan: Continue scheduled Tylenol. Continue oxycodone IR as needed for breakthrough pain. documented as of this encounter (statuses as of 07/14/2023) [facility]08-12-2021 History of Past illness Narrative* Problem Noted Date Diagnosed Date Resolved Date Atelectasis 06/25/2021 06/26/2021 Overview: History: Postoperative. Assessment: Bibasilar atelectasis on CXR. Plan: Continue to encourage PEP/BPH, OOB, PT/OT, and optimize pain control. Hypervolemia 06/24/2021 06/26/2021 Overview: S/P Myectomy, MVr Assessment: +1752cc/24hr Plan: Start gentle diuresis today. On mechanically assisted ventilation 06/23/2021 06/24/2021 Overview: History: OR Assessment: Grade 1-glidscope planned Plan: WTE when awake and stable Hypovolemia 06/23/2021 06/24/2021 Overview: .History: OR Assessment: Post op fluid shifts Plan: IVF replacement prn Stress hyperglycemia 06/23/2021 021 Overview: History: No DM history No results found for: HBA1C Assessment: Perioperative insulin resistance and exacerbation of hyperglycemia. Plan: RHI infusion per CVICU nomogram to maintain BG <150 mg/dL. Post-op pain 06/23/2021 06/26/2021 Overview: History: Postoperative. Assessment: Pain well controlled on current regimen. Plan: Continue scheduled Tylenol. Continue oxycodone IR as needed for breakthrough pain. documented as of this encounter (statuses as of 07/28/2023) [facility]08-12-2021 History of Past illness Narrative* Problem Noted Date Diagnosed Date Resolved Date Atelectasis 06/25/2021 06/26/2021 Overview: History: Postoperative. Assessment: Bibasilar atelectasis on CXR. Plan: Continue to encourage PEP/BPH, OOB, PT/OT, and optimize pain control. Hypervolemia 06/24/2021 06/26/2021 Overview: S/P Myectomy, MVr Assessment: +1752cc/24hr Plan: Start gentle diuresis today. On mechanically assisted ventilation 06/23/2021 06/24/2021 Overview: History: OR Assessment: Grade 1-glidscope planned Plan: WTE when awake and stable Hypovolemia 06/23/2021 06/24/2021 Overview: .History: OR Assessment: Post op fluid shifts Plan: IVF replacement prn Stress hyperglycemia 06/23/2021 021 Overview: History: No DM history No results found for: HBA1C Assessment: Perioperative insulin resistance and exacerbation of hyperglycemia. Plan: RHI infusion per CVICU nomogram to maintain BG <150 mg/dL. Post-op pain 06/23/2021 06/26/2021 Overview: History: Postoperative. Assessment: Pain well controlled on current regimen. Plan: Continue scheduled Tylenol. Continue oxycodone IR as needed for breakthrough pain. documented as of this encounter (statuses as of 08/12/2023) [facility]08-12-2021 History of Past illness Narrative* Problem Noted Date Diagnosed Date Resolved Date Atelectasis 06/25/2021 06/26/2021 Overview: History: Postoperative. Assessment: Bibasilar atelectasis on CXR. Plan: Continue to encourage PEP/BPH, OOB, PT/OT, and optimize pain control. Hypervolemia 06/24/2021 06/26/2021 Overview: S/P Myectomy, MVr Assessment: +1752cc/24hr Plan: Start gentle diuresis today. On mechanically assisted ventilation 06/23/2021 06/24/2021 Overview: History: OR Assessment: Grade 1-glidscope planned Plan: WTE when awake and stable Hypovolemia 06/23/2021 06/24/2021 Overview: .History: OR Assessment: Post op fluid shifts Plan: IVF replacement prn Stress hyperglycemia 06/23/2021 021 Overview: History: No DM history No results found for: HBA1C Assessment: Perioperative insulin resistance and exacerbation of hyperglycemia. Plan: RHI infusion per CVICU nomogram to maintain BG <150 mg/dL. Post-op pain 06/23/2021 06/26/2021 Overview: History: Postoperative. Assessment: Pain well controlled on current regimen. Plan: Continue scheduled Tylenol. Continue oxycodone IR as needed for breakthrough pain. documented as of this encounter (statuses as of 08/25/2023) [facility]08-12-2021 History of Past illness Narrative* Problem Noted Date Diagnosed Date Resolved Date Atelectasis 06/25/2021 06/26/2021 Overview: History: Postoperative. Assessment: Bibasilar atelectasis on CXR. Plan: Continue to encourage PEP/BPH, OOB, PT/OT, and optimize pain control. Hypervolemia 06/24/2021 06/26/2021 Overview: S/P Myectomy, MVr Assessment: +1752cc/24hr Plan: Start gentle diuresis today. On mechanically assisted ventilation 06/23/2021 06/24/2021 Overview: History: OR Assessment: Grade 1-glidscope planned Plan: WTE when awake and stable Hypovolemia 06/23/2021 06/24/2021 Overview: .History: OR Assessment: Post op fluid shifts Plan: IVF replacement prn Stress hyperglycemia 06/23/2021 021 Overview: History: No DM history No results found for: HBA1C Assessment: Perioperative insulin resistance and exacerbation of hyperglycemia. Plan: RHI infusion per CVICU nomogram to maintain BG <150 mg/dL. Post-op pain 06/23/2021 06/26/2021 Overview: History: Postoperative. Assessment: Pain well controlled on current regimen. Plan: Continue scheduled Tylenol. Continue oxycodone IR as needed for breakthrough pain. documented as of this encounter (statuses as of 08/26/2023) [facility]08-12-2021 History of Past illness Narrative* Problem Noted Date Diagnosed Date Resolved Date Atelectasis 06/25/2021 06/26/2021 Overview: History: Postoperative. Assessment: Bibasilar atelectasis on CXR. Plan: Continue to encourage PEP/BPH, OOB, PT/OT, and optimize pain control. Hypervolemia 06/24/2021 06/26/2021 Overview: S/P Myectomy, MVr Assessment: +1752cc/24hr Plan: Start gentle diuresis today. On mechanically assisted ventilation 06/23/2021 06/24/2021 Overview: History: OR Assessment: Grade 1-glidscope planned Plan: WTE when awake and stable Hypovolemia 06/23/2021 06/24/2021 Overview: .History: OR Assessment: Post op fluid shifts Plan: IVF replacement prn Stress hyperglycemia 06/23/2021 021 Overview: History: No DM history No results found for: HBA1C Assessment: Perioperative insulin resistance and exacerbation of hyperglycemia. Plan: RHI infusion per CVICU nomogram to maintain BG <150 mg/dL. Post-op pain 06/23/2021 06/26/2021 Overview: History: Postoperative. Assessment: Pain well controlled on current regimen. Plan: Continue scheduled Tylenol. Continue oxycodone IR as needed for breakthrough pain. documented as of this encounter (statuses as of 09/27/2023) [facility]08-12-2021 History of Past illness Narrative* Problem Noted Date Diagnosed Date Resolved Date Atelectasis 06/25/2021 06/26/2021 Overview: History: Postoperative. Assessment: Bibasilar atelectasis on CXR. Plan: Continue to encourage PEP/BPH, OOB, PT/OT, and optimize pain control. Hypervolemia 06/24/2021 06/26/2021 Overview: S/P Myectomy, MVr Assessment: +1752cc/24hr Plan: Start gentle diuresis today. On mechanically assisted ventilation 06/23/2021 06/24/2021 Overview: History: OR Assessment: Grade 1-glidscope planned Plan: WTE when awake and stable Hypovolemia 06/23/2021 06/24/2021 Overview: .History: OR Assessment: Post op fluid shifts Plan: IVF replacement prn Stress hyperglycemia 06/23/2021 021 Overview: History: No DM history No results found for: HBA1C Assessment: Perioperative insulin resistance and exacerbation of hyperglycemia. Plan: RHI infusion per CVICU nomogram to maintain BG <150 mg/dL. Post-op pain 06/23/2021 06/26/2021 Overview: History: Postoperative. Assessment: Pain well controlled on current regimen. Plan: Continue scheduled Tylenol. Continue oxycodone IR as needed for breakthrough pain. documented as of this encounter (statuses as of 09/28/2023) [facility]08-12-2021 History of Past illness Narrative* Problem Noted Date Diagnosed Date Resolved Date Atelectasis 06/25/2021 06/26/2021 Overview: History: Postoperative. Assessment: Bibasilar atelectasis on CXR. Plan: Continue to encourage PEP/BPH, OOB, PT/OT, and optimize pain control. Hypervolemia 06/24/2021 06/26/2021 Overview: S/P Myectomy, MVr Assessment: +1752cc/24hr Plan: Start gentle diuresis today. On mechanically assisted ventilation 06/23/2021 06/24/2021 Overview: History: OR Assessment: Grade 1-glidscope planned Plan: WTE when awake and stable Hypovolemia 06/23/2021 06/24/2021 Overview: .History: OR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 this informatio n is protected by the Federal Confidentiality of Alcohol and Drug Abuse Patient Records regulations: The Federal rules restrict any use of the information to criminally investigate or prosecute any alcohol or drug abuse patient.[facility] the event this information is protected by the Federal Confidentiality of Alcohol and Drug Abuse Patient Records regulations: The Federal rules restrict any use of the information to criminally investigate or prosecute any alcohol or drug abuse patient.[facility] the event this information is protected by the Federal Confidentiality of Alcohol and Drug Abuse Patient Records regulations: The Federal rules restrict any use of the information to criminally investigate or prosecute any alcohol or drug abuse patient.[facility] the event this information is protected by the Federal Confidentiality of Alcohol and Drug Abuse Patient Records regulations: The Federal rules restrict any use of the information to criminally investigate or prosecute any alcohol or drug abuse patient.[facility] the event this information is protected by the Federal Confidentiality of Alcohol and Drug Abuse Patient Records regulations: The Federal rules restrict any use of the information to criminally investigate or prosecute any alcohol or drug abuse patient.[facility] the event this information is protected by the Federal Confidentiality of Alcohol and Drug Abuse Patient Records regulations: The Federal rules restrict any use of the information to criminally investigate or prosecute any alcohol or drug abuse patient.[facility] the event this information is protected by the Federal Confidentiality of Alcohol and Drug Abuse Patient Records regulations: The Federal rules restrict any use of the information to criminally investigate or prosecute any alcohol or drug abuse patient.[facility] the event this information is protected by the Federal Confidentiality of Alcohol and Drug Abuse Patient Records regulations: The Federal rules restrict any use of the information to criminally investigate or prosecute any alcohol or drug abuse patient.[facility] the event this information is protected by the Federal Confidentiality of Alcohol and Drug Abuse Patient Records regulations: The Federal rules restrict any use of the information to criminally investigate or prosecute any alcohol or drug abuse patient.[facility] the event this information is protected by the Federal Confidentiality of Alcohol and Drug Abuse Patient Records regulations: The Federal rules restrict any use of the information to criminally investigate or prosecute any alcohol or drug abuse patient.[facility] the event this information is protected by the Federal Confidentiality of Alcohol and Drug Abuse Patient Records regulations: The Federal rules restrict any use of the information to criminally investigate or prosecute any alcohol or drug abuse patient.[facility] the event this information is protected by the Federal Confidentiality of Alcohol and Drug Abuse Patient Records regulations: The Federal rules restrict any use of the information to criminally investigate or prosecute any alcohol or drug abuse patient.[facility] the event this information is protected by the Federal Confidentiality of Alcohol and Drug Abuse Patient Records regulations: The Federal rules restrict any use of the information to criminally investigate or prosecute any alcohol or drug abuse patient.[facility] the event this information is protected by the Federal Confidentiality of Alcohol and Drug Abuse Patient Records regulations: The Federal rules restrict any use of the information to criminally investigate or prosecute any alcohol or drug abuse patient.[facility] the event this information is protected by the Federal Confidentiality of Alcohol and Drug Abuse Patient Records regulations: The Federal rules restrict any use of the information to criminally investigate or prosecute any alcohol or drug abuse patient.[facility] the event this information is protected by the Federal Confidentiality of Alcohol and Drug Abuse Patient Records regulations: The Federal rules restrict any use of the information to criminally investigate or prosecute any alcohol or drug abuse patient.[facility] the event this information is protected by the Federal Confidentiality of Alcohol and Drug Abuse Patient Records regulations: The Federal rules restrict any use of the information to criminally investigate or prosecute any alcohol or drug abuse patient.[facility]stown[facility] the event this information is protected by the Federal Confidentiality of Alcohol and Drug Abuse Patient Records regulations: The Federal rules restrict any use of the information to criminally investigate or prosecute any alcohol or drug abuse patient.[facility]stownIn the event this information is protected by the Federal Confidentiality of Alcohol and Drug Abuse Patient Records regulations: The Federal rules restrict any use of the information to criminally investigate or prosecute any alcohol or drug abuse patient.[facility]stownIn the event this information is protected by the Federal Confidentiality of Alcohol and Drug Abuse Patient Records regulations: The Federal rules restrict any use of the information to criminally investigate or prosecute any alcohol or drug abuse patient.[facility]stownIn the event this information is protected by the Federal Confidentiality of Alcohol and Drug Abuse Patient Records regulations: The Federal rules restrict any use of the information to criminally investigate or prosecute any alcohol or drug abuse patient.[facility]stownIn the event this information is protected by the Federal Confidentiality of Alcohol and Drug Abuse Patient Records regulations: The Federal rules restrict any use of the information to criminally investigate or prosecute any alcohol or drug abuse patient.[facility] Goals (unrecognized section and content) Goals may be documented in a n alternate section FOR RECORDS PERTAINING TO PATIENTS WHO ARE OR HAVE BEEN ENROLLED IN A CHEMICAL DEPENDENCY/SUBSTANCEABUSE PROGRAM, SOME INFORMATION MAY BE OMITTED. This clinical summary was aggregated from multiple sources. Caution should be exercised in using it in the provision of clinical care. This summary normalizes information from multiple sources, and as a consequence, information in this document may materially change the coding, format and clinical context of patient data. In addition, data may be omitted in some cases. CLINICAL DECISIONS SHOULD BE BASED ON THE PRIMARY CLINICAL RECORDS. [employer] [facility]. provides no warranty or guarantee of the accuracy or completeness of information in this document.
[2023-12-31 11:03] LABS: Basophils Absolute Auto 0.1 10^3/uL (0.0-0.1); Eosinophils Absolute Auto 0.1 10^3/uL (0.0-0.7); Eosinophils Percent Auto 1.8 % (0.9-7.0); Hematocrit 45.3 % (36.0-48.0); Hemoglobin 14.9 g/dL (12.0-16.0); Immature Granulocytes Abs Auto 0.02 10^3/uL (0.00-0.03); Immature Granulocytes Pct Auto 0.3 % (0.0-0.5); Lymphocytes Absolute Auto 2.7 10^3/uL (1.2-3.8); Mean Corpuscular HGB Conc 32.9 g/dL (29.9-35.2); Mean Corpuscular Hemoglobin 30.9 pg (26.7-34.0); Mean Platelet Volume 11.3 fL (9.5-13.5); Monocytes Absolute Auto 0.5 10^3/uL (0.3-0.8); Monocytes Percent Auto 8.7 % (1.7-12.0); Neutrophils Absolute Auto 2.8 10^3/uL (1.4-6.5); Neutrophils Percent Auto 45.2 % (43.0-75.0); Platelet Count 176 10^3/uL (150-450); Red Blood Count 4.82 10^6/uL (4.20-5.40); Red Cell Distribution Width 12.7 % (11.0-15.0); White Blood Count 6.2 10^3/uL (4.0-11.0)
[2023-12-31 11:05] LABS: Bilirubin Urine NEGATIVE (NEGATIVE); Blood Urine SMALL (NEGATIVE); Clarity Urine CLEAR (CLEAR); Color Urine LT. YELLOW (YELLOW); Glucose Urine UA NEGATIVE (NEGATIVE); Ketones Urine NEGATIVE (NEGATIVE); Leukocyte Esterase Urine SMALL (NEGATIVE); Nitrite Urine NEGATIVE (NEGATIVE); Protein Urine NEGATIVE (NEG/TRACE); Urobilinogen Urine 0.2 EU/dL (0.2-1.0); pH Urine 6.5 (5.0-9.0)
[2023-12-31 11:26] LABS: Alanine Aminotransferase 32 U/L (14-59); Albumin Globulin Ratio 1.2; Albumin Level 3.7 g/dL (3.4-5.0); Alkaline Phosphatase 78 U/L (46-116); Anion Gap 13.6; Aspartate Amino Transferase 24 U/L (15-37); BUN Creatinine Ratio 20.5; Bilirubin Total 0.6 mg/dL (0.2-1.0); Carbon Dioxide 26.7 mmol/L (21.0-32.0); Chloride 106 mmol/L (98-107); Chol HDL Ratio 2.8; Cholesterol 153 mg/dL (<=200); Estimated GFR (African America >60 (>=60); Estimated GFR (Non-African Ame >60 (>=60); Globulin 3.2 g/dL; Glucose 108 mg/dL (74-106); HDL Cholesterol 55 mg/dL (40-60); LDL Cholesterol Calculated 72.8 mg/dL; Potassium 4.3 mmol/L (3.5-5.1); Sodium 142 mmol/L (136-145); Total Protein 6.9 g/dL (6.4-8.2); Triglycerides 126 mg/dL (<=150); VLDL CHOLESTEROL 25.2 mg/dL
== END 2023-12-31 10:36 | disposition home or self-care (01) ==
LOC: LAB 10:35
PROVIDERS: Visit Provider Internal Medicine
DX: E78.00 Pure hypercholesterolemia, unspecified (principal); N15.1 Renal and perinephric abscess; I42.1 Obstructive hypertrophic cardiomyopathy; I10 Essential (primary) hypertension
CPT/HCPCS: 36415; 80053; 80061; 81003; 85025

== ENCOUNTER 2025-05-06 10:42 | Outpatient (OUT) | payer MEDICARE, SELFPAY ==
--- OUTSIDE RECORDS SUMMARY | 2025-05-06 10:50 | XMS_ITS | Encounter Summary ---
Author Organization [facility] Address [address] [place] [address] Care Team Providers Care Rn Bone Marrow Transplant Name Role Phone Gideon Wright Primary Care Provider [phone] Source Comments In the event this information is protected by the Federal Confidentiality of Alcohol and Drug AbusePatient Records regulations: The Federal rules restrict any use of the information to criminally investigate or prosecute any alcohol or drug abuse patient.[facility] Encounter Details Date Type Department Care Team (Late st Contact Info) Description 11/28/2020 Get Medical Advice Cardiology [address] [place] [address] Noah Thomas MD [address] [place], [place] [phone] RE: Visit Follow Up Question Social History Tobacco Use Types Packs/Day Years Used Date Smoking Tobacco: Former Cigarettes Q uit: 1994 Smokeless Tobacco: Never Alcohol Use Standard Drinks/Week Comments Yes 0 (1 standard drink = 0.6 oz pur e alcohol) occasional/ social Area Deprivation Index Answer Date Joao rded National Score (1-100), lower number is lower ri sk Not on file 10/20/2020 State Score (1-10), lower number is lower risk N ot on file 10/20/2020 Data from: https://www.neighborhoodatlas.medicine.[facility].edu/. Last address used for calculation Not on file 10/20/2020 Comments No Sex and Gender Information Value Date Recorded Sex Assigned at Female 10/31/2020 11:33 AM EST Legal Sex Female 4:06 PM EDT Gender Identity Female 10/31/2020 11:33 AM EST Sexual Orientation Straight 10/31/2020 11 :33 AM EST COVID-19 Exposure Response Date Recorded In the last month, have you been in contact with someone who was confirmed or suspected to have Coronavirus / COVID-19? No / Unsure 11/11/2020 10:40 AM EST documented as of this encounter Plan of Treatment Not on file documented as of this encounter Visit Diagnoses Not on filedocumented in this encounter Care Teams Rn Bone Marrow Transplant Relationship Specialty Start Date End Date Gideon Wright DO [address] [place] [address] PCP - General Internal Medicine 08/21/20 documented as of this encounter
--- OUTSIDE RECORDS SUMMARY | 2025-05-06 10:50 | XMS_ITS | Encounter Summary ---
Author Organization [facility] Address [address] [place] [address] Care Team Providers Care Chemical Operations And Training Name Role Phone Gideon Wright Primary Care Provider [phone] Source Comments In the event this information is protected by the Federal Confidentiality of Alcohol and Drug AbusePatient Records regulations: The Federal rules restrict any use of the information to criminally investigate or prosecute any alcohol or drug abuse patient.[facility] Encounter Details Date Type Department Care Team (Late st Contact Info) Description 07/22/2022 Get Medical Advice Cardiology [address] [place], [place] [phone] Davy Garcia MD [address] [place], [place] [phone] Long QT - Medicine compatibility. Social History Tobacco Use Types Packs/Day Years Used Date Smoking Tobacco: Former Cigarettes Q uit: 1994 Smokeless Tobacco: Never Alcohol Use Standard Drinks/Week Comments Yes 0 (1 standard drink = 0.6 oz pur e alcohol) rarely PHQ-2 Answer Date Recorded PHQ-2 score 2 07/21/2022 Area Deprivation Index Answer Date Joao rded National Score (1-100), lower number is lower ri sk Not on file 10/20/2020 State Score (1-10), lower number is lower risk N ot on file 10/20/2020 Data from: https://www.neighborhoodatlas.medicine.[facility]/. Last address used for calculation Not on file 10/20/2020 Comments No Sex and Gender Information Value Date Recorded Sex Assigned at Female 10/31/2020 11:33 AM EST Legal Sex Female 4:06 PM EDT Gender Identity Female 10/31/2020 11:33 AM EST Sexual Orientation Straight 10/31/2020 11 :33 AM EST COVID-19 Exposure Response Date Recorded In the last 10 days, have yo u been in contact with someone who was confirmed or suspected to have Coronavirus/COVID-19? No / Unsure 07/21/2022 5:55 PM EDT documented as of this encounter Functional Status * Are you deaf or do you have serious difficulty hearing? Answer Date of Assessment Author No 06/29/2021 3:30 PM Lucretia Sood RN * Are you blind or do you have serious difficulty seeing, even when wearing glasses? Answer Date of Assessment Author No 06/29/2021 3:30 PM Lucretia Sood RN * Do you have serious difficulty walking or climbing stairs? Answer Date of Assessment Author No 06/29/2021 3:30 PM Lucretia Sood RN * Do you have difficulty dressing or bathing? Answer Date of Assessment Author No 06/29/2021 3:30 PM Lucretia Sood RN * Because of a physical, mental, or emotional condition, do you have difficulty doing errands alone such as visiting a doctor's office or shopping? Answer Date of Assessment Author No 06/29/2021 3:30 PM Lucretia Sood RN documented as of this encounter Mental Status * Because of a physical, mental, or emotional condition, do you have serious difficulty concentrating, remembering, or making decisions? Answer Entry Date Author No 06/29/2021 3:30 PM Lucretia Sood RN documented in this encounter Plan of Treatment Not on file documented as of this encounter Visit Diagnoses Not on filedocumented in this encounter Care Teams Chemical Operations And Training Relationship Specialty Start Date End Date Gideon Wright DO [address] [place] [address] PCP - General Internal Medicine 08/21/20 documented as of this encounter
--- OUTSIDE RECORDS SUMMARY | 2025-05-06 10:50 | XMS_ITS | Encounter Summary ---
Author Organization [facility] Address [address] [place] [address] Care Team Providers Care Photo Print Specialist Name Role Phone Gideon Wright Primary Care Provider [phone] Source Comments In the event this information is protected by the Federal Confidentiality of Alcohol and Drug AbusePatient Records regulations: The Federal rules restrict any use of the information to criminally investigate or prosecute any alcohol or drug abuse patient.[facility] Encounter Details Date Type Department Care Team (Late st Contact Info) Description 12/16/2020 Get Medical Advice Cardiology [address] [place] [address] Noah Thomas MD [address] [place], [place] [phone] RE: Non-Urgent Medical Question Social History Tobacco Use Types Packs/Day [...] N ot on file 10/20/2020 Data from: https://www.neighborhoodatlas.medicine.[facility].edu/. Last address used for calculation Not on file 10/20/2020 Comments No Sex and Gender Information Value Date Recorded Sex Assigned at Female 10/31/2020 11:33 AM EST Legal Sex Female 4:06 PM EDT Gender Identity Female 10/31/2020 11:33 AM EST Sexual Orientation Straight 10/31/2020 11 :33 AM EST documented as of this encounter Plan of Treatment Not on file documented as of this encounter Visit Diagnoses Not on filedocumented in this encounter Care Teams Photo Print Specialist Relationship Specialty Start Date End Date Gideon Wright DO [address] [place] [address] PCP - General Internal Medicine 08/21/20 documented as of this encounter
--- OUTSIDE RECORDS SUMMARY | 2025-05-06 10:50 | XMS_ITS | Encounter Summary ---
Author Organization [facility] Address [address] [place] [address] Care Team Providers Care Manager Social Work Name Role Phone Gideon Wright Primary Care Provider [phone] Source Comments In the event this information is protected by the Federal Confidentiality of Alcohol and Drug AbusePatient Records regulations: The Federal rules restrict any use of the information to criminally investigate or prosecute any alcohol or drug abuse patient.[facility] Encounter Details Date Type Department Care Team (Late st Contact Info) Description 05/05/2023 Get Medical Advice Cardiology [address] [place], [place] [phone] Dick Nelson MD [address] [place] [address] [place] and Long QT Social History Tobacco Use Types Packs/Day Years Used Date Smoking Tobacco: Former Cigarettes Q uit: 1994 Smokeless Tobacco: Never Alcohol Use Standard Drinks/Week Comments Yes 0 (1 standard drink = 0.6 oz pur e alcohol) rarely PHQ-2 Answer Date Recorded PHQ-2 score 1 12/07/2022 Area Deprivation Index Answer Date Joao rded National Score (1-100), lower number is lower ri 73 12/02/2022 State Score (1-10), lower number is lower risk N ot on file 12/02/2022 Data from: https://www.neighborhoodatlas.medicine.[facility]/. Last address used for calculation [address] 12/02/2022 Comments No Sex and Gender Information Value Date Recorded Sex Assigned at Female 10/31/2020 11:33 AM EST Legal Sex Female 4:06 PM EDT Gender Identity Female 10/31/2020 11:33 AM EST Sexual Orientation Straight 10/31/2020 11 :33 AM EST documented as of this encounter Functional Status [...] on filedocumented in this encounter Care Teams Manager Social Work Relationship Specialty Start Date End Date Gideon Wright DO [address] [place] [address] PCP - General Internal Medicine 08/21/20 documented as of this encounter
--- OUTSIDE RECORDS SUMMARY | 2025-05-06 10:50 | XMS_ITS | Encounter Summary ---
Author Organization [facility] Address [address] [place] [address] Care Team Providers Care Locomotive Inspector Name Role Phone Gideon Wright Primary Care Provider [phone] Source Comments In the event this information is protected by the Federal Confidentiality of Alcohol and Drug AbusePatient Records regulations: The Federal rules restrict any use of the information to criminally investigate or prosecute any alcohol or drug abuse patient.[facility] Encounter Details Date Type Department Care Team (Late st Contact Info) Description 06/05/2021 Patient Msg Cardiology [address] [place] [address] [place] [address] [address] [place], [place] [phone] Appointment Cancellation Request Social History Tobacco Use Types Packs/Day Years [...] N ot on file 10/20/2020 Data from: https://www.neighborhoodatlas.[facility].edu/. Last address used for calculation Not [...] have Coronavirus / COVID-19? No / Unsure 05/29/2021 9:38 AM EDT documented as of this encounter Functional Status * Are you deaf or do you have serious difficulty hearing? Answer Date of Assessment Author No 05/28/2021 4:40 PM EDT Lyle Lemus RN * Are you blind or do you have serious difficulty seeing, even when wearing glasses? Answer Date of Assessment Author No 05/28/2021 4:40 PM EDT Lyle Lemus RN * Do you have serious difficulty walking or climbing stairs? Answer Date of Assessment Author No 05/28/2021 4:40 PM EDT Lyle Lemus RN * Do you have difficulty dressing or bathing? Answer Date of Assessment Author No 05/28/2021 4:40 PM EDT Lyle Lemus RN * Because of a physical, mental, or emotional condition, do you have difficulty doing errands alone such as visiting a doctor's office or shopping? Answer Date of Assessment Author No 05/28/2021 4:40 PM EDT Lyle Lemus RN documented as of this encounter Mental Status * Because of a physical, mental, or emotional condition, do you have serious difficulty concentrating, remembering, or making decisions? Answer Entry Date Author No 05/28/2021 4:40 PM EDT Lyle Lemus RN documented in this encounter Plan of Treatment Not on file documented as of this encounter Visit Diagnoses Not on filedocumented in this encounter Care Teams Locomotive Inspector Relationship Specialty [place] [address] [place] [address] PCP - General Internal Medicine 08/21/20 documented as of this encounter
--- OUTSIDE RECORDS SUMMARY | 2025-05-06 10:50 | XMS_ITS | Encounter Summary ---
Author Organization [facility] Address [address] [place] [address] Care Team Providers Care Canine Service Teacher Name Role Phone Gideon Wright Primary Care Provider [phone] Source Comments In the event this information is protected by the Federal Confidentiality of Alcohol and Drug AbusePatient Records regulations: The Federal rules restrict any use of the information to criminally investigate or prosecute any alcohol or drug abuse patient.[facility] Encounter Details Date Type Department Care Team (Late st Contact Info) Description 10/23/2020 Patient Msg [facility] [address] [phone] Maggy Edward [facility] [address] [place] [phone] requsted information Social History Tobacco Use Types Packs/Day Years [...] N ot on file 10/20/2020 Data from: https://www.neighborhoodatlas.medicine.[facility].edu/. Last address used for calculation Not [...] on filedocumented in this encounter Care Teams Canine Service Teacher Relationship Specialty Start Date End Date Gideon Wright DO [address] [place] [address] PCP - General Internal Medicine 08/21/20 documented as of this encounter
--- OUTSIDE RECORDS SUMMARY | 2025-05-06 10:50 | XMS_ITS | Encounter Summary ---
Author Organization [facility] Address [address] [place] [address] Care Team Providers Care Wine Manager Name Role Phone Kyle Gideon Primary Care Provider [phone] Encounter Details Date Type Department Care Team (Late st Contact Info) Description 01/24/2024 Orders Only [facility] [address] [place] [address] Provider, MD Hi Social History Tobacco Use Types Packs/Day Years Used Date Smoking Tobacco: Former Smokeless Tobacco: Never Alcohol Use Standard Drinks/Week Comments Yes 0 (1 standard drink = 0.6 oz pur e alcohol) social Comments No Sex and Gender Information Value Date Recorded Sex Assigned at Not on file Legal Sex Female 2:56 PM EST Gender Identity Not on file Sexual Orientation Not on file documented as of this encounter Plan of Treatment Upcoming Encounters Date Type Department Care Team (Late Contact Info) Description 03/07/2026 11:30 AM EDT Office Visit [facility] [place] [address] Antonietta Fountain, TECHNICAL SUPPORT ANALYST - [employer] [address] [place] [address] [address] [place] [phone] 1 year follow up documented as of this encounter Procedures Procedure Name Priority Date/Time Associated Diagnosis Comments HEMOGLOBIN A1C Routine 09/23/2023 11:45 AM EST documented in this encounter Results * Hemoglobin A1C (09/23/2023 11:45 AM EST) Blood BLOOD SPECIMEN / Unknown us Historical Provider CHEMISTRY ORDERABLES Lesia l Result documented in this encounter Visit Diagnoses Not on filedocumented in this encounter Care Teams Wine Manager Relationship Specialty Start Date End Date Gideon Wright DO [address] [place] [address] PCP - General 09/21/13 documented as of this encounter
--- OUTSIDE RECORDS SUMMARY | 2025-05-06 10:50 | XMS_ITS | Clinical Summary ---
Author Organization [facility] Address [address] [place] [address] Care Team Providers Care Campground Manager Name Role Phone Kyle Gideon Primary Care Provider [phone] Allergies Active Allergy Reactions Criticality Noted Date Comments Ciprofloxacin 01/19/2024 Other Reaction(s): Heart rate altered Codeine Nausea And Vomiting Low 08/08/2013 Meperidine Nausea And Vomiting Low 08/08/2013 Other 08/02/2023 Shellfish-Derived Products Other (See Comments) 08/11/2020 Nausea, diarrhea Medications Calcium Carbonate-Vitam in D (CALCIUM-VITAMI N D) 500-200 MG-UNIT per tablet Take 1 tablet by mouth 2 times daily (with meals) Active Cholecalciferol (VITAMIN D) 2000 UNITS CAPS capsule Take by mouth Active acetaminophen (TYLENOL) 325 MG tablet Take 2 tablets by mouth every 6 hours as needed for Pain Active atorvastatin (LIPITOR) 40 MG tablet Take 1 tablet by mouth daily Active metoprolol succinate (TOPROL XL) 50 MG extended release tablet Take 1 tablet by mouth daily Active Ascorbic Acid (VITAMIN C) 250 MG tablet Take 4 tablets by mouth daily Active vitamin E 400 UNIT capsule Take 180 Units by mouth daily Active losartan (COZAAR) 25 MG tablet Take 1 tablet by mouth daily Active B Complex Vitamins (B COMPLEX 100 PO) Take 100 Units by mouth daily Active loratadine (CLARITIN) 10 MG capsule Take 1 capsule by mouth daily Active aspirin 81 MG chewable tablet Take 1 tablet by mouth daily Active estradiol (ESTRACE) 0.1 MG/GM vaginal cream Place a pea-sized amount vaginally and an additional pea-sized amount to entire vestibule nightly x 4 weeks, then use 3 nights per week thereafter. Do NOT use plastic applicator. 42.5 g 3 Active Active Problems Problem Noted Date Diagnosed Date Osteopenia 03/07/2025 Obesity 03/07/2025 Microscopic hematuria 03/07/2025 Major depressive disorder wi th single episode, in full remission 03/07/2025 Low back pain 03/07/2025 History of open heart surgery 03/07/2025 Hearing loss 03/07/2025 Gastroesophageal reflux disease with esophagitis 03/07/2025 Former smoker 03/07/2025 Dry eyes 03/07/2025 Decreased estrogen level 03/07/2025 Congenital long QT syndrome 03/07/2025 Anxiety 03/07/2025 Acute bronchitis 03/07/2025 Paroxysmal atrial fibrillation 03/07/2025 Trochanteric bursitis of right hip 03/07/2025 Tobacco user 03/07/2025 Tendinitis of left rotator cuff 03/07/2025 Snoring 03/07/2025 Seasonal allergies 03/07/2025 Genitourinary syndrome of menopause 02/14/2024 Frequent UTI 02/14/2024 Hyperlipidemia 12/31/2023 History of recurrent UTI (urinary tract infectio n) 09/26/2023 Renal cyst 09/25/2023 Leukocytosis 09/23/2023 Sepsis 09/23/2023 Spasm 07/06/2023 Contact with and (suspected) exposure to covid-1 9 07/28/2022 Nocturia 05/12/2022 Chronic cystitis 05/12/2022 Acquired cyst of kidney without neoplastic patricio e 05/12/2022 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 Saenz. Ok for DC today Potential for lack of continuity of care 021 Overview (03/07/2025): Indication for Surgery: HOCM, MR Preop LVEF: 71% Severe LVH, G2 DD RVF: Normal Cards: Jose LHC: non-obstructive CAD EKG: SB, LVH, LAE Postop LVEF: Normal RVF: Normal PMH/PSH: HOCM, PPM/ICD, HPL, HTN, Prolong QTc Airway Difficulty: Grade I - Glidescope (planned) Pacing Wires: pulled 06/27/21 Surgery: 06/23/2021: 4.5g from myectomy and MVr --reorientation of anterior papillary muscle. Trace MR post-op A/Plan: -s/p Myectomy: ASA. Echo & surg path reviewed. -PPM/ICD: Post-op full device check and restorationism of ICD therapies complete. -HTN: (losartan at home): IV lasix & metoprolol -Post op afib evening of 06/27, converted with IV Amio. Continues in rate controlled afib Convert to po Amio., Start Nahed per Dr. Saenz. Ok for DC today -CAD: ASA. BB. High intensity statin. -Dispo: from [place], [place]. PT recs home without needs. CTS OPD and Cards appt requested Discharge Planning: Anticipated Discharge Date: Barriers to Discharge: Other: PMW Care Management Discharge Needs: Other hyperlipidemia 06/23/2021 Overview (03/07/2025): History: HPL. LDL not on file. Managed with 40mg atorvastatin. Assessment: Given history of CAD is well managed with high intensity statin Rx. Plan: Resumed 40mg atorvastatin with local reassessment. Nonrheumatic mitral valve regurgitation 06/23/20 21 Overview (03/07/2025): History: 04/20/2021 echo: There is mild mitral annular calcification observed posterior. There is mild (1+) mitral valve regurgitation. There is mild thickening. The pressure half time is 93 msec. The peak mitral E/A ratio is 1.28. The average mitral E/e' ratio is 24.2. The mitral flow deceleration time is 322 msec. Assessment: 06/23/2021: 4.5g from myectomy and MVr --reorientation of anterior papillary muscle. Plan: ASA. Echo reviewed ICD (implantable cardioverter-defibrillator) in place 06/23/2021 Overview (03/07/2025): History: PPM/ICD- hx of prolong QTC. BSX implant on 01/19/21 Assessment: Post-op full device check and restorationism of ICD therapies complete. Plan: Local follow up. 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 Left ventricular systolic function is normal. Grade II left ventricular diastolic dysfunction Assessment: 06/23/2021: 4.5g from myectomy and MVr --reorientation of anterior papillary muscle. Plan: ASA. Echo & surg path reviewed History: Nonobstructive coronary artery disease Assessment: To be medically managed Plan: ASA. BB. Statin. SOB (shortness of breath) 08/11/2020 Postmenopausal HRT (hormone replacement therapy) 01/16/2015 Encounters Date Type Department Care Team Description 03/11/2025 Results Follow-Up [facility] Part of [address] [place] [address] Sin Mercado PA-C 03/07/2025 4:06 PM EDT - 03/07/2025 11:59 PM EDT Hospital Encounter [address] [id number] Microhematuria; Dysuria Discharge Disposition: Home or Self Care 03/07/2025 2:30 PM EDT Office Visit [facility] Part [address] [place] [phone] Antonietta Fountain, BLACK MILL OPERATOR - ASSISTANT CREDIT MANAGER Frequent UTI (Primary Dx); Genitourinary syndrome of menopause; Microhematuria; Dysuria from Last 3 Months Immunizations Immunization Administration Dates Next Due COVID-19, [place] Vaccine, Vaccin e Unspecified 06/22/2022 Influenza Vaccine, unspecifi ed formulation 08/05/2016 Influenza Virus Vaccine 08/10/2021,07/24,07/30/2019,2018,07/22/2019,08/03/2017 Influenza, FLUAD, (age 65 y+ ), IM, Quadv, 0.5mL 09/07/2022 Influenza, FLUAD, (age 65 y+ ), IM, Trivalent PF, 0.5mL 07/27/2019,07/25/2018 Influenza, FLUZONE High Dose (age 65 y+), IM, Quadv, 0.7mL 08/26/2023 Influenza, FLUZONE High Dose , (age 65 y+), IM, Trivalent PF, 0.5mL 09/24/2024,08/04/2016 Pneumococcal, PCV-13, PREVNA R 13, (age 6w+), IM, 0.5mL 09/23/2015,08/13/2015 Pneumococcal, PPSV23, PNEUMO VAX 23, (age 2y+), SC/IM, 0.5mL 01/04/2019 TD 5LF, TENIVAC, (age 7y+), IM, 0.5mL 08/29/2013 Zoster Live (Zostavax) 06/17/2015,09/09/2014 Zoster Recombinant (Shingrix) 04/18/2023, 023 Family History Medical History Relation Name Comments Cancer Brother 1 skin Alcohol Abuse Brother 2 Alcohol Abuse Father Alcohol Abuse Mother Heart Disease Mother Heart Surgery Mother Other Other No family hx br east cancer or stroke Cancer Paternal Uncle Cancer Sister Throat Relation Name Status Comments Brother 1 Alive Brother 2 Alive Father Mother Other Paternal Uncle Sister Social History Tobacco Use Types Packs/Day Years Used Date Smoking Tobacco: Former Smokeless Tobacco: Never Tobacco Cessation:Counseling Given: Not Answered Alcohol Use Standard Drinks/Week Comments Yes 0 (1 standard drink = 0.6 oz pur e alcohol) social Comments No Sex and Gender Information Value Date Recorded Sex Assigned at Not on file Legal Sex Female 2:56 PM EST Gender Identity Not on file Sexual Orientation Not on file Last Filed Vital Signs Vital Sign Reading Time Taken Comments Blood Pressure 140/90 07/02/2024 2:31 PM EDT Pulse 65 03/07/2025 2:50 PM EDT Temperature 35.9 C (96.6 F) 03/07/2025 2:50 PM EDT Respiratory Rate 18 03/07/2025 2:50 PM EDT Oxygen Saturation 85% 03/07/2025 2:50 PM EDT Inhaled Oxygen Concentration - - Weight 80.9 kg (178 lb 6.4 oz) 03/07/2025 2:50 P M EDT Height 165.1 cm (5' 5 ) 03/07/2025 2:50 PM EDT Body Mass Index 29.69 03/07/2025 2:50 PM EDT Plan of Treatment Upcoming Encounters Date Type Department Care Team (Late st Contact Info) Description 03/07/2026 11:30 AM EDT Office Visit [facility] Part of [address] [place] [id number] Antonietta Fountain, BLACK MILL OPERATOR - ASSISTANT CREDIT MANAGER [address] [place] [address] 1 year follow up Health Maintenance Due Date Last Done Comments Lipids 1959 Depression Monitoring 1961 Hepatitis C screen 1967 Colonoscopy 1994 FIT/FOBT: Average risk 1994 Sigmoidoscopy/CT colonography 1994 DTaP/Tdap/Td vaccine (1 - Tdap) 08/30/2013 08/29/2013 Annual Wellness Visit (Medicare) 10/10/2023 COVID-19 Vaccine ( season) 2024 06/22/2022, 06/22/2022, 10/21/2021, Additional history exists Respiratory Syncytial Virus (RSV) or age 60 yrs+ (1 - 1-dose 75+ series) 2024 Colorectal Cancer Screen 06/09/2026 Fecal-DNA (Cologuard): Average risk 06/09/2026 06/09/2023, 03/13/2020 Pneumococcal 50+ years Vaccine Completed 01/04/2019, 09/23/2015, 08/13/2015 Breast cancer screen Discontinued 02/16/2022, 07/26/2019, 03/06/2018, Additional history exists DEXA (modify frequency per FRAX score) Completed 02/16/2022, 01/22/2020 Shingles vaccine Completed 04/18/2023, 03/2023, 06/17/2015, Additional history exists Flu vaccine Completed 09/24/2024, 08/14, 09/07/2022, Additional history exists Hepatitis A vaccine Aged Out No longe r eligible based on patient's age to complete this topic Hepatitis B vaccine Aged Out No longe r eligible based on patient's age to complete this topic Hib vaccine Aged Out No longer eligi ble based on patient's age to complete this topic Meningococcal (ACWY) vaccine Aged Out No longer eligible based on patient's age to complete this topic Meningococcal B vaccine Aged Out No l onger eligible based on patient's age to complete this topic Polio vaccine Aged Out No longer elig ible based on patient's age to complete this topic Procedures Procedure Name Priority Date/Time Associated Diagnosis Comments URINALYSIS WITH MICROSCOPIC Routine 03/07/2025 3:05 PM EDT Microhematuria CULTURE, URINE Routine 03/07/2025 3:05 PM EDT Microhematuria Dysuria AIDEE BEHZAD DIGITAL SCREEN BILATERAL Routine 02/16/2022 8:25 AM EDT Screening mammogram, encounter for DEXA BONE DENSITY AXIAL SKELETON Routine 02/16/2022 8:23 AM EDT Menopause from Last 3 Months or Most Recently Relevant to Health Maintenance Results * (ABNORMAL) Urinalysis with Microscopic (03/07/2025 3:05 PM EDT) Color, UA Yellow Yellow 03/07/2025 3:05 PM EDT [facility] Turbidity UA Clear Clear 03/07/2025 3:05 PM [facility] Glucose, Ur NEGATIVE NEGATIVE mg/dL 03/07/2025 3:05 PM [facility] Bilirubin, Urine NEGATIVE NEGATIVE 03/07/2025 3:05 PM [facility] Ketones, Urine NEGATIVE NEGATIVE mg/dL 03/07/2025 3:05 PM [facility] Specific Florien, UA 1.020 1.010 - 1.020 03/07/2025 3:05 PM [facility] Urine Hgb NEGATIVE NEGATIVE 03/07/2025 3:05 PM [facility] pH, Urine 6.0 5.0 - 9.0 03/07/2025 3:05 PM [facility] Protein, UA NEGATIVE NEGATIVE mg/dL 03/07/2025 3:05 PM [facility] Urobilinogen, Urine Normal 0.0 - 1.0 EU/dL 03/07/2025 3:05 PM [facility] Nitrite, Urine NEGATIVE NEGATIVE 03/07/2025 3:05 PM [facility] Leukocyte Esterase, Urine TRACE(A) NEGATIVE 03/07/2025 3:05 PM [facility] WBC, UA 50 TO 100 0 - 5 /HPF 03/07/2025 3:05 PM [facility] RBC, UA None 0 - 2 /HPF 03/07/2025 3:05 PM [facility] Epithelial Cells, UA 5 TO 10 0 - 25 /HPF 03/07/2025 3:05 PM [facility] Bacteria, UA 2+(A) None 03/07/2025 3:05 PM [facility] Urine URINE SPECIMEN / Unknown 03/07/2025 3:05 PM EDT 03/07/2025 5:28 PM EDT us Antonietta Fountain BLACK MILL OPERATOR - ASSISTANT CREDIT MANAGER URINE ORDERABLES Fi nal Result [facility] [address] [phone] * Culture, Urine (03/07/2025 3:05 PM EDT) Specimen Description .VOIDED URINE 03/07/2025 3:05 PM EDT [facility] Special Requests Site: Urine 03/07/2025 3:05 PM EDT [facility] Culture NO SIGNIFICANT GROWTH 03/07/2025 3:05 PM EDT [facility] Promolta Urine (Urine voided) 03/07/2025 3:05 PM EDT 03/07/2025 5:28 PM EDT Antonietta Fountain BLACK MILL OPERATOR - ASSISTANT CREDIT MANAGER MICROBIOLOGY - GENE RAL ORDERABLES Final Result Performing Organization Address [facility] Co de Phone Number [facility] [address] [phone] [phone] * AIDEE BEHZAD DIGITAL SCREEN BILATERAL (02/16/2022 8:25 AM EDT) Anatomical Region Laterality Modality Bilateral Mammography 02/16/2022 8:30 AM EDT Impressions 02/16/2022 9:14 AM EDT No mammographic evidence of malignancy BIRADS: BIRADS - CATEGORY 1 Negative. Normal interval follow-up is recommended in 12 months. OVERALL ASSESSMENT - NEGATIVE A letter of notification will be sent to the patient regarding the results. The [employer] recommends annual mammograms for women 40 years and older. Narrative 02/16/2022 9:14 AM EDT EXAMINATION: SCREENING DIGITAL BILATERAL MAMMOGRAM WITH TOMOSYNTHESIS, [...] either breast. Pacer generator left chest stable us Gideon Wright DO IMG MAMMOGRAPHY ORDERABLES Lesia l Result * DEXA BONE DENSITY AXIAL SKELETON (02/16/2022 8:23 AM EDT) Anatomical Region Laterality Modality Head, C-spine, T-spine, L-spine, Chest Radiographic Imaging 02/16/2022 8:31 AM EDT Impressions 02/16/2022 8:36 AM EDT Osteopenia by WHO criteria. Narrative 02/16/2022 8:36 AM EDT EXAMINATION: BONE DENSITOMETRY 02/16/2022 8:23 am TECHNIQUE: A bone density dual x-ray absorptiometry (DEXA) scan was performed of the lumbar spine and left hip on a Bannerman system. COMPARISON: January 22, 2020 HISTORY: ORDERING SYSTEM PROVIDED HISTORY: Menopause FINDINGS: LUMBAR SPINE: The bone mineral density in the lumbar spine including the L1-L4 levels is measured at 1.102 g/cm2, which corresponds to a T-score of -0.6 and a Z-score of 0.5. This is within the normal range by WHO criteria. This reflects a 3% decrease compared to prior. LEFT HIP: The bone mineral density in the total hip is measured at 0.921 g/cm2 corresponding to a T-score of -0.7 and a Z-score of 0.5. This is within the normal range by WHO criteria. The bone mineral density of the femoral neck is measured at 0.863 g/cm2 corresponding to a T-score of -1.3 and a Z-score of 0.2. This is within the osteopenia range by WHO criteria. 10 year probability major osteoporotic fracture 9.7%. Hip 1.4%. Procedure Note Elder Lees DO - 02/16/2022 EXAMINATION: BONE DENSITOMETRY 02/16/2022 8:23 am TECHNIQUE: A bone density dual x-ray absorptiometry (DEXA) scan was performed ofthe lumbar spine and left hip on a Bannerman system. COMPARISON: January 22, 2020 HISTORY: ORDERING SYSTEM PROVIDED HISTORY: Menopause FINDINGS: LUMBAR SPINE: The bone mineral density in the lumbar spine including the L1-L4 levelsis measured at 1.102 g/cm2, which corresponds to a T-score of -0.6 and aZ-score of 0.5. This is within the normal range by WHO criteria. This reflects a3% decrease compared to prior. LEFT HIP: The bone mineral density in the total hip is measured at 0.921 g/cm2 corresponding to a T-score of -0.7 and a Z-score of 0.5. This is withinthe normal range by WHO criteria. The bone mineral density of the femoral neck is measured at 0.863 g/cm2 corresponding to a T-score of -1.3 and a Z-score of 0.2. This is withinthe osteopenia range by WHO criteria. 10 year probability major osteoporotic fracture 9.7%. Hip 1.4%. IMPRESSION: Osteopenia by WHO criteria. Gideon Wright DO IMG DEXA ORDERABLES Final Resul t from Last 3 Months or Most Recently Relevant to Health Maintenance Insurance MEDICARE [place] [id number] [employer] MEDICARE SUPP MEDICARE [employer] MEDICARE SUPP Care Teams Campground Manager Relationship Specialty Start Date End Date Gideon Wright DO [address] [place] [address] PCP - General 09/21/13
--- OUTSIDE RECORDS SUMMARY | 2025-05-06 10:50 | XMS_ITS | Encounter Summary ---
Author Organization [facility] Address [address] [place] [address] Care Team Providers Care Propagation Worker Name Role Phone Gideon Wright Primary Care Provider [phone] Source Comments In the event this information is protected by the Federal Confidentiality of Alcohol and Drug AbusePatient Records regulations: The Federal rules restrict any use of the information to criminally investigate or prosecute any alcohol or drug abuse patient.[facility] Encounter Details Date Type Department Care Team (Late st Contact Info) Description 09/19/2020 Get Medical Advice Cardiology VERONICA GRIFFITH PA [address] [place] [address] Noah Thomas MD Veronica [address] [place], [place] [phone] RE: Medication Question (Not Renewal) Social History Tobacco Use Types Packs/Day Years Used Date Smoking Tobacco: Former Cigarettes Q uit: 1994 Smokeless Tobacco: Never Alcohol Use Standard Drinks/Week Comments Yes 0 (1 standard drink = 0.6 oz pur e alcohol) occasional/ social Comments No Sex and Gender Information [...] have Coronavirus / COVID-19? No / Unsure 09/22/2020 4:40 PM EST documented as of this encounter Plan of Treatment Not on file documented as of this encounter Visit Diagnoses Not on filedocumented in this encounter Care Teams Propagation Worker Relationship Specialty Start Date End Date Gideon Wright DO [address] [place] [address] PCP - General Internal Medicine 08/21/20 documented as of this encounter
--- OUTSIDE RECORDS SUMMARY | 2025-05-06 10:50 | XMS_ITS | Encounter Summary ---
Author Organization [facility] Address [address] [place] [address] Care Team Providers Care Chandelier Maker Name Role Phone Gideon Wright Primary Care Provider [phone] Source Comments In the event this information is protected by the Federal Confidentiality of Alcohol and Drug AbusePatient Records regulations: The Federal rules restrict any use of the information to criminally investigate or prosecute any alcohol or drug abuse patient.[facility] Encounter Details Date Type Department Care Team (Late st Contact Info) Description 04/28/2021 Get Medical Advice Cardiology [address] [phone] Davy Garcia MD [address] [place] [address] RE: Visit Follow Up Question Social History [...] ot on file 10/20/2020 Data from: [email or web address].[email or web address]/. Last address used for calculation Not on [...] have Coronavirus / COVID-19? No / Unsure 04/20/2021 8:59 AM EDT documented as of this encounter Functional Status * Are you deaf or do you have serious difficulty hearing? Answer Date of Assessment Author No 01/20/2021 10:53 AM Esteban Jacobo RN * Are you blind or do you have serious difficulty seeing, even when wearing glasses? Answer Date of Assessment Author No 01/20/2021 10:53 AM Esteban Jacobo RN * Do you have serious difficulty walking or climbing stairs? Answer Date of Assessment Author No 01/20/2021 10:53 AM Esteban Jacobo RN * Do you have difficulty dressing or bathing? Answer Date of Assessment Author No 01/20/2021 10:53 AM Esteban Jacobo RN * Because of a physical, mental, or emotional condition, do you have difficulty doing errands alone such as visiting a doctor's office or shopping? Answer Date of Assessment Author No 01/20/2021 10:53 AM Esteban Jacobo RN documented as of this encounter Mental Status * Because of a physical, mental, or emotional condition, do you have serious difficulty concentrating, remembering, or making decisions? Answer Entry Date Author No 01/20/2021 10:53 AM Esteban Jacobo RN documented in this encounter Plan of Treatment Not on file documented as of this encounter Visit Diagnoses Not on filedocumented in this encounter Care Teams Chandelier Maker Relationship Specialty Start Date End Date Gideon Wright DO [address] [place] [address] PCP - General Internal Medicine 08/21/20 documented as of this encounter
--- OUTSIDE RECORDS SUMMARY | 2025-05-06 10:50 | XMS_ITS | Encounter Summary ---
Author Organization [facility] Address [address] [place] [address] Care Team Providers Care Orthotist Or Prosthetist Name Role Phone KyleGideon Primary Care Provider [phone] Encounter Details Date Type Department Care Team (Late st Contact Info) Description 03/11/2025 Results Follow-Up [facility] [address] [place] [address] Sin Mercado PA-C [address] [place] [address] [address] [place] [address] Social History Tobacco Use Types Packs/Day Years [...] Description 03/07/2026 11:30 AM EDT Office Visit [facility] [address] [place] [address] Antonietta Fountain, DIGITAL WATCH ASSEMBLER - COPY CUTTER [address] [place] [address] 1 year follow up documented as of this encounter Visit Diagnoses Not on filedocumented in this encounter Care Teams Orthotist Or Prosthetist Relationship Specialty Start Date End Date Gideon Wright DO [address] [facility] [place] [phone] PCP - General 09/21/13 documented as of this encounter
--- OUTSIDE RECORDS SUMMARY | 2025-05-06 10:50 | XMS_ITS | Clinical Summary ---
Author Organization [facility] Address [facility] [place] [address] Care Team Providers Care Leather Sponger Name Role Phone Gideon Wright Primary Care Provider [phone] Allergies Active Allergy Reactions Criticality Noted Date Comments Codeine Vomiting 08/11/2020 Meperidine Vomiting 08/11/2020 Scallops Other: See Comments 08/11/2020 Nausea, diarrhea Medications loratadine (CLARITIN ORAL) Take by mouth once daily. Active aspirin 81 mg chewable tablet Chew and swallow 1 tablet by mouth once daily. 30 tablet 1 06/29/2021 6:41 PM EDT 06/28/2021 Active atorvastatin calcium (ATORVASTATIN ORAL) Take 40 mg by mouth daily at bedtime. Active losartan (COZAAR) 25 mg tablet TAKE 1 TABLET BY MOUTH DAILY 90 tablet 3 12/30/2024 Active Ascorbic Acid (VITAMIN C) 1,000 mg tablet Take 1,000 mg by mouth once daily. 11/14/2009 Active calcium carbonate/vitam in D3 (CALCIUM 600 + D ORAL) 11/14/2009 Activ e cholecalciferol , vitamin D3, (VITAMIN D3 ORAL) Active vitamin B complex (B COMPLEX 1 ORAL) 11/14/2009 Act yudy Vitamin E, dl, acetate, (VITAMIN E) 400 unit capsule 11/14/2009 Active metoprolol succinate ER (TOPROL XL) 50 mg 24 hr tablet TAKE 1 TABLET BY MOUTH DAILY 90 tablet 3 03/17/2025 Active Active Problems Patient Care Coordination No te Formatting of this note is d ifferent from the original. Indication for Surgery: HOCM, MR Preop LVEF: 71% Severe LVH, G2 DD RVF: Normal Cards: Obrien LHC: non-obstructive CAD EKG: SB, LVH, LAE Postop LVEF: Normal RVF: Normal PMH/PSH: HOCM, PPM/ICD, HPL, HTN, Prolong QTc Airway Difficulty: Grade I - Glidescope (planned) Pacing Wires: pulled 06/27/21 Surgery: 06/23/2021: 4.5g from myectomy and MVr --reorientation of anterior papillary muscle. Trace MR post-op A/Plan: -s/p Myectomy: ASA. Echo & surg path reviewed. -PPM/ICD: Post-op full device check and caodaism of ICD therapies complete. -HTN: (losartan at home): IV lasix & metoprolol -Post op afib evening of 06/27, converted with IV Amio. Continues in rate controlled afib Convert to po Amio., Start Eliquis per Dr. Saenz. Ok for DC today -CAD: ASA. BB. High intensity statin. -Dispo: from [place], [place]. PT recs home without needs. CTS OPD and Cards appt requested Discharge Planning: Anticipated Discharge Date: 06/27- Barriers to Discharge: Other: PMW Care Management Discharge Needs: Problem Noted Date Diagnosed Date History of recurrent UTI (urinary tract infectio n) 09/26/2023 Renal abscess, right 09/25/2023 A-fib 06/28/2021 Overview (06/29/2021): Hx post op Assessment: Afib occurred evening of 06/27, continues in rate controlled afib Plan:Convert to po Amio., Start Eliquis per Dr. Saenz. Ok for DC today Summary 06/26/2021 Overview (06/29/2021): Indication for Surgery: HOCM, MR Preop LVEF: 71% Severe LVH, G2 DD RVF: Normal Cards: Obrien LHC: non-obstructive CAD EKG: SB, LVH, LAE Postop LVEF: Normal RVF: Normal PMH/PSH: HOCM, PPM/ICD, HPL, HTN, Prolong QTc Airway Difficulty: Grade I - Glidescope (planned) Pacing Wires: pulled 06/27/21 Surgery: 06/23/2021: 4.5g from myectomy and MVr --reorientation of anterior papillary muscle. Trace MR post-op A/Plan: -s/p Myectomy: ASA. Echo & surg path reviewed. -PPM/ICD: Post-op full device check and caodaism of ICD therapies complete. -HTN: (losartan at home): IV lasix & metoprolol -Post op afib evening of 06/27, converted with IV Amio. Continues in rate controlled afib Convert to po Amio., Start Eliquis per Dr. Saenz. Ok for DC today -CAD: ASA. BB. High intensity statin. -Dispo: from [place], [place]. PT recs home without needs. CTS OPD and Cards appt requested Discharge Planning: Anticipated Discharge Date: Barriers to Discharge: Other: PMW Care Management Discharge Needs: Coronary artery disease invo lving [place] coronary artery of [place] heart without angina pectoris 06/23/2021 Overview (06/29/2021): History: Nonobstructive coronary artery disease Assessment: To be medically managed Plan: ASA. BB. Statin. ICD (implantable cardioverter-defibrillator) in place 06/23/2021 Overview (06/29/2021): History: PPM/ICD- hx of prolong QTC. BSX implant on 01/19/21 Assessment: Post-op full device check and caodaism of ICD therapies complete. Plan: Local follow up. HOCM (hypertrophic obstructive cardiomyopathy) 0 06/23/2021 Overview (06/29/2021): History: 04/20/2021 echo: There is severe asymmetric left ventricular hypertrophy. Left ventricular systolic function is normal. Grade II left ventricular diastolic dysfunction Assessment: 06/23/2021: 4.5g from myectomy and MVr --reorientation of anterior papillary muscle. Plan: ASA. Echo & surg path reviewed Nonrheumatic mitral valve regurgitation 06/23/20 Overview (06/29/2021): History: 04/20/2021 echo: There is mild mitral [...] anterior papillary muscle. Plan: ASA. Echo reviewed Other hyperlipidemia 06/23/2021 Overview (06/29/2021): History: HPL. LDL not on file. Managed with 40mg atorvastatin. Assessment: Given history of CAD is well managed with high intensity statin Rx. Plan: Resumed 40mg atorvastatin with local reassessment. Pre-op testing 06/22/2021 Overview (06/22/2021): [facility] PRE-OP CHECKLIST Surgeon: Jason Giraldo M.D. Informed Consent Completed: Yes STS Score: unsupported CAD: No Is intended procedure a CABG: No - is a beta jyoti ordered? Yes H & P completed: Yes PA/LAT: Completed CT: N/A MRI: Completed LE US: N/A Cath: Yes - reviewed: Yes EKG: Completed Is patient on Amiodarone? No Echo:Completed EF %: 71 PI's: N/A Carotid: N/A Mapping: N/A Dental: Completed PFT's: N/A Recent Labs 06/22/21 0855 INR 1.0 CREAT 0.92 UA: Normal HCG:N/A ABO/ABO Confirmed: Yes Blood ordered: No Willing to accept blood: SA Swab: Yes - results: Pending Last Dose of Anticoagulation: none Op Note: N/A Pacemaker Check: Yes, ICD 05/29/2021 Implants: no Consults: none DM: No Cardiac Surgical prep: N/A SIGNATURE: Delmi Matt APRN.CNP DATE of SERVICE: 06/22/2021 TIME of SERVICE: 5:39 PM CHECKED BY: tamara Discharge planning issues 06/22/2021 Overview (06/29/2021): from [place], [place]. PT recs home without needs. NSVT (nonsustained ventricular tachycardia) 0 06/2021 Essential hypertension 08/27/2020 Overview (06/29/2021): History: Avapro, Metoprolol Assessment: Normotensive Plan: Continue metoprolol SOB (shortness of breath) 08/11/2020 Other hypertrophic cardiomyopathy 08/11/2020 Resolved Problems Problem Noted Date Diagnosed Date Resolved Date Atelectasis 06/25/2021 06/26/2021 Overview (06/26/2021): History: Postoperative. Assessment: Bibasilar atelectasis on CXR. Plan: Continue to encourage PEP/BPH, OOB, PT/OT, and optimize pain control. Hypervolemia 06/24/2021 06/26/2021 Overview (06/24/2021): S/P Myectomy, MVr Assessment: +1752cc/24hr Plan: Start gentle diuresis today. On mechanically assisted ventilation 06/23/2021 06/24/2021 Overview (06/23/2021): History: OR Assessment: Grade 1-glidscope planned Plan: WTE when awake and stable Hypovolemia 06/23/2021 06/24/2021 Overview (06/23/2021): .History: OR Assessment: Post op fluid shifts Plan: IVF replacement prn Stress hyperglycemia 06/23/2021 021 Overview (06/25/2021): History: No DM history No results found for: HBA1C Assessment: Perioperative insulin resistance and exacerbation of hyperglycemia. Plan: RHI infusion per CVICU nomogram to maintain BG <150 mg/dL. Post-op pain 06/23/2021 06/26/2021 Overview (06/26/2021): History: Postoperative. Assessment: Pain well controlled on current regimen. Plan: Continue scheduled Tylenol. Continue oxycodone IR as needed for breakthrough pain. Encounters Date Type Department Care Team Description 03/17/2025 Refill [address] [place], [place] [id number] Karina Spicer APRN.HOUSEKEEPING LAUNDRY WORKER Refill Request 02/25/2025 2:45 PM EDT Office Visit Cardiology [address] [place] [phone] Davy Obrien MD Primary hypertension; HOCM (hypertrophic obstructive cardiomyopathy) (HCC) 02/25/2025 12:30 PM EDT Procedure Cardiology [address] [place] [address] 02/25/2025 10:30 AM EDT Office Visit Cardiology [address] [place] [id number] Mariza Coreas APRN.HOUSEKEEPING LAUNDRY WORKER ICD (implantable cardioverter-defibril lator) in place (Primary Dx); Long Q-T syndrome; HOCM (hypertrophic obstructive cardiomyopathy) (HCC); Paroxysmal atrial fibrillation (HCC) 02/25/2025 9:45 AM EDT - 02/25/2025 11:59 PM EDT Hospital Encounter Cardiology [address] [place], [place] [id number] Pacemaker reprogramming/check [Z45.018] Discharge Disposition: Home 02/22/2025 Orders Only Cardiology [address] [place] [phone] Davy Obrien MD EKG abnormalities (Primary Dx) 02/21/2025 Orders Only Cardiology [address] [place] [phone] Jevon Can MD 02/21/2025 Travel from Last 3 Months Immunizations Immunization Administration Dates Next Due COVID-19 original vaccine, a ge 12+ yr, monovalent ([place] - PURPLE TOP) 01/10/2021,12/19/2020 influenza (HD-IIV3) vaccine, age 65+ yr, high dose, trivalent, PF (FLUZONE HIGH-DOSE) 08/04/2016 influenza (IIV3) vaccine, tr ivalent (AFLURIA, FLULAVAL, FLUVIRIN, FLUZONE) 07/22/2019 influenza (aIIV3) vaccine, a ge 65+ yr, trivalent, PF (FLUAD) 07/27/2019,07/25/2018 pneumococcal conjugate (PCV1 3) vaccine, 13 valent (PREVNAR 13) 09/23/2015 pneumococcal polysaccharide (PPV23) vaccine, 23 valent (PNEUMOVAX 23) 01/04/2019 zoster (ZVL) vaccine, live (ZOSTAVAX) 06/17/2015 ,09/09/2014 Family History Medical History Relation Comments prolonged Brother 2 QT interval prongled Daughter Qt interval Aneurysm Father prolonged Granddaughter QT interval Heart disease Mother Cancer Sister Relation Status Comments Brother 1 Alive Brother 2 Alive Daughter Alive Father Granddaughter Alive Mother Sister Son Alive Social History Tobacco Use Types Packs/Day Years Used Date Smoking Tobacco: Former Cigarettes Q uit: 1994 Smokeless Tobacco: Never Tobacco Cessation:Counseling Given: Not Answered Alcohol Use Standard Drinks/Week Comments Yes 0 (1 standard drink = 0.6 oz pur e alcohol) rarely PHQ-2 Answer Date Recorded PHQ-2 score 1 12/07/2022 Area Deprivation Index Answer Date Joao rded National Score (1-100), lower number is lower ri sk 73 12/02/2022 State Score (1-10), lower number is lower risk N ot on file 12/02/2022 Data from: https://www.neighborhoodatlas.medicine.[facility].edu/. Last address used for calculation [address] 12/02/2022 Comments No Sex and Gender Information Value Date Recorded Sex Assigned at Female 10/31/2020 11:33 AM EST Legal Sex Female 4:06 PM EDT Gender Identity Female 10/31/2020 11:33 AM EST Sexual Orientation Straight 10/31/2020 11 :33 AM EST Last Filed Vital Signs Vital Sign Reading Time Taken Comments Blood Pressure 165/77 02/25/2025 2:55 PM EDT Pulse 63 02/25/2025 2:55 PM EDT Temperature 36.9 C (98.4 F) 09/28/2023 11:49 AM EST Respiratory Rate 16 09/28/2023 11:49 AM EST Oxygen Saturation 98% 02/25/2025 2:55 PM EDT Inhaled Oxygen Concentration - - Weight 79.4 kg (175 lb) 02/25/2025 2:55 PM EDT Height 162.6 cm (5' 4 ) 02/25/2025 2:55 PM EDT Body Mass Index 30.04 02/25/2025 2:55 PM EDT Plan of Treatment Health Maintenance Due Date Last Done Comments Annual PCP Team Chronic Dise ase Visit 1967 Anxiety Screening 1967 Depression Screening 1967 Hepatitis C Screening [address] Ch[address] Colonography 1994 Colonoscopy 1994 Fecal Occult Blood 1994 Lipid Screening 1994 Sigmoidoscopy 1994 DTaP,Tdap,Td Vaccine (1 - Tdap) 08/30/2013 3 Medicare Annual Wellness Visit 09/14/2014 Covid-19 Vaccine (5 - 2023-2 5 season) 2024 06/22/2022, 10/21/2021, 10/21/2021, Additional history exists RSV Vaccine (1 - 1-dose 75+ series) 2024 Advance Directive Discussion 11/14/2024 Cologuard (FIT-DNA) 06/09/2026 06/09/2023, Colorectal Cancer Screening 06/09/2026 Diabetes Screening 09/28/2026 09/28/2023, 1 11/27/2022, 09/26/2023, Additional history exists Pneumococcal Vaccine: 50+ Completed 2018, 09/23/2015, 08/13/2015 Bone Density Screening Completed , 01/22/2020, 01/22/2020 Mammogram Screening Discontinued 02/16/2022, 02/16/2022, 07/26/2019, Additional history exists Shingrix Vaccine Completed 04/18/2023, 03/2023, 06/17/2015, Additional history exists Influenza Vaccine Completed 09/24/2024, , 09/07/2022, Additional history exists Goals Goal Patient Goal Type Associated Problems Recent Progress Patient-Stated? Author Blood Pressure < 130/80 Blood Pressure 165/77( 025 2:55 PM EDT) No Mariza Coreas APRN.HOUSEKEEPING LAUNDRY WORKER Medical Devices Implanted Type Area 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 Device Identifier Shelf Expiration Date Model / Serial / Lot [id number] -08-2021 Implanted:03/0 06/2021 (Quantity not on file) ICD [employer] D142 INOGEN / [id number] / Intraocular Lens Intraocular Lens Bilatera l: Eye [id number] Ingevity + Mri [id number] Implanted:06/2021 (Quantity not on file) Lead [employer] 7841 INGEVITY + MRI / [id number] / [id number] [place] 4-Front S [id number] Implanted:06/2021 (Quantity not on file) Lead [employer] 0672 RELIANCE 4-FRONT S / [id number] / Pacemaker Pacemaker Chest Wall Procedures Procedure Name Priority Date/Time Associated Diagnosis Comments LVEF TRANSTHORACIC ECHO Routine 02/25/2025 1:33 PM EDT ECHO Routine 02/25/2025 1:33 PM EDT Primary hypertension HOCM (hypertrophic obstructive cardiomyopathy) (HCC) CARDIAC IMPLANTABLE DEVICE CHECK Routine 02/25/2025 10:19 AM EDT Pacemaker reprogramming/check ECG COMPLETE Routine 02/25/2025 9:59 AM EDT EKG abnormalities INTERROGATION EVAL REMOTE </90 D //PRECISION LENS TECHNICIAN LD DFB Routine 02/21/2025 1:22 AM EDT BASIC METABOLIC PANEL Routine 09/28/2023 6:45 AM EST from Last 3 Months or Most Recently Relevant to Health Maintenance Results * ECHO (02/25/2025 1:33 PM EDT) 02/25/2025 1:33 PM EDT [facility] - 02/25/2025 4:35 PM EDT CONCLUSIONS: - Technically difficult exam due to body habitus. - Exam indication: Hx; Myectomy, MVr - The left ventricle is normal in size. There is moderate septal concentric left ventricular hypertrophy. Left ventricular systolic function is normal. EF = 65 5% (visual est.) Definity contrast used for endocardial border detection. Left ventricular diastolic function was not evaluated due to mitral valve surgery. - The right ventricle is normal in size. Right ventricular systolic function is normal. - The left atrial cavity is mildly dilated. - Post mitral valve repair. There is trace (trace - 1+) mitral valve regurgitation. The peak gradient is 9 mmHg and the mean gradient is 3 mmHg. Prior gradients 6/2 mmHg. Todays gradients obtained at 60 bpm. - Rest (55 bpm) : trivial chordal KENNEDI, triv-1+ MR, peak LVOT gradient ~14 mmHg. - Valsalva (70 bpm) : no signifcant changes of KENNEDI and MR, peak LVOT gradient ~17 mmHg. - Exam was compared with the prior echocardiographic exam performed on 11/04/2023. Similar findings. * * * Final * * * [facility] - 02/25/2025 4:35 PM EDT Echocardiography Report: Transthoracic Echo [facility] J1-5 Date of service: 02/25/2025 1:33:59 PM Ordering physician: KARINA SPICER Indication: Hx; Myectomy, MVr Technologist: Diogo Villeda Fellow: Jerson Robles MD Interpreting physician: Omer Miller DO PATIENT: Name: YASMIN ORTIZ : 1950 Age: 74 years Gender: F History of hypertension and cardiomyopathy. Previous cardiovascular interventions: Myectomy (06/23/21) MVr papillary reiorientation (06/23/21) Primary rhythm: sinus. Height: 165.10 cm BSA: 1.88 m Weight: 76.89 kg BMI: 28.2 kg/m Heart rate 62 bpm Blood pressure 132/50 mmHg Technically difficult exam due to body habitus. Color Doppler was utilized to interrogate the cardiac valves assessed and spectral Doppler was utilized to determine the flow velocities and pressure gradients reported in this exam. MEASUREMENTS: Value Indexed Normal Max aortic dimension 3.2 cm Ao < 3.8 Left atrial volume 67 ml (biplane A-L) 36 ml/m Santo <= 34 LV ID (diastole) 3.2 cm (2D) 1.71 cm/m LV ID (systole) 1.9 cm (2D) 1.02 cm/m IVS, leaflet tips 1.4 cm (2D) Posterior wall thickness 1.0 cm (2D) Left ventricular mass 126 g (2D) 67 g/m Ejection Fraction 65 % (visual est.) EF > 54 FINDINGS: LEFT VENTRICLE The left ventricle is normal in size. There is moderate septal concentric left ventricular hypertrophy. Left ventricular systolic function is normal. Left ventricular diastolic function was not evaluated due to mitral valve surgery. Mitral annular lateral E/e': 12.8. Mitral annular septal E/e': 22.4. Definity contrast used for endocardial border detection. Wall Motion: All scored segments are normal. RIGHT VENTRICLE The right ventricle is normal in size. Pacer wires are noted in the right ventricle. Right ventricular systolic function is normal. Estimated right ventricular systolic pressure is 34 mmHg consistent with normal pulmonary artery pressures. Estimated right atrial pressure is 3 mmHg based on IVC assessment. LEFT ATRIUM The left atrial cavity is mildly dilated. RIGHT ATRIUM The right atrial cavity is normal in size. Pacer wires are noted in the right atrium. Inferior Vena Cava: The inferior vena cava appears normal measuring 1.1 cm. The vessel decreases greater than 50 percent with inspiration. MITRAL VALVE Post mitral valve repair. There is trace (trace - 1+) mitral valve regurgitation. There is mild thickening. The peak valve gradient is 9 mmHg. The mean valve gradient is 3 mmHg. The pressure half time is 64 msec. The peak mitral E/A ratio is 0.74. The average mitral E/e' ratio is 17.6. The mitral flow deceleration time is 219 msec. TRICUSPID VALVE The tricuspid valve leaflets are structurally normal. There is trace tricuspid valve regurgitation. AORTIC VALVE There is mild (1+) aortic valve regurgitation. Tricuspid aortic valve. There is mild thickening of the right, left and non coronary aortic cusps at the tips. There is mild calcification of the left, right and non coronary aortic cusps involving the commissures. The peak gradient is 16 mmHg (peak velocity = 198.7 cm/s). PULMONIC VALVE The pulmonic valve cusps are structurally normal. There is trace (trace - 1+) pulmonic valve regurgitation. AORTA The visualized aorta is normal in size. Measurements - Mid ascending aorta 3.2 cm. PULMONARY ARTERIES The pulmonary arteries are normal. INTERATRIAL SEPTUM The interatrial septum is normal. There is no evidence of intracardiac shunting as detected by Doppler. INTERVENTRICULAR SEPTUM There is abnormal motion of the interventricular septum secondary to prior cardiac surgery. There is no flow through the interventricular septum as detected by Doppler. PERICARDIUM There is no pericardial effusion. There is an epicardial fat pad. Karina Spicer APRN.ROSALEE ECHO Final Resu lt Performing Organization Address [facility]/ZIP Co de Phone Number HEART [facility] [address] [place] [address] * LVEF TRANSTHORACIC ECHO (02/25/2025 1:33 PM EDT) LV Ejection Fraction 65 % [facility] Comment: (visual est.) EF > 54 An LV Ejection Fraction of > 50% is normal 02/25/2025 1:33 PM EDT Karina Spicer APRN.HOUSEKEEPING LAUNDRY WORKER LVEF RESULTS Final Resu lt Performing Organization Address [facility] Co de Phone Number [facility] [address] [place] [address] * CARDIAC IMPLANTABLE DEVICE CHECK (02/25/2025 10:19 AM EDT) Date Time Interrogation Session [id number] MURJ CARDIAC Implantable Pulse Generator 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 [employer] MURJ CARDIAC Implantable Pulse Generator Type Defibrillator [facility] Implantable Pulse Generator Model D142 [facility] Implantable Pulse Generator Serial Number [id number] [facility] Implantable Pulse Generator Implant Date 20210119 MURJ CARDIAC Battery Status MAVERICK MURJ CARDIAC Lead Channel Sensing Intrinsic Amplitude 7.300 MURJ CARDIAC Lead Channel Setting Sensing Sensitivity 0.25 MURJ CARDIAC Lead Channel Impedance Value 581 MURJ CARDIAC Lead Channel Pacing Threshold Amplitude 0.700 MURJ CARDIAC Lead Channel Pacing Threshold Pulse Width 0.4 MURJ CARDIAC Lead Channel Measurements Date and Time 2025-02-25 MURJ CARDIAC Lead Channel Setting Pacing Amplitude 2.000 MURJ CARDIAC Lead Channel Setting Pacing Pulse Width 0.4 MURJ CARDIAC Lead Channel Sensing Intrinsic Amplitude 25.000 MURJ CARDIAC Lead Channel Setting Sensing Sensitivity 0.30 MURJ CARDIAC Lead Channel Impedance Value 448 MURJ CARDIAC Lead Channel Pacing Threshold Amplitude 0.600 MURJ CARDIAC Lead Channel Pacing Threshold Pulse Width 0.4 MURJ CARDIAC Lead Channel Measurements Date and Time 2025-02-25 MURJ CARDIAC Lead Channel Setting Pacing Amplitude 2.000 MURJ CARDIAC Lead Channel Setting Pacing Pulse Width 0.4 MURJ CARDIAC Mao Setting Mode (NBG Code) DDD MURJ CARDIAC Mao Setting Lower Rate Limit 40 MURJ CARDIAC Mao Setting AT Mode Switch Rate 170 MURJ CARDIAC Mao Setting Maximum Tracking Rate 130 MURJ CARDIAC Mao Setting PAV Delay 350 MURJ CARDIAC Mao Setting HONORIO Delay 350 MURJ CARDIAC Therapy Statistic Recent Shocks Delivered 0 MURJ CARDIAC Therapy Statistic Recent Shocks Aborted 0 MURJ CARDIAC Therapy Statistic Recent ATP Delivered 0 MURJ CARDIAC Shock Measured Impedance 80 MURJ CARDIAC Zone Setting Type Category VF MURJ CARDIAC Rate 1 200 MURJ CARDIAC Therapies ATP, 41J, 41J, 41Jx6 MURJ CARDIAC Zone Setting Status On MURJ CARDIAC Zone ID 1 MURJ CARDIAC Zone Setting Type Category VT MURJ CARDIAC Rate 1 170 MURJ CARDIAC Therapies monitor MURJ CARDIAC Zone Setting Status Off MURJ CARDIAC Zone ID 2 MURJ CARDIAC Zone Setting Type Category VT1 MURJ CARDIAC Therapies 0J,0J MURJ CARDIAC Zone Setting Status On [facility] Zone ID 3 [facility] Implantable Lead 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 [employer] [facility] Implantable Lead Model 7841 Ingevity + MRI [facility] Implantable Lead Location Right Atrium [facility] Implantable Lead Connection Status Connected [facility] Implantable Lead Serial Number [id number] [facility] Implantable Lead Implant Date 20210119 [facility] Implantable Lead 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 [employer] [facility] Implantable Lead Model 0672 [place] 4-Front S [facility] Implantable Lead Location Right Ventricle [facility] Implantable Lead Connection Status Connected [facility] Implantable Lead Serial Number [id number] [facility] Implantable Lead Implant Date 20210119 [facility] 02/25/2025 10:1 9 AM EDT Narrative [facility] - 03/04/2025 4:03 PM EDT In-Office Device Evaluation *Seeing PENS AND PENCILS DIPPER today* * Device type: Dual chamber pacemaker * Presenting Rhythm: /VS * Underlying Rhythm: SR * Battery Status: 10.5 years * Atrial Arrhythmias: There have been 0 atrial detections. * Ventricular Arrhythmias: There have been 0 ventricular detections. * Lead Measurements: Capture thresholds and sensing are appropriate. The pacing outputs maintain safety margin. Lead impedance trends are normal. 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 Full Docket/PDF found below under Scanned Documents . Procedure Note Jevon Can MD - 03/04/2025 In-Office Device Evaluation *Seeing PENS AND PENCILS DIPPER today* * Device type: Dual chamber pacemaker * Presenting Rhythm: /VS * Underlying Rhythm: SR * Battery Status: 10.5 years * Atrial Arrhythmias: There have been 0 atrial detections. * Ventricular Arrhythmias: There have been 0 ventricular detections. * Lead Measurements: Capture thresholds and sensing are appropriate. Thepacing outputs maintain safety margin. Lead impedance trends are normal. * Other Diagnostics: AP<1%/FILLER SHREDDER HELPER<1% * Programming Changes Made Today: none * Follow Up: Routine remotes and in office device checks NOTE TO PROVIDERS: Cardiac Implanted Devices Flowsheets contain detailedProgramming and Evaluation data. Full Docket/PDF found below under Scanned Documents . us [facility] Provider CARDIOLOGY F inal Result [facility] CARDIAC * ECG COMPLETE (02/25/2025 9:59 AM EDT) Ventricular Rate 63 BPM [facility] Atrial Rate 63 BPM [facility] P-R Interval 176 ms [facility] QRS Duration 146 ms [facility] QT Interval 500 ms [facility] QTC Calculation (Bazett) 511 ms [facility] Calculated P Blount 58 degrees [facility] Calculated R Blount -42 degrees [facility] Calculated T Blount 137 degrees [facility] 02/25/2025 9:59 AM EDT Impressions [facility] - 03/24/2025 10:08 PM EDT NORMAL SINUS RHYTHM POSSIBLE LEFT ATRIAL ENLARGEMENT LEFT AXIS DEVIATION COMPLETE LEFT BUNDLE BRANCH BLOCK ABNORMAL ECG Confirmed by VALORIE DÍAZ MD ([id number]) on 03/24/2025 10:08:47 PM Narrative [facility] - 03/24/2025 10:08 PM EDT NAME : YASMIN ORTIZ PID : [id number] : 1950 Gender : Female Race : ORD : [id number] Procedure Date : Feb 25 2025 09:59:29 Edit Date : Mar 24 2025 22:08:49 Diagnosis: NORMAL SINUS RHYTHM POSSIBLE LEFT ATRIAL ENLARGEMENT LEFT AXIS DEVIATION COMPLETE LEFT BUNDLE BRANCH BLOCK ABNORMAL ECG Confirmed by VALORIE DÍAZ MD ([id number]) on 03/24/2025 10:08:47 PM Test Reason : Location : 314 : J14 Overread By : VALORIE DÍAZ MD Edited By : VALORIE DÍAZ MD Referred By : DAVY OBRIEN Acquired by : LUZ OSHEA Davy Obrien MD EKG Final Result [facility] [address] [place] [address] * CARDIAC IMPLANTABLE DEVICE CHECK REMOTE (02/21/2025 1:22 AM EDT) Date Time Interrogation Session [id number] MURJ CARDIAC Type Interrogation Session Remote Scheduled MURJ CARDIAC Implantable Pulse Generator 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 [place] [employer] MURJ CARDIAC Implantable Pulse Generator Type Defibrillator MURJ CARDIAC Implantable Pulse Generator Model [id number] M[facility]J CARDIAC Implantable Pulse Generator Serial Number [id number] [facility] CARDIAC Implantable Pulse Generator Implant Date 20210119 [facility] Battery Remaining Percentage 100.00 [facility] CARDIAC Battery Remaining Longevity 126.0 [facility] CARDIAC Battery Status Beginning of Service [facility] C[facility] Capacitor Charge Time 10.400 [facility] CARDIAC Mao Statistic RA Percent Paced 0.00 [facility] CARDIAC Mao Statistic RV Percent Paced 0.00 [facility] CARDIAC Atrial Tachy Statistic AT/AF Bryant Percent 0.00 [facility] C[facility] Lead Channel Sensing Intrinsic Amplitude 6.500 [facility] C[facility] Lead Channel Setting Sensing Sensitivity 0.25 [facility] CARDIAC Lead Channel Impedance Value 623 [facility] CARDIAC Lead Channel Setting Pacing Amplitude 2.000 [facility]J CARDIAC Lead Channel Setting Pacing Pulse Width 0.4 [facility] CARDIAC Lead Channel Sensing Intrinsic Amplitude 25.000 [facility] CARDIAC Lead Channel Setting Sensing Sensitivity 0.30 [facility] CARDI[facility] Lead Channel Impedance Value 438 [facility] CARDIAC Lead Channel Setting Pacing Amplitude 2.000 [facility] CARDIAC Lead Channel Setting Pacing Pulse Width 0.4 [facility] CARDIAC Mao Setting Mode (NBG Code) DDD [facility] CARDIAC Mao Setting Lower Rate Limit 40 [facility] CARDIAC Mao Setting AT Mode Switch Rate 170 MURJ CARDIAC Mao Setting Maximum Tracking Rate 130 MURJ CARDIAC Mao Setting PAV Delay 160 MURJ CARDIAC Mao Setting HONORIO Delay 160 MURJ CARDI[facility] Therapy Statistic Recent Shocks Delivered 0 [facility] CARDIAC Therapy Statistic Recent Shocks Aborted 0 [facility]UR[facility] CARDIAC Therapy Statistic Recent ATP Delivered 0 [facility] CARDI[facility] Shock Measured Impedance 81 [facility] CARDIAC Lead Channel Setting Sensing Polarity Bipolar [facility] Lead Channel Setting Sensing Polarity Bipolar [facility] Lead Channel Setting Pacing Polarity Bipolar [facility] Lead Channel Setting Pacing Polarity Bipolar [facility] Lead Channel Pacing Threshold Polarity Bipolar [facility] Lead Channel Pacing Threshold Polarity Bipolar [facility] Zone Setting Type Category VF MURJ CARDIAC Rate 1 200 MURJ CARDIAC Therapies Burst,41J,41J,41J x 6 [facility] Zone Setting Status On [facility] ID 1 [facility] Zone Setting Type Category VT MURJ CARDIAC Rate 1 170 [facility] CARD[facility] Zone Setting Status Monitor [facility] ID 2 [facility] Implantable Lead 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 [employer] [place] [facility] Implantable Lead Model [id number] Ingevity + MRI [facility] Implantable Lead Location Right Atrium [facility] Implantable Lead Connection Status Connected [facility] Implantable Lead Serial Number [id number] [facility] Implantable Lead Implant Date 20210119 [facility] Implantable Lead 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 [place] [employer] [facility] Implantable Lead Model 0672 [place] 4-Front S [facility] Implant[facility] Lead Location Right Ventricle [facility] Im[facility] Lead Connection Status Connected [facility] Implantable Lead Serial Number [id number] [facility] Implantable Lead Implant Date 20210119 [facility] 02/21/2025 1:22 AM EDT Narrative [facility] - 02/24/2025 12:41 PM EDT Normal Remote: No Events DUAL LEAD ICD REMOTE * Normal Device Function * Alerts or events: None * Battery: Battery is at 100%, 10.50 yrs * Sensing, impedance reviewed * Programmed parameters reviewed * Presenting rhythm: /VS * Heart Rate Histograms reviewed * No significant changes noted NOTE TO PROVIDERS: Cardiac Implanted Devices Flowsheets contain detailed Programming and Evaluation data. Full Docket/PDF found below under Scanned Documents . Procedure Note Jevon Can MD - 02/24/2025 Normal Remote: No Events DUAL LEAD ICD REMOTE * Normal Device Function * Alerts or events: None * Battery: Battery is at 100%, 10.50 yrs * Sensing, impedance reviewed * Programmed parameters reviewed * Presenting rhythm: /VS * Heart Rate Histograms reviewed * No significant changes noted NOTE TO PROVIDERS: Cardiac Implanted Devices Flowsheets contain detailedProgramming and Evaluation data. Full Docket/PDF found below under Scanned Documents . us Jevon Can MD CARDIOLOGY Final Result [facility] CARDIAC * (ABNORMAL) BASIC METABOLIC PNL (09/28/2023 6:45 AM EST) Glucose 107(H) 74 - 99 mg/dL 09/28/2023 8:45 AM EST [facility] Comment: The [place] Diabetes Association (ADA) provides guidance for cutoff [...] Standards of Medical Care in Diabetes 2016, [place] Diabetes Association. Diabetes Care. 2016.39(Suppl 1). BUN 12 7 - 21 mg/dL 09/28/2023 8:45 AM [facility] Creatinine 0.71 0.58 - 0.96 mg/dL 09/28/2023 8:45 AM [facility] Sodium 141 136 - 144 mmol/L 09/28/2023 8:45 AM EST [facility] Potassium 4.3 3.7 - 5.1 mmol/L 09/28/2023 8:45 AM [facility] Chloride 108(H) 97 - 105 mmol/L 09/28/2023 8:45 AM [facility] CO2 22 22 - 30 mmol/L 09/28/2023 8:45 AM [facility] Anion Gap 11 9 - 18 mmol/L 09/28/2023 8:45 AM [facility] Calcium, Total 9.3 8.5 - 10.2 mg/dL 09/28/2023 8:45 AM [facility] Estimated Glomerular Filtration Rate 90 >=60 mL/min/1.7 3m 09/28/2023 8:45 AM EST [facility] Comment:Estimated Glomerular Filtration Rate (eGFR) is calculated using the 2020 CKD-EPI creatinine equation. This equation utilizes serum creatinine, sex, and age as parameters. The creatinine assay has traceable calibration to isotope dilution- mass spectrometry. Refer to KDIGO guidelines for clinical interpretation. In patients with unstable renal function, e.g. those with acute kidney injury, the eGFR may not accurately reflect actual GFR. Blood BLOOD SPECIMEN / Unknown Venipuncture / Unknown 09/28/2023 6:45 AM EST 09/28/2023 7:14 AM EST us Perfecto Emerson MD LABORATORY Final Result [facility] [address] [address], from Last 3 Months or Most Recently Relevant to Health Maintenance Insurance MEDICARE [facility] Advance Directives * Full Code (Latest Code Status on File) Date Activated Date Inactivated Comments 09/25/2023 4:27 AM 09/28/2023 4:55 PM Question Answer Comments Full Code Order Discussed With: Patient Care Teams Leather Sponger Relationship Specialty Start Date End Date Gideon Wright DO [address] [place] [address] PCP - General Internal Medicine 08/21/20
--- OUTSIDE RECORDS SUMMARY | 2025-05-06 10:50 | XMS_ITS | Clinical Summary ---
Author Organization [facility] Healthcare Address [address] [place] [address] Care Team Providers Care Commanding Officer Garage Name Role Phone Unavailable Primary Care Provider Unavailabl e Social History Tobacco Use Types Packs/Day Years Used Date Smoking Tobacco: Never Assessed Comments Unknown Sex and Gender Information Value Date Recorded Sex Assigned at Not on file Legal Sex Female 7:18 PM EDT Gender Identity Not on file Sexual Orientation Not on file Last Filed Vital Signs Vital Sign Reading Time Taken Comments Blood Pressure 113/86 02/20/2018 12:00 PM EDT Pulse - - Temperature - - Respiratory Rate - - Oxygen Saturation - - Inhaled Oxygen Concentration - - Weight 76.7 kg (169 lb) 02/20/2018 12:00 PM EDT Height 165.1 cm (5' 5 ) 02/20/2018 12:00 PM EDT Body Mass Index 28.12 02/20/2018 12:00 PM EDT Plan of Treatment Health Maintenance Due Date Last Done Comments CT Colonography 1950 Colonoscopy 1950 FIT 1950 FOBT 1950 Sigmoidoscopy 1950 Influenza Vaccine (Season Ended) 2025 07/27/2019, 07/22/2019, 07/25/2018, Additional history exists Colorectal Cancer Screening 06/09/2026 FIT-DNA 06/09/2026 06/09/2023, 03/13/2020 Pneumococcal Vaccine: 65+ Years Completed 01/04/2019, 09/24/2015, 09/23/2015 Mammogram Discontinued 02/16/2022, 07/15, 03/06/2018, Additional history exists
--- OUTSIDE RECORDS SUMMARY | 2025-05-06 10:50 | XMS_ITS | Encounter Summary ---
Author Organization [facility] Address [address] [place] [address] Care Team Providers Care Railroad Police Name Role Phone Gideon Wright DO Primary Care Provider [phone] Reason for Referral * Other (Routine) - Closed Specialty Diagnoses / Procedures Referred By Contac t Referred To Contact Radiology Diagnoses Screening mammogram, encounter for Procedures AIDEE BEHZAD DIGITAL SCREEN BILATERAL Gideon Wright DO [address] [place] [address] Phone: tel: fax: Referral ID Status Reason Start Date Expiration Date Visits Re quested Visits Authorized [id number] Closed 01/04/2022 01/04/2023 1 1 Encounter Details Date Type Department Care Team (Latest Contact Info) Description 01/04/2022 Transcribe Orders [facility] Pre Access [address] [phone] Gideon Wright DO [address] [place] [address] Screening mammogram, encounter for (Primary Dx) Social History Tobacco Use Types Packs/Day Years [...] Description 03/07/2026 11:30 AM EDT Office Visit [facility] Part of [address] [place] [address] Antonietta Fountain, INSURANCE CHECKER - CORPORATE TRAVEL COORDINATOR [address] [place] [address] 1 year follow up documented as of this encounter Results * AIDEE BEHZAD DIGITAL SCREEN BILATERAL (02/16/2022 8:25 AM EDT) Anatomical Region Laterality Modality Bilateral Mammography 02/16/2022 8:30 AM EDT Impressions 02/16/2022 9:14 AM EDT No mammographic evidence of malignancy BIRADS: BIRADS - CATEGORY 1 Negative. Normal interval follow-up is recommended in 12 months. OVERALL ASSESSMENT - NEGATIVE A letter of notification will be sent to the patient regarding the results. The [place] [employer] recommends annual mammograms for [...] either breast. Pacer generator left chest stable Gideon Wright DO IMG MAMMOGRAPHY ORDERABLES Lesia l Result documented in this encounter Visit Diagnoses Diagnosis Screening mammogram, encounter for- Primary Screening mammogram, encounter for documented in this encounter Care Teams Railroad Police Relationship Specialty Start Date End Date Gideon Wright DO [address] [place] [address] PCP - General 09/21/13 documented as of this encounter
--- OUTSIDE RECORDS SUMMARY | 2025-05-06 10:50 | XMS_ITS | Encounter Summary ---
Author Organization [facility] Address [address] [place] [address] Care Team Providers Care Interface Control Officer Name Role Phone Gideon Wright Primary Care Provider [phone] Source Comments In the event this information is protected by the Federal Confidentiality of Alcohol and Drug AbusePatient Records regulations: The Federal rules restrict any use of the information to criminally investigate or prosecute any alcohol or drug abuse patient.[facility] Reason for Visit * Reason Onset Date Comments Refill Request 01/01/2025 Encounter Details Date Type Department Care Team (Late st Contact Info) Description 01/01/2025 Refill Cardiology [address] [place] [address] Karina Spicer APRN.STAPLE CUTTER [address] [id number] [place] [address] Refill Request Social History Tobacco Use Types Packs/Day [...] N ot on file 12/02/2022 Data from: https://www.neighborhoodatlas.medicine.[facility]/. Last address used for calculation [address] [...] hearing? Answer Date of Assessment Author No 09/28/2023 2:02 PM Rodrigue Zamarripa RN * Are you blind or do you have serious difficulty seeing, even when wearing glasses? Answer Date of Assessment Author No 09/28/2023 2:02 PM Rodrigue Zamarripa RN * Do you have serious difficulty walking or climbing stairs? Answer Date of Assessment Author No 09/28/2023 2:02 PM Rodrigue Zamarripa RN * Do you have difficulty dressing or bathing? Answer Date of Assessment Author No 09/28/2023 2:02 PM Rodrigue Zamarripa RN * Because of a physical, mental, or emotional condition, do you have difficulty doing errands alone such as visiting a doctor's office or shopping? Answer Date of Assessment Author No 09/28/2023 2:02 PM Rodrigue Zamarripa RN documented as of this encounter Mental Status * Because of a physical, mental, or emotional condition, do you have serious difficulty concentrating, remembering, or making decisions? Answer Entry Date Author No 09/28/2023 2:02 PM Rodrigue Zamarripa RN documented in this encounter Plan of Treatment Not on file documented as of this encounter Visit Diagnoses Not on filedocumented in this encounter Care Teams Interface Control Officer Relationship Specialty Start Date End Date Gideon Wright DO [address] [place] [address] PCP - General Internal Medicine 08/21/20 documented as of this encounter
--- OUTSIDE RECORDS SUMMARY | 2025-05-06 10:50 | XMS_ITS | Encounter Summary ---
Author Organization [facility] Address [address] [place] [address] Care Team Providers Care Cement Sack Breaker Name Role Phone Kyle Gideon Primary Care Provider [phone] Encounter Details Date Type Department Care Team (Late Contact Info) Description 02/02/2024 Orders Only [facility] [address] [place] [address] Provider, MD Hi Social History [...] Description 03/07/2026 11:30 AM EDT Office Visit [facility] [address] [place] [address] Antonietta Fountain, CAREER CENTER DIRECTOR - SODA TESTER [address] [place] [address] [address] [place] [address] 1 year follow up documented as of this encounter Procedures Procedure Name Priority Date/Time Associated Diagnosis Comments BASIC METABOLIC PANEL Routine 09/23/2023 2:09 PM EST BASIC METABOLIC PANEL Routine 09/23/2023 2:07 PM EST documented in this encounter Results * Basic Metabolic Panel (09/23/2023 2:09 PM EST) Blood BLOOD SPECIMEN / Unknown us Historical Provider MD CHEMISTRY ORDERABLES Lesia l Result * Basic Metabolic Panel (09/23/2023 2:07 PM EST) Blood BLOOD SPECIMEN / Unknown Historical Provider CHEMISTRY ORDERABLES Lesia l Result documented in this encounter Visit Diagnoses Not on filedocumented in this encounter Care Teams Cement Sack Breaker Relationship Specialty Start Date End Date Gideon Wright DO [address] [place] [address] PCP - General 09/21/13 documented as of this encounter
--- OUTSIDE RECORDS SUMMARY | 2025-05-06 10:50 | XMS_ITS | Clinical Summary ---
Author Organization [facility] Address [address] [place] [address] Care Team Providers Care Groover Runner Name Role Phone Unavailable Primary Care Provider Unavailabl e Social History Tobacco Use Types Packs/Day Years Used Date Smoking Tobacco: Never Assessed Comments Unknown Sex and Gender Information Value Date Recorded Sex Assigned at Not on file Legal Sex Female 9:54 PM EDT Gender Identity Not on file Sexual Orientation Not on file Plan of Treatment Not on file
--- OUTSIDE RECORDS SUMMARY | 2025-05-06 10:50 | XMS_ITS | Encounter Summary ---
Author Organization [facility] Address [address] [place] [address] Care Team Providers Care Tugboat Engineer Name Role Phone Gideon Wright Primary Care Provider [phone] Source Comments In the event this information is protected by the Federal Confidentiality of Alcohol and Drug AbusePatient Records regulations: The Federal rules restrict any use of the information to criminally investigate or prosecute any alcohol or drug abuse patient.[facility] Encounter Details Date Type Department Care Team (Late st Contact Info) Description 01/15/2021 Get Medical Advice Cardiology [address] [place] [address] Noah [place] [address] Upcoming Appointment Question Social History Tobacco Use Types Packs/Day [...] N ot on file 10/20/2020 Data from: https://www.neighborhoodatlas.medicine.[facility].edu/. Last address used for calculation Not on [...] have Coronavirus / COVID-19? No / Unsure 01/08/2021 4:25 PM EST documented as of this encounter Plan of Treatment Not on file documented as of this encounter Visit Diagnoses Not on filedocumented in this encounter Care Teams Tugboat Engineer Relationship Specialty Start Date End Date Gideon Wright DO [address] [place] [address] PCP - General Internal Medicine 08/21/20 documented as of this encounter
--- OUTSIDE RECORDS SUMMARY | 2025-05-06 10:50 | XMS_ITS | Referral Summary ---
Author Organization [facility] Address [address] [address] Care Team Providers Care District Manager Name Role Phone Unavailable Primary Care Provider [...]
--- OUTSIDE RECORDS SUMMARY | 2025-05-06 10:50 | XMS_ITS | Encounter Summary ---
Author Organization [facility] Address [address] [place] [address] Care Team Providers Care Armament Installer Name Role Phone Gideon Wright DO Primary Care Provider [phone] Reason for Referral * Imaging (Routine) - Closed Specialty Diagnoses / Procedures Referred By Contac t Referred To Contact Radiology Diagnoses Menopause Procedures DEXA BONE DENSITY AXIAL SKELETON Gideon Wright DO [address] [place] [address] Phone: tel: fax: Referral ID Status Reason Start Date Expiration Date Visits Re quested Visits Authorized [id number] Closed 01/23/2022 01/23/2023 1 1 Encounter Details Date Type Department Care Team (Latest Contact Info) Description 01/04/2022 Transcribe Orders [facility] Pre Access [address] [phone] Gideon Wright DO [address] [place] [address] Menopause (Primary Dx) Social History Tobacco Use Types [...] Description 03/07/2026 11:30 AM EDT Office Visit [facility] Part of [address] [place] [address] Antonietta Fountain, WASHER HAND - CUSTOMER SERVICE ADVOCATE [address] [place] [address] 1 year follow up documented as of this encounter Results * DEXA BONE DENSITY AXIAL SKELETON (02/16/2022 [...] lumbar spine and left hip on a [employer] system. COMPARISON: January 22, 2020 HISTORY: ORDERING [...] lumbar spine and left hip on a [employer] system. COMPARISON: January 22, 2020 HISTORY: ORDERING [...] DO IMG DEXA ORDERABLES Final Resul t documented in this encounter Visit Diagnoses Diagnosis Menopause- Primary Symptomatic menopausal or female climacteric states Menopause Symptomatic menopausal or female climacteric states documented in this encounter Care Teams Armament Installer Relationship Specialty Start Date End Date Gideon Wright DO [address] [place] [address] PCP - General 09/21/13 documented as of this encounter
[2025-05-06 11:52] LABS: Alanine Aminotransferase 35 U/L (14-59); Albumin Globulin Ratio 1.3; Albumin Level 3.8 g/dL (3.4-5.0); Alkaline Phosphatase 72 U/L (46-116); Anion Gap 11.5; Aspartate Amino Transferase 28 U/L (15-37); BUN Creatinine Ratio 20.9; Bilirubin Total 0.9 mg/dL (0.2-1.0); Calcium 9.1 mg/dL (8.5-10.1); Chloride 108 mmol/L (98-107); Chol HDL Ratio 2.3; Cholesterol 113 mg/dL (<=200); Estimated GFR (African America >60 (>=60 mL/min/1.73m^2); Estimated GFR (Non-African Ame >60 (>=60 mL/min/1.73m^2); Globulin 2.9 g/dL; Glucose 109 mg/dL (74-106); HDL Cholesterol 50 mg/dL (40-60); LDL Cholesterol Calculated 44.4 mg/dL; Potassium 4.5 mmol/L (3.5-5.1); Sodium 144 mmol/L (136-145); Total Protein 6.7 g/dL (6.4-8.2); Triglycerides 93 mg/dL (<=150); VLDL CHOLESTEROL 18.6 mg/dL
[2025-05-06 12:21] LABS: Basophils Absolute Auto 0.1 10^3/uL (0.0-0.1); Basophils Percent Auto 0.9 % (0.2-2.0); Eosinophils Absolute Auto 0.1 10^3/uL (0.0-0.7); Eosinophils Percent Auto 1.8 % (0.9-7.0); Hematocrit 42.3 % (36.0-48.0); Hemoglobin 14.7 g/dL (12.0-16.0); Immature Granulocytes Abs Auto 0.03 10^3/uL (0.00-0.03); Immature Granulocytes Pct Auto 0.5 % (0.0-0.5); Lymphocytes Absolute Auto 2.3 10^3/uL (1.2-3.8); Lymphocytes Percent Auto 41.8 % (20.5-60.0); Mean Corpuscular HGB Conc 34.8 g/dL (29.9-35.2); Mean Corpuscular Hemoglobin 32.5 pg (26.7-34.0); Mean Corpuscular Volume 93.4 fL (81.0-99.0); Mean Platelet Volume 12.3 fL (9.5-13.5); Monocytes Absolute Auto 0.5 10^3/uL (0.3-0.8); Monocytes Percent Auto 9.4 % (1.7-12.0); Neutrophils Absolute Auto 2.5 10^3/uL (1.4-6.5); Neutrophils Percent Auto 45.6 % (43.0-75.0); Platelet Count 169 10^3/uL (150-450); Red Blood Count 4.53 10^6/uL (4.20-5.40); Red Cell Distribution Width 12.4 % (11.0-15.0); White Blood Count 5.6 10^3/uL (4.0-11.0)
== END 2025-05-06 10:43 | disposition home or self-care (01) ==
LOC: LAB 10:46
PROVIDERS: PCP Internal Medicine; Visit Provider Internal Medicine
DX: E78.00 Pure hypercholesterolemia, unspecified (principal); I10 Essential (primary) hypertension; I42.1 Obstructive hypertrophic cardiomyopathy
CPT/HCPCS: 36415; 80053; 80061; 85025

== ENCOUNTER 2025-05-10 10:31 | Outpatient (OUT) | payer MEDICARE, SELFPAY ==
--- OUTSIDE RECORDS SUMMARY | 2025-05-10 10:42 | XMS_ITS | Referral Summary ---
Author Organization [facility] Address [address] [facility] [place] [address] Care Team Providers Care Senior Analyst Name Role Phone Unavailable Primary Care Provider [...]
--- OUTSIDE RECORDS SUMMARY | 2025-05-10 10:42 | XMS_ITS | Encounter Summary ---
Author Organization [facility] Address [address] [place] [address] Care Team Providers Care Chief Business Development Officer Name Role Phone Gideon Wright DO Primary Care Provider [phone] Reason for Referral * Other (Routine) - Closed Specialty Diagnoses / Procedures Referred By Contac t Referred To Contact Radiology Diagnoses Screening mammogram, encounter for Procedures AIDEE BEHZAD DIGITAL SCREEN BILATERAL Gideon Wright DO [address] [place] [address] Phone: tel: fax: Referral ID Status Reason Start Date Expiration Date Visits Re quested Visits Authorized [id number] Closed 01/04/2022 01/04/2023 1 1 Encounter Details Date Type Department Care Team (Latest Contact Info) Description 01/04/2022 Transcribe Orders [facility] Pre Access [address] [phone] Gideon Wright DO [address] [place] [address] Screening mammogram, encounter for (Primary [...] Description 03/07/2026 11:30 AM EDT Office Visit [facility] Part of [address] [place] [address] Antonietta Fountain, ENTOMOLOGY TEACHER - SPACE AND MISSILE OPERATIONS SPACELIFT [address] [place] [address] 1 year follow up documented as of [...] to the patient regarding the results. The [employer] recommends annual mammograms for [...] for documented in this encounter Care Teams Chief Business Development Officer Relationship Specialty Start Date End Date Gideon Wright DO [address] [place] [address] PCP - General 09/21/13 documented as of this encounter
--- OUTSIDE RECORDS SUMMARY | 2025-05-10 10:42 | XMS_ITS | Clinical Summary ---
Author Organization [facility] Address [address] [place] [address] Care Team Providers Care Brush Painter Name Role Phone Unavailable Primary Care Provider [...]
--- OUTSIDE RECORDS SUMMARY | 2025-05-10 10:42 | XMS_ITS | Encounter Summary ---
Author Organization [facility] Address [address] [place] [address] Care Team Providers Care Workers' Compensation Claims Examiner Name Role Phone Gideon Wright Primary Care Provider [phone] Source Comments In the event this information is protected by the Federal Confidentiality of Alcohol and Drug AbusePatient Records regulations: The Federal rules restrict any use of the information to criminally investigate or prosecute any alcohol or drug abuse patient.[facility] Encounter Details Date Type Department Care Team (Late st Contact Info) Description 06/05/2021 Patient Msg Cardiology [address] [place] [address] [place] [address] [place], [place] [phone] Appointment Cancellation Request Social History Tobacco Use [...] N ot on file 10/20/2020 Data from: https://www.neighborhoodatlas.[facility].edu/. Last address used for calculation Not [...] on filedocumented in this encounter Care Teams Workers' Compensation Claims Examiner Relationship Specialty [place] [address] [place] [address] PCP - General Internal Medicine 08/21/20 documented as of this encounter
--- OUTSIDE RECORDS SUMMARY | 2025-05-10 10:42 | XMS_ITS | Encounter Summary ---
Author Organization [facility] Address [address] [employer] [address] Care Team Providers Care Oil Treater Name Role Phone Gideon Wright DO Primary Care Provider [phone] Reason for Referral * Imaging (Routine) - Closed Specialty Diagnoses / Procedures Referred By Contac t Referred To Contact Radiology Diagnoses Menopause Procedures DEXA BONE DENSITY AXIAL SKELETON Gideon Wright DO [address] [place] [address] Phone: tel: fax: Referral ID Status Reason Start Date Expiration Date Visits Re quested Visits Authorized [id number] Closed 01/23/2022 01/23/2023 1 1 Encounter Details Date Type Department Care Team (Latest Contact Info) Description 01/04/2022 Transcribe Orders [facility] [address] [phone] Gideon Wright DO [address] [place] [address] Menopause (Primary Dx) Social History [...] Description 03/07/2026 11:30 AM EDT Office Visit [facility] Part of [address] [place] [address] Antonietta Fountain, PRESS LEADER - SIGNAL TIMER [address] [place] [address] 1 year follow up documented as of [...] lumbar spine and left hip on a [employer] system. COMPARISON: January 22, 2020 HISTORY: ORDERING [...] lumbar spine and left hip on a [employer] system. COMPARISON: January 22, 2020 HISTORY: ORDERING [...] states documented in this encounter Care Teams Oil Treater Relationship Specialty Start Date End Date Gideon Wright DO [address] [place] [address] PCP - General 09/21/13 documented as of this encounter
--- OUTSIDE RECORDS SUMMARY | 2025-05-10 10:42 | XMS_ITS | Encounter Summary ---
Author Organization [facility] Address [address] [place] [address] Care Team Providers Care Computer Numerical Control Grinder Name Role Phone Gideon Wright Primary Care Provider [phone] Source Comments In the event this information is protected by the Federal Confidentiality of Alcohol and Drug AbusePatient Records regulations: The Federal rules restrict any use of the information to criminally investigate or prosecute any alcohol or drug abuse patient.[facility] Encounter Details Date Type Department Care Team (Late st Contact Info) Description 10/23/2020 Patient Msg [facility] [address] [phone] Maggy Edward [facility] [address] [phone] requsted information Social History Tobacco Use Types [...] N ot on file 10/20/2020 Data from: https://www.neighborhoodatlas.medicine.[facility].edu/. Last address used for calculation Not [...] on filedocumented in this encounter Care Teams Computer Numerical Control Grinder Relationship Specialty Start Date End Date Gideon Wright DO [address] [place] [address] PCP - General Internal Medicine 08/21/20 documented as of this encounter
--- OUTSIDE RECORDS SUMMARY | 2025-05-10 10:42 | XMS_ITS | Encounter Summary ---
Author Organization [facility] Address [address] [place] [address] Care Team Providers Care Shoe Ironer Name Role Phone Gideon Wright Primary Care Provider [phone] Source Comments In the event this information is protected by the Federal Confidentiality of Alcohol and Drug AbusePatient Records regulations: The Federal rules restrict any use of the information to criminally investigate or prosecute any alcohol or drug abuse patient.[facility] Encounter Details Date Type Department Care Team (Late st Contact Info) Description 05/05/2023 Get Medical Advice Cardiology [address] [place], [place] [phone] Dick Nelson MD [address] [place] [address] Baclofen and Long QT Social History Tobacco [...] N ot on file 12/02/2022 Data from: https://www.neighborhoodatlas.medicine.[facility]/. Last address used for calculation [...] on filedocumented in this encounter Care Teams Shoe Ironer Relationship Specialty Start Date End Date Gideon Wright DO [address] [place] [address] PCP - General Internal Medicine 08/21/20 documented as of this encounter
--- OUTSIDE RECORDS SUMMARY | 2025-05-10 10:43 | XMS_ITS | Encounter Summary ---
Author Organization [facility] Address [address] [place] [address] Care Team Providers Care Manager Lpn Name Role Phone Gideon Wright Primary Care Provider [phone] Source Comments In the event this information is protected by the Federal Confidentiality of Alcohol and Drug AbusePatient Records regulations: The Federal rules restrict any use of the information to criminally investigate or prosecute any alcohol or drug abuse patient.[facility] Encounter Details Date Type Department Care Team (Late st Contact Info) Description 12/16/2020 Get Medical Advice Cardiology [address] [place] [address] Noah Thomas MD [address] [place], [place] [phone] RE: Non-Urgent Medical Question Social History Tobacco [...] N ot on file 10/20/2020 Data from: https://www.neighborhoodatlas.medicine.[facility].edu/. Last address used for calculation Not [...] filedocumented in this encounter Care Teams Manager Lpn Relationship Specialty Start Date End Date Gideon Wright DO [address] [place] [address] PCP - General Internal Medicine 08/21/20 documented as of this encounter
--- OUTSIDE RECORDS SUMMARY | 2025-05-10 10:43 | XMS_ITS | Clinical Summary ---
Author Organization [facility] Address [facility] [place] [address] Care Team Providers Care Oracle Hrms Developer Name Role Phone Gideon Wright Primary Care Provider [phone] Allergies Active Allergy Reactions Criticality Noted Date [...] reviewed. -PPM/ICD: Post-op full device check and church of ICD therapies complete. -HTN: (losartan at home): IV lasix & metoprolol -Post op afib evening of 06/27, converted with IV Amio. Continues in rate controlled afib Convert to po Amio., Start Eliquis per Dr. Saenz. Ok for DC today -CAD: ASA. BB. High intensity statin. -Dispo: from [place], [place]. PT recs home without needs. CTS [...] reviewed. -PPM/ICD: Post-op full device check and church of ICD therapies complete. -HTN: (losartan at home): IV lasix & metoprolol -Post op afib evening of 06/27, converted with IV Amio. Continues in rate controlled afib Convert to po Amio., Start Eliquis per Dr. Saenz. Ok for DC today -CAD: ASA. BB. High intensity statin. -Dispo: from [place], [place]. PT recs home without needs. CTS OPD and Cards appt requested Discharge Planning: Anticipated Discharge Date: Barriers to Discharge: Other: PMW Care Management Discharge Needs: Coronary artery disease invo lving [place] coronary artery of [place] heart without angina pectoris 06/23/2021 Overview (06/29/2021): History: Nonobstructive coronary artery disease Assessment: To be medically managed Plan: ASA. BB. Statin. ICD (implantable cardioverter-defibrillator) in place 06/23/2021 Overview (06/29/2021): History: PPM/ICD- hx of prolong QTC. BSX implant on 01/19/21 Assessment: Post-op full device check and church of ICD therapies complete. Plan: Local follow [...] Discharge planning issues 06/22/2021 Overview (06/29/2021): from [place], [place]. PT recs home without needs. NSVT [...] Department Care Team Description 03/17/2025 Refill [address]iology [address] [place], [place] [phone] Karina Spicer APRN.MEMBER CERTIFICATION MANAGER Refill Request 02/25/2025 2:45 PM EDT Office Visit Cardiology [address] [place] [address] Davy Obrien MD Primary hypertension; HOCM (hypertrophic obstructive cardiomyopathy) (HCC) 02/25/2025 12:30 PM EDT Procedure Cardiology [address] [place] [address] 02/25/2025 10:30 AM EDT Office Visit Cardiology [address] [place] [address] Mariza Coreas APRN.MEMBER CERTIFICATION MANAGER ICD (implantable cardioverter-defibril lator) in place (Primary Dx); Long Q-T syndrome; HOCM (hypertrophic obstructive cardiomyopathy) (HCC); Paroxysmal atrial fibrillation (HCC) 02/25/2025 9:45 AM EDT - 02/25/2025 11:59 PM EDT Hospital Encounter Cardiology [address] [place], [place] [phone] Pacemaker reprogramming/check [Z45.018] Discharge Disposition: Home 02/22/2025 Orders Only Cardiology [address] [place] [address] Davy Obrien MD EKG abnormalities (Primary Dx) 02/21/2025 Orders Only Cardiology [address] [place] [address] Jevon Can MD 02/21/2025 Travel from Last 3 Months Immunizations Immunization Administration Dates Next Due COVID-19 original vaccine, a ge 12+ yr, monovalent ([employer] - PURPLE TOP) 01/10/2021,12/19/2020 influenza (HD-IIV3) vaccine, [...] N ot on file 12/02/2022 Data from: https://www.neighborhoodatlas.medicine.[facility].edu/. Last address used for calculation 590 [...] 025 2:55 PM EDT) No Mariza Coreas APRN.MEMBER CERTIFICATION MANAGER Medical Devices Implanted Type Area Supervisor Special Education Device Identifier Shelf Expiration Date Model / Serial / Lot [id number] -08-2021 Implanted:03/0 06/2021 (Quantity not on file) ICD [employer] D142 INOGEN / [id number] / Intraocular Lens Intraocular Lens Bilatera l: Eye [id number] Ingevity + Mri [id number] Implanted:06/2021 (Quantity not on file) Lead [employer] 7841 INGEVITY + MRI / [id number] / [id number] [place] 4-Front S [id number] Implanted:06/2021 (Quantity not on file) Lead [employer] 0672 RELIANCE 4-FRONT S / [id number] / Pacemaker Pacemaker Chest Wall Procedures Procedure Name Priority Date/Time Associated Diagnosis Comments LVEF TRANSTHORACIC ECHO Routine 02/25/2025 1:33 PM EDT ECHO Routine 02/25/2025 1:33 PM EDT Primary hypertension HOCM (hypertrophic obstructive cardiomyopathy) (HCC) CARDIAC IMPLANTABLE DEVICE CHECK Routine 02/25/2025 10:19 AM EDT Pacemaker reprogramming/check ECG COMPLETE Routine 02/25/2025 9:59 AM EDT EKG abnormalities INTERROGATION EVAL REMOTE </90 D //NUT BLANKER OPERATOR LD DFB Routine 02/21/2025 1:22 AM EDT BASIC METABOLIC PANEL Routine 09/28/2023 6:45 AM EST from Last 3 Months or Most Recently Relevant to Health Maintenance Results * ECHO (02/25/2025 1:33 PM EDT) 02/25/2025 1:33 PM EDT [facility] - 02/25/2025 4:35 [...] * * Final * * * [facility] [place] - 02/25/2025 4:35 PM EDT Echocardiography Report: Transthoracic Echo [facility] [id number] Date of service: 02/25/2025 1:33:59 PM TECH Ordering physician: KARINA SPICER Indication: Hx; Myectomy, [...] ECHO Final Resu lt Performing Organization Address [facility]/ZIP Co de Phone Number HEART [facility] VASCULAR [place] [address] [place] [address] * LVEF TRANSTHORACIC ECHO (02/25/2025 1:33 PM EDT) LV Ejection Fraction 65 % [facility] Comment: (visual est.) EF > 54 An LV Ejection Fraction of > 50% is normal 02/25/2025 1:33 PM EDT Karina Spicer APRN.MEMBER CERTIFICATION MANAGER LVEF RESULTS Final Resu lt Performing Organization Address [facility] Co de Phone Number [facility] [address] [place] [address] * CARDIAC IMPLANTABLE DEVICE CHECK (02/25/2025 10:19 AM EDT) Date Time Interrogation Session [id number] MURJ CARDIAC Implantable Pulse Generator Supervisor Special Education [employer] MURJ CARDIAC Implantable Pulse Generator Type Defibrillator [facility] Implantable Pulse Generator Model D142 [facility] Implantable Pulse Generator Serial Number [id number] [facility] Im[facility] Pulse Generator Implant Date 20210119 [...] 0J,0J MURJ CARDIAC Zone Setting Status On [facility] Zone ID 3 [facility] Implantable Lead Supervisor Special Education [employer] [facility] Implantable Lead Model 7841 Ingevity + MRI [facility] Implantable Lead Location Right Atrium [facility] Implantable Lead Connection Status Connected [facility] Implantable Lead Serial Number [id number] [facility] Implantable Lead Implant Date 20210119 [facility] Implantable Lead Supervisor Special Education [employer] [facility] Implantable Lead Model 0672 [place] 4-Front S [facility] Implantable Lead Location Right Ventricle [facility] Implantable Lead Connection Status Connected [facility] Implantable Lead Serial Number [id number] [facility] Implantable Lead Implant Date 20210119 [facility] 02/25/2025 10:1 9 AM EDT Narrative [facility] - 03/04/2025 4:03 PM EDT In-Office Device Evaluation *Seeing SUPERVISOR METER REPAIR SHOP today* * Device type: Dual chamber pacemaker * Presenting Rhythm: /VS * Underlying Rhythm: SR * Battery Status: 10.5 years * Atrial Arrhythmias: There have been 0 atrial detections. * Ventricular Arrhythmias: There have been 0 ventricular detections. * Lead Measurements: Capture thresholds and sensing are appropriate. The pacing outputs maintain safety margin. Lead impedance trends are normal. * Other Diagnostics: AP<1%/MASTER CERTIFIED RV TECHNICIAN<1% * Programming Changes Made Today: none * Follow Up: Routine remotes and in office device checks NOTE TO PROVIDERS: Cardiac Implanted Devices Flowsheets contain detailed Programming and Evaluation data. Full Docket/PDF found below under Scanned Documents . Procedure Note Jevon Can MD - 03/04/2025 In-Office Device Evaluation *Seeing SUPERVISOR METER REPAIR SHOP today* * Device type: Dual chamber pacemaker * Presenting Rhythm: /VS * Underlying Rhythm: SR * Battery Status: 10.5 years * Atrial Arrhythmias: There have been 0 atrial detections. * Ventricular Arrhythmias: There have been 0 ventricular detections. * Lead Measurements: Capture thresholds and sensing are appropriate. Thepacing outputs maintain safety margin. Lead impedance trends are normal. * Other Diagnostics: AP<1%/MASTER CERTIFIED RV TECHNICIAN<1% * Programming Changes Made Today: none * Follow Up: Routine remotes and in office device checks NOTE TO PROVIDERS: Cardiac Implanted Devices Flowsheets contain detailedProgramming and Evaluation data. Full Docket/PDF found below under Scanned Documents . us [facility] Provider CARDIOLOGY F inal Result MURJ CARDIAC [...] ms [facility] Calculated P [place] 58 degrees [facility] Calculated R [place] -42 degrees [facility] Calculated T [place] 137 degrees [facility] 02/25/2025 9:59 AM EDT Impressions [facility] - 03/24/2025 10:08 PM EDT NORMAL SINUS RHYTHM POSSIBLE LEFT ATRIAL ENLARGEMENT LEFT AXIS DEVIATION COMPLETE LEFT BUNDLE BRANCH BLOCK ABNORMAL ECG Confirmed by VALORIE DÍAZ MD ([id number]) on 03/24/2025 10:08:47 PM Narrative [facility] - 03/24/2025 10:08 PM EDT NAME : YASMIN ORTIZ PID : [id number] : 1950 Gender : Female Race : ORD : [id number] Procedure Date : Feb 25 2025 09:59:29 Edit Date : Mar 24 2025 22:08:49 Diagnosis: NORMAL SINUS RHYTHM POSSIBLE LEFT ATRIAL ENLARGEMENT LEFT AXIS DEVIATION COMPLETE LEFT BUNDLE BRANCH BLOCK ABNORMAL ECG Confirmed by VALORIE DÍAZ MD ([id number]) on 03/24/2025 10:08:47 PM Test Reason : Location : 314 : J14 Overread By : VALORIE DÍAZ MD Edited By : VALORIE DÍAZ MD Referred By : DAVY OBRIEN Acquired by : LUZ OSHEA Davy Obrien MD EKG Final Result [facility] [address] [place] [address] * CARDIAC IMPLANTABLE DEVICE CHECK REMOTE (02/21/2025 1:22 AM EDT) Date Time Interrogation Session [id number] MURJ CARDIAC Type Interrogation Session Remote Scheduled MURJ CARDIAC Implantable Pulse Generator Supervisor Special Education [employer] MURJ CARDIAC Implantable Pulse Generator Type Defibrillator MURJ CARDIAC Implantable Pulse Generator Model D142 MURJ CARDIAC Implantable Pulse Generator Serial Number [id number] MURJ CARDIAC Implantable Pulse Generator Implant Date 20210119 MURJ CARDIAC Battery Remaining Percentage 100.00 MURJ CARDIAC Battery Remaining Longevity 126.0 MURJ CARDIAC Battery Status Beginning of Service MURJ CARDIAC Capacitor Charge Time 10.400 MURJ CARDIAC Mao Statistic RA Percent Paced 0.00 MURJ CARDIAC Mao Statistic RV Percent Paced 0.00 MURJ CARDIAC Atrial Tachy Statistic AT/AF [place] Percent 0.00 MURJ CARDIAC Lead Channel Sensing [...] CARDIAC Lead Channel Setting Sensing Polarity Bipolar [facility] Lead Channel Setting Sensing Polarity Bipolar [facility] Lead Channel Setting Pacing Polarity Bipolar [facility] Lead Channel Setting Pacing Polarity Bipolar [facility] Lead Channel Pacing Threshold Polarity Bipolar [facility] Lead Channel Pacing Threshold Polarity Bipolar MUR CARDIAC Zone Setting Type Category VF MURJ CARDIAC Rate 1 200 MURJ CARDIAC Therapies Burst,41J,41J,41J x 6 MUR CARDIAC Zone Setting Status On [facility] Zone ID 1 MURJ CARDIAC Zone Setting Type Category VT MURJ CARDIAC Rate 1 170 MURJ CARDIAC Zone Setting Status Monitor [facility] Zone ID 2 [facility] Implantable Lead Supervisor Special Education [employer] [facility] Implantable Lead Model 7841 Ingevity + MRI [facility] Implantable Lead Location Right Atrium [facility] Implantable Lead Connection Status Connected [facility] Implantable Lead Serial Number [id number] [facility] Implantable Lead Implant Date 20210119 [facility] Implantable Lead Supervisor Special Education [employer] [facility] Implantable Lead Model 0[address] [place] 4-Front S [facility] Implantable Lead Location Right Ventricle [facility] Implantable Lead Connection Status Connected [facility] Implantable Lead Serial Number [id number] [facility] Implantable Lead Implant Date 20210119 [facility] 02/21/2025 1:22 AM EDT Narrative [facility] - 02/24/2025 12:41 PM EDT Normal [...] - 99 mg/dL 09/28/2023 8:45 AM EST [facility] Comment: The [place] Diabetes Association (ADA) provides guidance for cutoff [...] Standards of Medical Care in Diabetes 2016, [place] [employer] Association. Diabetes Care. 2016.39(Suppl 1). BUN 12 7 - 21 mg/dL 09/28/2023 8:45 AM [facility] Creatinine 0.71 0.58 - 0.96 mg/dL 09/28/2023 8:45 AM [facility] Sodium 141 136 - 144 mmol/L 09/28/2023 8:45 AM EST [facility] Potassium 4.3 3.7 - 5.1 mmol/L 09/28/2023 8:45 AM [facility] Chloride 108(H) 97 - 105 mmol/L 09/28/2023 8:45 AM [facility] CO2 22 22 - 30 mmol/L 09/28/2023 8:45 AM [facility] Anion Gap 11 9 - 18 mmol/L 09/28/2023 8:45 AM [facility] Calcium, Total 9.3 8.5 - 10.2 mg/dL 09/28/2023 8:45 AM [facility] Estimated Glomerular Filtration Rate 90 >=60 mL/min/1.7 3m 09/28/2023 8:45 AM EST [facility] Comment:Estimated Glomerular Filtration Rate (eGFR) [...] us Perfecto Emerson MD LABORATORY Final Result [facility] [address] [address], from Last 3 Months or Most Recently Relevant to Health Maintenance Insurance MEDICARE [facility] Advance Directives * Full Code (Latest Code Status on File) Date Activated Date Inactivated Comments 09/25/2023 4:27 AM 09/28/2023 4:55 PM Question Answer Comments Full Code Order Discussed With: Patient Care Teams Oracle Hrms Developer Relationship Specialty Start Date End Date Gideon Wright DO [address] [place] [address] PCP - General Internal Medicine 08/21/20
--- OUTSIDE RECORDS SUMMARY | 2025-05-10 10:43 | XMS_ITS | Clinical Summary ---
Author Organization [facility] Address [address] [facility] [place] [address] Care Team Providers Care Computer Forensics Examiner Name Role Phone Unavailable Primary Care Provider [...]
--- OUTSIDE RECORDS SUMMARY | 2025-05-10 10:43 | XMS_ITS | Encounter Summary ---
Author Organization [facility] Address [address] [place] [address] Care Team Providers Care Bookseamer Blindstitch Name Role Phone Gideon Wright Primary Care Provider [phone] Source Comments In the event this information is protected by the Federal Confidentiality of Alcohol and Drug AbusePatient Records regulations: The Federal rules restrict any use of the information to criminally investigate or prosecute any alcohol or drug abuse patient.[facility] Reason for Visit * Reason Onset Date Comments Refill Request 01/01/2025 Encounter Details Date Type Department Care Team (Late st Contact Info) Description 01/01/2025 Refill Cardiology [address] [place] [address] Karina Spicer APRN.FINANCIAL COACH [address] [phone] [place] [address] Refill Request Social History Tobacco [...] N ot on file 12/02/2022 Data from: https://www.neighborhoodatlas.medicine.[facility]/. Last address used for calculation [address] [...] on filedocumented in this encounter Care Teams Bookseamer Blindstitch Relationship Specialty Start Date End Date Gideon Wright DO [address] [place] [address] PCP - General Internal Medicine 08/21/20 documented as of this encounter
--- OUTSIDE RECORDS SUMMARY | 2025-05-10 10:43 | XMS_ITS | Clinical Summary ---
Author Organization [facility] Address [address] [place] [address] Care Team Providers Care Dramatic Teacher Name Role Phone Kyle Gideon Primary Care Provider [phone] Allergies Active Allergy Reactions Criticality Noted Date [...] reviewed. -PPM/ICD: Post-op full device check and moravian of ICD therapies complete. -HTN: (losartan at home): IV lasix & metoprolol -Post op afib evening of 06/27, converted with IV Amio. Continues in rate controlled afib Convert to po Amio., Start Nahed per Dr. Saenz. Ok for DC today -CAD: ASA. BB. High intensity statin. -Dispo: from [place], [place]. PT recs home without needs. CTS [...] 01/19/21 Assessment: Post-op full device check and moravian of ICD therapies complete. Plan: Local follow [...] Department Care Team Description 03/11/2025 Results Follow-Up [facility] Part of [address] [place] [address] Sin Mercado PA-C 03/07/2025 4:06 PM EDT - 03/07/2025 11:59 PM EDT Hospital Encounter [address] [id number] Microhematuria; Dysuria Discharge Disposition: Home or Self Care 03/07/2025 2:30 PM EDT Office Visit [facility] Part [address] [place] [phone] Antonietta Fountain, PUBLIC INFORMATION SPECIALIST - DIRECTOR OF EMAIL MARKETING Frequent UTI (Primary Dx); Genitourinary syndrome of [...] Description 03/07/2026 11:30 AM EDT Office Visit [facility] Part of [address] [place] [address] Antonietta Fountain, PUBLIC INFORMATION SPECIALIST - DIRECTOR OF EMAIL MARKETING [address] [place] [address] 1 year follow up Health Maintenance Due [...] UA Yellow Yellow 03/07/2025 3:05 PM EDT [facility] Turbidity UA Clear Clear 03/07/2025 3:05 PM [facility] Glucose, Ur NEGATIVE NEGATIVE mg/dL 03/07/2025 3:05 PM [facility] Bilirubin, Urine NEGATIVE NEGATIVE 03/07/2025 3:05 PM [facility] Ketones, Urine NEGATIVE NEGATIVE mg/dL 03/07/2025 3:05 PM [facility] Specific [place], UA 1.020 1.010 - 1.020 03/07/2025 3:05 PM [facility] Urine Hgb NEGATIVE NEGATIVE 03/07/2025 3:05 PM [facility] pH, Urine 6.0 5.0 - 9.0 03/07/2025 3:05 PM [facility] Protein, UA NEGATIVE NEGATIVE mg/dL 03/07/2025 3:05 PM [facility] Urobilinogen, Urine Normal 0.0 - 1.0 EU/dL 03/07/2025 3:05 PM [facility] Nitrite, Urine NEGATIVE NEGATIVE 03/07/2025 3:05 PM [facility] Leukocyte Esterase, Urine TRACE(A) NEGATIVE 03/07/2025 3:05 PM [facility] WBC, UA 50 TO 100 0 - 5 /HPF 03/07/2025 3:05 PM [facility] RBC, UA None 0 - 2 /HPF 03/07/2025 3:05 PM [facility] Epithelial Cells, UA 5 TO 10 0 - 25 /HPF 03/07/2025 3:05 PM [facility] Bacteria, UA 2+(A) None 03/07/2025 3:05 PM [facility] Urine URINE SPECIMEN / Unknown 03/07/2025 3:05 PM EDT 03/07/2025 5:28 PM EDT us Antonietta Fountain PUBLIC INFORMATION SPECIALIST - DIRECTOR OF EMAIL MARKETING URINE ORDERABLES Fi nal Result [facility] [address] [phone] * Culture, Urine (03/07/2025 3:05 PM EDT) Specimen Description .VOIDED URINE 03/07/2025 3:05 PM EDT [facility] Special Requests Site: Urine 03/07/2025 3:05 PM EDT [facility] Culture NO SIGNIFICANT GROWTH 03/07/2025 3:05 PM EDT [facility] Red Tricycle Urine (Urine voided) 03/07/2025 3:05 PM EDT 03/07/2025 5:28 PM EDT Antonietta Fountain PUBLIC INFORMATION SPECIALIST - DIRECTOR OF EMAIL MARKETING MICROBIOLOGY - GENE RAL ORDERABLES Final Result Performing Organization Address [facility] Co de Phone Number [facility] [address] [phone] [phone] * AIDEE BEHZAD DIGITAL SCREEN BILATERAL (02/16/2022 8:25 AM EDT) Anatomical Region Laterality Modality Bilateral Mammography 02/16/2022 8:30 AM EDT Impressions 02/16/2022 9:14 AM EDT No mammographic evidence of malignancy BIRADS: BIRADS - CATEGORY 1 Negative. Normal interval follow-up is recommended in 12 months. OVERALL ASSESSMENT - NEGATIVE A letter of notification will be sent to the patient regarding the results. The [employer] recommends annual mammograms for [...] lumbar spine and left hip on a Construct system. COMPARISON: January 22, 2020 HISTORY: ORDERING [...] lumbar spine and left hip on a Construct system. COMPARISON: January 22, 2020 HISTORY: ORDERING [...] Recently Relevant to Health Maintenance Insurance MEDICARE [place] [id number] [employer] MEDICARE SUPP MEDICARE [employer] MEDICARE SUPP Care Teams Dramatic Teacher Relationship Specialty Start Date End Date Gideon Wright DO [address] [place] [address] PCP - General 09/21/13
--- OUTSIDE RECORDS SUMMARY | 2025-05-10 10:43 | XMS_ITS | Encounter Summary ---
Author Organization [facility] Address [address] [place] [address] Care Team Providers Care Centrifugal Casting Machine Tender Name Role Phone Kyle Gideon Primary Care Provider [phone] Encounter Details Date Type Department Care Team (Late Contact Info) Description 02/02/2024 Orders Only [facility] [address] [place] [address] Provider, MD Hi Social History [...] Description 03/07/2026 11:30 AM EDT Office Visit [facility] [address] [place] [address] Antonietta Fountain, WASHER CARCASS - QUALITY ASSURANCE/R&D LAB TECHNICIAN [address] [place] [address] [address] [place] [phone] 1 year follow up documented as of [...] on filedocumented in this encounter Care Teams Centrifugal Casting Machine Tender Relationship Specialty Start Date End Date Gideon Wright DO [address] [place] [address] PCP - General 09/21/13 documented as of this encounter
--- OUTSIDE RECORDS SUMMARY | 2025-05-10 10:43 | XMS_ITS | Encounter Summary ---
Author Organization [facility] Address [address] [place] [address] Care Team Providers Care Rand Butter Name Role Phone Gideon Wright Primary Care Provider [phone] Source Comments In the event this information is protected by the Federal Confidentiality of Alcohol and Drug AbusePatient Records regulations: The Federal rules restrict any use of the information to criminally investigate or prosecute any alcohol or drug abuse patient.[facility] Encounter Details Date Type Department Care Team (Late st Contact Info) Description 07/22/2022 Get Medical Advice Cardiology [address] [place], [place] [phone] Davy Garcia MD [address] [place], [place] [phone] Long QT - Medicine compatibility. Social History [...] N ot on file 10/20/2020 Data from: https://www.neighborhoodatlas.medicine.[facility]/. Last address used for calculation Not on [...] on filedocumented in this encounter Care Teams Rand Butter Relationship Specialty Start Date End Date Gideon Wright DO [address] [place] [address] PCP - General Internal Medicine 08/21/20 documented as of this encounter
--- OUTSIDE RECORDS SUMMARY | 2025-05-10 10:43 | XMS_ITS | Encounter Summary ---
Author Organization [facility] Address [address] [place] [address] Care Team Providers Care Cans Vacuum Tester Name Role Phone Gideon Wright Primary Care Provider [phone] Source Comments In the event this information is protected by the Federal Confidentiality of Alcohol and Drug AbusePatient Records regulations: The Federal rules restrict any use of the information to criminally investigate or prosecute any alcohol or drug abuse patient.[facility] Encounter Details Date Type Department Care Team (Late st Contact Info) Description 11/28/2020 Get Medical Advice Cardiology [address] [place] [address] Noah Thomas MD [address] [place], [place] [phone] RE: Visit Follow Up Question Social History [...] N ot on file 10/20/2020 Data from: https://www.neighborhoodatlas.medicine.[facility].edu/. Last address used for calculation Not on [...] on filedocumented in this encounter Care Teams Cans Vacuum Tester Relationship Specialty Start Date End Date Gideon Wright DO [address] [place] [address] PCP - General Internal Medicine 08/21/20 documented as of this encounter
--- OUTSIDE RECORDS SUMMARY | 2025-05-10 10:43 | XMS_ITS | Encounter Summary ---
Author Organization [facility] Address [address] [place] [address] Care Team Providers Care Credentialer Name Role Phone Gideon Wright Primary Care Provider [phone] Source Comments In the event this information is protected by the Federal Confidentiality of Alcohol and Drug AbusePatient Records regulations: The Federal rules restrict any use of the information to criminally investigate or prosecute any alcohol or drug abuse patient.[facility] Encounter Details Date Type Department Care Team (Late st Contact Info) Description 04/28/2021 Get Medical Advice Cardiology [address] [place] [phone] Davy Garcia MD [address] [place] [address] RE: Visit Follow Up Question [...] N ot on file 10/20/2020 Data from: https://www.neighborhoodatlas.medicine.[facility]/. Last address used for calculation Not [...] Date Author No 01/20/2021 10:53 AM Esteban Jacboo RN documented in this encounter Plan of Treatment Not on file documented as of this encounter Visit Diagnoses Not on filedocumented in this encounter Care Teams Credentialer Relationship Specialty Start Date End Date Gideon Wright DO [address] [place] [address] PCP - General Internal Medicine 08/21/20 documented as of this encounter
--- OUTSIDE RECORDS SUMMARY | 2025-05-10 10:43 | XMS_ITS | Encounter Summary ---
Author Organization [facility] Address [address] [place] [address] Care Team Providers Care Ecmo Specialist Name Role Phone KyleGideon Primary Care Provider [phone] Encounter Details Date Type Department Care Team (Late st Contact Info) Description 03/11/2025 Results Follow-Up [facility] [address] [place] [address] Sin Mercado PA-C [address] [place] [address] [address] [place] [address] Social History Tobacco Use Types [...] 03/07/2026 11:30 AM EDT Office Visit [facility] Part [address] [place] [address] Antonietta Fountain, NATIONAL VAN OWNER OPERATOR - POWER PLANT MECHANIC [address] [place] [address] 1 year follow up documented as of this encounter Visit Diagnoses Not on filedocumented in this encounter Care Teams Ecmo Specialist Relationship Specialty Start Date End Date Gideon Wright DO [address] [facility] [place] [phone] PCP - General 09/21/13 documented as of this encounter
--- OUTSIDE RECORDS SUMMARY | 2025-05-10 10:43 | XMS_ITS | Encounter Summary ---
Author Organization [facility] Address [address] [place] [address] Care Team Providers Care Senior Pricing Analyst Name Role Phone Gideon Wright Primary Care Provider [phone] Source Comments In the event this information is protected by the Federal Confidentiality of Alcohol and Drug AbusePatient Records regulations: The Federal rules restrict any use of the information to criminally investigate or prosecute any alcohol or drug abuse patient.[facility] Encounter Details Date Type Department Care Team (Late st Contact Info) Description 01/15/2021 Get Medical Advice Cardiology [address] [place] [address] Noah [place] [address] Upcoming Appointment Question Social History [...] N ot on file 10/20/2020 Data from: https://www.neighborhoodatlas.medicine.[facility].edu/. Last address used for calculation Not [...] on filedocumented in this encounter Care Teams Senior Pricing Analyst Relationship Specialty Start Date End Date Gideon Wright DO [address] [place] [address] PCP - General Internal Medicine 08/21/20 documented as of this encounter
--- OUTSIDE RECORDS SUMMARY | 2025-05-10 10:43 | XMS_ITS | Encounter Summary ---
Author Organization [facility] Address [address] [place] [address] Care Team Providers Care Senior Client Advisor Name Role Phone Kyle Gideon Primary Care Provider [phone] Encounter Details Date Type Department Care Team (Late Contact Info) Description 01/24/2024 Orders Only [facility] [address] [place] [address] Provider, MD Hi Social History [...] Description 03/07/2026 11:30 AM EDT Office Visit [facility] [place] [address] Antonietta Fountain, CORPORATE SAFETY MANAGER - TECHNICAL CUSTOMER SUPPORT SPECIALIST [address] [place] [address] [address] [place] [phone] 1 year follow up documented as of [...] filedocumented in this encounter Care Teams Senior Client Advisor Relationship Specialty Start Date End Date Gideon Wright DO [address] [place] [address] PCP - General 09/21/13 documented as of this encounter
--- NOTE | 2025-05-10 11:15 | MM_ITS ---
Patient Name: MECCA FUENTES MR#: [id number] : 1950 Exam Date: 05/10/2025 Ordering Doctor: DR NEO ADAMS D.O. RADIOLOGY REPORT PROCEDURE: MM TOMOSYNTHESIS SCREENING BI COMPARISON: MM TOMOSYNTHESIS SCREENING BI, 02/16/2022. MM TOMOSYNTHESIS SCREENING BI, 07/26/2019. INDICATIONS: Screening Calculator Name NCI Breast Cancer Risk Assessment Tool 5 Year Breast Cancer Risk 1.60% Lifetime Breast Cancer Risk 3.40% Personal Breast Cancer No Personal Ovarian Cancer No Treatments None Family Cancers Sister with esophageal cancer at age 58. LOCATION: [facility] BREAST COMPOSITION: The breasts are heterogeneously dense,which may obscure small masses. FINDINGS: DIAGNOSTIC CATEGORY 1--NEGATIVE. RIGHT BREAST: No significant suspicious finding. LEFT BREAST: No significant suspicious finding. RECOMMENDATIONS: ROUTINE MAMMOGRAM AND CLINICAL EVALUATION IN 12 MONTHS. PLEASE NOTE: A NORMAL MAMMOGRAM DOES NOT EXCLUDE THE POSSIBILITY OF BREAST CANCER. A CLINICALLY SUSPICIOUS PALPABLE LUMP SHOULD BE BIOPSIED. Dictated by: Esteban Ryder DO on 05/10/2025 at 14:17 Approved by: Esteban Ryder DO on 05/10/2025 at 14:18
== END 2025-05-10 10:32 | disposition home or self-care (01) ==
LOC: MAMMO 10:39
PROVIDERS: PCP Internal Medicine; Visit Provider Internal Medicine
DX: Z12.31 Encounter for screening mammogram for malignant neoplasm of breast (principal); Z80.8 Family history of malignant neoplasm of other organs or systems
CPT/HCPCS: 77063; 77067